=== PATIENT | male | born 1965 | race Caucasian/White ===

== ENCOUNTER 2023-07-19 09:02 | Outpatient (OUT) | payer BC, SELFPAY ==
--- NOTE | 2023-07-19 09:16 | XR_ITS ---
The [address] [address] Patient Name: DAVID GARZA MRN: [id number] date: 1965 Sex: M Assigned Patient Location: RAD Current Patient Location: RAD Accession/Order Number: [id number] Exam Date: 07/19/2023 09:25 Report Date: 07/19/2023 09:49 At the request of: ANIVAL WHEELER Procedure: XR chest 2V EXAM: XR chest 2V HISTORY: Cigarette Nicotine Dependence, Abnormal Lung Sounds COMPARISON: CTA chest dated 11/06/2022 and chest radiograph dated 11/06/2022. TECHNIQUE: PA and lateral views of the chest performed. FINDINGS: The trachea is normal. The heart size is normal. The cardiomediastinal silhouette and hilar shadows are stable and unremarkable. The lung volumes are normal. The lung casper are clear. There is no pneumothorax. Stable mild loss of height of the T7 and T8 vertebral bodies. There is no acute osseous abnormality. XR/XR chest 2V IMPRESSION: There is no acute cardiopulmonary process. Electronically authenticated by: KIN DUNLAP Date: 07/19/2023 09:49
== END 2023-07-19 09:03 | disposition home or self-care (01) ==
LOC: LAB 09:10 → RAD 09:12
PROVIDERS: PCP Internal Medicine; Visit Provider Internal Medicine
DX: R09.89 Other specified symptoms and signs involving the circulatory and respiratory systems (principal); F17.210 Nicotine dependence, cigarettes, uncomplicated
CPT/HCPCS: 71046

== ENCOUNTER 2024-09-06 22:20 | Emergency (ER) | payer BC, SELFPAY ==
[2024-09-06] VITALS (13 sets, daily range): BP systolic 108–162; BP diastolic 71–102; PULSE 99–107; O2SAT 94–98; BMI 36.6
--- NOTE | 2024-09-06 22:23 | ECG_ITS ---
[facility] Test Date: 2024-09-06 Pat Name: DAVID GARZA Department: Room: - Gender: Male It Intern: : 1965 Requested By: ANIVAL WHEELER Order Number: [id number] Reading MD: FUNMILAYO ANDERSON Measurements Intervals [place] Rate: 102 P: 52 AL: 166 QRS: 33 QRSD: 86 T: 52 QT: 328 QTc: 387 Interpretive Statements 1120 Sinus tachycardia 9140 abnormal rhythm ECG Compared to ECG 11/06/2022 09:19:31 Sinus rhythm no longer present Electronically Signed On 09-07-2024 7:01:19 EST by FUNMILAYO ANDERSON
--- OUTSIDE RECORDS SUMMARY | 2024-09-06 22:25 | XMS_ITS | CCD ---
Author Organization [facility] Care Team Providers Care Lens Block Gauger Name Role Phone HOUSE, DR CHAVEZ Primary Care Unavailable SHAIKH Aminta YAO Admitting Unavailable ISMAEL ., DR BUCKLEY Consulting Unavailable SHAIKH Aminta YAO Attending Unavailable PB, DR LAMIN Peña Consulting Unavailable ILIR ., CHAU Consulting Unavailable SHAIKH Aminta YAO Consulting Unavailable ANGELIQUE, DR CHAVEZ Attending Unavailable [place], DR CHAVEZ Consulting Unavailable [place], DR CHAVEZ Primary Care Unavailable [place], DR CHAVEZ Admitting Unavailable Tan Capps MD Primary Care Provider Tan Capps MD Unavailable [phone] SCOTT MERINO Primary Care Physician [phone] TAN CAPPS Attending Unavailable TAN CAPPS Attending Unavailable TAN CAPPS Attending Unavailable TAN CAPPS Attending Unavailable TAN CAPPS Attending Unavailable TAN CAPPS Attending Unavailable EVSNA MONROY Attending Unavailable Ashli Castellanos Referring Unavaila Ashli Jean Admitting Unavaila ble Ashli Castellanos Attending Unavaila ble Ashli Castellanos Attending Unavaila TAN Del Rosario Referring Unavailable Ashli Castellanos Attending Unavaila jeff Allergies Allergy Classification Reported Allergen(s) Allergy Type Date of Onset Reaction(s) Facility (2 sources) No Known Medication Allergies; Translations: [No Known Medication Allergies] Propensity to adverse reactions (disorder) [facility] Repository Medications Current Medications Medication Drug Class(es) Dates Sig (Normalized) Sig (Original) 0.25 MG, 0.5 MG Dose 3 ML semaglutide 0.68 MG/ML Pen Injector [Ozempic] (3 sources) Start: 05-15-2024 inject 0.5 mg by subcutaneous injection every week Ozempic 2 mg/3 mL (0.25 mg or 0.5 mg dose) subcutaneous solution 0.5 mg, SubCutaneous, qWeek, Refills(s) 0, Blood glucose Start Date: 05/15/24 Status: Ordered Start: 05-15-2024 Ozempic 2 mg/3 mL (0.25 mg or 0.5 mg dose) subcutaneous solution 3 mL, 0 Refill(s), INJECT 0.5MG SUBCUTANEOUSLY ONCE A WEEK, Refills(s) 0 Start Date: 05/15/24 Status: Ordered esomeprazole 40 mg delayed release oral capsule (10 sources) Proton Pump Inhibitor Start: 05-04-2024 End: 05-04-2025 take 1 capsule by mouth once daily Nexium 40 mg Cap-EC 40 mg = 1 cap(s), Oral, Daily, # 90 cap(s), Refills(s) 3, Pharmacy: [facility]/pharmacy #[id number], 177.8, cm, 05/18/24 8:14:00 EST, Height/Length Dosing, 109, kg, 05/18/24 8:14:00 EST, Weight Dosing Start Date: 05/18/24 Status: Ordered Fluocinonide (15 sources) Corticosteroid Start: 05-15-2024 fluocinonide Top 0.05% Crm 15 gram Refill(s) 0, 60 gm, 0 Refill(s), APPLY TO AFFECTED AREA TWICE A DAY Start Date: 05/15/24 Status: Ordered Start: 07-30-2023 End: 07-29-2024 fluocinonide (Lidex) 0.05 % cream Indications: Dermatitis Apply topically 2 (two) times a day 60 g 2 07/30/2023 07/29/2024 Active ibuprofen 800 mg oral tablet (3 sources) Nonsteroidal Anti-inflammatory Drug Start: 06-18-2024 End: 06-25-2024 take 1 tablet by mouth every eight hours at mealtime ibuprofen (IBU) 800 MG tablet Indications: Lip swelling Take 1 tablet (800 mg) by mouth every 8 (eight) hours if needed (Swelling) for up to 7 days Take with food 21 tablet 06/18/2024 06/25/2024 Active 24 hr metoprolol succinate 50 mg extended release oral tablet (15 sources) beta-Adrenergic Gato Start: 11-21-2023 take 1 tablet by mouth once daily metoprolol succinate 50 mg ER Tab 50 mg = 1 tab(s), Oral, Daily, Refills(s) 0, High blood pressure Start Date: 05/15/24 Status: Ordered nicotine 4 mg chewing gum (3 sources) Cholinergic Nicotinic Agonist Start: 11-25-2023 End: 02-26-2024 nicotine polacrilex (Nicorette) 4 MG gum Indications: Cigarette nicotine dependence without complication Chew 1 each (4 mg) if needed for smoking cessation 100 each 3 11/25/2023 02/26/2024 Discontinued ondansetron 4 mg oral tablet (4 sources) Serotonin-3 Receptor Antagonist Start: 05-15-2024 take 1 tablet by mouth every eight hours as needed for nausea ondansetron 4 mg Tab 4 mg = 1 tab(s), Oral, q8hr, PRN Nausea, Refills(s) 0 Start Date: 05/15/24 Status: Ordered Start: 05-15-2024 ondansetron 4 mg Tab 21 EA, 0 Refill(s), TAKE 1 TABLET BY MOUTH EVERY 8 HOURS NEEDED FOR NAUSEA OR FOR VOMITING FOR UP TO 7 DAYS, Refills(s) 0 Start Date: 05/15/24 Status: Ordered Start: 04-23-2024 End: 04-30-2024 take 1 tablet by mouth every eight hours for nausea ondansetron (Zofran) 4 MG tablet Indications: Nausea and vomiting, unspecified vomiting type Take 1 tablet (4 mg) by mouth every 8 (eight) hours if needed for nausea or vomiting for up to 7 days 21 tablet 04/23/2024 04/30/2024 Active polyethylene glycol 3350 610043 mg / potassium chloride 1480 mg / sodium bicarbonate 5720 mg / sodium chloride 49513 mg powder for oral solution (1 source) Osmotic Laxative Start: 05-18-2024 take 1 dose by mouth once daily NuLYTELY Fallon oral powder for reconstitution See Instructions, 1 EA, Refill(s) 0, 240 mL Oral Daily, [facility]/pharmacy #[id number], 177.8, cm, 05/18/24 8:14:00 EST, Height/Length Dosing, 109, kg, 05/18/24 8:14:00 EST, Weight Dosing Start Date: 05/18/24 Status: Ordered Semaglutide,0.25 or 0.5MG/DOS, (Ozempic, 0.25 or 0.5 MG/DOSE,) 2 MG/3ML solution pen-injector (12 sources) Start: 05-11-2024 Semaglutide,0. 25 or 0.5MG/DOS, (Ozempic, 0.25 or 0.5 MG/DOSE,) 2 MG/3ML solution pen-injector Indications: Type 2 diabetes mellitus without complication, without long-term current use of insulin (CMS/HCC) INJECT 0.5 MG UNDER THE SKIN 1 (ONE) TIME PER WEEK 9 mL 3 05/11/2024 Active Start: 01-28-2024 Semaglutide,0. 25 or 0.5MG/DOS, (Ozempic, 0.25 or 0.5 MG/DOSE,) 2 MG/3ML solution pen-injector Indications: Type 2 diabetes mellitus without complication, without long-term current use of insulin (CMS/HCC) INJECT 0.5 MG UNDER THE SKIN 1 (ONE) TIME PER WEEK 3 mL 3 01/28/2024 Active Completed/Discontinued Medications Medication Drug Class(es) Dates Sig (Normalized) Sig (Original) amitriptyline hydrochloride 50 mg oral tablet (15 sources) Tricyclic Antidepressant Start: 05-15-2024 amitriptyline 50 mg Tab 50 mg = 1 tab(s), Oral, Once a day (at bedtime), 180 EA, 0 Refill(s), TAKE 2 TABLETS BY MOUTH EVERY DAY AT BEDTIME, Refills(s) 0, Headache Start Date: 05/15/24 Status: Ordered take 2 tablets by mouth at bedti nc amitriptyline (Elavil) 50 MG tablet Take 100 mg by mouth at bedtime Active Problems Active Problems Problem Classification Problem Date Documented Date Episodic/Chronic Abdominal pain (13 sources) Epigastric pain; Translations: [Epigastric pain] Onset: 05-15-2024 05-04-2024 Episodic Acute bronchitis (1 source) Acute bronchitis, unspecified; Translations: [ACUTE BRONCHITIS UNSPECIFIED] Onset: 11-14-2022 Episodic Cardiac dysrhythmias (1 source) Tachycardia, unspecified; Translations: [TACHYCARDIA UNSPECIFIED] Onset: 11-14-2022 Episodic Cataract (9 sources) Bilateral age-related nuclear cataracts; Translations: [Age-related nuclear cataract, bilateral] Onset: 03-17-2024 03-17-2024 Chronic Chronic obstructive pulmonary disease and bronchiectasis (10 sources) Chronic obstructive pulmonary disease with (acute) exacerbation; Translations: [Chronic obstructive pulmonary disease with (acute) lower respiratory infection] Onset: 11-06-2022 Chronic Diabetes mellitus without complication (16 sources) Type 2 diabetes mellitus without complication; Translations: [Type 2 diabetes mellitus without complications] Onset: 07-25-2023 07-25-2023 Chronic Diseases of white blood cells (1 source) Elevated white blood cell count, unspecified; Translations: [ELEVATED WHITE BLOOD CELL COUNT UNS] Onset: 11-14-2022 Chronic Diverticulosis and diverticulitis (14 sources) Diverticulitis of colon; Translations: [Diverticulitis of large intestine without perforation or abscess without bleeding] Onset: 12-11-2012 07-11-2023 Chronic Esophageal disorders (2 sources) Gastroesophageal reflux disease without esophagitis; Translations: [Gastro-esophageal reflux disease without esophagitis] Onset: 05-18-2024 Chronic Essential hypertension (20 sources) Essential (primary) hypertension; Translations: [Essential hypertension] Onset: 11-14-2022 10-23-2023 Chronic Miscellaneous mental health disorders (12 sources) Primary insomnia; Translations: [Primary insomnia] Onset: 07-11-2023 07-11-2023 Chronic Nausea and vomiting (1 source) Nausea and vomiting; Translations: [Nausea with vomiting, unspecified] 04-23-2024 Episodic Other aftercare (1 source) Other halfway (current) drug therapy; Translations: [OTH SERVICE ENGINEER CURRENT DRUG THERAPY] Onset: 11-14-2022 Episodic Other and unspecified benign neoplasm (2 sources) Polyp of colon; Translations: [Polyp of colon] Onset: 07-15-2024 Episodic Other liver diseases (2 sources) Steatosis of liver; Translations: [Fatty (change of) liver, not elsewhere classified] Onset: 07-20-2024 Chronic Other nervous system disorders (1 source) Chronic pain; Translations: [Other chronic pain] Onset: 06-26-2024 Chronic Other nutritional; endocrine; and metabolic disorders (5 sources) Obesity caused by energy imbalance; Translations: [Class 1 obesity due to excess calories with serious comorbidity and body mass index (BMI) of 34.0 to 34.9 in adult] Onset: 06-18-2024 06-18-2024 Chronic Other skin disorders (2 sources) Lip swelling; Translations: [Localized swelling, mass and lump, head] 06-18-2024 Episodic Residual codes; unclassified (2 sources) Acquired absence of organ; Translations: [Acquired absence of other specified parts of digestive tract] Onset: 05-15-2024 Episodic Residual codes; unclassified (6 sources) History of partial resection of colon; Translations: [Acquired absence of other specified parts of digestive tract] Onset: 06-18-2024 05-15-2024 Episodic Residual codes; unclassified (8 sources) Tobacco user; Translations: [Tobacco use] Onset: 06-18-2024 05-18-2024 Episodic Residual codes; unclassified (1 source) Family history of malignant neoplasm of digestive organ; Translations: [Family history of malignant neoplasm of digestive organs] Onset: 06-26-2024 Episodic Respiratory failure; insufficiency; arrest (adult) (1 source) Dependence on supplemental oxygen; Translations: [DEPENDENCE ON SUPPLEMENTAL OXYGEN] Onset: 11-14-2022 Chronic Respiratory failure; insufficiency; arrest (adult) (1 source) Acute respiratory failure with hypoxia; Translations: [ACUTE RESPIRATORY FAIL W/HYPOXIA] Onset: 11-14-2022 Episodic Superficial injury; contusion (3 sources) Tick bite; Translations: [Insect bite (nonvenomous), unspecified lower leg, initial encounter] 06-18-2024 Episodic Unclassified (5 sources) Patient encounter status 05-04-2024 Past or Other Problems Problem Classification Problem Date Documented Da te Episodic/Chronic Blindness and vision defects (9 sources) Bilateral myopia of eyes; Translations: [Myopia, bilateral] Onset: 03-17-2024 03-17-2024 Episodic Other connective tissue disease (12 sources) Muscle pain; Translations: [Myalgia, unspecified site] Onset: 11-05-2023 11-05-2023 Episodic Other gastrointestinal disorders (12 sources) Chronic constipation; Translations: [Other constipation] Onset: 07-11-2023 07-11-2023 Episodic Other nutritional; endocrine; and metabolic disorders (12 sources) Drug-induced obesity; Translations: [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 36.9 in adult] Onset: 10-23-2023 Resolved: 06-18-2024 10-23-2023 Chronic Other screening for suspected conditions (not mental disorders or infectious disease) (6 sources) Patient encounter status; Translations: [Encounter for screening for malignant neoplasm of colon] Onset: 05-15-2024 Resolved: 06-18-2024 05-04-2024 Episodic Substance-related disorders (15 sources) Nicotine dependence, cigarettes, uncomplicated; Translations: [Tobacco dependence caused by cigarettes] Onset: 11-14-2022 Resolved: 06-18-2024 07-11-2023 Chronic Results Test Name Value Interpretation Reference Range Facility Reminderson 08-18-2024 Reminders Reminders From: Kandice Alfaro To: Nicki Mendoza Michelle L; Sent: 08/18/2024 14:35:22 EST Show up: 10/16/2024 15:35:00 EDT Subject: Ambulatory Reminder Due Date/Time: 11/15/2024 15:35:00 EDT Reminder Please call the patient and to schedule colonoscopy in November for 6 months follow-up colonoscopy with Dr Castellanos. Normal [facility] Ambulatory Visit Summaryon 0 07-20-2024 Ambulatory Visit Summary Ambulatory Visit Summary DAVID RAMIREZ :1965 Visit Date:07/20/2024 Ambulatory Visit Instructions Your Diagnosis Colon polyps Left sided abdominal pain History of partial colectomy Pardo esophagus Fatty liver Your Care Team Attending Physician - Jasmin KINSEY, Ashli Hinojosa Primary Care Physician - SCOTT MERINO DO This Is Your Medications List Contact prescribing physician if questions or concerns amitriptyline (amitriptyline 50 mg Tab) esomeprazole (Nexium 40 mg Cap-EC) fluocinonide topical (fluocinonide Top 0.05% Crm 15 gram) metoprolol (metoprolol succinate 50 mg ER Tab) ondansetron (ondansetron 4 mg Tab) semaglutide (Ozempic 2 mg/3 mL (0.25 mg or 0.5 mg dose) subcutaneous solution) Procedures Performed Colonoscopy (06/26/2024), EGD - esophagogastroduodenoscopy (06/26/2024), Colonoscopy, Partial colectomy. Discharge Vitals Heart Rate (Peripheral) 89 Blood Pressure 138/88 Height 70 in Height 177 cm Weight 240.745 lb Weight 109.2 kg BMI 34.86 Medications What How Much When Instructions Unchanged amitriptyline (amitriptyline 50 mg Tab) 1 Tablets By Mouth Once a day (at bedtime) 180 EA, 0 Refill(s), TAKE 2 TABLETS BY MOUTH EVERY DAY AT BEDTIME Contact prescribing physician if questions or concerns Unchanged esomeprazole (Nexium 40 mg Cap-EC) 1 Capsules By Mouth Every day Contact prescribing physician if questions or concerns Unchanged fluocinonide topical (fluocinonide Top 0.05% Crm 15 gram) 60 gm, 0 Refill(s), APPLY TO AFFECTED AREA TWICE A DAY Contact prescribing physician if questions or concerns Unchanged metoprolol (metoprolol succinate 50 mg ER Tab) 1 Tablets By Mouth Every day Contact prescribing physician if questions or concerns Unchanged ondansetron (ondansetron 4 mg Tab) 1 Tablets By Mouth Every 8 hours as needed for Nausea Contact prescribing physician if questions or concerns Unchanged semaglutide (Ozempic 2 mg/ 3 mL (0.25 mg or 0.5 mg dose) subcutaneous solution) 0.5 Milligram Subcutaneous Every week Contact prescribing physician if questions or concerns Allergies No Known Allergies No Known Medication Allergies Problems Ongoing - Any problem that you are currently receiving treatment for. Chronic obstructive pulmonary disease Colon polyps Fatty liver History of partial colectomy Hypertension Left sided abdominal pain Screen for colon cancer Patient Survey You may receive a survey via text or e-mail asking about your office visit. Please share your experience with us by completing your survey. We appreciate your feedback and thank you for choosing us for your care. [facility] Gastroenterology Office/Clin ic Noteon 07-20-2024 Gastroenterology Office/Clinic Note Gastroenterology Office/Clinic Note Chief Complaint Review Fibroscan, EGD and colonoscopy results. HPI Staff Patient is a(n) 59 year old male who presents today for a follow-up to Fibroscan, EGD & Colonoscopy on 06/26/24. Need to schedule repeat colon in 6 months. Any blood thinners? no Any GLP-1 agonists? Ozempic Last visit 05/18/24 w/Dr. Castellanos: Assessment/Plan 1. Left sided abdominal pain (R10.9: Unspecified abdominal pain) Postprandial, started Nexium recently, helped some, proceed with EGD, avoid NSAIDs, encouraged to quit smoking 2. Screen for colon cancer (Z12.11: Encounter for screening for malignant neoplasm of colon) Strong family history for colon cancer in brother and mother, will proceed with colonoscopy for surveillance, has constipation, discussed 2-day prep with MiraLAX and Nulytely 3. History of partial colectomy (Z90.49: Acquired absence of other specified parts of digestive tract) Due to diverticulitis 2012, records not available History of Present Illness Reviewed HPI collected by staff Review of Systems PHQ Score Initial Depression Screen Score: 0 SCORE All systems reviewed, negative; Except for above Physical Exam Vitals & Measurements HR: 89(Peripheral) BP: 138/88 HT: 70 in HT: 177 cm WT: 109.2 kg WT: 240.745 lb BMI: 34.86 General: in Nad Abdomen: Soft, NTND Procedure EGD: Impression and Plan 1. Esophageal landmarks identified, small hiatal hernia noted. Nonobstructive Schatzki ring in the distal esophagus, very mild, no dilation done given no dysphagia 2. 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 Minimal patchy erythema in the stomach, random biopsies were taken to rule out H. pylori 4. Normal examined duodenum Colonoscopy: Impression and Plan 1. Small internal hemorrhoids 2. 2 cm sessile polyp in the rectum at 50 cm from the anal verge, resected using EMR technique, injected 5 ml of Everlift and resected using hot snare in a piecemeal fashion. I also burned the edges to decrease the risk of recurrence. 2 clips were placed to prevent delayed bleeding 3. Evidence of evidence of surgery in the sigmoid colon status post end-to-side anastomosis, healthy looking widely open 4. 2 small sessile polyps in the transverse colon, 3-5 mm in size, resected with cold snare completely and retrieved 5. Otherwise normal colonic mucosa Recommendations: Repeat colonoscopy:: In 6 months. Pathology: Final Diagnosis ( Auth (Verified) ) A: ESOPHAGUS, BIOPSY: ??? COLUMNAR CELL MUCOSA WITH INTESTINAL METAPLASIA. ??? NO DYSPLASIA IDENTIFIED. B: STOMACH, BIOPSY: ??? GASTRIC MUCOSA WITH MILD CHRONIC INFLAMMATION IN LAMINA PROPRIA. ??? NO INTESTINAL METAPLASIA. ??? NO H. PYLORI MICROORGANISMS IDENTIFIED WITH IMMUNOSTAIN. C: POLYPS, TRANSVERSE COLON, POLYPECTOMY: ??? TUBULAR ADENOMA. ??? HYPERPLASTIC POLYP. D: POLYP, RECTUM, POLYPECTOMY: ??? TUBULOVILLOUS ADENOMA. Assessment/Plan 1. Colon polyps (K63.5: Polyp of colon) Had TV removed in piecemeal fashion. Repeat colonoscopy in 6 months. Strong Fhx. 2. Left sided abdominal pain (R10.9: Unspecified abdominal pain) 3. History of partial colectomy (Z90.49: Acquired absence of other specified parts of digestive tract) Due to diverticulitis 2012. 4. 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 Continue with Nexium. 5. Fatty liver (K76.0: Fatty (change of) liver, not elsewhere classified) S3 F0/F1 Repeat Fibroscan in 1 year IMallorie, personally scribed for Ashli Castellanos on 07/20/2024 08:34:27. . Documentation recorded by Mary Paul, accurately reflects the services I performed and decisions made by me. Ashli Castellanos MD Follow-up No qualifying data available Problem List/Past Medical History Ongoing Chronic obstructive pulmonary disease Colon polyps Fatty liver History of partial colectomy Hypertension Left sided abdominal pain Screen for colon cancer Historical No qualifying data Procedure/Surgical History Colonoscopy (06/26/2024), EGD - esophagogastroduodenoscopy (06/26/2024), Colonoscopy, Partial colectomy. Medications amitriptyline 50 mg Tab, 50 mg= 1 tab(s), Oral, Once a day (at bedtime) fluocinonide Top 0.05% Crm 15 gram, Not taking metoprolol succinate 50 mg ER Tab, 50 mg= 1 tab(s), Oral, Daily Nexium 40 mg Cap-EC, 40 mg= 1 cap(s), Oral, Daily, 3 refills ondansetron 4 mg Tab, 4 mg= 1 tab(s), Oral, q8hr, PRN, Not taking Ozempic 2 mg/3 mL (0.25 mg or 0.5 mg dose) subcutaneous solution, 0.5 mg, SubCutaneous, qWeek Allergies No Known Allergies No Known Medication Allergies Social History Alcohol Past. Liquor. 3-5 times per week., 05/18/2024 Substance Abuse Never., 05/18/2024 Tobacco 10 or more cigarettes (1/2 pack or more)/day in last 30 days (more content not included)... [facility] Comment on above: Result Comment: Elec tronically Signed By: Ashli Castellanos MD\.br\Date and Time Signed: 07/20/24 08:37 EST\.br\Electronically Co-Signed By: Mallorie Paul MA\.br\Date and Time Co-Signed: 07/20/24 08:36 EST Reminderson 07-20-2024 Reminders Reminders From: Jennifer Salazar To: [facility] - Reminders/Recalls; Sent: 07/20/2024 10:48:47 EST Show up: 05/08/2029 10:48:00 EDT Subject: Ambulatory Reminder Due Date/Time: 06/07/2029 10:48:00 EST Reminder/Recall Addendum by Jennifer Salazar on July 20, 2024 10:47:44 EST 06/26/2029 From: Ashli Castellanos MD To: Jennifer Salazar; Sent: 07/20/2024 08:34:22 EST Subject: General Message Caller Name: DAVID RAMIREZ; Caller Number: , M Repeat EGD in 5 years [facility] Reminderson 07-15-2024 Reminders Reminders From: Oksana Barr I To: [facility] - Reminders/Recalls; Sent: 07/15/2024 09:49:56 EST Show up: 11/05/2024 09:49:00 EDT Subject: Colonoscopy recall Due Date/Time: 12/25/2024 09:49:00 EDT Reminder/Recall [address] Castellanos 06/26/24 Normal [facility] Surgical Pathology Reporton 07-03-2024 Surgical Pathology Report [facility] [address] [place] [address]- Surgical Pathology Report Collected Date/Time: 06/26/2024 09:59 EST Pathologist: Bala KINSEY PhD, Anthony Carpenter Date/Time: 06/26/2024 11:29 EST Jasmin KINSEY, Ashli Castellanos MD, Ashli Salinas Surgical Pathology Report - 07/03/2024 11:22 EST - Auth (Verified) Final Diagnosis A: ESOPHAGUS, BIOPSY: - COLUMNAR CELL MUCOSA WITH INTESTINAL METAPLASIA. - NO DYSPLASIA IDENTIFIED. B: STOMACH, BIOPSY: - GASTRIC MUCOSA WITH MILD CHRONIC INFLAMMATION IN LAMINA PROPRIA. - NO INTESTINAL METAPLASIA. - NO H. PYLORI MICROORGANISMS IDENTIFIED WITH IMMUNOSTAIN. C: POLYPS, TRANSVERSE COLON, POLYPECTOMY: - TUBULAR ADENOMA. - HYPERPLASTIC POLYP. D: POLYP, RECTUM, POLYPECTOMY: - TUBULOVILLOUS ADENOMA. (Electronic Signature) Anthony Mckenna MD PhD 07/03/2024 11:22 Clinical Information Left sided abdominal pain, chronic GERD, screening for colon cancer, history of partial colectomy. Pre-Op Diagnosis: Left sided abdominal pain, chronic GERD, screening for colon cancer, history of partial colectomy. Procedure: EGD, colonoscopy Post-Op Diagnosis: 1. Esophageal landmarks identified, small hiatal hernia noted. Nonobstructive Schatzki ring in the distal esophagus, very mild, no dilation done given no dysphagia 2. 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 Minimal patchy erythema in the stomach, random biopsies were taken to rule out H. pylori 4. Normal examined duodenum 5. Small internal hemorrhoids 6. 2 cm sessile polyp in the rectum at 50 cm from the anal verge, resected using EMR technique, injected 5 ml of Everlift and resected using hot snare in a piecemeal fashion. I also burned the edges to decrease the risk of recurrence. 2 clips were placed to prevent delayed bleeding 7. Evidence of evidence of surgery in the sigmoid colon status post end-to-side anastomosis, healthy looking widely open 8. 2 small sessile polyps in the transverse colon, 3-5 mm in size, resected with cold snare completely and retrieved 9. Otherwise normal colonic mucosa Specimen(s) Received A.Esophagus biopsy B.Gastric biopsy C.Transverse colon polyps D.Rectal colon polyp Surgical Pathology Report Collected Date/Time: 06/26/2024 09:59 EST Pathologist: Bala KINSEY PhD, Anthony Pro Received Date/Time: 06/26/2024 11:29 EST Jasmin KINSEY, Ashli Castellanos MD, Ashli Hinojosa Gross Description A: Received in formalin labeled with patient name, number, and esophagus biopsy is a single fragment of galindo/pink tissue measuring 0.2 x 0.2 x 0.1 cm. Specimen is entirely submitted in one cassette. B: Received in formalin labeled with patient name, number, and gastric biopsy is a single fragment of galindo/pink tissue measuring 0.3 x 0.2 x 0.1 cm. Specimen is entirely submitted in one cassette. C: Received in formalin labeled with patient name, number, and transverse colon polyps are two fragments of galindo/pink tissue measuring 0.1 and 0.3 cm. Specimen is entirely submitted in one cassette. D: Received in formalin labeled with patient name, number, and rectal colon polyp is a pink polypoid tissue measuring 1 x 1 x 1 cm. The apparent point of attachment is inked red. The polyp is trisected and entirely submitted in one cassette. (DC) DC:[facility] Microscopic Description Microscopic examination performed unless gross only specified. The use of one or more reagents in the above tests is regulated as an analyte specific reagent (ASR). The test or tests are ordered following initial H&E microscopic examination. The performance characteristics were determined by the Laboratory of [facility] Surgical Pathology. They have not been cleared or approved by the US Food and Drug Administration. The FDA has determined that such clearance or approval is not necessary. These tests are used for clinical purposes. They should not be regarded as investigational or for research. Appropriate positive and negative controls are performed and are acceptable. [facility] Comment on above: Performed By: #### [id number] #### [facility] [address] [place] [address] Main OR Intraoperative Recor don 06-29-2024 Main OR Intraoperative Record Main OR Intraoperative Record IntraOp Document Type FT Summary Primary Physician: Ashli Castellanos MD Finalized Date/Time: 06/29/24 10:36:59 Pt. Name: DAVID RAMIREZ/Sex: 1965 Male Med Rec #: [id number] Physician: Ashli Castellanos MD Financial #: [id number] Pt. Type: O Room/Bed: / Admit/Disch: 06/26/24 07:45:11 - 06/26/24 23:59:59 Institution: Case Times FT Entry 1 Patient Times In Room 06/26/24 09:50:00 Out Room 06/26/24 10:32:00 Procedure Times Start 06/26/24 09:55:00 Stop 06/26/24 10:29:00 Anesthesia Times Start 06/26/24 09:50:00 Stop 06/26/24 10:32:00 Time at [place] 06/26/24 10:09:00 Last Modified By: Cade COTTRELL, Shraon Witt 06/26/24 10:30:53 General Comments: EGD end time at 1001./CONNIERN Colonoscopy start time at 1003./CONNIERN 06/29/24 Chart opened to review and send charges [facility]FA Case Attendance FT Entry 1 Entry 2 Entry 3 Case Attendee Phillip Platt RN, Shelia Suarez Role Performed Anesthesiologist Teasel Gig Operator - Primary Scrub - Primary Passenger Flagman Time In 06/26/24 09:50:00 06/26/24 09:50:00 06/26/24 09:50:00 Time Out 06/26/24 10:32:00 06/26/24 10:32:00 06/26/24 10:32:00 Procedure EGD AND COLONOSCOPY(.) EGD AND COLONOSCOPY(.) EGD AND COLONOSCOPY(.) Comments Dr. Soria is supervising Last Modified By: Cade COTTRELL, Sharon Mohamud RN, Sharon Mohamud RN, Sharon Witt 06/26/24 10:30:54 06/26/24 10:30:54 06/26/24 10:30:54 Entry 4 Entry 5 Case Attendee Barry JOY, Regi Castellanos MD, Ashli Hinojosa Role Performed Staff - Other Surgeon - Primary Time In 06/26/24 09:50:00 06/26/24 09:50:00 Time Out 06/26/24 10:32:00 06/26/24 10:32:00 Procedure EGD AND COLONOSCOPY(.) EGD AND COLONOSCOPY(.) Comments Last Modified By: Sharon Mohamud RN, RN, Kristin N 06/26/24 10:30:54 06/26/24 10:30:54 Perioperative Protocols FT Pre-Care Text: Implements protective measures prior to operative or invasive procedure, confirms identity before the operative or invasive procedure, verifies operative procedure, surgical site, and laterality Entry 1 Procedure(s) EGD AND COLONOSCOPY(.) Patient Identity Birthday, ID Band Verified (select at Check, Patient least 2): Participation Consents / H and P Anesthesia Consent, Operative Site N/A Verified H&P, Surgery/Procedure Marking Verified Consent Surgical Site No Laterality Verified n/a Verified Procedure Verified Yes Correct Patient Yes Position Verified Availability Equipment, Medication Prep Dry n/a Verified (If Applicable) PreOp Antibiotic No Time Out Phillip Platt Given Participants Cade Foreman RN, Kristin N, Shelia Ibarra Schafer CST, Jasmin Henson MD, Ashli Hinojosa Time Out Complete 06/26/24 09:52:00 Outcomes Met? Yes Last Modified By: Sharon Mohamud RN 06/26/24 09:52:56 Post-Care Text: The patient is free from signs and symptoms of injury caused by extraneous objects Allergy Information FT Pre-Care Text: Verifies allergies Entry 1 Allergies Reviewed? Yes Allergies Reviewed Self/Patient With Outcomes Met? Yes Last Modified By: Sharon Mohamud RN 06/26/24 09:53:02 Post-Care Text: The patient received appropriate medication(s) safely administered during the perioperative period Surgical Procedures FT Entry 1 Procedure Description Procedure EGD AND COLONOSCOPY Modifiers . Surgeon Description EGD with gastric biopsy. Colonoscopy with transverse colon polypectomies x2, lifted rectal colon polyp with everlift and removed with hot snare and placed x2 hemmoclips. Primary Procedure Yes Primary Surgeon Ashli Castellanos MD Start 06/26/24 09:55:00 Stop 06/26/24 10:29:00 Anesthesia Type General Surgical Service Gastroenterology Wound Class 2 - Clean-Contaminated Last Modified By: Sharon Mohamud RN 06/26/24 10:29:48 General Case Data FT Pre-Care Text: Classifies surgical wound, implements aseptic technique, initiates traffic control Entry 1 Case Information OR ENDO 1 FT Case Level Level 2 Wound Class 2 - Clean-Contaminated Specialty Gastroenterology ASA Class 3 Preop Diagnosis Left sided abdominal Postop Same As Preop No pain, chronic GERD, screening for colon cancer, history of partial colectomy. Postop Diagnosis EGD- Pardo's Outcomes Met? Yes esophagus, LA grade A esophagitis, Schatzki's ring. Colonoscopy- sigmoid anatamosis, transverse polyp, rectal polyp. Last Modified By: Sharon Mohamud RN 06/26/24 10:22:04 Post-Care Text: The patient is free from signs and symptoms of infection Skin Assessment (Pre Procedure) FT Pre-Care Text: Implements protective measures to prevent skin/ tissue injury due to thermal or mechanical sources Evaluates for signs and symptoms of physical injury to skin and tissue Entry 1 Skin Integrity Intact, Evaro, Warm, & Skin Abnormality No Dry Outcomes Met? Y (more content not included)... Normal [facility] Discharge Instructionson Discharge Instructions Discharge Instructions DAVID RAMIREZ :1965 Visit Date:06/26/2024 Inpatient Discharge Instructions Your Care Team Admitting Physician - Ashli Castellanos MD Referring Physician - Ashli Castellanos MD Reason for Your Visit LEFT SIDED ABDOMINAL PAIN, CHRONIC GERD, SCREEN FOR COLON CANCER, HX OF PARTIAL COLECTOMY Your Diagnosis Chronic LUQ pain Family history of colon cancer Other chronic pain Tests Performed Pathology Tissue Exam -- Results Pending -- Please visit your patient portal for your results or contact your primary care physician. This Is Your Medications List amitriptyline (amitriptyline 50 mg Tab) esomeprazole (Nexium 40 mg Cap-EC) fluocinonide topical (fluocinonide Top 0.05% Crm 15 gram) metoprolol (metoprolol succinate 50 mg ER Tab) ondansetron (ondansetron 4 mg Tab) semaglutide (Ozempic 2 mg/3 mL (0.25 mg or 0.5 mg dose) subcutaneous solution) Procedure History Colonoscopy (06/26/2024), EGD - esophagogastroduodenoscopy (06/26/2024), Colonoscopy, Partial colectomy. Discharge Vitals Temperature (Temporal Artery) 36.5 ???C Heart Rate (Monitored) 90 Respiratory Rate 12 Blood Pressure 105/75 Height 177.8 cm Weight 109 kg BMI 34.48 What to do next Instructions From Your Doctor Event Name Event Result Discharge Activity Resume normal activities in 24 hours Discharge Restrictions No driving for 24 hrs Discharge Diet(s) Regular Call Your Doctor For Persistent or heavy bleeding Discharge Instructions Discharge Instructions Previously Scheduled Follow-Up Appointments Saturday 8:30 AM EST Where: [facility] New Follow Up Appointments after Discharge Follow Up with Jasmin KINSEY, SAMMY [place], [facility] When: Comments: Office will call to schedule follow up appointment and/or review any pending biopsy results Call for any problems. Where: [address] [place], [place] [address]tim[place], [address] [address]- [phone] Medications What How Much When Instructions Next Dose Unchanged amitriptyline (amitriptyline 50 mg Tab) 1 Tablets By Mouth Once a day (at bedtime) 180 EA, 0 Refill(s), TAKE 2 TABLETS BY MOUTH EVERY DAY AT BEDTIME Unchanged esomeprazole (Nexium 40 mg Cap-EC) 1 Capsules By Mouth Every day Unchanged fluocinonide topical (fluocinonide Top 0.05% Crm 15 gram) 60 gm, 0 Refill(s), APPLY TO AFFECTED AREA TWICE A DAY Unchanged metoprolol (metoprolol succinate 50 mg ER Tab) 1 Tablets By Mouth Every day Unchanged ondansetron (ondansetron 4 mg Tab) 1 Tablets By Mouth Every 8 hours as needed for Nausea Unchanged semaglutide (Ozempic 2 mg/ 3 mL (0.25 mg or 0.5 mg dose) subcutaneous solution) 0.5 Milligram Subcutaneous Every week Allergies No Known Allergies No Known Medication Allergies Problems Ongoing - Any problem that you are currently receiving treatment for. Chronic obstructive pulmonary disease History of partial colectomy Hypertension Left sided abdominal pain Screen for colon cancer Devices Implanted/Removed This Visit Notice: You have devices implanted this visit that may not be MRI compatible. Implanted Undefined Procedure Body Site Undefined CAUTERY ERBE UNIT 06/26/2024 Education Materials Colonoscopy Care After Surgery Please read the instructions outlined below and refer to this sheet in the next few weeks. These discharge instructions provide you with general information on caring for yourself after you leave the hospital. Your doctor may also give you specific instructions. While your treatment has been planned according to the most current medical practices available, unavoidable complications occasionally occur. If you have any problems or questions after discharge, please call your doctor. ACTIVITY You may resume your regular activity, but move at a slower pace for the next 24 hours. Take frequent rest periods for the next 24 hours. Walking will help get rid of the air and reduce the bloated feeling in your abdomen (belly). No driving for 24 hours (because of the anesthesia (medicine) used during the test). You may shower. Do not sign any important legal documents or operate any machinery for 24 hours (because of the anesthesia used during the test). NUTRITION Drink plenty of fluids. You may resume your normal diet as instructed by your doctor. Begin with a light meal and progress to your normal diet. Heavy or fried foods are harder to digest and may make you feel nauseated (sick to your stomach). Avoid alcoholic beverages for 24 hours or as instructed. MEDICATIONS You may resume your normal medications unless your doctor tells you otherwise. WHAT YOU CAN EXPECT TODAY Some feelings of bloating in the abdomen. Passage of more gas than usual. Spotting of blood in your stool or on the toilet paper. FOLLOW-UP Your doctor will discuss the results of your test with you. SEEK (more content not included)... [facility] Comment on above: Result Comment: Elec tronically Signed By: Alejandra Cohen RN\.daniella\Date and Time Signed: 06/26/24 11:08 EST Inpatient Patient Summaryon 06-26-2024 Inpatient Patient Summary Inpatient Patient Summary [place] [id number] [facility] Clinical Discharge Instructions PERSON INFORMATION Name: DAVID RAMIREZ PHYSICIANS Admitting Physician: Ashli Castellanos MD Attending Physician: Ashli Castellanos MD PCP: SCOTT MERINO DO Discharge Diagnosis: Chronic LUQ pain; Family history of colon cancer; Other chronic pain Comment: PATIENT EDUCATION INFORMATION Instructions: Medication Leaflets: Follow up: Type Location Start Finish State Surgery [facility] 06/26/2024 8:30 AM 06/26/2024 8:50 AM Confirmed MEDICATION LIST Medications to Continue with No Changes Other Medications amitriptyline (amitriptyline 50 mg Tab) 1 Tablets By Mouth once a day (at bedtime). 180 EA, 0 Refill(s), TAKE 2 TABLETS BY MOUTH EVERY DAY AT BEDTIME., Responsible Provider: SCOTT MERINO esomeprazole (Nexium 40 mg Cap-EC) 1 Capsules By Mouth every day. Refills: 3. fluocinonide topical (fluocinonide Top 0.05% Crm 15 gram) 60 gm, 0 Refill(s), APPLY TO AFFECTED AREA TWICE A DAY., Responsible Provider: TAN CAPPS metoprolol (metoprolol succinate 50 mg ER Tab) 1 Tablets By Mouth every day., Responsible Provider: TAN CAPPS ondansetron (ondansetron 4 mg Tab) 1 Tablets By Mouth every 8 hours as needed Nausea., Responsible Provider: CASSI SANTIAGO semaglutide (Ozempic 2 mg/3 mL (0.25 mg or 0.5 mg dose) subcutaneous solution) 0.5 Milligram Subcutaneous every week., Responsible Provider: TAN CAPPS Comment: [facility] Main OR PACU I Recordon 06-08 Main OR PACU I Record Main OR PACU I Record PACU Phase I Document Type FT Summary Primary Physician: Ashli Castellanos MD Finalized Date/Time: 06/26/24 11:28:41 Pt. Name: DAVID RAMIREZ /Sex: 1965 Male Med Rec #: [id number] Physician: Ashli Castellanos MD Financial #: [id number] Pt. Type: O Room/Bed: / Admit/Disch: 06/26/24 07:45:11 - Institution: Case Times PACU I FT Pre-Care Text: Identifies barriers to communication and implements measures to provide psychological support Develops individualized plan of care, and ensures continuity of care Maintains patient's dignity and privacy, and maintains patient confidentiality Identifies and reports philosophical, cultural, and spiritual beliefs and values Identifies individual values and wishes concerning care Implements aseptic technique, and administers prescribed antibiotic therapy and immunizing agents as ordered Evaluates postoperative tissue perfusion Implements thermoregulation measures, and monitors body temperature Evaluates postoperative respiratory status Evaluates postoperative cardiac status Evaluates postoperative neurological status Assesses pain control, collaborated in initiating patient-controlled analgesia and implements alternative methods of pain control Verifies allergies, administers prescribed medications and solutions, evaluates response to medications Entry 1 In PACU I 06/26/24 10:34:00 Discharge from PACU 06/26/24 11:05:00 I Outcomes Met? Yes Last Modified By: Alejandra Cohen RN 06/26/24 11:28:22 Post-Care Text: The patient demonstrates knowledge of the expected response to the operative or invasive procedure The patient's care is consistent with the individualized perioperative plan of care The patient's right to privacy is maintained The patient's value system, lifestyle, ethnicity, and culture are considered, respected, and incorporated into the perioperative plan of care The patient participates in decisions affecting his or her perioperative plan of care The patient is free from signs and symptoms of infection The patient has wound/tissue perfusion consistent with or improved from baseline levels established preoperatively The patient is at or returning to normothermia at the conclusion of the immediate postoperative period The patient's respiratory function is consistent with or improved from baseline levels established preoperatively The patient's cardiovascular status is consistent with or improved from baseline levels established preoperatively The patient's cardiovascular status is consistent with or improved from baseline levels established preoperatively The patient demonstrates and/or reports adequate pain control throughout the perioperative period The patient received appropriate medication(s), safely administered during the perioperative period Acuity Level PACU I FT Entry 1 Start Time 06/26/24 10:34:00 Stop Time 06/26/24 11:05:00 Acuity Level Acuity Level I Last Modified By: Alejandra Cohen RN 06/26/24 11:28:37 Finalized By: Alejandra Cohen RN Document Signatures Signed By: Alejandra Cohen RN 06/26/24 11:28 [facility] Main OR Preoperative Recordo n 06-26-2024 Main OR Preoperative Record Main OR Preoperative Record Holding Area Document Type FT Summary Primary Physician: Ashli Castellanos MD Finalized Date/Time: 06/26/24 08:07:54 Pt. Name: JAMES DAVID Jacquelyn Horan/Sex: 1965 Male Med Rec #: [id number] Physician: Ashli Castellanos MD Financial #: [id number] Pt. Type: O Room/Bed: / Admit/Disch: 06/26/24 07:45:11 - Institution: Case Times Holding FT Pre-Care Text: Verifies consent for planned procedure, identifies individual values and wishes concerning care, includes family members in perioperative teaching Secures patient's records' belongings, and valuables, maintains patient's dignity and privacy, and maintains patient confidentiality Entry 1 In Holding 06/26/24 08:00:00 Outcomes Met? Yes Last Modified By: Ting Cameron RN 06/26/24 08:06:30 Post-Care Text: The patient participates in decisions affecting his or her perioperative plan of care The patient's right to privacy is maintained Surgery Checklist FT Entry 1 Patient Birthday, ID Band Procedure History and Physical, Identification: Check, Patient Verification: Surgical Consent, With Participation Patient NPO after Midnight: Yes Date/Time: 06/26/24 05:30:00 Personal Items: Glasses Personal Items glasses, clothes, shoes Comment: Limitations: n/a Complaints of Pain: No Pain Comment: denies Operative Site n/a Marking: Marked By: n/a Availability Equipment Verified: Does Patient Smoke Yes If Yes to Smoking. 1/2 pack per day Cigars or Cigarettes. How much per day? Patient states Yes Comment - Adult Bella- postop adult Supervision supervision available Case Cancelled in No Holding Area see comments below for reason Last Modified By: Ting Cameron RN 06/26/24 08:07:52 General Comments: Pt finished colon prep at 0530, states stool is clear liquid yellow, has been NPO since. /MD,RN Finalized By: Ting Cameron RN Document Signatures Signed By: Ting Cameron RN 06/26/24 08:07 [facility] Outpatient Surgery Discharge Instructionon 06-26-2024 Outpatient Surgery Discharge Instruction Outpatient Surgery Discharge Instruction [place] [id number] Patient Discharge Instructions PERSON INFORMATION Name: DAVID RAMIREZ Date of : 1965 Current Date: 06/26/2024 09:48:33 PHYSICIANS Admitting Physician: Jasmin KINSEY, Ashli Hinojosa Discharge Diagnosis: Chronic LUQ pain; Family history of colon cancer; Other chronic pain DAVID RAMIREZ has been given the following list of follow-up instructions, prescriptions, and patient education materials: PATIENT FOLLOW-UP INFORMATION Diet: Regular Discharge Activity: Resume normal activities in 24 hours Discharge Restrictions: No driving for 24 hrs Call Your Doctor For: Persistent or heavy bleeding IF UNABLE TO CONTACT YOUR PHYSICIAN AND YOU FEEL IT IS AN EMERGENCY, GO TO THE NEAREST EMERGENCY ROOM OR CALL 911 I, DAVID RAMIREZ, have received the attached patient education materials/instructions and have verbalized understanding: May we do a follow up call? Yes No I was present when discharge instructions were given __ Patient Signature Date Clinican/Nurse Signature Date Follow up: Type Location Start Finish State Surgery [facility] 06/26/2024 8:30 AM 06/26/2024 8:50 AM Confirmed Pharmacy Information: You may receive a survey from [employer] asking you to rate your care experience. Your feedback is important and will help us understand what we do well and how we can improve the quality of care we provide to you, your loved ones and our community. It???s an honor to serve you. Thank you for choosing [facility] HERE ARE THE MEDICATION CHANGES THAT OCCURRED DURING YOUR HOSPITAL STAY Medications to Continue with No Changes Other Medications amitriptyline (amitriptyline 50 mg Tab) 1 Tablets By Mouth once a day (at bedtime). 180 EA, 0 Refill(s), TAKE 2 TABLETS BY MOUTH EVERY DAY AT BEDTIME., Responsible Provider: SCOTT MERINO esomeprazole (Nexium 40 mg Cap-EC) 1 Capsules By Mouth every day. Refills: 3. fluocinonide topical (fluocinonide Top 0.05% Crm 15 gram) 60 gm, 0 Refill(s), APPLY TO AFFECTED AREA TWICE A DAY., Responsible Provider: TAN CAPPS metoprolol (metoprolol succinate 50 mg ER Tab) 1 Tablets By Mouth every day., Responsible Provider: TAN CAPPS ondansetron (ondansetron 4 mg Tab) 1 Tablets By Mouth every 8 hours as needed Nausea., Responsible Provider: CASSI SANTIAGO semaglutide (Ozempic 2 mg/3 mL (0.25 mg or 0.5 mg dose) subcutaneous solution) 0.5 Milligram Subcutaneous every week., Responsible Provider: TAN CAPPS PATIENT EDUCATION INFORMATION Instructions: Medication Leaflets: [facility] BASIC METABOLIC PANELon - BUN/CREATININE RATIO SEE NOTE: Normal 6-22 [facility] Comment on above: Order Comment: FASTI NG:NO FASTING: NO Result Comment: Not Reported: BUN and Creatinine are within reference range. Performed By: #### 1 759, 8593, [id number] #### [facility] [address], [address] [place] [address] Infant Room Teacher: Luca Bell MD Calcium [Mass/Vol] 9.7 mg/dL Normal 8.6-10.3 [facility] Comment on above: Order Comment: FASTI NG:NO FASTING: NO Performed By: #### 1 759, 8593, 93984 #### [facility] [address], [address] [place] [address] Infant Room Teacher: Luca Bell MD Chloride [Moles/Vol] 103 mmol/L Normal 98-110 [facility] Comment on above: Order Comment: FASTI NG:NO FASTING: NO Performed By: #### 1 759, 8593, [id number] #### [facility] [place] [address] Infant Room Teacher: Luca Bell MD CO2 [Moles/Vol] 24 mmol/L Normal 20-32 [facility] Comment on above: Order Comment: FASTI NG:NO FASTING: NO Performed By: #### 1 759, 8593, [id number] #### [facility] [place] [address] Infant Room Teacher: Luca Bell MD Creatinine [Mass/Vol] 1.08 mg/dL Normal 0.70-1.30 [facility] Comment on above: Order Comment: FASTI NG:NO FASTING: NO Performed By: #### 1 759, 8593, [id number] #### [facility] [place] [address] Infant Room Teacher: Luca Bell MD GFR/1.73 sq M.predicted among non-blacks MDRD (S/P/Bld) [Vol rate/Area] 79 mL/min/{1.73_m2} Normal > OR = 60 [facility] Comment on above: Order Comment: FASTI NG:NO FASTING: NO Performed By: #### 1 759, 8593, [id number] #### [facility] [address] [place] [address] Infant Room Teacher: Luca Bell MD Glucose [Mass/Vol] 98 mg/dL Normal 65-139 [facility] Comment on above: Order Comment: FASTI NG:NO FASTING: NO Result Comment: Non-fasting reference interval Performed By: #### 1 759, 8593, 07863 #### [facility] [address], [address] [place] [address] Infant Room Teacher: Luca Bell MD Potassium [Moles/Vol] 4.5 mmol/L Normal 3.5-5.3 [facility] Comment on above: Order Comment: FASTI NG:NO FASTING: NO Performed By: #### 1 759, 8593, 66209 #### [facility] [address], [address] [place] [address] Infant Room Teacher: Luca Bell MD Sodium [Moles/Vol] 137 mmol/L Normal 135-146 [facility] Comment on above: Order Comment: FASTI NG:NO FASTING: NO Performed By: #### 1 759, 8593, 90598 #### [facility] [address], [address] [place] [address] Infant Room Teacher: Luca Bell MD Urea nitrogen [Mass/Vol] 21 mg/dL Normal 7-25 [facility] Comment on above: Order Comment: FASTI NG:NO FASTING: NO Performed By: #### 1 759, 8593, [id number] #### [facility] [address], [address] [place] [address] Infant Room Teacher: Luca Bell MD CBC (H/H, RBC, INDICES, WBC, PLT)on 06-20-2024 Erythrocyte distribution width (RBC) [Ratio] 14.1 % Normal 11.0-15.0 [facility] Comment on above: Performed By: #### 1 759, 8593, [id number] #### [facility] [address], [address] [place] [address] Infant Room Teacher: Luca Bell MD Hematocrit (Bld) [Volume fraction] 47.7 % Normal 38.5-50.0 [facility] Comment on above: Performed By: #### 1 759, 8593, 81403 #### [facility] [place] [address] Infant Room Teacher: Luca Bell MD Hemoglobin (Bld) [Mass/Vol] 16.3 g/dL Normal 13.2-17.1 [facility] Comment on above: Performed By: #### 1 759, 8593, 22852 #### [facility] [place] [address] Infant Room Teacher: Luca Bell MD MCH (RBC) [Entitic mass] 29.3 pg Normal 27.0-33.0 [facility] Comment on above: Performed By: #### 1 759, 8593, 99923 #### [facility] [place] [address] Infant Room Teacher: Luca Bell MD MCHC (RBC) [Mass/Vol] 34.2 g/dL Normal 32.0-36.0 [facility] Comment on above: Result Comment: For adults, a slight decrease in the calculated MCHC value (in the range of 30 to 32 g/dL) is most likely not clinically significant; however, it should be interpreted with caution in correlation with other red cell parameters and the patient's clinical condition. Performed By: #### 1 759, 8593, [id number] #### [facility] [place] [address] Infant Room Teacher: Luca Bell MD MCV (RBC) [Entitic vol] 85.8 fL Normal 80.0-100.0 [facility] Comment on above: Performed By: #### 1 759, 8593, [id number] #### [facility] [place] [address] Infant Room Teacher: Luca Bell MD Platelet mean volume (Bld) [Entitic vol] 9.7 fL Normal 7.5-12.5 [facility] Comment on above: Performed By: #### 1 759, 8593, [id number] #### [facility] of [place] [address], [address] [place] [address] Infant Room Teacher: Luca Bell MD Platelets (Bld) [#/Vol] 321 10*3/uL Normal 140-400 [facility] Comment on above: Performed By: #### 1 759, 8593, 12934 #### [facility] [place] [address] [address] , [address] [place] [address] Infant Room Teacher: Luca Bell MD RBC (Bld) [#/Vol] 5.56 10*6/uL Normal 4.20-5.80 [facility] Comment on above: Performed By: #### 1 759, 8593, 45496 #### [facility] [place] [address] [address] , [address] [place] [address] Infant Room Teacher: Luca Bell MD WBC (Bld) [#/Vol] 9.5 10*3/uL Normal 3.8-10.8 [facility] Comment on above: Performed By: #### 1 759, 8593, 32341 #### [facility] [place] [address] [address] , [address] [place] [address] Infant Room Teacher: Luca Bell MD LYME DISEASE ANTIBODIES (IGG ,IGM), IMMUNOBLOTon 06-20-2024 18 KD (IGG) BAND Reactive Abnormal [facility] Comment on above: Performed By: #### 1 759, 8593, 91593 #### [facility] [place] [address] [address] , [address] [place] [address] Infant Room Teacher: Luca Bell MD 23 KD (IGG) BAND Non-Reactive Normal [facility] Comment on above: Performed By: #### 1 759, 8593, 12062 #### [facility] [place] [address] [address] , [address] [place] [address] Infant Room Teacher: Luca Bell MD 23 KD (IGM) BAND Non-Reactive Normal [facility] Comment on above: Performed By: #### 1 759, 8593, 63004 #### [facility] [place] [address] [address] , [address] [place] [address] Infant Room Teacher: Luca Bell MD 28 KD (IGG) BAND Non-Reactive Normal [facility] Comment on above: Performed By: #### 1 759, 8593, 12922 #### [facility] of [address], [address] [place] [address] Infant Room Teacher: Luca Bell MD 30 KD (IGG) BAND Non-Reactive Normal [facility] Comment on above: Performed By: #### 1 759, 8593, 98601 #### [facility] of [address], [address] [place] [address] Infant Room Teacher: Luca Bell MD 39 KD (IGG) BAND Non-Reactive Normal [facility] Comment on above: Performed By: #### 1 759, 8593, 24823 #### [facility] [address], [address] [place] [address] Infant Room Teacher: Luca Bell MD 39 KD (IGM) BAND Non-Reactive Normal [facility] Comment on above: Performed By: #### 1 759, 8593, 67680 #### [facility] of [address], [address] [place] [address] Infant Room Teacher: Luca Bell MD 41 KD (IGG) BAND Non-Reactive Normal [facility] Comment on above: Performed By: #### 1 759, 8593, 43492 #### [facility] [address], [address] [place] [address] Infant Room Teacher: Luca Bell MD 41 KD (IGM) BAND Non-Reactive Normal [facility] Comment on above: Result Comment: Lyme immunoblot testing should only be performed on samples from patients who have had a Positive or Equivocal result in a screening assay. As per CDC criteria, a Lyme disease IgG Immunoblot must show reactivity to at least 5 of 10 specific borrelial proteins to be considered positive; similarly, a positive Lyme disease IgM immunoblot requires reactivity to 2 of 3 specific borrelial proteins. Although considered negative, IgG reactivity to fewer specific borrelial proteins or IgM reactivity to only 1 protein may indicate recent B. burgdorferi infection and warrant testing of a later sample. A positive IgM but negative IgG result obtained more than a month after onset of symptoms likely represents a false- positive IgM result rather than acute Lyme disease. In rare instances, Lyme disease immunoblot reactivity may represent antibodies induced by exposure to other spirochetes. Performed By: #### 1 759, 8593, 24015 #### [facility] of [address], [address] [place] [address] Infant Room Teacher: Luca Bell MD 45 KD (IGG) BAND Non-Reactive Normal [facility] Comment on above: Performed By: #### 1 759, 8593, 96722 #### [facility] of [address], [address] [place] [address] Infant Room Teacher: Luca Bell MD 58 KD (IGG) BAND Reactive Abnormal [facility] Comment on above: Performed By: #### 1 759, 8593, 34578 #### [facility] of [address], [address] [place] [address] Infant Room Teacher: Luca Bell MD 66 KD (IGG) BAND Non-Reactive Normal [facility] Comment on above: Performed By: #### 1 759, 8593, 39647 #### [facility] of [address], [address] [place] [address] Infant Room Teacher: Luca Bell MD 93 KD (IGG) BAND Non-Reactive Normal [facility] Comment on above: Performed By: #### 1 759, 8593, 93576 #### [facility] of [address], [address] [place] [address] Infant Room Teacher: Luca Bell MD LYME DISEASE AB(IGG),BLOT Negative Normal NEGATIVE [facility] Comment on above: Performed By: #### 1 759, 8593, 38978 #### [facility] of [address], [address] [place] [address] Infant Room Teacher: Luca Bell MD LYME DISEASE AB(IGM),BLOT Negative Normal NEGATIVE [facility] Comment on above: Performed By: #### 1 759, 8593, 79563 #### [facility] of [address], [address] [place] [address] Infant Room Teacher: Luca Bell MD Ambulatory Visit Summaryon 1 07-18-2023 Ambulatory Visit Summary Ambulatory Visit Summary DAVID RAMIREZ :1965 Visit Date:05/18/2024 Ambulatory Visit Instructions Your Diagnosis Left sided abdominal pain Screen for colon cancer History of partial colectomy Chronic GERD Your Care Team Attending Physician - Jasmin KINSEY, Ashli Hinojosa Primary Care Physician - SCOTT MERINO DO Referring Physician - TAN CAPPS MD This Is Your Medications List esomeprazole (Nexium 40 mg Cap-EC) polyethylene glycol 3350 with electrolytes (NuLYTELY Fallon oral powder for reconstitution) Contact prescribing physician if questions or concerns amitriptyline (amitriptyline 50 mg Tab) esomeprazole (esomeprazole 40 mg Cap-EC) fluocinonide topical (fluocinonide Top 0.05% Crm 15 gram) metoprolol (metoprolol succinate 50 mg ER Tab) ondansetron (ondansetron 4 mg Tab) semaglutide (Ozempic 2 mg/3 mL (0.25 mg or 0.5 mg dose) subcutaneous solution) Procedures Performed Colonoscopy, Partial colectomy. Discharge Vitals Heart Rate (Peripheral) 94 Blood Pressure 153/97 Height 70 in Height 177.8 cm Weight 239.8 lb Weight 109 kg BMI 34.48 What to do next You Need to Complete the Following CBC w/ Auto Diff, Blood, Routine collect, 05/18/24, Order for future visit, Lab Collect, Left sided abdominal pain, Print Label By Order Location Comprehensive Metabolic Panel, Blood, Routine collect, 05/18/24, Order for future visit, Lab Collect, Left sided abdominal pain, Print Label By Order Location Medications What How Much When Instructions New esomeprazole (Nexium 40 mg Cap-EC) 1 Capsules By Mouth Every day Refills: 3 Pickup at [id number] New polyethylene glycol 3350 with electrolytes (NuLYTELY Fallon oral powder for reconstitution) See instructions 240 mL Oral Daily Pickup at [id number] Unchanged amitriptyline (amitriptyline 50 mg Tab) 180 EA, 0 Refill(s), TAKE 2 TABLETS BY MOUTH EVERY DAY AT BEDTIME Contact prescribing physician if questions or concerns Unchanged esomeprazole (esomeprazole 40 mg Cap-EC) 30 EA, 0 Refill(s), TAKE 1 CAPSULE (40 MG) BY MOUTH IN THE MORNING. TAKE BEFORE MEALS. DO NOT OPEN CAPSULE Contact prescribing physician if questions or concerns Unchanged fluocinonide topical (fluocinonide Top 0.05% Crm 15 gram) 60 gm, 0 Refill(s), APPLY TO AFFECTED AREA TWICE A DAY Contact prescribing physician if questions or concerns Unchanged metoprolol (metoprolol succinate 50 mg ER Tab) 90 EA, 0 Refill(s), TAKE 1 TABLET BY MOUTH EVERY DAY Contact prescribing physician if questions or concerns Unchanged ondansetron (ondansetron 4 mg Tab) 21 EA, 0 Refill(s), TAKE 1 TABLET BY MOUTH EVERY 8 HOURS NEEDED FOR NAUSEA OR FOR VOMITING FOR UP TO 7 DAYS Contact prescribing physician if questions or concerns Unchanged semaglutide (Ozempic 2 mg/ 3 mL (0.25 mg or 0.5 mg dose) subcutaneous solution) 3 mL, 0 Refill(s), INJECT 0.5MG SUBCUTANEOUSLY ONCE A WEEK Contact prescribing physician if questions or concerns Pharmacy Information [facility][id number]: [address], [place] [id number] [phone] Allergies No Known Allergies No Known Medication Allergies Problems Ongoing - Any problem that you are currently receiving treatment for. Chronic obstructive pulmonary disease History of partial colectomy Hypertension Left sided abdominal pain Screen for colon cancer Patient Survey You may receive a survey via text or e-mail asking about your office visit. Please share your experience with us by completing your survey. We appreciate your feedback and thank you for choosing us for your care. Normal [facility] Gastroenterology Office/Clin ic Noteon 05-18-2024 Gastroenterology Office/Clinic Note Gastroenterology Office/Clinic Note Chief Complaint Abdominal pain HPI Staff Patient is a(n) 59 year old male who was referred by Dr Capps for postprandial epigastric pain and screening for colon cancer. Pt had previous Colonoscopy and partial colectomy @ [facility]. Faxed stat request for records to [facility] on 05/15/24. Abdominal pain: When did you first have this pain: few weeks ago Quality (sharp, dull): Sharp Constant or comes or go: intermittent location and radiation: left sided abdominal pain Relation to food: sometimes pain starts after eating Improving or worsening factors factors: worse with food. Movement helps Fhx colon cancer - mom and brother. Dad had prostate cancer. Denies previous EGD/Colonoscopy. Blood thinners? no GLP-1 agonists? Ozempic Hx colon surgery: subtotal colectomy d/t diverticular disease in 2013 Review of Systems PHQ Score Initial Depression Screen Score: 0 SCORE Physical Exam Vitals & Measurements HR: 94(Peripheral) BP: 153/97 HT: 70 in HT: 177.8 cm WT: 109 kg WT: 239.8 lb BMI: 34.48 Assessment/Plan 1. Left sided abdominal pain (R10.9: Unspecified abdominal pain) Postprandial, started Nexium recently, helped some, proceed with EGD, avoid NSAIDs, encouraged to quit smoking Ordered: Colonoscopy (Hospital Procedure) EGD Endoscopy (Hospital Procedure) 2. Screen for colon cancer (Z12.11: Encounter for screening for malignant neoplasm of colon) Strong family history for colon cancer in brother and mother, will proceed with colonoscopy for surveillance, has constipation, discussed 2-day prep with MiraLAX and Nulytely Ordered: Colonoscopy (Hospital Procedure) EGD Endoscopy (Hospital Procedure) 3. History of partial colectomy (Z90.49: Acquired absence of other specified parts of digestive tract) Due to diverticulitis 2013, records not available Ordered: Colonoscopy (Hospital Procedure) EGD Endoscopy (Hospital Procedure) Follow-up No qualifying data available Problem List/Past Medical History Ongoing Chronic obstructive pulmonary disease History of partial colectomy Hypertension Left sided abdominal pain Screen for colon cancer Historical No qualifying data Procedure/Surgical History Colonoscopy, Partial colectomy. Medications amitriptyline 50 mg Tab esomeprazole 40 mg Cap-EC fluocinonide Top 0.05% Crm 15 gram metoprolol succinate 50 mg ER Tab ondansetron 4 mg Tab Ozempic 2 mg/3 mL (0.25 mg or 0.5 mg dose) subcutaneous solution Allergies No Known Allergies No Known Medication Allergies Social History Alcohol Past. Liquor. 3-5 times per week., 05/18/2024 Substance Abuse Never., 05/18/2024 Tobacco 10 or more cigarettes (1/2 pack or more)/day in last 30 days Tobacco Use:. Never Smokeless Tobacco Use:. Cigarettes, 05/18/2024 Family History Breast cancer: Sister. COPD: Father. Heart disease: Mother. Lung cancer: Brother. Malignant neoplasm of colon: Mother and Sister. Prostate cancer: Father. Immunizations Vaccine Date Status Comments SARS-CoV-2 (COVID-19) mRNA BNT-162b2 vax 01/06/2021 Recorded 2022-10-05: TPV50 SARS-CoV-2 (COVID-19) mRNA BNT-162b2 vax 12/16/2020 Recorded 2022-10-05: TPV50 He has also type 2 diabetes had recently on Ozempic, we discussed that he is at high risk for fatty liver, we will proceed with CBC and CMP and FibroScan Normal [facility] Comment on above: Result Comment: Elec tronically Signed By: Jasmin KINSEY, Ashli Hinojosa\.br\Date and Time Signed: 05/18/24 08:34 EST Laboratory - Hematology and Cell countson 02-26-2024 HbA1c (Bld) [Mass fraction] 6.1 % [facility] No Panel Informationon 02-25 [facility] CBC AUTO DIFFon 11-08-2022 BASO # 0.0 103/ul Normal 0.0-0.1 [facility] Comment on above: Performed By: #### A BGCO #### [facility] [address] [place] [address] [address] Anthony Mckenna Basophils/100 WBC (Bld) 0.1 % Critically low 0.2-2.0 [facility] Comment on above: Performed By: #### A BGCO #### [facility] [address] [place] [address] [address] Anthony Mckenna EO # 0.0 103/ul Normal 0.0-0.7 [facility] Comment on above: Performed By: #### A BGCO #### [facility] [address] [place] [address] [address] Anthony Mckenna Eosinophils/100 WBC (Bld) 0.0 % Critically low 0.9-7.0 [facility] Comment on above: Performed By: #### A BGCO #### [facility] [address] [place] [address] [address] Anthony Mckenna Erythrocyte distribution width (RBC) [Ratio] 14.6 % Normal 11.0-15.0 [facility] Comment on above: Performed By: #### A BGCO #### [facility] [address] [place] [address] [address] Anthony Mckenna Hematocrit (Bld) [Volume fraction] 45.1 % Normal 42.0-54.0 [facility] Comment on above: Performed By: #### A BGCO #### [facility] [address] [place] [address] [address] Anthony Mckenna Hemoglobin (Bld) [Mass/Vol] 15.4 g/dL Normal 14.0-18.0 [facility] Comment on above: Performed By: #### A BGCO #### [facility] [address] [place] [address] [address] Anthony Mckenna IG # 0.22 10e3/ul Critically high 0.00-0.03 [facility] Comment on above: Performed By: #### A BGCO #### [facility] [address] [place] [address] [address] Anthony Mckenna IG % 1.1 % Critically high 0.0-0.5 [facility] Comment on above: Performed By: #### A BGCO #### [facility] [address] [place] [address] [address] Anthony Mckenna LYMPH # 1.1 103/ul Critically low 1.2-3.8 [facility] Comment on above: Performed By: #### A BGCO #### [facility] [address] [place] [address] [address] Anthony Mckenna Lymphocytes/100 WBC (Bld) 5.8 % Critically low 20.5-60.0 [facility] Comment on above: Performed By: #### A BGCO #### [facility] [address] [place] [address] [address] Anthony Mckenna MANUAL DIFF REQ NO Normal [facility] Comment on above: Performed By: #### A BGCO #### [facility] [address] [place] [address] [address] Anthony Mckenna MCH (RBC) [Entitic mass] 30.0 pg Normal 25.9-34.0 [facility] Comment on above: Performed By: #### A BGCO #### [facility] [address] [place] [address] [address] Anthony Mckenna MCHC (RBC) [Mass/Vol] 34.1 g/dL Normal 29.9-35.2 [facility] Comment on above: Performed By: #### A BGCO #### [facility] [address] [place] [address] [address] Anthony Mckenna MCV (RBC) [Entitic vol] 87.9 fL Normal 80.0-94.0 [facility] Comment on above: Performed By: #### A BGCO #### [facility] [address] [place] [address] [address] Anthony Mckenna MONO # 0.7 103/ul Normal 0.3-0.8 [facility] Comment on above: Performed By: #### A BGCO #### [facility] [address] [place] [address] [address] Anthony Mckenna Monocytes/100 WBC (Bld) 3.9 % Normal 1.7-12.0 [facility] Comment on above: Performed By: #### A BGCO #### [facility] [address] [place] [address] [address] Anthony Mckenna NEUT # 17.1 103/ul Critically high 1.4-6.5 [facility] Comment on above: Performed By: #### A BGCO #### [facility] [address] [place] [address] [address] Anthony Mckenna Neutrophils/100 WBC (Bld) 89.1 % Critically high 43.0-75.0 [facility] Comment on above: Performed By: #### A BGCO #### [facility] [address] [place] [address] [address] Anthony Mckenna Platelet mean volume (Bld) [Entitic vol] 9.3 fL Critically low 9.5-13.5 [facility] Comment on above: Performed By: #### A BGCO #### [facility] [address] [place] [address] [address] Anthony Mckenna PLT 251 103/ul Normal 150-450 [facility] Comment on above: Performed By: #### A BGCO #### [facility] [address] [place] [address] Dr. Anthony Mckenna RBC 5.13 106/ul Normal 4.70-6.10 [facility] Comment on above: Performed By: #### A BGCO #### [facility] [address] [place] [address] Dr. Anthony Mckenna WBC 19.2 103/ul Critically high 4.0-11.0 [facility] Comment on above: Performed By: #### A BGCO #### [facility] [address] [place] [address] Dr. Anthony Mckenna POINT OF CARE GLUCOSEon Glucose [Mass/Vol] 229 mg/dL Critically high 74-106 T [facility] Comment on above: Performed By: #### P OCGLUC #### [facility] [address] [place] [address] Dr. Anthony Mckenna PROF CHEM 8 (BAS METB)on Anion gap [Moles/Vol] 12.1 mmol/L Normal [facility] Comment on above: Performed By: #### A BGCO #### [facility] [address] [place] [address] Dr. Anthony Mckenna Calcium [Mass/Vol] 9.1 mg/dL Normal 8.5-10.1 [facility] Comment on above: Performed By: #### A BGCO #### [facility] [address] [place] [address] Dr. Anthony Mckenna Chloride [Moles/Vol] 103 mmol/L Normal 98-107 [facility] Comment on above: Performed By: #### A BGCO #### [facility] [address] [place] [address] Dr. Anthony Mckenna CO2 [Moles/Vol] 25.1 mmol/L Normal 21.0-32.0 [facility] Comment on above: Performed By: #### A BGCO #### [facility] [address] [place] [address] Dr. Anthony Mckenna Creatinine [Mass/Vol] 1.13 mg/dL Normal 0.70-1.30 [facility] Comment on above: Performed By: #### A BGCO #### [facility] [address] [place] [address] [address] Anthony Mckenna EGFR-AF FINNISH >60 Normal >=60 [facility] Comment on above: Performed By: #### A BGCO #### [facility] [address] [place] [address] [address] Anthony Mckenna EGFR-NON AF FINNISH >60 Normal >=60 [facility] Comment on above: Performed By: #### A BGCO #### [facility] [address] [place] [address] [address] Anthony Mckenna Glucose [Mass/Vol] 187 mg/dL Critically high 74-106 T [facility] Comment on above: Performed By: #### A BGCO #### [facility] [address] [address] [address] Anthony Mckenna Potassium [Moles/Vol] 4.2 mmol/L Normal 3.5-5.1 [facility] Comment on above: Performed By: #### A BGCO #### [facility] [address] [place] [address] [address] Anthony Mckenna Sodium [Moles/Vol] 136 mmol/L Normal 136-145 [facility] Comment on above: Performed By: #### A BGCO #### [facility] [address] [address] [address] Anthony Mckenna Urea nitrogen [Mass/Vol] 28.0 mg/dL Critically high 7.0-18.0 [facility] Comment on above: Performed By: #### A BGCO #### [facility] [address] [address] [address] Anthony Mckenna Urea nitrogen/Creatinin e [Mass ratio] 24.8 mg/mg Normal [facility] Comment on above: Performed By: #### A BGCO #### [facility] [address] [place] [address] [address] Anthony Mckenna CBC AUTO DIFFon 11-07-2022 BASO # 0.0 103/ul Normal 0.0-0.1 [facility] Comment on above: Performed By: #### A BGCO #### [facility] [address] [place] [address] Dr. Anthony Mckenna Basophils/100 WBC (Bld) 0.1 % Critically low 0.2-2.0 [facility] Comment on above: Performed By: #### A BGCO #### [facility] [address] [place] [address] Dr. Anthony Mckenna EO # 0.0 103/ul Normal 0.0-0.7 [facility] Comment on above: Performed By: #### A BGCO #### [facility] [address] [place] [address] Dr. Anthony Mckenna Eosinophils/100 WBC (Bld) 0.0 % Critically low 0.9-7.0 [facility] Comment on above: Performed By: #### A BGCO #### [facility] [address] [place] [address] Dr. Anthony Mckenna Erythrocyte distribution width (RBC) [Ratio] 14.4 % Normal 11.0-15.0 [facility] Comment on above: Performed By: #### A BGCO #### [facility] [address] [place] [address] Dr. Anthony Mckenna Hematocrit (Bld) [Volume fraction] 43.8 % Normal 42.0-54.0 [facility] Comment on above: Performed By: #### A BGCO #### [facility] [address] [place] [address] Dr. Anthony Mckenna Hemoglobin (Bld) [Mass/Vol] 15.1 g/dL Normal 14.0-18.0 [facility] Comment on above: Performed By: #### A BGCO #### [facility] [address] [place] [address] Dr. Anthony Mckenna IG # 0.11 10e3/ul Critically high 0.00-0.03 [facility] Comment on above: Performed By: #### A BGCO #### [facility] [address] [place] [address] Dr. Anthony Mckenna IG % 0.8 % Critically high 0.0-0.5 [facility] Comment on above: Performed By: #### A BGCO #### [facility] [address] [place] [address] Dr. Anthony Mckenna LYMPH # 1.2 103/ul Normal 1.2-3.8 [facility] Comment on above: Performed By: #### A BGCO #### [facility] [address] [place] [address] Dr. Anthony Mckenna Lymphocytes/100 WBC (Bld) 8.9 % Critically low 20.5-60.0 [facility] Comment on above: Performed By: #### A BGCO #### [facility] [address] [place] [address] Dr. Anthony Mckenna MANUAL DIFF REQ NO Normal [facility] Comment on above: Performed By: #### A BGCO #### [facility] [address] [place] [address] Dr. Anthony Mckenna MCH (RBC) [Entitic mass] 30.3 pg Normal 25.9-34.0 [facility] Comment on above: Performed By: #### A BGCO #### [facility] [address] [place] [address] Dr. Anthony Mckenna MCHC (RBC) [Mass/Vol] 34.5 g/dL Normal 29.9-35.2 [facility] Comment on above: Performed By: #### A BGCO #### [facility] [address] [place] [address] Dr. Anthony Mceknna MCV (RBC) [Entitic vol] 87.8 fL Normal 80.0-94.0 [facility] Comment on above: Performed By: #### A BGCO #### [facility] [address] [place] [address] Dr. Anthony Mckenna MONO # 0.2 103/ul Critically low 0.3-0.8 [facility] Comment on above: Performed By: #### A BGCO #### [facility] [address] [place] [address] Dr. Anthony Mckenna Monocytes/100 WBC (Bld) 1.7 % Normal 1.7-12.0 [facility] Comment on above: Performed By: #### A BGCO #### [facility] [address] [place] [address] Dr. Anthony Mckenna NEUT # 11.8 103/ul Critically high 1.4-6.5 [facility] Comment on above: Performed By: #### A BGCO #### [facility] [address] [place] [address] Dr. Anthony Mckenna Neutrophils/100 WBC (Bld) 88.5 % Critically high 43.0-75.0 [facility] Comment on above: Performed By: #### A BGCO #### [facility] Laboratory [address] [place] [address] Dr. Anthony Mckenna Platelet mean volume (Bld) [Entitic vol] 9.5 fL Normal 9.5-13.5 [facility] Comment on above: Performed By: #### A BGCO #### [facility] [address] [place] [address] Dr. Anthony Mckenna PLT 226 103/ul Normal 150-450 [facility] Comment on above: Performed By: #### A BGCO #### [facility] [address] [place] [address] Dr. Anthony Mckenna RBC 4.99 106/ul Normal 4.70-6.10 [facility] Comment on above: Performed By: #### A BGCO #### [facility] [address] [place] [address] Dr. Anthony Mckenna WBC 13.4 103/ul Critically high 4.0-11.0 [facility] Comment on above: Performed By: #### A BGCO #### [facility] [address] [place] [address] Dr. Anthony Mckenna CULTURE SPUTUMon 11-07-2022 CULTURE SPUTUM Isolate 1 Lynn albicans Growth of Normal [facility] Comment on above: Performed By: #### C VDTBH #### [facility] [address] [place] [address] Dr. Anthony Mckenna POINT OF CARE GLUCOSEon Glucose [Mass/Vol] 216 mg/dL Critically high 74-106 [facility] Comment on above: Performed By: #### C VDTBH #### [facility] [address] [place] [address] Dr. Anthony Mckenna Glucose [Mass/Vol] 217 mg/dL Critically high 74-106 [facility] Comment on above: Performed By: #### P OCGLUC #### [facility] [address] [place] [address] Dr. Anthony Mckenna Glucose [Mass/Vol] 227 mg/dL Critically high -106 [facility] Comment on above: Performed By: #### A BGCO #### [facility] [address] [place] [address] Dr. Anthony Mckenna PROF CHEM 8 (BAS METB)on Anion gap [Moles/Vol] 12.8 mmol/L Normal [facility] Comment on above: Performed By: #### A BGCO #### [facility] [address] [place] [address] Dr. Anthony Mckenna Calcium [Mass/Vol] 9.0 mg/dL Normal 8.5-10.1 [facility] Comment on above: Performed By: #### A BGCO #### [facility] [address] [place] [address] Dr. Anthony Mckenna Chloride [Moles/Vol] 103 mmol/L Normal 98-107 [facility] Comment on above: Performed By: #### A BGCO #### [facility] [address] [place] [address] Dr. Anthony Mckenna CO2 [Moles/Vol] 25.1 mmol/L Normal 21.0-32.0 [facility] Comment on above: Performed By: #### A BGCO #### [facility] [address] [place] [address] Dr. Anthony Mckenna Creatinine [Mass/Vol] 1.07 mg/dL Normal 0.70-1.30 [facility] Comment on above: Performed By: #### A BGCO #### [facility] [address] [place] [address] Dr. Anthnoy Mckenna EGFR-AF FINNISH >60 Normal >=60 [facility] Comment on above: Performed By: #### A BGCO #### [facility] [address] [place] [address] Dr. Anthony Mckenna EGFR-NON AF FINNISH >60 Normal >=60 [facility] Comment on above: Performed By: #### A BGCO #### [facility] [address] [address] [address] Anthony Mckenna Glucose [Mass/Vol] 174 mg/dL Critically high 74-106 T [facility] Comment on above: Performed By: #### A BGCO #### [facility] [address] [place] [address] Dr. Anthony Mckenna Potassium [Moles/Vol] 3.9 mmol/L Normal 3.5-5.1 [facility] Comment on above: Performed By: #### A BGCO #### [facility] [address] [place] [address] Dr. Anthony Mckenna Sodium [Moles/Vol] 137 mmol/L Normal 136-145 [facility] Comment on above: Performed By: #### A BGCO #### [facility] [address] [place] [address] Dr. Anthony Mckenna Urea nitrogen [Mass/Vol] 22.0 mg/dL Critically high 7.0-18.0 [facility] Comment on above: Performed By: #### A BGCO #### [facility] [address] [place] [address] Dr. Anthony Mckenna Urea nitrogen/Creatinin e [Mass ratio] 20.6 mg/mg Normal [facility] Comment on above: Performed By: #### A BGCO #### [facility] [address] [place] [address] Dr. Anthony Mckenna SPUTUM GRAM STAINon 11-08-19 COMMENTS [facility] Comment on above: Performed By: #### C VDTBH #### [facility] [address] [place] [address] Dr. Anthony Mckenna DIPHTHEROIDS Normal [facility] Comment on above: Performed By: #### C VDTBH #### [facility] [address] [address] [address] Anthony Mckenna EPITHELIALS <25 Normal [facility] Comment on above: Performed By: #### C VDTBH #### [facility] [address] [address] [address] Anthony Mckenna FUNGAL ELEMENTS Normal [facility] Comment on above: Performed By: #### C VDTBH #### [facility] [address] [address] [address] Anthony Mckenna GRAM NEG BACILLI Normal [facility] Comment on above: Performed By: #### C VDTBH #### [facility] [address] [address] [address] Anthony GONZALES NEG DIPPLOCOCCI MODERATE Normal [facility] Comment on above: Performed By: #### C VDTBH #### [facility] [address] [address] [address] Anthony Mckenna GRAM POS BACILLI Normal [facility] Comment on above: Performed By: #### C VDTBH #### [facility] [address] [address] [address] Anthony Mckenna GRAM POSITIVE COCCI Normal [facility] Comment on above: Performed By: #### C VDTBH #### [facility] [address] [place] [address] Dr. Anthony Mckenna WBC (Bld) [#/Vol] 10*3/uL Normal [facility] Comment on above: Performed By: #### C VDTBH #### [facility] [address] [address] [address] Anthony Mckenna BLOOD GAS BTY W/ OXIMETRYon 11-06-2022 02 MODE NASAL CANNULA Normal [facility] Comment on above: Performed By: #### A BGCO #### [facility] [address] [address] [address] Anthony Mckenna ALLENS TEST Positive Normal [facility] Comment on above: Performed By: #### A BGCO #### [facility] [address] [address] [address] Anthony Mckenna Base excess Calc (Bld) [Moles/Vol] -0.2000 mmol/L Normal -2.0-2.0 [facility] Comment on above: Performed By: #### A BGCO #### [facility] [address] [place] [address] Dr. Anthony Mckenna BIPAP PRESSURE Normal [facility] Comment on above: Performed By: #### A BGCO #### [facility] [address] [place] [address] Dr. Anthony Mckenna CARBOXY RANGE NORMAL CONCENTRATION : NON-SMOKERS: 0 - 2% SMOKERS: < OR = 9% [facility] Comment on above: Performed By: #### A BGCO #### [facility] [address] [place] [address] Dr. Anthony Mckenna CARBOXYHGB 1.2 % Critically low 1.5-4.9 [facility] Comment on above: Performed By: #### A BGCO #### [facility] [address] [place] [address] Dr. Anthony Mckenna FIO2 [facility] Comment on above: Performed By: #### A BGCO #### [facility] [address] [place] [address] Dr. Anthony Mckenna HCO3 (Bld) [Moles/Vol] 24.2 mmol/L Normal 22.0-26.0 [facility] Comment on above: Performed By: #### A BGCO #### [facility] [address] [place] [address] Dr. Anthony Mckenna LPM 5 [facility] Comment on above: Performed By: #### A BGCO #### [facility] [address] [place] [address] Dr. Anthony Mckenna METHGB <1.0 Critically low 1.1-1.9 [facility] Comment on above: Performed By: #### A BGCO #### [facility] [address] [place] [address] Dr. Anthony Mckenna MINUTE VOLUME Normal [facility] Comment on above: Performed By: #### A BGCO #### [facility] [address] [address] [address] Anthony Mckenna Oxygen (Bld) [Partial pressure] 51.6 mm[Hg] Critically low 80.0-100.0 [facility] Comment on above: Performed By: #### A BGCO #### [facility] [address] [place] [address] Dr. Anthony Mckenna Oxygen saturation in Blood 88.7 % Critically low 95.0-100.0 [facility] Comment on above: Performed By: #### A BGCO #### [facility] [address] [place] [address] Dr. Anthony Mckenna PCO2 36.9 mmHg Normal 35.0-45.0 [facility] Comment on above: Performed By: #### A BGCO #### [facility] [address] [place] [address] Dr. Anthony Mckenna [facility] Comment on above: Performed By: #### A BGCO #### [facility] [address] [place] [address] Dr. Anthony Mckenna pH (Bld) 7.426 [pH] Normal 7.350-7.450 [facility] Comment on above: Performed By: #### A BGCO #### [facility] [address] [place] [address] Dr. Anthony Mckenna [facility] Comment on above: Performed By: #### A BGCO #### [facility] [address] [place] [address] Dr. Anthony Mckenna [facility] Comment on above: Performed By: #### A BGCO #### [facility] [address] [place] [address] Dr. Anthony Mckenna PUNCTURE SITE RR [facility] Comment on above: Performed By: #### A BGCO #### [facility] [address] [place] [address] Dr. Anthony Mckenna RATE [facility] Comment on above: Performed By: #### A BGCO #### [facility] [address] [address] [address] Anthony Mckenna VENT MODE [facility] Comment on above: Performed By: #### A BGCO #### [facility] [address] [address] [address] Anthony Mckenna VT [facility] Comment on above: Performed By: #### A BGCO #### [facility] [address] [address] [address] [facility] 02 MODE NASAL CANNULA [facility] Comment on above: Performed By: #### C VDTBH #### [facility] [address] [place] [address] Dr. Anthony Mckenna ALLENS TEST Positive [facility] Comment on above: Performed By: #### C VDTBH #### [facility] [address] [place] [address] Dr. Anthony Mckenna Base excess Calc (Bld) [Moles/Vol] 0.0 mmol/L Normal -2.0-2.0 [facility] Comment on above: Performed By: #### C VDTBH #### [facility] [address] [place] [address] Dr. Anthony Mckenna BIPAP PRESSURE [facility] Comment on above: Performed By: #### C VDTBH #### [facility] [address] [place] [address] Dr. Anthony Mckenna CPAP [facility] Comment on above: Performed By: #### C VDTBH #### [facility] [address] [place] [address] Dr. Anthony Mckenna FIO2 [facility] Comment on above: Performed By: #### C VDTBH #### [facility] [address] [place] [address] Dr. Anthony Mckenna HCO3 (Bld) [Moles/Vol] 24.7 mmol/L Normal 22.0-26.0 [facility] Comment on above: Performed By: #### C VDTBH #### [facility] [address] [place] [address] Dr. Anthony Mckenna LPM 2.5 Normal [facility] Comment on above: Performed By: #### C VDTBH #### [facility] [address] [place] [address] Dr. Anthony Mckenna MINUTE VOLUME Normal [facility] Comment on above: Performed By: #### C VDTBH #### [facility] [address] [place] [address] Dr. Anthony Mckenna Oxygen (Bld) [Partial pressure] 53.6 mm[Hg] Critically low 80.0-100.0 [facility] Comment on above: Performed By: #### C VDTBH #### [facility] [address] [place] [address] Dr. Anthony Mckenna Oxygen saturation in Blood 89.8 % Critically low 95.0-100.0 [facility] Comment on above: Performed By: #### C VDTBH #### [facility] [address] [place] [address] Dr. Anthony Mckenna PCO2 39.0 mmHg Normal 35.0-45.0 [facility] Comment on above: Performed By: #### C VDTBH #### [facility] [address] [place] [address] Dr. Anthony Mckenna PEEP [facility] Comment on above: Performed By: #### C VDTBH #### [facility] [address] [place] [address] Dr. Anthony Mckenna pH (Bld) 7.409 [pH] Normal 7.350-7.450 [facility] Comment on above: Performed By: #### C VDTBH #### [facility] [address] [place] [address] Dr. Anthony Mckenna PIP [facility] Comment on above: Performed By: #### C VDTBH #### [facility] [address] [place] [address] Dr. Anthony Mckenna PS [facility] Comment on above: Performed By: #### C VDTBH #### [facility] [address] [place] [address] Dr. Anthony Mckenna PUNCTURE SITE LR Normal [facility] Comment on above: Performed By: #### C VDTBH #### [facility] [address] [address] [address] Anthony Mckenna RATE [facility] Comment on above: Performed By: #### C VDTBH #### [facility] [address] [address] [address] Anthony Mckenna VENT MODE [facility] Comment on above: Performed By: #### C VDTBH #### [facility] [address] [address] [address] Anthony Mckenna [facility] Comment on above: Performed By: #### C VDTBH #### [facility] [address] [place] [address] Dr. Anthony Mckenna BNPon 11-06-2022 Natriuretic peptide B (Bld) [Mass/Vol] 202.0 pg/mL Normal <=900.0 [facility] Comment on above: Performed By: #### B 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, CMP, CMADM #### [facility] [address] [address] [address] Anthony Mckenna CARDIAC MARY ADMITon 023 CK [Catalytic activity/Vol] 119 U/L Normal 39-308 [facility] Comment on above: Performed By: #### B 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, CMP, CMADM #### [facility] [address] [place] [address] Dr. Anthony Mckenna CK.MB [Mass/Vol] 2.14 ng/mL Normal <=3.60 [facility] Comment on above: Performed By: #### B 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, CMP, CMADM #### [facility] [address] [place] [address] Dr. Anthony Mckenna HSTROP 5.7 pg/mL Normal 4.0-76.1 [facility] Comment on above: Result Comment: CUT- OFF POINTS HAVE BEEN ESTABLISHED BASED ON THE FOURTH UNIVERSAL DEFINITIONS OF MYOCARDIAL INFARCTION. THE UPPER REFERENCE LIMIT (URL) OF TROPONIN, DEFINED THE 99TH PERCENTILE OF cTnI DISTRIBUTION IN A REFERENCE POPULATION, HAS BEEN CONFIRMED THE DECISION THRESHOLD FOR NC DIAGNOSIS. Performed By: #### B 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, CMP, CMADM #### [facility] [address] [address] [address] Anthony Mckenna HAVEN 53 ng/mL Normal 16-96 [facility] Comment on above: Performed By: #### B 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, CMP, CMADM #### [facility] [address] [address] [address] Anthony Mckenna CBC AUTO DIFFon 11-06-2022 BASO # 0.1 103/ul Normal 0.0-0.1 [facility] Comment on above: Performed By: #### P OCGLUC #### [facility] [address] [place] [address] Dr. Anthony Mckenna Basophils/100 WBC (Bld) 0.6 % Normal 0.2-2.0 [facility] Comment on above: Performed By: #### P OCGLUC #### [facility] [address] [place] [address] Dr. Anthony Mckenna EO # 0.5 103/ul Normal 0.0-0.7 [facility] Comment on above: Performed By: #### P OCGLUC #### [facility] [address] [place] [address] Dr. Anthony Mckenna Eosinophils/100 WBC (Bld) 3.6 % Normal 0.9-7.0 [facility] Comment on above: Performed By: #### P OCGLUC #### [facility] [address] [place] [address] Dr. Anthony Mckenna Erythrocyte distribution width (RBC) [Ratio] 14.1 % Normal 11.0-15.0 [facility] Comment on above: Performed By: #### P OCGLUC #### [facility] [address] [place] [address] Dr. Anthony Mckenna Hematocrit (Bld) [Volume fraction] 47.0 % Normal 42.0-54.0 [facility] Comment on above: Performed By: #### P OCGLUC #### [facility] [address] [place] [address] Dr. Anthony Mckenna Hemoglobin (Bld) [Mass/Vol] 16.2 g/dL Normal 14.0-18.0 [facility] Comment on above: Performed By: #### P OCGLUC #### [facility] [address] [address] [address] Anthony Mckenna IG # 0.06 10e3/ul Critically high 0.00-0.03 [facility] Comment on above: Performed By: #### P OCGLUC #### [facility] [address] [address] [address] Anthony Mckenna IG % 0.4 % Normal 0.0-0.5 [facility] Comment on above: Performed By: #### P OCGLUC #### [facility] [address] [address] [address] Anthony Mckenna LYMPH # 1.8 103/ul Normal 1.2-3.8 [facility] Comment on above: Performed By: #### P OCGLUC #### [facility] [address] [address] [address] Anthony Mckenna Lymphocytes/100 WBC (Bld) 12.6 % Critically low 20.5-60.0 [facility] Comment on above: Performed By: #### P OCGLUC #### [facility] [address] [address] [address] Anthony Mckenna MANUAL DIFF REQ NO Normal [facility] Comment on above: Performed By: #### P OCGLUC #### [facility] [address] [address] [address] Anthony Mckenna MCH (RBC) [Entitic mass] 30.2 pg Normal 25.9-34.0 [facility] Comment on above: Performed By: #### P OCGLUC #### [facility] [address] [address] [address] Anthony Mckenna MCHC (RBC) [Mass/Vol] 34.5 g/dL Normal 29.9-35.2 [facility] Comment on above: Performed By: #### P OCGLUC #### [facility] [address] [address] [address] Anthony Mckenna MCV (RBC) [Entitic vol] 87.5 fL Normal 80.0-94.0 [facility] Comment on above: Performed By: #### P OCGLUC #### [facility] [address] [address] [address] Anthony Mckenna MONO # 1.1 103/ul Critically high 0.3-0.8 [facility] Comment on above: Performed By: #### P OCGLUC #### [facility] [address] [address] [address] Anthony Mckenna Monocytes/100 WBC (Bld) 7.3 % Normal 1.7-12.0 [facility] Comment on above: Performed By: #### P OCGLUC #### [facility] [address] [address] [address] Anthony Mckenna NEUT # 11.0 103/ul Critically high 1.4-6.5 [facility] Comment on above: Performed By: #### P OCGLUC #### [facility] [address] [address] [address] Anthony Mckenna Neutrophils/100 WBC (Bld) 75.5 % Critically high 43.0-75.0 [facility] Comment on above: Performed By: #### P OCGLUC #### [facility] [address] [address] [address] Anthony Mckenna Platelet mean volume (Bld) [Entitic vol] 9.3 fL Critically low 9.5-13.5 [facility] Comment on above: Performed By: #### P OCGLUC #### [facility] [address] [address] [address] Anthony Mckenna PLT 235 103/ul Normal 150-450 [facility] Comment on above: Performed By: #### P OCGLUC #### [facility] [address] [address] [address] Anthony Mckenna RBC 5.37 106/ul Normal 4.70-6.10 [facility] Comment on above: Performed By: #### P OCGLUC #### [facility] [address] [address] [address] Anthony Mckenna WBC 14.5 103/ul Critically high 4.0-11.0 [facility] Comment on above: Performed By: #### P OCGLUC #### [facility] [address], [place] [address] Dr. Anthony Mckenna CTA CHEST WO W CONon 023 CTA CHEST WO W CON EXAMINATION: CTA AUDRA ST WO W CON HISTORY: CHEST PAIN, UNSPECIFIED , shortness breath, left side chest pain COMPARISON: No relevant comparison available. TECHNIQUE: Multi-planar CT images were created with IV contrast. Axial, Coronal, and Sagittal images. Dose reduction techniques were achieved by using automated exposure control and/or adjustment of mA and/or kV according to patient size and/or use of iterative reconstruction technique. 3-D reconstruction was performed on a separate workstation. FINDINGS: VASCULATURE: No pulmonary embolism or abnormal opacity. LUNGS: No visible pulmonary disease. PLEURA: No mass, effusion, or pneumothorax. LELAND: No mass or adenopathy. MEDIASTINUM: No mass or adenopathy. CARDIAC: No enlargement, pericardial effusion, or pericardial thickening. AORTA: No aneurysm or dissection. CHEST WALL: No mass or axillary adenopathy. BONES: Slight anterior wedging of T7 and T8 vertebral bodies without cortical disruption or increased density of the marrow cavity. LIMITED ABDOMEN: No suspicious findings. Limited images of the upper abdomen. OTHER: Negative. IMPRESSION: 1. No pulmonary embolism. 2. No acute infiltrates or suspicious findings to account for patient's shortness of breath. 3. Mild anterior wedging of T7 and T8 vertebral bodies; developmental versus mild compression fractures. The appearance suggests these are remote, not acute. Electronically authenticated by: LAMIN AMBRIZ Date: 2022-11-06 12:04 Normal [facility] CULTURE BLOODon 11-06-2022 Microscopic examination of blood, culture Culture Observations: NO GROWTH AT 5 DAYS. Normal [facility] Comment on above: Performed By: #### C VDTBH #### [facility] [address], [place] [address] Dr. Anthony Mckenna Microscopic examination of blood, culture Culture Observations: NO GROWTH AT 5 DAYS. Normal [facility] Comment on above: Performed By: #### C VDTBH #### [facility] [address], [place] [address] Dr. Anthony Mckenna Covid-19 PCR ([facility])on SARS-CoV-2 (COVID-19) RNA RASHAWN+probe Ql (Unsp spec) Not detected Normal NOT DETECTED [facility] Comment on above: Result Comment: This test is not yet approved or cleared by the [place] FDA. When there are no FDA-approved or cleared tests available, and other criteria are met, FDA can make tests available under an emergency access mechanism called an Emergency Use Authorization (EUA). The EUA for this test is supported by the Director Franchise Sales of Health and Human Service's (HHS's) declaration that circumstances exist to justify the emergency use of in vitro diagnostics for the detection and/or diagnosis of the virus that causes COVID-19. This EUA will remain in effect (meaning this test can be used) for the duration of the COVID-19 declaration justifying emergency of IVDs, unless it is terminated or revoked by FDA (after which the test may no longer be used). When diagnostic testing is negative, the possibility of a false negative should be considered in the context of a patient's recent exposures and the presence of clinical signs and symptoms consistent with SARS-CoV-2. Performed By: #### C VDTBH #### [facility] [address] [place] [address] Dr. Anthony Mckenna D-DIMERon 11-06-2022 D-DIMER 0.25 mg/L FEU Normal <=0.59 [facility] Comment on above: Performed By: #### C VDTBH #### [facility] [address] [place] [address] Dr. Anthony Mckenna D-DIMER COMMENTS SEE BELOW Normal [facility] Comment on above: Result Comment: Incr eases in D-Dimer concentration observed with thromboembolic events can be variable due to localization, size, and age of the thrombus. Therefore, a thromboembolic event cannot be diagnosed with certainty on the basis of the reference range. D-Dimers may also be elevated for a variety of disorders including: advanced age, , coronary disease, cancer, liver disease, infection, inflammation, hematoma, DIC, trauma, post-surgery, diabetes, thrombolytic or anticoagulant therapy, stress, and generalized hospitalization. Performed By: #### C VDTBH #### [facility] [address] [place] [address] Dr. Anthony Mckenna PH VENOUS BLOODon 11-06-2022 PCO2 VENOUS 42.6 mmHg Normal 40.0-52.0 [facility] Comment on above: Performed By: #### A BGCO #### [facility] [address] [place] [address] Dr. Anthony Mckenna pH VENOUS 7.397 Normal 7.330-7.430 [facility] Comment on above: Performed By: #### A BGCO #### [facility] [address] [address] [address] Anthony Mckenna POINT OF CARE GLUCOSEon Glucose [Mass/Vol] 173 mg/dL Critically high 74-106 [facility] Comment on above: Performed By: #### P OCGLUC #### [facility] [address] [place] [address] Dr. Anthony Mckenna Glucose [Mass/Vol] 222 mg/dL Critically high -106 [facility] Comment on above: Performed By: #### P OCGLUC #### [facility] [address] [place] [address] Dr. Anthony Mckenna PROF 14(COMP METB)on 023 Albumin [Mass/Vol] 3.6 g/dL Normal 3.4-5.0 [facility] Comment on above: Performed By: #### B 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, CMP, CMADM #### [facility] [address] [place] [address] Dr. Anthony Mckenna Albumin/Globulin [Mass ratio] 1.0 {ratio} Normal [facility] Comment on above: Performed By: #### B 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, CMP, CMADM #### [facility] [address] [place] [address] Dr. Anthony Mckenna ALP [Catalytic activity/Vol] 91 U/L Normal 46-116 [facility] Comment on above: Performed By: #### B 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, CMP, CMADM #### [facility] [address] [place] [address] Dr. Anthony Mckenna ALT [Catalytic activity/Vol] 29 U/L Normal 16-63 [facility] Comment on above: Performed By: #### B 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, CMP, CMADM #### [facility] [address] [address] [address] Anthony Mckenna Anion gap [Moles/Vol] 12.2 mmol/L Normal [facility] Comment on above: Performed By: #### B 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, CMP, CMADM #### [facility] [address] [address] [address] Anthony Mckenna AST [Catalytic activity/Vol] 17 U/L Normal 15-37 [facility] Comment on above: Performed By: #### B 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, CMP, CMADM #### [facility] [address] [address] [address] Anthony Mckenna Bilirubin [Mass/Vol] 0.3 mg/dL Normal 0.2-1.0 [facility] Comment on above: Performed By: #### B 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, CMP, CMADM #### [facility] [address] [address] [address] Anthony Mckenna Calcium [Mass/Vol] 9.0 mg/dL Normal 8.5-10.1 [facility] Comment on above: Performed By: #### B 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, CMP, CMADM #### [facility] [address] [place] [address] Dr. Anthony Mckenna Chloride [Moles/Vol] 103 mmol/L Normal 98-107 [facility] Comment on above: Performed By: #### B 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, CMP, CMADM #### [facility] [address] [address] [address] Anthony Mckenna CO2 [Moles/Vol] 26.0 mmol/L Normal 21.0-32.0 [facility] Comment on above: Performed By: #### B 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, CMP, CMADM #### [facility] [address] [address] [address] Anthony Mckenna Creatinine [Mass/Vol] 1.07 mg/dL Normal 0.70-1.30 [facility] Comment on above: Performed By: #### B 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, CMP, CMADM #### [facility] [address] [address] [address] Anthony Mckenna EGFR-AF FINNISH >60 Normal >=60 [facility] Comment on above: Performed By: #### B 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, CMP, CMADM #### [facility] [address] [place] [address] Dr. Anthony Mckenna EGFR-NON AF FINNISH >60 Normal >=60 [facility] Comment on above: Performed By: #### B 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, CMP, CMADM #### [facility] [address] [place] [address] Dr. Anthony Mckenna Globulin (S) [Mass/Vol] 3.7 g/dL Normal [facility] Comment on above: Performed By: #### B 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, CMP, CMADM #### [facility] [address] [place] [address] Dr. Anthony Mckenna Glucose [Mass/Vol] 144 mg/dL Critically high 74-106 [facility] Comment on above: Performed By: #### B 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, CMP, CMADM #### [facility] [address] [place] [address] Dr. Anthony Mckenna Potassium [Moles/Vol] 4.2 mmol/L Normal 3.5-5.1 [facility] Comment on above: Performed By: #### B 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, CMP, CMADM #### [facility] [address] [place] [address] Dr. Anthony Mckenna Protein [Mass/Vol] 7.3 g/dL Normal 6.4-8.2 [facility] Comment on above: Performed By: #### B 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, CMP, CMADM #### [facility] [address] [place] [address] Dr. Anthony Mckenna Sodium [Moles/Vol] 137 mmol/L Normal 136-145 [facility] Comment on above: Performed By: #### B 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, CMP, CMADM #### [facility] [address] [place] [address] Dr. Anthony Mckenna Urea nitrogen [Mass/Vol] 16.0 mg/dL Normal 7.0-18.0 [facility] Comment on above: Performed By: #### B 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, CMP, CMADM #### [facility] [address] [place] [address] Dr. Anthony Mckenna Urea nitrogen/Creatinin e [Mass ratio] 15.0 mg/mg Normal [facility] Comment on above: Performed By: #### B 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, CMP, CMADM #### [facility] [address] [place] [address] Dr. Anthony Mckenna PROTIMEon 11-06-2022 INR Coag (PPP) [Relative time] 0.94 {INR} Normal [facility] Comment on above: Performed By: #### C VDTBH #### [facility] [address] [place] [address] Dr. Anthony Mckenna INR GUIDELINES SEE BELOW Normal [facility] Comment on above: Result Comment: DUANE RED INR: 2.0 - 3.0 CONDITIONS NOT LISTED BELOW 2.5 - 3.5 FOR PROSTHETIC HEART VALVE REPLACEMENT 2.5 - 3.5 RECURRENT THROMBOSIS Performed By: #### C VDTBH #### [facility] [address] [place] [address] Dr. Anthony Mckenna PT Coag (PPP) [Time] 10.0 s Normal 9.0-11.6 [facility] Comment on above: Performed By: #### C VDTBH #### [facility] [address] [place] [address] Dr. Anthony Mckenna PTTon 11-06-2022 aPTT Coag (Bld) [Time] 28.5 s Normal 22.3-36.2 [facility] Comment on above: Performed By: #### A BGCO #### [facility] [address] [place] [address] Dr. Anthony Mckenna SYMPTOMATIC COVID-19 ANTIGEN on 11-06-2022 EUA Statement SEE BELOW Normal [facility] Comment on above: Result Comment: This test has not been FDA cleared or approved, but has been authorized by the FDA under an Emergency Use Authorization (EUA) for use by authorized laboratories certified under CLIA that meet the requirements to perform moderate or high complexity testing. This test has been authorized only for the detection of proteins from SARS-CoV-2, not for any other viruses or pathogens. The emergency use of this test is authorized for the duration of the declaration that circumstances exist justifying the authorization of emergency use of in vitro diagnostic tests for detection and/or diagnosis of Covid-19 under section 564(b)(1) of the Act, 21 U.S.C. 360bbb-3(b)(1), unless the declaration is terminated or authorization is revoked sooner. Performed By: #### A BGCO #### [facility] [address] [place] [address] Dr. Anthony Mckenna SARS-CoV-2 (COVID-19) RNA RASHAWN+probe Ql (Unsp spec) Negative Normal NEGATIVE [facility] Comment on above: Performed By: #### A BGCO #### [facility] [address] [place] [address] Dr. Anthony Mckenna XR CHEST 1 Von 11-06-2022 XR CHEST 1 V EXAMINATION: XR CHES T 1 V HISTORY: SHORTNESS OF BREATH COMPARISON: XR chest 11/21/2020 FINDINGS: LUNGS: No significant pulmonary parenchymal abnormalities. VASCULATURE: No increased pulmonary vasculature. PLEURA: No pneumothorax, effusion, or pleural thickening. CARDIAC: No cardiomegaly or cardiac silhouette abnormality. MEDIASTINUM: No visible mass or adenopathy. BONES: No fracture or visible bone lesion. OTHER: Negative. IMPRESSION: 1. No acute cardiopulmonary process. Stable chest. Electronically authenticated by: LMAIN AMBRIZ Date: 2022-11-06 10:53 Normal [facility] CBC AUTO DIFFon 08-06-2022 BASO # 0.1 103/ul Normal 0.0-0.1 [facility] Comment on above: Performed By: #### A BGCO #### [facility] [address] [place] [address] Dr. Anthony Mckenna Basophils/100 WBC (Bld) 0.7 % Normal 0.2-2.0 [facility] Comment on above: Performed By: #### A BGCO #### [facility] [address] [place] [address] Dr. Anthony Mckenna EO # 0.5 103/ul Normal 0.0-0.7 [facility] Comment on above: Performed By: #### A BGCO #### [facility] [address] [place] [address] Dr. Anthony Mckenna Eosinophils/100 WBC (Bld) 4.9 % Normal 0.9-7.0 [facility] Comment on above: Performed By: #### A BGCO #### [facility] [address] [place] [address] Dr. Anthony Mckenna Erythrocyte distribution width (RBC) [Ratio] 13.3 % Normal 11.0-15.0 [facility] Comment on above: Performed By: #### A BGCO #### [facility] [address] [place] [address] Dr. Anthony Mckenna Hematocrit (Bld) [Volume fraction] 48.8 % Normal 42.0-54.0 [facility] Comment on above: Performed By: #### A BGCO #### [facility] [address] [place] [address] Dr. Anthony Mckenna Hemoglobin (Bld) [Mass/Vol] 17.0 g/dL Normal 14.0-18.0 [facility] Comment on above: Performed By: #### A BGCO #### [facility] [address] [place] [address] Dr. Anthony Mckenna IG # 0.02 10e3/ul Normal 0.00-0.03 [facility] Comment on above: Performed By: #### A BGCO #### [facility] [address] [place] [address] Dr. Anthony Mckenna IG % 0.2 % Normal 0.0-0.5 [facility] Comment on above: Performed By: #### A BGCO #### [facility] [address] [place] [address] Dr. Anthony Mckenna LYMPH # 2.6 103/ul Normal 1.2-3.8 [facility] Comment on above: Performed By: #### A BGCO #### [facility] [address] [place] [address] Dr. Anthony Mckenna Lymphocytes/100 WBC (Bld) 28.8 % Normal 20.5-60.0 [facility] Comment on above: Performed By: #### A BGCO #### [facility] [address] [address] [address] Anthony Mckenna MANUAL DIFF REQ NO Normal [facility] Comment on above: Performed By: #### A BGCO #### [facility] [address] [address] [address] Anthony Mckenna MCH (RBC) [Entitic mass] 29.7 pg Normal 25.9-34.0 [facility] Comment on above: Performed By: #### A BGCO #### [facility] [address] [place] [address] Dr. Anthony Mckenna MCHC (RBC) [Mass/Vol] 34.8 g/dL Normal 29.9-35.2 [facility] Comment on above: Performed By: #### A BGCO #### [facility] [address] [place] [address] Dr. Anthony Mckenna MCV (RBC) [Entitic vol] 85.2 fL Normal 80.0-94.0 [facility] Comment on above: Performed By: #### A BGCO #### [facility] [address] [place] [address] Dr. Anthony Mckenna MONO # 0.7 103/ul Normal 0.3-0.8 [facility] Comment on above: Performed By: #### A BGCO #### [facility] [address] [place] [address] Dr. Anthony Mckenna Monocytes/100 WBC (Bld) 8.0 % Normal 1.7-12.0 [facility] Comment on above: Performed By: #### A BGCO #### [facility] [address] [place] [address] Dr. Anthony Mckenna NEUT # 5.2 103/ul Normal 1.4-6.5 [facility] Comment on above: Performed By: #### A BGCO #### [facility] [address] [place] [address] Dr. Anthony Mckenna Neutrophils/100 WBC (Bld) 57.4 % Normal 43.0-75.0 [facility] Comment on above: Performed By: #### A BGCO #### [facility] [address] [address] [address] Anthony Mckenna Platelet mean volume (Bld) [Entitic vol] 9.3 fL Critically low 9.5-13.5 [facility] Comment on above: Performed By: #### A BGCO #### [facility] [address] [address] [address] Anthony Mckenna PLT 261 103/ul Normal 150-450 [facility] Comment on above: Performed By: #### A BGCO #### [facility] [address] [address] [address] Anthony Mckenna RBC 5.73 106/ul Normal 4.70-6.10 [facility] Comment on above: Performed By: #### A BGCO #### [facility] [address] [place] [address] Dr. Anthony Mckenna WBC 9.1 103/ul Normal 4.0-11.0 [facility] Comment on above: Performed By: #### A BGCO #### [facility] [address] [place] [address] Dr. Anthony Mckenna LIPID PROFILEon 08-06-2022 CHOL-HDL RATIO NORM SEE BELOW Normal [facility] Comment on above: Result Comment: 3.3 - 4.4 LOW RISK 4.4 - 7.1 AVERAGE RISK 7.1 - 11.0 MODERATE RISK >11.0 HIGH RISK Performed By: #### L IPID, CMP #### [facility] [address] [place] [address] Dr. Anthony Mckenna Cholesterol [Mass/Vol] 211 mg/dL Critically high <=200 [facility] Comment on above: Performed By: #### L IPID, CMP #### [facility] [address] [address] [address] Anthony Mckenna Cholesterol in HDL [Mass/Vol] 32 mg/dL Critically low 40-60 [facility] Comment on above: Performed By: #### L IPID, CMP #### [facility] [address] [address] [address] Anthony Mckenna Cholesterol in LDL [Mass/Vol] 137.4 mg/dL Normal [facility] Comment on above: Performed By: #### L IPID, CMP #### [facility] [address] [address] [address] Anthony Mckenna Cholesterol.total/ Cholesterol in HDL [Mass ratio] 6.6 {ratio} Normal [facility] Comment on above: Performed By: #### L IPID, CMP #### [facility] [address] [address] [address] Anthony Mckenna HDL NORMAL > or = 60 mg/dl - LO W CARDIOVASCULAR RISK <40 mg/dl - HIGH CARDIOVASCULAR RISK Normal [facility] Comment on above: Performed By: #### L IPID, CMP #### [facility] [address] [address] [address] Anthony Mckenna LDL CALC NORMAL SEE BELOW Normal [facility] Comment on above: Result Comment: <100 mg/dl OPTIMAL 100 - 129 mg/dl NEAR OR ABOVE OPTIMAL 130 - 159 mg/dl BORDERLINE HIGH 160 - 189 mg/dl HIGH >190 mg/dl VERY HIGH Performed By: #### L IPID, CMP #### [facility] [address] [address] [address] Anthony Mckenna Triglyceride [Mass/Vol] 208 mg/dL Critically high <=150 [facility] Comment on above: Performed By: #### L IPID, CMP #### [facility] [address] [address] [address] Anthony Mckenna VLDL CALC 41.6 mg/dL Normal [facility] Comment on above: Performed By: #### L IPID, CMP #### [facility] [address] [address] [address] Anthony Mckenna PROF 14(COMP METB)on 023 Albumin [Mass/Vol] 3.8 g/dL Normal 3.4-5.0 [facility] Comment on above: Performed By: #### L IPID, CMP #### [facility] [address] [address] [address] Anthony Mckenna Albumin/Globulin [Mass ratio] 1.0 {ratio} Normal [facility] Comment on above: Performed By: #### L IPID, CMP #### [facility] [address] [address] [address] Anthony Mckenna ALP [Catalytic activity/Vol] 78 U/L Normal 46-116 [facility] Comment on above: Performed By: #### L IPID, CMP #### [facility] [address] [address] [address] Anthony Mckenna ALT [Catalytic activity/Vol] 30 U/L Normal 16-63 [facility] Comment on above: Performed By: #### L IPID, CMP #### [facility] [address] [address] [address] Anthony Mckenna Anion gap [Moles/Vol] 10.5 mmol/L Normal [facility] Comment on above: Performed By: #### L IPID, CMP #### [facility] [address] [address] [address] Anthony Mckenna AST [Catalytic activity/Vol] 20 U/L Normal 15-37 [facility] Comment on above: Performed By: #### L IPID, CMP #### [facility] [address] [address] [address] Anthony Mckenna Bilirubin [Mass/Vol] 0.4 mg/dL Normal 0.2-1.0 [facility] Comment on above: Performed By: #### L IPID, CMP #### [facility] [address] [address] [address] Anthony Mckenna Calcium [Mass/Vol] 9.3 mg/dL Normal 8.5-10.1 [facility] Comment on above: Performed By: #### L IPID, CMP #### [facility] [address] [address] [address] Anthony Mckenna Chloride [Moles/Vol] 100 mmol/L Normal 98-107 [facility] Comment on above: Performed By: #### L IPID, CMP #### [facility] [address] [address] [address] Anthony Mckenna CO2 [Moles/Vol] 30.9 mmol/L Normal 21.0-32.0 [facility] Comment on above: Performed By: #### L IPID, CMP #### [facility] [address] [address] [address] Anthony Mckenna Creatinine [Mass/Vol] 0.96 mg/dL Normal 0.70-1.30 [facility] Comment on above: Performed By: #### L IPID, CMP #### [facility] [address] [address] [address] Anthony Mckenna EGFR-AF FINNISH >60 Normal >=60 [facility] Comment on above: Performed By: #### L IPID, CMP #### [facility] [address] [address] [address] Anthony Mckenna EGFR-NON AF FINNISH >60 Normal >=60 [facility] Comment on above: Performed By: #### L IPID, CMP #### [facility] [address] [address] [address] Anthony Mckenna Globulin (S) [Mass/Vol] 3.9 g/dL Normal [facility] Comment on above: Performed By: #### L IPID, CMP #### [facility] [address] [address] [address] Anthony Mckenna Glucose [Mass/Vol] 123 mg/dL Critically high 74-106 [facility] Comment on above: Performed By: #### L IPID, CMP #### [facility] [address] [address] [address] Anthony Mckenna Potassium [Moles/Vol] 4.4 mmol/L Normal 3.5-5.1 [facility] Comment on above: Performed By: #### L IPID, CMP #### [facility] [address] [address] [address] Anthony Mckenna Protein [Mass/Vol] 7.7 g/dL Normal 6.4-8.2 [facility] Comment on above: Performed By: #### L IPID, CMP #### [facility] [address] [address] [address] Anthony Mckenna Sodium [Moles/Vol] 137 mmol/L Normal 136-145 [facility] Comment on above: Performed By: #### L IPID, CMP #### [facility] [address] [place], [place] [address] Dr. Anthony Mckenna Urea nitrogen [Mass/Vol] 15.0 mg/dL Normal 7.0-18.0 [facility] Comment on above: Performed By: #### L IPID, CMP #### [facility] [address] [place], [place] [address] Dr. Anthony Mckenna Urea nitrogen/Creatinin e [Mass ratio] 15.6 mg/mg Normal [facility] Comment on above: Performed By: #### L IPID, CMP #### [facility] [address] [place], [place] [address] Dr. Anthony Mckenna Vital Signs Date Time Vital Sign Value Performing Clinician Facility 07-20-2024 08:28-0500 Diastolic blood pressure 88 mm[Hg] Cornelius Sarmini [facility] 07-20-2024 08:28-0500 Mean blood pressure 105 mm[Hg] Cornelius Sarmini [facility] 07-20-2024 08:28-0500 Systolic blood pressure 138 mm[Hg] Cornelius Sarmini [facility] 07-20-2024 08:17-0500 Blood Pressure Location Cornelius Sarmini [facility] 07-20-2024 08:17-0500 Diastolic blood pressure 101 mm[Hg] Cornelius Sarmini [facility] 07-20-2024 08:17-0500 Heart rate 89 /min Cornelius Sarmini [facility] 07-20-2024 08:17-0500 Systolic blood pressure 145 mm[Hg] Cornelius Sarmini [facility] 06-26-2024 11:05-0500 Blood Pressure Location Cornelius Sarmini [facility] 06-26-2024 11:05-0500 Diastolic blood pressure 85 mm[Hg] Cornelius Sarmini [facility] 06-26-2024 11:05-0500 Heart rate 87 /min Cornelius Sarmini [facility] 06-26-2024 11:05-0500 Mean blood pressure 99 mm[Hg] Cornelius Sarmini [facility] 06-26-2024 11:05-0500 Respiratory rate 20 /min Cornelius Sarmini [facility] 06-26-2024 11:05-0500 SaO2% (BldA) [Mass fraction] 94 % Cornelius Sarmini [facility] 06-26-2024 11:05-0500 Systolic blood pressure 128 mm[Hg] Cornelius Sarmini [facility] 06-26-2024 11:00-0500 Diastolic blood pressure 82 mm[Hg] Cornelius Sarmini [facility] 06-26-2024 11:00-0500 Mean blood pressure 92 mm[Hg] Cornelius Sarmini [facility] 06-26-2024 11:00-0500 Respiratory rate 15 /min Cornelius Sarmini [facility] 06-26-2024 11:00-0500 Systolic blood pressure 111 mm[Hg] Cornelius Sarmini [facility] 06-26-2024 10:49-0500 Blood Pressure Location Cornelius Sarmini [facility] 06-26-2024 10:49-0500 Diastolic blood pressure 75 mm[Hg] Cornelius Sarmini [facility] 06-26-2024 10:49-0500 Heart rate 90 /min Cornelius Sarmini [facility] 06-26-2024 10:49-0500 Mean blood pressure 85 mm[Hg] Cornelius Sarmini [facility] 06-26-2024 10:49-0500 Respiratory rate 12 /min Cornelius Sarmini [facility] 06-26-2024 10:49-0500 SaO2% (BldA) [Mass fraction] 95 % Cornelius Sarmini [facility] 06-26-2024 10:49-0500 Systolic blood pressure 105 mm[Hg] Cornelius Sarmini [facility] 06-26-2024 10:34-0500 Body temperature 97.7 [degF] Cornelius Sarmini [facility] 06-26-2024 10:20-0500 Respiratory rate 12 /min Cornelius Sarmini [facility] 06-26-2024 10:05-0500 Respiratory rate 12 /min Cornelius Sarmini [facility] 06-26-2024 09:50-0500 Respiratory rate 12 /min Cornelius Sarmini [facility] 06-26-2024 08:09-0500 Body temperature 97.52 [degF] Cornelius Sarmini [facility] 06-18-2024 13:27-0500 Diastolic blood pressure 88 mm[Hg] Vesna GORDON Work Phone: [facility] 06-18-2024 13:27-0500 Systolic blood pressure 130 mm[Hg] Vesna Hemmer PA Work Phone: [facility] 06-18-2024 13:07-0500 Body height 177.8 cm Vesna Hemmer PA Work Phone: [facility] 06-18-2024 13:07-0500 Body mass index (BMI) [Ratio] 34.18 kg/m2 Vesna Hemmer PA Work Phone: [facility] 06-18-2024 13:07-0500 Body weight 108.05 kg Vesna Hemmer PA Work Phone: [facility] 06-18-2024 13:07-0500 Heart rate 81 /min Vesna Hemmer PA Work Phone: [facility] 06-18-2024 13:07-0500 Respiratory rate 16 /min Vesna Hemmer PA Work Phone: [facility] 06-18-2024 13:07-0500 SaO2% (BldA) [Mass fraction] 95 % Vesna Hemmer PA Work Phone: [facility] 05-18-2024 08:16-0500 Diastolic blood pressure 97 mm[Hg] Cornelius Sarmini [facility] 05-18-2024 08:16-0500 Mean blood pressure 116 mm[Hg] Cornelius Sarmini [facility] 05-18-2024 08:16-0500 Systolic blood pressure 153 mm[Hg] Cornelius Sarmini [facility] 05-18-2024 08:10-0500 Blood Pressure Location Cornelius Sarmini [facility] 05-18-2024 08:10-0500 Diastolic blood pressure 100 mm[Hg] Cornelius Sarmini [facility] 05-18-2024 08:10-0500 Heart rate 94 /min Ashli Castellanos [facility] 05-18-2024 08:10-0500 Systolic blood pressure 159 mm[Hg] Ashli Subramaniani [facility] 05-04-2024 13:03-0400 Body mass index (BMI) [Ratio] 34.72 kg/m2 Tan Capps MD Work Phone: [facility] 05-04-2024 13:03-0400 Body weight 109.77 kg Tan Capps MD Work Phone: [facility] 05-04-2024 13:03-0400 Diastolic blood pressure 95 mm[Hg] Tan Capps MD Work Phone: [facility] 05-04-2024 13:03-0400 Heart rate 94 /min Tan Capps MD Work Phone: [facility] 05-04-2024 13:03-0400 Respiratory rate 17 /min Tan Capps MD Work Phone: [facility] 05-04-2024 13:03-0400 SaO2% (BldA) [Mass fraction] 97 % Tan Capps MD Work Phone: [facility] 05-04-2024 13:03-0400 Systolic blood pressure 130 mm[Hg] Tan Capps MD Work Phone: [facility] 02-26-2024 12:58-0400 Body height 177.8 cm Tan Capps MD Work Phone: [facility] 02-26-2024 12:58-0400 Body mass index (BMI) [Ratio] 34.01 kg/m2 Tan Capps MD Work Phone: [facility] 02-26-2024 12:58-0400 Body weight 107.5 kg Tan Capps MD Work Phone: [facility] 02-26-2024 12:58-0400 Diastolic blood pressure 84 mm[Hg] Tan Capps MD Work Phone: [facility] 02-26-2024 12:58-0400 Heart rate 92 /min Tan Capps MD Work Phone: [facility] 02-26-2024 12:58-0400 SaO2% (BldA) [Mass fraction] 96 % Tan Capps MD Work Phone: [facility] 02-26-2024 12:58-0400 Systolic blood pressure 134 mm[Hg] Tan Capps MD Work Phone: [facility] Encounters Encounter Date Encounter Type Care Provider Facility Start: 07-20-2024 End: 07-20-2024 ambulatory Cornelius Talal Sarmini Facility:[facility] Start: 07-20-2024 End: 07-20-2024 Patient encounter procedure Cornelius Talal Sarmini [facility] Start: 06-26-2024 End: 06-26-2024 ambulatory Cornelius Talal Sarmini [place] Start: 06-26-2024 End: 06-26-2024 Patient encounter procedure Cornelius Talal Sarmini [facility] Start: 06-22-2024 End: 06-22-2024 Orders Only Vesna GORDON Work Phone: [facility] Comment on above: Tick bite of lower l eg, unspecified laterality, initial encounter (Primary Dx) Start: 06-18-2024 End: 06-18-2024 Bamboo flowsheet Vesna GORDON Work Phone: [facility] Start: 06-18-2024 End: 06-18-2024 Bamboo flowsheet Vesna GORDON Work Phone: [facility] Start: 06-18-2024 End: 06-18-2024 Office outpatient visit 25 minutes Vesna GORDON Work Phone: [facility] Comment on above: Primary hypertension (CMS/HCC) (Primary Dx); Pre-op testing; Type 2 diabetes mellitus without complication, without long-term current use of insulin (CMS/HCC); Tobacco user; Lip swelling; Diverticulitis of colon; Class 1 obesity due to excess calories with serious comorbidity and body mass index (BMI) of 34.0 to 34.9 in adult; Tick bite of lower leg, unspecified laterality, initial encounter Start: 06-18-2024 End: 06-18-2024 Patient encounter status Vesna Monroy PA Work Phone: [facility] Start: 06-18-2024 End: 06-18-2024 ambulatory VESNA MONROY Not Available Start: 05-18-2024 End: 05-18-2024 ambulatory Cornelius Talal Sarmini Facility:[facility] Start: 05-18-2024 End: 05-18-2024 [facility] encounter [facility] Start: 05-07-2024 ambulatory Cornelius Amandamini Facili ty:[facility] Start: 05-04-2024 End: 05-04-2024 Bamboo flowsheet Tan Capps MD Work Phone: [facility] Start: 05-04-2024 End: 05-04-2024 Bamboo flowsheet Tan Capps MD Work Phone: [facility] Start: 05-04-2024 End: 05-04-2024 Office outpatient visit 15 minutes Tan Capps MD Work Phone: [facility] Comment on above: Postprandial epigast joaquin pain (Primary Dx); Screening for colorectal cancer Start: 05-04-2024 End: 05-04-2024 ambulatory TAN CAPPS Not Available Start: 04-23-2024 End: 05-04-2024 Orders Only Cassi Santiago 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 Work Phone: [facility] Comment on above: Nausea and vomiting, unspecified vomiting type (Primary Dx) Start: 02-26-2024 End: 02-26-2024 Bamboo flowsheet Tan Capps MD Work Phone: [facility] Start: 02-26-2024 End: 02-26-2024 Bamboo flowsheet Tan Capps MD Work Phone: [facility] Start: 02-26-2024 End: 02-26-2024 Office outpatient visit 25 minutes Tan Capps MD Work Phone: [facility] Comment on above: Primary hypertension (CMS/HCC) (Primary Dx); Type 2 diabetes mellitus without complication, without long-term current use of insulin (CMS/HCC); Cigarette nicotine dependence without complication Start: 02-26-2024 End: 02-26-2024 ambulatory TAN CAPPS Not Available Start: 11-25-2023 End: 11-25-2023 ambulatory TAN CAPPS Not Available Start: 10-23-2023 End: 10-23-2023 ambulatory TAN CAPPS Not Available Start: 07-25-2023 End: 07-25-2023 ambulatory TAN CAPPS Not Available Start: 07-11-2023 End: 07-11-2023 ambulatory TAN CAPPS Not Available Start: 11-06-2022 End: 11-08-2022 Evaluation and management of inpatient DR SCOTT MERINO Facility:[facility] Start: 08-07-2022 Encounter for genera l adult medical examination without abnormal findings DR SCOTT MERINO [facility] Start: 08-06-2022 End: 08-07-[address] SCOTT MERINO Facility:[facility] Start: 08-06-2022 End: 08-07-2022 Encounter for general adult medical examination without abnormal findings DR SCOTT MERINO Facility:[facility] Procedures Date Procedure Procedure Detail Performing Clinician Start: 06-26-2024 Colonoscopy Ashli freitas Start: 06-26-2024 Esophagogastroduodenoscopy Aslhi Castellanos Start: 02-26-2024 Hemoglobin glycosylated a1c Tan Capps MD Work Phone: Start: 08-06-[address] ROBI MERINO Comment on above: Performed By: #### A BGCO #### [facility] [address] [place] [address] Dr. Anthony Mckenna Colonoscopy Corneliusjose r Patelpola misael Partial resection of colon M guadalupe Castellanos Plan of Treatment Date Care Activity Detail Author Start: 06-21-2025 Glaucoma screening Diabetes: R etinopathy Screening [facility] Start: 07-25-2024 Urine screening for protein Diabetes: Urine Protein Screening [facility] Start: 07-23-2024 End: 06-22-2025 B. burgdorferi antibodies B. burgdorferi antibodies Lab Routine Tick bite of lower leg, unspecified laterality, initial encounter Expected: 07/23/2024 (Approximate), Expires: 06/22/2025 [facility] Work Phone: Comment on above: Expected: 07/23/2024 (Approximate), Expires: 06/22/2025 Start: 06-18-2024 End: 06-18-2025 B. burgdorferi antibodies B. burgdorferi antibodies Lab Routine Tick bite of lower leg, unspecified laterality, initial encounter Expected: 06/18/2024 (Approximate), Expires: 06/18/2025 [facility] Comment on above: Expected: 06/18/2024 (Approximate), Expires: 06/18/2025 Start: 06-18-2024 End: 06-18-2025 Basic metabolic 1998 panel - Serum or Plasma Basic metabolic panel Lab Routine Primary hypertension (CMS/HCC) Pre-op testing Type 2 diabetes mellitus without complication, without long-term current use of insulin (CMS/HCC) Expected: 06/18/2024 (Approximate), Expires: 06/18/2025 [facility] Work Phone: Comment on above: Expected: 06/18/2024 (Approximate), Expires: 06/18/2025 Start: 06-18-2024 End: 06-18-2025 CBC panel - Blood by Automated count CBC Lab Routine Primary hypertension (CMS/HCC) Pre-op testing Type 2 diabetes mellitus without complication, without long-term current use of insulin (CMS/HCC) Expected: 06/18/2024 (Approximate), Expires: 06/18/2025 [facility] Comment on above: Expected: 06/18/2024 (Approximate), Expires: 06/18/2025 Start: 06-18-2024 End: 06-18-2024 Patient encounter procedure 06/18/2024 1:00 PM EST Office Visit [facility] [address] [place] [address] Vesna Monroy PA [address] [place] [address] Arrived [facility] Comment on above: Arrived Start: 05-28-2024 Hemoglobin A1c measurement Diabetes: Hemoglobin A1C [facility] Start: 05-04-2024 End: 05-04-2024 Patient encounter procedure 05/04/2024 1:00 PM EDT Office Visit [facility] [address] [place] [address] Tan Capps MD [address] [place] [address] Arrived [facility] Comment on above: Arrived Start: 03-08-2024 Influenza vaccination Influenza Vacc ine (#1) [facility] Start: 02-26-2024 End: 02-26-2024 Patient encounter procedure 02/26/2024 1:00 PM EDT Office Visit [facility] [address] [place] [address] Tan Capps MD [address] [place] [address] Arrived [facility] Comment on above: Arrived Start: 01-22-2024 Hemoglobin A1c measurement Diabetes: Hemoglobin A1C [facility] Start: 1975 Glaucoma screening Diabetes: R etinopathy Screening [facility] Immunizations Immunization Date Immunization Notes Care Provider Fa cility 01-06-2021 SARS-CoV-2 (COVID-19 ) mRNA BNT-162b2 vax Ashli Castellanos [facility] [place] Comment on above: Result Comment: 2022: [id number] 12-16-2020 SARS-CoV-2 (COVID-19 ) mRNA BNT-162b2 ash Castellanos [facility] [place] Comment on above: Result Comment: 2022: [id number] Payers Date Payer Category Payer Unknown [id number] 2023 Blue Cross Blue Shield BCBS Memb er Subscriber Plan / Payer (Effective 2023-Present) Name: James David A Relation to Subscriber: Self Name: James David A Payer ID: Not on file Type: Not on file Address: [address] [place] [id number] 2023 Unknown BCBS BCBS xxxxxx [id number] 2023-Present [phone] [address] [place] [id number] 1965 Unknown [id number] [id number]. 2.593 1965 Unknown [id number] [id number]. 2.593 1965 Unknown [id number] [id number]. 2.1259 1965 Unknown [id number] [id number]. 2.1259 1965 Unknown [id number] [id number]. 2.1259 1965 Unknown [id number] [id number]. 2.9 1965 Unknown [id number] 2.16.840.1.890790.3.579. 2.9 1965 Unknown [id number] 2.16.840.1.092514.3.579. 2.9 1965 Unknown [id number] 2.16.840.1.103326.3.579. 2.9 1965 Unknown [id number] [id number]. 2.7 1965 Unknown [id number] [id number]. 2.7 1965 Unknown [id number] [id number]. 2.7 1965 Unknown [id number] [id number]. 2.727 1959 Unknown [id number] Social History Date Type Detail Facility Start: 07-11-2023 End: 06-18-2024 Tobacco smoking status [facility] Smokes tobacco daily [facility] History of tobacco use Cigarette Smoker [facility] Start: 07-11-2023 End: 06-18-2024 Tobacco use and exposure Smokeless tobacco non-user [facility] Start: 11-25-2023 End: 02-26-2024 Alcoholic beverage intake Lifetime non-drinker (finding) [facility] Start: 07-11-2023 End: 02-26-2024 History of Social function [facility] Start: 07-11-2023 End: 02-26-2024 Humiliation, Afraid, Rape, and Kick questionnaire [HARK] [facility] Within the last year , have you been afraid of your partner or ex-partner? No [facility] Are you now , , , , never or living with a partner? [facility] How often to you hav e a drink containing alcohol? Patient declined [facility] Do you feel stress - tense, restless, nervous, or anxious, or unable to sleep at night because your mind is troubled all the time - these days [OSQ] To some extent [facility] (I/We) worried wheth er (my/our) food would run out before (I/we) got money to buy more. Never true [facility] Start: 1965 Sex assigned at Not on file [facility] Start: 05-18-2024 End: 07-20-2024 Tobacco smoking status Heavy tobacco smoker (finding) [facility] Medical Equipment Procedure Code Equipment Code Equipment Origin al Text Equipment Identifier Dates Unknown Unknown 06/26/24 Non Biological Unknown FDA Start: 06-26-2024 Unknown Unknown 06/26/24 Non Biological Unknown FDA Start: 06-26-2024 Functional Status Date Assessment Result Facility 07-20-2024 Functional Status N/A [facility] 06-26-2024 Functional Status N/A [facility] 05-18-2024 Functional Status N/A [facility] Clinical Notes 02-26-2024 to 06-26-2024 Note Date & Type Note Facility 06-26-2024 Evaluation + Plan note Extrac damon from: Title:ANES Post-operative Note---General Author: Ricardo Soria MD. Date:06/26/24 Plan Transfer/Discharge: Transfer/Discharge Discharge when meets criteria ( To home ). Extracted from: Title:[facility] Pre-operative Note 2022 Author:Ricardo Duffy Date:06/26/24 Plan [place] [employer] Anesthesiologists (ASA) physical status classification: Class III. Anesthetic Preoperative Plan: Anesthesia General. Extracted from: Title:1Preop H&P Author:Jasmin KINSEY, Ashli skaggs Date:06/26/24 Impression and Plan Impression: Left-sided abdominal pain, family history of colon cancer Plan: -EGD and Colonoscopy Future Scheduled Tests Laboratory* CBC w/ Auto Diff 05/18/24 * Comprehensive Metabolic Panel 05/18/24 [facility] 12-20-2024 Hospital Discharge instructions Patient Education 06/26/2024 11:07:25 Colonoscopy, Care After Surgery [facility] (CUSTOM) Colonoscopy Care After Surgery Please read the instructions outlined below and refer to this sheet in the next few weeks. These discharge instructions provide you with general information on caring for [facility] Your doctor may also give you specific instructions. While your treatment has been planned according to the most current medical practices available, unavoidable complications occasionally occur. If you have any problems or questions after discharge, please call your doctor. ACTIVITY You may resume your regular activity, but move at a slower pace for the next 24 hours. Take frequent rest periods for the next 24 hours. Walking will help get rid of the air and reduce the bloated feeling in your abdomen (belly). No driving for 24 hours (because of the anesthesia (medicine) used during the test). You may shower. Do not sign any important legal documents or operate any machinery for 24 hours (because of the anesthesia used during the test). NUTRITION Drink plenty of fluids. You may resume your normal diet as instructed by your doctor. Begin with a light meal and progress to your normal diet. Heavy or fried foods are harder to digestand may make you feel nauseated (sick to your stomach). Avoid alcoholic beverages for 24 hours or as instructed. MEDICATIONS You may resume your normal medications unless your doctor tells you otherwise. WHAT YOU CAN EXPECT TODAY Some feelings of bloating in the abdomen. Passage of more gas than usual. Spotting of blood in your stool or on the toilet paper. FOLLOW-UP Your doctor will discuss the results of your test with you. SEEK IMMEDIATE MEDICAL ATTENTION IF: There is more than a spotting of blood in your stool. There is abdominal distention (your abdomen is swollen). There is vomiting. You have a temperature over 101.5 F. There is abdominal pain or discomfort that is severe or gets worse throughout the day. 06/26/2024 11:07:23 Endoscopy, Care After Procedure [facility] Endoscopy Care After Procedure Please read the instructions outlined below and refer to this sheet in the next few weeks. These discharge instructions provide you with general information on caring for yourself after you leave thespital. Your doctor may also give you specific instructions. While your treatment has been planned according to the most current medical practices available, unavoidable complications occasionally occur. If you have any problems or questions after discharge, please call your doctor. ACTIVITY You may resume your regular activity but move at a slower pace for the next 24 hours. Take frequent rest periods for the next 24 hours. Walking will help expel (get rid of) the air and reduce the bloated feeling in your abdomen. No driving for 24 hours (because of the anesthesia (medicine) used during the test). You may shower. Do not sign any important legal documents or operate any machinery for 24 hours (because of the anesthesia used during the test). NUTRITION Drink plenty of fluids. You may resume your normal diet. Begin with a light meal and progress to your normal diet. Avoid alcoholic beverages for 24 hours or as instructed by your caregiver. MEDICATIONS You may resume your normal medications unless your caregiver tells you otherwise. WHAT YOU CAN EXPECT TODAY You may experience abdominal discomfort such as a feeling of fullness or gas pains. FOLLOW-UP Your doctor will discuss the results of your test with you. SEEK IMMEDIATE MEDICAL ATTENTION IF ANY OF THE FOLLOWING OCCUR: Excessive nausea (feeling sick to your stomach) and/or vomiting. Severe abdominal pain and distention (swelling). Trouble swallowing. Temperature over 100 F (37.8 C). Rectal bleeding or vomiting of blood. Document Released: 02/05/2005 Document Re-Released: 12/16/2006 Common Curriculum Patient Information [employer]. 06/26/2024 11:07:19 Colon Polyps Colon Polyps Colon polyps are tissue growths inside the colon, which is part of the large intestine. They are one of the types of polyps that can grow in the body. A polyp may be a round bump or a mushroom-shapedgrowth. You could have one polyp or more than one. Most colon polyps are noncancerous (benign). However, some colon polyps can become cancerous over time. Finding and removing the polyps early can help prevent this. What are the causes? The exact cause of colon polyps is not known. What increases the risk? The following factors may make you more likely to develop this condition: Having a family history of colorectal cancer or colon polyps. Being older than 45 years of age. Being younger than 45 years of age and having a significant family history of colorectal cancer or colon polyps or a genetic condition that puts you at higher risk of getting colon polyps. Having inflammatory bowel disease, such as ulcerative colitis or Crohn's disease. Having certain conditions passed from parent to child (hereditary conditions), such as: ?Familial adenomatous polyposis (FAP). ?Adame syndrome. ?Turcot syndrome. ?Peutz Jeghers syndrome. ?MUTYH-associated polyposis (MAP). Being overweight. Certain lifestyle factors. These include smoking cigarettes, drinking too much alcohol, not gettingenough exercise, and eating a diet that is high in fat and red meat and low in fiber. Having had childhood cancer that was treated with radiation of the abdomen. What are the signs or symptoms? Many times, there are no symptoms. If you have symptoms, they may include: Blood coming from the rectum during a bowel movement. Blood in the stool (feces). The blood may be bright red or very dark in color. Pain in the abdomen. A change in bowel habits, such as constipation or diarrhea. How is this diagnosed? This condition is diagnosed with a colonoscopy. This is a procedure in which a lighted, flexible scope is inserted into the opening between the buttocks (anus) and then passed into the colon to examine the area. Polyps are sometimes found when a colonoscopy is done as part of routine cancer screening tests. How is this treated? This condition is treated by removing any polyps that are found. Most polyps can be removed during a colonoscopy. Those polyps will then be tested for cancer. Additional treatment may be needed depending on the results of testing. Follow these instructions at home: Eating and drinking Eat foods that are high in fiber, such as fruits, vegetables, and whole grains. Eat foods that are high in calcium and vitamin D, such as milk, cheese, yogurt, eggs, liver, fish, and broccoli. Limit foods that are high in fat, such as fried foods and desserts. Limit the amount of red meat, precooked or cured meat, or other processed meat that you eat, such as hot dogs, sausages, blank, or meat loaves. Limit sugary drinks. Lifestyle Maintain a healthy weight, or lose weight if recommended by your health care provider. Exercise every day or as told by your health care provider. Do not use any products that contain nicotine or tobacco, such as cigarettes, e- cigarettes, and chewing tobacco. If you need help quitting, ask your health care provider. Do not drink alcohol if: ?Your health care provider tells you not to drink. ?You are , may be , or are planning to become . If you drink alcohol: ?Limit how much you use to: ?0 1 drink a day for women. ?0 2 drinks a day for men. ?Know how much alcohol is in your drink. In the [place] one drink equals one 12 oz bottle of beer (355 mL), one 5 oz glass of wine (148 mL), or one 1 oz glass of hard liquor (44 mL). General instructions Take ecdz-fqg-zffifvt and prescription medicines only as told by your health care provider. Keep all follow-up visits. This is important. This includes having regularly scheduled colonoscopies. Talk to your health care provider about when you need a colonoscopy. Contact a health care provider if: You have new or worsening bleeding during a bowel movement. You have new or increased blood in your stool. You have a change in bowel habits. You lose weight for no known reason. Summary Colon polyps are tissue growths inside the colon, which is part of the large intestine. They are one type of polyp that can grow in the body. Most colon polyps are noncancerous (benign), but some can become cancerous over time. This condition is diagnosed with a colonoscopy. This condition is treated by removing any polyps that are found. Most polyps can be removed during a colonoscopy. This information is not intended to replace advice given to you by your health care provider. Make sure you discuss any questions you have with your health care provider. Document Revised: 10/12/2020 Document Reviewed: 10/12/2020 [employer] Patient Education 2023 [employer]. 06/26/2024 11:06:58 Esophagitis Esophagitis Esophagitis is inflammation of the esophagus. The esophagus is the tube that carries food from the mouth to the stomach. Esophagitis can cause soreness or pain in the esophagus. This condition can make it difficult and painful to swallow. What are the causes? Most causes of esophagitis are not serious. Common causes of this condition include: Gastroesophageal reflux disease (GERD). This is when stomach contents move back up into the esophagus (reflux). Repeated vomiting. An allergic reaction, especially caused by food allergies (eosinophilic esophagitis). Injury to the esophagus by swallowing large pills with or without water, or swallowing certain types of medicines. Swallowing harmful chemicals, such as household cleaning products. Drinking a lot of alcohol. An infection of the esophagus. This most often occurs in people who have a weakened immune system. Radiation or chemotherapy treatment for cancer. Certain diseases such as sarcoidosis, Crohn's disease, and scleroderma. What are the signs or symptoms? Symptoms of this condition include: Difficult or painful swallowing. Pain with swallowing acidic liquids, such as citrus juices. You may also have pain when you burp. Chest pain and difficulty breathing. Nausea and vomiting. Pain in the abdomen. Weight loss. Ulcers in the mouth and white patches in the mouth (candidiasis). Fever. Coughing up blood or vomiting blood. Stool that is black, tarry, or bright red. How is this diagnosed? This condition may be diagnosed based on your medical history and a physical exam. You may also have other tests, including: A test to examine your esophagus and stomach with a small flexible tube with a camera (endoscopy). A test that measures the acidity level in your esophagus. A test that measures how much pressure is on your esophagus. A barium swallow or modified barium swallow to show the shape, size, and functioning of your esophagus. Allergy tests. How is this treated? Treatment for this condition depends on the cause of your esophagitis. In some cases, steroids or other medicines may be given to help relieve your symptoms or to treat the underlying cause of your condition. You may have to make some lifestyle changes, such as: Avoiding alcohol. Quitting any products that contain nicotine or tobacco. These products include cigarettes, chewing tobacco, and vaping devices, such as e-cigarettes. If you need help quitting, ask your health care provider. Changing your diet. Exercising. Changing your sleep habits and your sleep environment. Follow these instructions at home: Medicines Take yjps-npe-yqzprid and prescription medicines only as told by your health care provider. Do not take aspirin, ibuprofen, or other NSAIDs unless your health care provider told you to do so. If you have trouble taking pills: ?Use a pill splitter to decrease the size of the pill. This will decrease the chance of the pill getting stuck or injuring your esophagus. ?Drink water after you take a pill. Eating and drinking Avoid foods and drinks that seem to make your symptoms worse. Follow a diet as recommended by your health care provider. This may involve avoiding foods and drinks such as: ?Coffee and tea, with or without caffeine. ?Drinks that contain alcohol. ?Energy drinks and sports drinks. ?Carbonated drinks or sodas. ?Chocolate and cocoa. ?Peppermint and mint flavorings. ?Garlic and onions. ?Horseradish. ?Spicy and acidic foods, including peppers, chili powder, monzon powder, vinegar, hot sauces, and barbecue sauce. ?[place] fruit juices and citrus fruits, such as oranges, kristin, and limes. ?Tomato-based foods, such as red sauce, chili, salsa, and pizza with red sauce. ?Fried and fatty foods, such as donuts, yi fries, potato chips, and high-fat dressings. ?High-fat meats, such as hot dogs and fatty cuts of red and white meats, such as rib eye steak, sausage, ham, and blank. ?High-fat dairy items, such as whole milk, butter, and cream cheese. Lifestyle Eat small, frequent meals instead of large meals. Avoid drinking large amounts of liquid with your meals. Avoid eating meals during the 2 3 hours before bedtime. Avoid lying down right after you eat. Do not exercise right after you eat. Do not use any products that contain nicotine or tobacco. These products include cigarettes, chewing tobacco, and vaping devices, such as e-cigarettes. If you need help quitting, ask your health careprovider. General instructions Pay attention to any changes in your symptoms. Let your health care provider know about them. Wear loose-fitting clothing. Do not wear anything tight around your waist that causes pressure on your abdomen. Raise (elevate) the head of your bed about 6 inches (15 cm). You may need to use a wedge to do this. Try relaxation strategies such as yoga, deep breathing, or meditation to manage stress. If you needhelp reducing stress, ask your health care provider. If you are overweight, reduce your weight to an amount that is healthy for you. Ask your health care provider for guidance about a safe weight loss goal. Keep all follow-up visits. This is important. Contact a health care provider if: You have new symptoms. You have unexplained weight loss. You have difficulty swallowing, or it hurts to swallow. You have wheezing or a cough that does not go away. Your symptoms do not improve with treatment. You have frequent heartburn for more than two weeks. Get help right away if: You have sudden severe pain in your arms, neck, jaw, teeth, or back. You suddenly feel sweaty, dizzy, or light-headed. You have chest pain or shortness of breath. You vomit and the vomit is green, yellow, or black, or it looks like blood or coffee grounds. Your stool is red, bloody, or black. You have a fever. You cannot swallow, drink, or eat. These symptoms may represent a serious problem that is an emergency. Do not wait to see if the symptoms will go away. Get medical help right away. Call your local emergency services (911 in the [place] Do not drive yourself to the hospital. Summary Esophagitis is inflammation of the esophagus. Most causes of esophagitis are not serious. Follow your health care provider's instructions about eating and drinking. Contact a health care provider if you have new symptoms, have weight loss, or coughing that does not stop. Get help right away if you have severe pain in the arms, neck, jaw, teeth, or back, or if you have chest pain, shortness of breath, or fever. This information is not intended to replace advice given to you by your health care provider. Make sure you discuss any questions you have with your health care provider. Document Revised: 01/02/2021 Document Reviewed: 01/02/2021 [employer] Patient Education 2023 [employer]. 06/26/2024 11:06:48 Pardo's Esophagus Pardo's Esophagus Pardo's esophagus occurs when the tissue that lines the esophagus changes or becomes damaged. Theesophagus is the tube that carries food from the throat to the stomach. With Pardo's esophagus, the cells that line the esophagus are replaced by cells that are similar to the lining of the intestines (intestinal metaplasia). Pardo's esophagus itself may not cause any symptoms. However, many people who have Pardo's esophagus also have gastroesophageal reflux disease (GERD), which may cause symptoms such as heartburn. Over time, a few people with this condition may develop cancer of the esophagus. Treatment may include medicines, procedures to destroy the abnormal cells, or surgery. What are the causes? The exact cause of this condition is not known. In some cases, the condition develops from damage to the lining of the esophagus caused by gastroesophageal reflux disease (GERD). GERD occurs when stomach acids flow up from the stomach into the esophagus. Frequent symptoms of GERD may cause intestinal metaplasia or cause cell changes (dysplasia). What increases the risk? You are more likely to develop this condition if you: Have GERD. Are male. Are of descent. Are obese. Are older than 50. Have a hiatal hernia. This is a condition in which part of your stomach bulges into your chest. Smoke. What are the signs or symptoms? People with Pardo's esophagus often have no symptoms. However, many people with this condition also have GERD. Symptoms of GERD may include: Heartburn. Difficulty swallowing. Dry cough. How is this diagnosed? This condition may be diagnosed based on: Results of an upper gastrointestinal endoscopy. For this exam, a thin, flexible tube with a light and a camera on the end (endoscope) is passed down your esophagus. Your health care provider can viewthe inside of your esophagus during this procedure. Results of a biopsy. For this procedure, several tissue samples are removed (biopsy) from your esophagus to look at under a microscope. They are then checked for intestinal metaplasia or dysplasia. How is this treated? Treatment for this condition may include: Medicines (proton pump inhibitors, or PPIs) to decrease or stop GERD. Periodic endoscopic exams to make sure that cancer is not developing. A procedure or surgery for dysplasia. This may include: ?Removal or destruction of abnormal cells. ?Removal of part of the esophagus. Follow these instructions at home: Eating and drinking Eat more fruits and vegetables. Avoid fatty foods. Eat small, frequent meals instead of large meals. Avoid foods that cause heartburn. These foods include: ?Coffee and alcoholic drinks. ?Tomatoes and foods made with tomatoes. ?[place] or spicy foods. ?Chocolate and peppermint. Do not drink alcohol. General instructions Take dsgt-nbc-gsbndcw and prescription medicines only as told by your health care provider. Do not use any products that contain nicotine or tobacco, such as cigarettes, e- cigarettes, and chewing tobacco. If you need help quitting, ask your health care provider. If you are being treated for GERD, make sure you take medicines and follow all instructions as toldby your health care provider. Keep all follow-up visits as told by your health care provider. This is important. Contact a health care provider if: You have heartburn or GERD symptoms. You have difficulty swallowing. Get help right away if: You have chest pain. You are unable to swallow. You vomit blood or material that looks like coffee grounds. Your stool (feces) is bright red or dark. These symptoms may represent a serious problem that is an emergency. Do not wait to see if the symptoms will go away. Get medical help right away. Call your local emergency services (911 in the [place] Do not drive yourself to the hospital. Summary Pardo's esophagus occurs when the tissue that lines the esophagus changes or becomes damaged. Pardo's esophagus may be diagnosed with an upper gastrointestinal endoscopy and a biopsy. Treatment may include medicines, procedures to remove abnormal cells, or surgery. Follow your health care provider's instructions about what to eat and drink, what medicines to take, and when to call for help. This information is not intended to replace advice given to you by your health care provider. Make sure you discuss any questions you have with your health care provider. Document Revised: 09/10/2020 Document Reviewed: 09/10/2020 [employer] Patient Education 2023 [employer]. Follow Up Care 05/18/2024 08:57:16 With:Jasmin KINSEY, SAMMY [place], [facility] Address: [address] [place] [address] [phone] When: Unknown Comments:Office will call to schedule follow up appointment and/or review any pending biopsy resultsCall forany problems. [facility] 12-20-2024 NoteProgress Note-Physician Patient: DAVID RAMIREZ Age: 59 years Sex: Male : 1965 Associated Diagnoses: None Author: Yang KINSEY, Ricardo Ramírez Postoperative Information Postoperative disposition: Postoperative disposition: To PACU. Optimetrix number: Optimetrix number [id number]. Anesthetic utilized: General. Health Status Allergies: Allergic Reactions (Selected) No Known Allergies No Known Medication Allergies Physical Examination Vital Signs 06/26/2024 11:05 EST Heart Rate Monitored 87 bpm Respiratory Rate Monitored 20 br/min Systolic Blood Pressure 128 mmHg Diastolic Blood Pressure 85 mmHg Blood Pressure Location Left arm Mean Arterial Pressure, Cuff 99 mmHg SpO2 94 % 06/26/2024 11:00 EST Heart Rate Monitored 87 bpm Respiratory Rate Monitored 15 br/min Systolic Blood Pressure 111 mmHg Diastolic Blood Pressure 82 mmHg Blood Pressure Location Left arm Mean Arterial Pressure, Cuff 92 mmHg SpO2 95 % Pain Assessment: Controlled. General: Awake, Appropriate. Respiratory: Adequate air exchange. Cardiovascular: Stable. Neurological Assessment Anesthetic outcome No anesthetic complications noted. Adequate pain relief. Review / Management Condition: Stable. Plan Transfer/Discharge: Transfer/Discharge Discharge when meets criteria ( To home ).[facility]Result Comment: Electronically Signed By: Yang KISNEY, Ricardo Truong.br\Date and Time Signed: 06/26/24 12:43 EST 06-26-2024 NotePatient Education - Text Colonoscopy Care After Surgery Please read the instructions outlined below and refer to this sheet in the next few weeks. These discharge instructions provide you with general information on caring for [facility] Your doctor may also give you specific instructions. While your treatment has been planned according to the most current medical practices available, unavoidable complications occasionally occur. If you have any problems or questions after discharge, please call your doctor. ACTIVITY You may resume your regular activity, but move at a slower pace for the next 24 hours. Take frequent rest periods for the next 24 hours. Walking will help get rid of the air and reduce the bloated feeling in your abdomen (belly). No driving for 24 hours (because of the anesthesia (medicine) used during the test). You may shower. Do not sign any important legal documents or operate any machinery for 24 hours (because of the anesthesia used during the test). NUTRITION Drink plenty of fluids. You may resume your normal diet as instructed by your doctor. Begin with a light meal and progress to your normal diet. Heavy or fried foods are harder to digestand may make you feel nauseated (sick to your stomach). Avoid alcoholic beverages for 24 hours or as instructed. MEDICATIONS You may resume your normal medications unless your doctor tells you otherwise. WHAT YOU CAN EXPECT TODAY Some feelings of bloating in the abdomen. Passage of more gas than usual. Spotting of blood in your stool or on the toilet paper. FOLLOW-UP Your doctor will discuss the results of your test with you. SEEK IMMEDIATE MEDICAL ATTENTION IF: There is more than a spotting of blood in your stool. There is abdominal distention (your abdomen is swollen). There is vomiting. You have a temperature over 101.5 F. There is abdominal pain or discomfort that is severe or gets worse throughout the day. Endoscopy Care After Procedure Please read the instructions outlined below and refer to this sheet in the next few weeks. These discharge instructions provide you with general information on caring for [facility]. Your doctor may also give you specific instructions. While your treatment has been planned according to the most current medical practices available, unavoidable complications occasionally occur. If you have any problems or questions after discharge, please call your doctor. ACTIVITY ??? You may resume your regular activity but move at a slower pace for the next 24 hours. ??? Take frequent rest periods for the next 24 hours. ??? Walking will help expel (get rid of) the air and reduce the bloated feeling in your abdomen. ??? No driving for 24 hours (because of the anesthesia (medicine) used during the test). ??? You may shower. ??? Do not sign any important legal documents or operate any machinery for 24 hours (because of theanesthesia used during the test). NUTRITION ??? Drink plenty of fluids. ??? You may resume your normal diet. ??? Begin with a light meal and progress to your normal diet. ??? Avoid alcoholic beverages for 24 hours or as instructed by your caregiver. MEDICATIONS ??? You may resume your normal medications unless your caregiver tells you otherwise. WHAT YOU CAN EXPECT TODAY ??? You may experience abdominal discomfort such as a feeling of fullness or ???gas??? pains. FOLLOW-UP ??? Your doctor will discuss the results of your test with you. seek immediate medical attention if any of the following occur: ??? Excessive nausea (feeling sick to your stomach) and/or vomiting. ??? Severe abdominal pain and distention (swelling). ??? Trouble swallowing. ??? Temperature over 100 F (37.8??? C). ??? Rectal bleeding or vomiting of blood. Document Released: 02/05/2005 Document Re-Released: 12/16/2006 Common Curriculum??? Patient Information ???2009 [employer]. Gastroenterology Esophagitis Esophagitis is inflammation of the esophagus. The esophagus is the tube that carries food from the mouth to the stomach. Esophagitis can cause soreness or pain in the esophagus. This condition can make it difficult and painful to swallow. What are the causes? Most causes of esophagitis are not serious. Common causes of this condition include: ??? Gastroesophageal reflux disease (GERD). This is when stomach contents move back up into the esophagus (reflux). ??? Repeated vomiting. ??? An allergic reaction, especially caused by food allergies (eosinophilic esophagitis). ??? Injury to the esophagus by swallowing large pills with or without water, or swallowing certain types of medicines. ??? Swallowing harmful chemicals, such as household cleaning products. ??? Drinking a lot of alcohol. ??? An infection of the esophagus. This most often occurs in people who have a weakened immune system. ??? Radiation or chemotherapy treatm (more content not included)...[facility] NoteEndoscopic Procedure Report - Other Patient: DAVID RAMIREZ Age: 59 years Sex: Male : 1965 Associated Diagnoses: None Author: Ashli Castellanos MD Pre-Procedure Procedure Date 06/26/2024 10:30:00 . Procedure Type: Colonoscopy with removal of tumor(s), polyp(s), or other lesion(s) by cold snare technique, endoscopic mucosal resection. Procedure provider Performed by Ashli Castellanos MD. Current history and physical Reviewed. Colonoscopy ([id number]). Partial colectomy ([id number]).. Past Medical History No active or resolved past medical history items have been selected or recorded.. reviewed. Family History Breast cancer Sister Heart disease Mother COPD Father Lung cancer Brother Prostate cancer Father Malignant neoplasm of colon Mother Sister . Procedure History Colonoscopy ([id number]). Partial colectomy ([id number]).. Colorectal neoplasm risk assessment High risk Family history of colon cancer. . Informed Consent After discussing the rationale, risks and benefits, and alternatives to this procedure, the patient provided signed consent for the procedure. Pre-procedure diagnosis: Surveillance: Family history of colon cancer. Medications (Selected) Inpatient Medications Ordered Sodium Chloride 0.9% IV Keisha 1000 mL 1,000 mL: 1,000 mL, IV, 20 mL/hr, Routine, Start date 06/26/24 6:40:00 EST, 50 hour(s), Total volume (mL): 1,000 Prescriptions Prescribed Nexium 40 mg Cap-EC: 40 mg = 1 cap(s), Oral, Daily, # 90 cap(s), Refills(s) 3, Pharmacy: [facility]/pharmacy #[id number], 177.8, cm, 05/18/24 8:14:00 EST, Height/Length Dosing, 109, kg, 05/18/24 8:14:00 EST, Weight Dosing Documented Medications Documented Ozempic 2 mg/3 mL (0.25 mg or 0.5 mg dose) subcutaneous solution: 0.5 mg, SubCutaneous, qWeek, Refills(s) 0, Blood glucose amitriptyline 50 mg Tab: 50 mg = 1 tab(s), Oral, Once a day (at bedtime), 180 EA, 0 Refill(s), TAKE2 TABLETS BY MOUTH EVERY DAY AT BEDTIME, Refills(s) 0, Headache fluocinonide Top 0.05% Crm 15 gram: Refill(s) 0, 60 gm, 0 Refill(s), APPLY TO AFFECTED AREA TWICE ADAY metoprolol succinate 50 mg ER Tab: 50 mg = 1 tab(s), Oral, Daily, Refills(s) 0, High blood pressure ondansetron 4 mg Tab: 4 mg = 1 tab(s), Oral, q8hr, PRN Nausea, Refills(s) 0 Anticoagulant/antiplatelet None. reviewed. ASA Classification: Class II. . Monitoring: See anesthesia record. . Procedure The procedure was performed in the hospital. See anesthesia record for sedation given during procedure. The patient was positioned starting in the left lateral decubitus position. Endoscope type usedwas an adult-size. The endoscope was lubricated then introduced through the anus. The scope was advanced to the cecum. No difficulties encountered during the procedure. The bowel preparation quality was adequate (see polyps greater than or equal to 6 millimeters). The patient tolerated the procedure well. Time to Cecum: 6 min Withdrawal time 9 min Last colonoscopy: Findings 1. Small internal hemorrhoids 2. 2 cm sessile polyp in the rectum at 50 cm from the anal verge, resected using EMR technique, injected 5 ml of Everlift and resected using hot snare in a piecemeal fashion. I also burned the edges to decrease the risk of recurrence. 2 clips were placed to prevent delayed bleeding 3. Evidence of evidence of surgery in the sigmoid colon status post end-to-side anastomosis, healthy looking widely open 4. 2 small sessile polyps in the transverse colon, 3-5 mm in size, resected with cold snare completely and retrieved 5. Otherwise normal colonic mucosa Images Procedure images: [id number]_hd_video__[id number].jpg Rec1_hd_video_0_[id number].jpg Rec1_hd_video__[id number]_[id number].jpg Rec1_hd_video__37_[id number].jpg Rec1_hd_video__34_[id number].jpg Rec1_hd_video__33_[id number].jpg Rec1_hd_video__33_05_[id number].jpg Rec1_hd_video__32_[id number].jpg Rec1_hd_video_0_[id number]_[id number].jpg Rec1_hd_video__31_[id number].jpg Rec1_hd_video__30_49_132.jpg Rec1_hd_video_0_30_[id number]_481.jpg Rec1_hd_video_0_30_18_132.jpg Rec1_hd_video_0_[id number].jpg Rec1_hd_video_2023__[id number].jpg Rec1_hd_video_2023____50_[id number].jpg (Inserted Image. Unable to (more content not included)...[facility] on [facility]:Result Comment: Electronically Signed By: Jasmin KINSEY, Ashli Hinojosa\.br\Date and Time Signed: 06/26/24 10:32 ESTOther Comment: Missing Attachment - attachment storage system not supported [id number] Can be viewed in source system Missing Attachment - attachment storage system not supported [id number] Can be viewed in source systemMissing Attachment - attachment storage system not supported [id number] Can be viewed in source systemMissing Attachment - attachment storage system not supported [id number] Can be viewed in source systemMissing Attachment - attachment storage system not supported [id number] Can be viewed in source systemMissing Attachment - attachment storage system not supported [id number] Can be viewed in source systemMissing Attachment - attachment storage system not supported [id number] Can be viewed in source systemMissing Attachment - attachment storage system not supported [id number] Can be viewed in source system Missing Attachment - attachment storage system not supported [id number] Can be viewed in source systemMissing Attachment - attachment storage system not supported [id number] Can be viewed in source systemMissing Attachment - attachment storage system not supported [id number] Can be viewed in source systemMissing Attachment - attachment storage system not supported [id number] Can be viewed in source systemMissing Attachment - attachment storage system not supported [id number] Can be viewed in source systemMissing Attachment - attachment storage system not supported [id number] Can be viewed in source systemMissing Attachment - attachment storage system not supported [id number] Can be viewed in source system Missing Attachment - attachment storage system not supported [id number] Can be viewed in source systemMissing Attachment - attachment storage system not supported [id number] Can be viewed in source systemMissing Attachment - attachment storage system not supported [id number] Can be viewed in source [id number] NoteProgress Note-Physician Patient: DAVID RAMIREZ Age: 59 years Sex: Male : 1965 Associated Diagnoses: None Author: Ricardo Soria MD Preoperative Information Anesthesia Preop Info: Time patient last ate or drank 06/26/2024 00:00:00. Anesthesia history: Patient history: None. Family history+: None. Informed consent: Signed by patient. Re-evaluation prior to induction: Initial evaluation reviewed: No significant change. Review of Systems Eye Ear/Nose/Mouth/Throat Respiratory: No shortness of breath, No cough. Cardiovascular: Negative, No chest pain. Musculoskeletal Neurologic Health Status Allergies: Allergic Reactions (Selected) No Known Allergies No Known Medication Allergies, Allergies (2) Active Severity Reaction No Known Allergies None Documented No Known Medication Allergies None Documented Current medications: (Selected) Inpatient Medications Ordered Lactated Ringers IV Keisha 1000 mL 1,000 mL: 1,000 mL, IV, 100 mL/hr, Routine, Start date 06/26/24 10:11:00 EST, 10 hour(s), Total volume (mL): 1,000, 109 kg, 2.32, m2 Sodium Chloride 0.9% IV Keisha 1000 mL 1,000 mL: 1,000 mL, IV, 20 mL/hr, Routine, Start date 06/26/24 6:40:00 EST, 50 hour(s), Total volume (mL): 1,000 Prescriptions Prescribed Nexium 40 mg Cap-EC: 40 mg = 1 cap(s), Oral, Daily, # 90 cap(s), Refills(s) 3, Pharmacy: [facility]/pharmacy #[id number], 177.8, cm, 05/18/24 8:14:00 EST, Height/Length Dosing, 109, kg, 05/18/24 8:14:00 EST, Weight Dosing Documented Medications Documented Ozempic 2 mg/3 mL (0.25 mg or 0.5 mg dose) subcutaneous solution: 0.5 mg, SubCutaneous, qWeek, Refills(s) 0, Blood glucose amitriptyline 50 mg Tab: 50 mg = 1 tab(s), Oral, Once a day (at bedtime), 180 EA, 0 Refill(s), TAKE2 TABLETS BY MOUTH EVERY DAY AT BEDTIME, Refills(s) 0, Headache fluocinonide Top 0.05% Crm 15 gram: Refill(s) 0, 60 gm, 0 Refill(s), APPLY TO AFFECTED AREA TWICE ADAY metoprolol succinate 50 mg ER Tab: 50 mg = 1 tab(s), Oral, Daily, Refills(s) 0, High blood pressure ondansetron 4 mg Tab: 4 mg = 1 tab(s), Oral, q8hr, PRN Nausea, Refills(s) 0, Home Medications (6) Active amitriptyline 50 mg Tab 50 mg = 1 tab(s), Oral, Once a day (at bedtime) fluocinonide Top 0.05% Crm 15 gram metoprolol succinate 50 mg ER Tab 50 mg = 1 tab(s), Oral, Daily Nexium 40 mg Cap-EC 40 mg = 1 cap(s), Oral, Daily ondansetron 4 mg Tab 4 mg = 1 tab(s), PRN, Oral, q8hr Ozempic 2 mg/3 mL (0.25 mg or 0.5 mg dose) subcutaneous solution 0.5 mg, SubCutaneous, qWeek , Medications (2) Active Scheduled: (0) Continuous: (2) Lactated Ringers 1,000 mL 1,000 mL, IV, 100 mL/hr Sodium Chloride 0.9% 1,000 mL 1,000 mL, IV, 20 mL/hr PRN: (0) Problem list: All Problems Chronic obstructive pulmonary disease / SNOMED CT 392492618 / Confirmed History of partial colectomy / SNOMED CT 0485086000 / Confirmed Hypertension / SNOMED CT 5310681656 / Confirmed Left sided abdominal pain / SNOMED CT 982419039 / Confirmed Screen for colon cancer / SNOMED CT 995750635 / Confirmed Tobacco use / SNOMED CT 6224047597 / Confirmed, Active Problems (6) Chronic obstructive pulmonary disease History of partial colectomy Hypertension Left sided abdominal pain Screen for colon cancer Tobacco use Histories Past Medical History: No active or resolved past medical history items have been selected or recorded. Family History: Breast cancer Sister Heart disease Mother COPD Father Lung cancer Brother Prostate cancer Father Malignant neoplasm of colon Mother Sister Procedure history: Colonoscopy (924186617). Partial colectomy (395911042). Social History Social & Psychosocial Habits Tobacco 05/18/2024 Tobacco Use: 10 or more cigarettes (1/ Smokeless tobacco use: Never Type: Cigarettes . Physical Examination Vital Signs 06/26/2024 8:09 EST Temperature Temporal Artery 36.4 DegC Heart Rate Monitored 94 bpm Respiratory Rate Monitored 16 br/min Systolic Blood Pressure 133 mmHg Diastolic Blood Pressure 107 mmHg HI Blood Pressure Location Left arm SpO2 95 % Vital Signs (last 24 hrs) Last Charted Temp Temporal 36.4 DegC (JUN 26 08:09) Heart Rate Monitored 94 bpm (JUN 26 08:) Resp Rate 16 br/min (JUN 26:) SBP 133 mmHg (JUN 26 08:) DBP H 107 mmHg (JUN 26 08:) Weight 109 kg (JUN 26 08:) BMI 34.48 (JUN 26:) Measurements from flowsheet : Measurements 06/26/2024 8:07 EST Height/Length Measured 177.8 cm Height/Length Dosing 177.8 cm Weight Dosing 109.0 kg BSA Measured 2.32 m2 Body Mass Index Measured 34.48 kg/m2 Weight Measured 109 kg Airway: Mallampati classification: II (soft palate, fauces, uvula visible). Respiratory: Lungs are clear to auscultation, Respirations are non-labored, adequate air exchange. Cardiovascular: Regular rhythm, No murmur. Review / Management Results review: No qualifying data available . (more content not included)...[facility] HospitalComment on above: Result Comment: Electronically Signed By: Yang KINSEY, Ricardo Ramírez\.br\Date and Time Signed: 06/26/24 10:13 [id number] NoteEndoscopic Procedure Report - Other Patient: DAVID RAMIREZ Age: 59 years Sex: Male : 1965 Associated Diagnoses: None Author: Ashli Castellanos MD Pre-Procedure Procedure Date 06/26/2024 09:55:00 . Procedure Type: Esophagogastroduodenoscopy with biopsy. Procedure provider Performed by Ashli Castellanos MD. Current history and physical Documented on chart. Informed Consent After discussing the rationale, risks and benefits, and alternatives to this procedure, the patient provided signed consent for the procedure. Pre-procedure diagnosis: Abd pain. Medications Anticoagulant/antiplatelet None. ASA Classification: Class II. . Monitoring: See anesthesia record. . Procedure The procedure was performed in the hospital. See anesthesia record for sedation given during procedure. The patient was positioned starting in the left lateral decubitus position and with safety measures. Endoscope type used was an adult- size, introduced orally, advanced to the 3rd portion of the duodenum. No difficulty was encountered during the procedure. Views were excellent. The patient tolerated the procedure well. Findings 1. Esophageal landmarks identified, small hiatal hernia noted. Nonobstructive Schatzki ring in the distal esophagus, very mild, no dilation done given no dysphagia 2. 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 Minimal patchy erythema in the stomach, random biopsies were taken to rule out H. pylori 4. Normal examined duodenum Images Procedure images: [id number]__[id number].jpg [id number]_video_[id number]__[id number].jpg [id number]_video_[id number]__[id number]__[id number].jpg [id number]_[id number]__[id number].jpg [id number]_[id number]_[id number]__[id number].jpg . Post-Procedure Complications: none. Estimated blood loss: minimal. Specimens: sent to pathology. Devices/ implants: none left in place. Impression and Plan 1. Esophageal landmarks identified, small hiatal hernia noted. Nonobstructive Schatzki ring in the distal esophagus, very mild, no dilation done given no dysphagia 2. 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 Minimal patchy erythema in the stomach, random biopsies were taken to rule out H. pylori 4. Normal examined duodenum Recommendations: -Resume previous diet -Resume home medications -Await pathology results, follow in GI clinic in 1-2 after dischargeGalion HospitalComment on above:Result Comment: Electronically Signed By: Jasmin KINSEY, Ashli Hinojosa\.br\Date and Time Signed: 06/26/24 10:01 ESTOther Comment: Missing Attachment - attachment storage system not supported [id number] Can be viewed in source system Missing Attachment - attachment storage system not supported [id number] Can be viewed in source systemMissing Attachment - attachment storage system not supported [id number] Can be viewed in source systemMissing Attachment - attachment storage system not supported [id number] Can be viewed in source systemMissing Attachment - attachment storage system not supported [id number] Can be viewed in source systemMissing Attachment - attachment storage system not supported [id number] Can be viewed in source [phone] NoteHistory and Physical Patient: DAVID RAMIREZ Age: 59 years Sex: Male : 1965 Associated Diagnoses: None Author: Jasmin KINSEY, Ashli Hinojosa Preoperative Information Indication for procedure and diagnosis: Left-sided abdominal pain, family history of colon cancer Chief Complaint as above Review of Systems All systems reviewed, negative except as mentioned above Health Status Current medications: (Selected) Inpatient Medications Ordered Sodium Chloride 0.9% IV Keisha 1000 mL 1,000 mL: 1,000 mL, IV, 20 mL/hr, Routine, Start date 06/26/24 6:40:00 EST, 50 hour(s), Total volume (mL): 1,000 Prescriptions Prescribed Nexium 40 mg Cap-EC: 40 mg = 1 cap(s), Oral, Daily, # 90 cap(s), Refills(s) 3, Pharmacy: [facility]/pharmacy #[id number], 177.8, cm, 05/18/24 8:14:00 EST, Height/Length Dosing, 109, kg, 05/18/24 8:14:00 EST, Weight Dosing Documented Medications Documented Ozempic 2 mg/3 mL (0.25 mg or 0.5 mg dose) subcutaneous solution: 0.5 mg, SubCutaneous, qWeek, Refills(s) 0, Blood glucose amitriptyline 50 mg Tab: 50 mg = 1 tab(s), Oral, Once a day (at bedtime), 180 EA, 0 Refill(s), TAKE2 TABLETS BY MOUTH EVERY DAY AT BEDTIME, Refills(s) 0, Headache fluocinonide Top 0.05% Crm 15 gram: Refill(s) 0, 60 gm, 0 Refill(s), APPLY TO AFFECTED AREA TWICE ADAY metoprolol succinate 50 mg ER Tab: 50 mg = 1 tab(s), Oral, Daily, Refills(s) 0, High blood pressure ondansetron 4 mg Tab: 4 mg = 1 tab(s), Oral, q8hr, PRN Nausea, Refills(s) 0, Home Medications (6) Active amitriptyline 50 mg Tab 50 mg = 1 tab(s), Oral, Once a day (at bedtime) fluocinonide Top 0.05% Crm 15 gram metoprolol succinate 50 mg ER Tab 50 mg = 1 tab(s), Oral, Daily Nexium 40 mg Cap-EC 40 mg = 1 cap(s), Oral, Daily ondansetron 4 mg Tab 4 mg = 1 tab(s), PRN, Oral, q8hr Ozempic 2 mg/3 mL (0.25 mg or 0.5 mg dose) subcutaneous solution 0.5 mg, SubCutaneous, qWeek Problem list: All Problems Tobacco use / SNOMED CT 7623247403 / Confirmed Left sided abdominal pain / SNOMED CT 664241058 / Confirmed Screen for colon cancer / SNOMED CT 904587026 / Confirmed Chronic obstructive pulmonary disease / SNOMED CT 239250469 / Confirmed Hypertension / SNOMED CT 3040026962 / Confirmed History of partial colectomy / SNOMED CT 3369627535 / Confirmed Histories Past Medical History: No active or resolved past medical history items have been selected or recorded. Family History: Father Prostate cancer COPD Mother Heart disease Malignant neoplasm of colon Brother Lung cancer Sister Breast cancer Malignant neoplasm of colon Procedure history: Colonoscopy (445205396). Partial colectomy (985762737). Social History Social & Psychosocial Habits Tobacco 05/18/2024 Tobacco Use: 10 or more cigarettes (1/ Smokeless tobacco use: Never Type: Cigarettes . Physical Examination Vital Signs (last 24 hrs) Last Charted Temp Temporal 36.4 DegC (JUN 26 08:09) Heart Rate Monitored 94 bpm (JUN 26:) Resp Rate 16 br/min (JUN 26:) SBP 133 mmHg (JUN 26 08:) DBP H 107 mmHg (JUN 26:) Weight 109 kg (JUN 26:) BMI 34.48 (JUN 26:) General: in Nad Abdomen: Soft, NTND Impression and Plan Impression: Left-sided abdominal pain, family history of colon cancer Plan: -EGD and ColonoscopyGalion HospitalComment on above:Result Comment: Electronically Signed By: Jasmin KINSEY, Ashli Hinojosa\.br\Date and Time Signed: 06/26/24 09:47 [id number] History of Present illness Narrative* HEIDI De Guzman - 06/22/2024 10:23 AM EST Lab order. documented in this encounterI-70 [facility] [id number] History of Present illness Narrative* HEIDI De Guzman - 06/18/2024 1:00 PM EST Images from the original note were not included. HPI bloodwork Additional comments: Pt is scheduled for a colonoscopy/EGD and surgeon advised him to get bloodworkcompleted and told him to have PCP order. He also would like to be checked for Lyme disease. Has h/o tick bites. Med Refill Additional comments: Fluocinonide Last edited by HEIDI De Guzman on 06/18/2024 1:18 PM. Subjective Patient ID: David Ramirez is a 59 y.o. male who presents for lip swelling. David is present today for evaluation of lip swelling. Admits he has seen the dentist and they rx'dAmoxicillin - has two left, and the pain, swelling did improve. He does have numbness and tingling to the left lower side of his face by his mouth and the left bottom lip. Also got Ibuprofen 800 fromdentist which has been helpful. Current Outpatient Medications on File Prior to Visit Medication Sig Dispense Refill amitriptyline (Elavil) 50 MG tablet Take 100 mg by mouth at bedtime esomeprazole (NexIUM) [address] capsule Take 1 capsule (40 mg) by mouth in the morning. Take before meals. Do not open capsule.. 30 capsule 1 fluocinonide (Lidex) 0.05 % cream Apply topically 2 (two) times a day 60 g 2 metoprolol succinate XL (Toprol-XL) 50 MG 24 hr tablet Take 1 tablet (50 mg) by mouth Daily 100 tablet 3 Semaglutide,0.25 or 0.5MG/DOS, (Ozempic, 0.25 or 0.5 MG/DOSE,) 2 MG/3ML solution pen-injector INJECT 0.5 MG UNDER THE SKIN 1 (ONE) TIME PER WEEK 9 mL 3 No current facility-administered medications on file prior to visit. I have reviewed and reconciled the history and medication list with the patient today. No Known Allergies Social History Tobacco Use Smoking status: Every Day Current packs/day: 0.50 Types: Cigarettes Smokeless tobacco: Never Substance Use Topics Alcohol use: Never Family History Problem Relation Name Age of Onset Heart disease Mother Colon cancer Mother COPD Father Prostate cancer Father Breast cancer Sister Lung cancer Brother Colon cancer Brother Past Medical History: Diagnosis Date Chronic hoarseness COPD (chronic obstructive pulmonary disease) (CMS/HCC) Hypertension (CMS/HCC) Past Surgical History: Procedure Laterality Date COLON SURGERY Subtotal colectomy due to diverticular disease, 2012 Visit Vitals BP 130/88 (BP Location: Left arm) Pulse 81 Resp 16 Ht 5' 10 Wt 238 lb 3.2 oz SpO2 95% BMI 34.18 kg/m Smoking Status Every Day BSA 2.31 m Review of Systems Constitutional: Negative for chills, fatigue and fever. HENT: See HPI Respiratory: Negative for cough, shortness of breath and wheezing. Cardiovascular: Negative for chest pain, palpitations and leg swelling. Gastrointestinal: Negative for abdominal pain, constipation, diarrhea, nausea and vomiting. Skin: Negative for rash. Neurological: Positive for headaches. Objective Physical Exam Constitutional: General: He is not in acute distress. Appearance: He is obese. HENT: Head: Normocephalic and atraumatic. Comments: Minimal swelling noted in location on drawing. Mouth/Throat: Dentition: Dental caries present. Comments: Minimal swelling left side of lower lip, no erythema Eyes: General: No scleral icterus. Cardiovascular: Rate and Rhythm: Normal rate and regular rhythm. Heart sounds: No murmur heard. Pulmonary: Effort: Pulmonary effort is normal. No respiratory distress. Breath sounds: Normal breath sounds. No wheezing, rhonchi or rales. Musculoskeletal: General: No swelling. Lymphadenopathy: Cervical: No cervical adenopathy. Skin: General: Skin is warm and dry. Neurological: General: No focal deficit present. Mental Status: He is alert and oriented to person, place, and time. Psychiatric: Mood and Affect: Mood normal. Behavior: Behavior normal. Assessment/Plan Diagnoses and all orders for this visit: Primary hypertension (CMS/HCC) - Basic metabolic panel; Future - CBC; Future BP improved on recheck. Continue current medication as prescribed. Will continue to monitor. Pre-op testing - Basic metabolic panel; Future - CBC; Future Will check a few basic labs for upcoming surgery. Type 2 diabetes mellitus without complication, without long-term current use of insulin (CMS/[facility]) - Basic metabolic panel; Future - CBC; Future Patient's last A1c was well controlled at 6.1. Will plan to have patient get fasting labs after 07/12/2024. Tobacco user Discussed smoking cessation with the patient. Encouraged patient to cut back and soon quit smoking.Health risks of smoking, and benefits of quitting reviewed with the patient. Lip swelling - ibuprofen (IBU) 800 MG tablet; Take 1 tablet (800 mg) by mouth every 8 (eight) hours if needed (Swelling) for up to 7 days Take with food Much improved per pt. Encouraged pt to finish amoxicillin as prescribed. Refill provided on the above for pt to use as needed. Reminded pt to hold Ibuprofen the week before the Colonoscopy. Diverticulitis of colon Scheduled for Colonoscopy and EGD. Class 1 obesity due to excess calories with serious comorbidity and body mass index (BMI) of 34.0 to 34.9 in adult Has lost 4 pounds since April. Encouraged portion control, decrease simple sugars and carbohydrates, gradually increase activity level. Aim for continued gradual steady weight loss. Tick bite of lower leg, unspecified laterality, initial encounter - Lyme disease Pt would like to be screened for Lyme disease. Has been bitten by ticks in the past and felt poorlyafter. Admits to headaches occasionally now, when he never really had them before. Follow up in about 3 months (around 09/16/2024) for Wellness, Diabetes. documented in this encounterI-70 Community [id number] Evaluation + Plan note Future Scheduled Tests Laboratory* CBC w/ Auto Diff 05/18/24 * Comprehensive Metabolic Panel 05/18/24 [facility] 10-28-2024 History of Present illness Narrative* Tan Capps MD - 05/04/2024 1:00 PM EDT Images from the original note were not included. Subjective Patient ID: David Ramirez is a 59 y.o. male who presents for issues with his stomach. David is in today for left sided abdominal pain that has been going on for a week. States last weekhe had a cough and bad diarrhea and was prescribed Zofran via . States he feels fine now except that he is still having left sided abdominal pain. Wants to know if he should get a colonoscopy. Current Outpatient Medications on File Prior to Visit Medication Sig Dispense Refill amitriptyline (Elavil) 50 MG tablet Take 100 mg by mouth at bedtime fluocinonide (Lidex) 0.05 % cream Apply topically 2 (two) times a day 60 g 2 metoprolol succinate XL (Toprol-XL) 50 MG 24 hr tablet Take 1 tablet (50 mg) by mouth Daily 100 tablet 3 [] ondansetron (Zofran) 4 MG tablet Take 1 tablet (4 mg) by mouth every 8 (eight) hours if needed for nausea or vomiting for up to 7 days 21 tablet 0 Semaglutide,0.25 or 0.5MG/DOS, (Ozempic, 0.25 or 0.5 MG/DOSE,) 2 MG/3ML solution pen-injector INJECT 0.5 MG UNDER THE SKIN 1 (ONE) TIME PER WEEK 3 mL 3 No current facility-administered medications on file prior to visit. I have reviewed and reconciled the history and medication list with the patient today. No Known Allergies Social History Tobacco Use Smoking status: Every Day Current packs/day: 0.50 Types: Cigarettes Smokeless tobacco: Never Substance Use Topics Alcohol use: Never Family History Problem Relation Name Age of Onset Heart disease Mother Colon cancer Mother COPD Father Prostate cancer Father Breast cancer Sister Lung cancer Brother Colon cancer Brother Past Medical History: Diagnosis Date Chronic hoarseness COPD (chronic obstructive pulmonary disease) (CMS/HCC) Hypertension (CMS/HCC) Past Surgical History: Procedure Laterality Date COLON SURGERY Subtotal colectomy due to diverticular disease, 2013 Visit Vitals Smoking Status Every Day Review of Systems Constitutional: Negative for fever. Gastrointestinal: Positive for abdominal pain, constipation and diarrhea. Negative for abdominal distention, blood in stool and nausea. Objective Physical Exam Cardiovascular: Rate and Rhythm: Normal rate. Pulmonary: Effort: Pulmonary effort is normal. Breath sounds: Normal breath sounds. Abdominal: General: Abdomen is flat. Bowel sounds are normal. There is no distension. Palpations: Abdomen is soft. There is no mass. Tenderness: There is no abdominal tenderness. There is no guarding. Assessment/Plan Diagnoses and all orders for this visit: Postprandial epigastric pain - Ambulatory referral to General Surgery; Future - esomeprazole (NexIUM) [address] capsule; Take 1 capsule (40 mg) by mouth in the morning. Take before meals. Do not open capsule.. Screening for colorectal cancer - Ambulatory referral to General Surgery; Future No follow-ups on file. documented in this encounterI-70 Community [id number] Telephone encounter Note* Telephone Encounter - Zoie Kemp - 04/23/2024 1:27 PM EDT Pt called stating he's had a severe nausea and its able to keep anything down. Were completely booked saturday. He's hoping someone can suggest OTC meds or he can get a RX for something. [facility] [place] if anything is prescribed [facility]70 Community [id number] Miscellaneous Notes* Telephone Encounter - Zoie Kemp - 04/23/2024 1:27 PM EDT Pt called stating he's had a severe nausea and its able to keep anything down. Were completely booked saturday. He's hoping someone can suggest OTC meds or he can get a RX for something. [facility] [place] if anything is prescribed documented in this encounterI-70 Community [id number] History of Present illness Narrative* Tan Capps MD - 02/26/2024 1:00 PM EDT Images from the original note were not included. Subjective Patient ID: David Ramirez is a 59 y.o. male who presents for Diabetes and Hypertension. Hypertension Patient is here for follow-up of elevated blood pressure. Blood pressure is well controlled at home. Cardiac symptoms: none. Patient denies chest pain, claudication, dyspnea, fatigue, irregular heartbeat, lower extremity edema, near-syncope, orthopnea, palpitations, paroxysmal nocturnal dyspnea, syncope, and tachypnea. Cardiovascular risk factors: advanced age (older than 55 for men, 65 for women), hypertension, male gender, obesity (BMI >= 30 kg/m2), and smoking/ tobacco exposure. Diabetes Mellitus Patient presents for follow up of diabetes. Current symptoms include: none. Patient denies foot ulcerations, hypoglycemia , nausea, polydipsia, polyuria, visual disturbances, and vomiting. Evaluationto date has included: fasting blood sugar and hemoglobin A1C. Home sugars: patient does not check sugars. Diabetes Pertinent negatives for diabetes include no chest pain. Hypertension Pertinent negatives include no chest pain, palpitations or shortness of breath. Nicotine Dependence Current Outpatient Medications on File Prior to Visit Medication Sig Dispense Refill amitriptyline (Elavil) 50 MG tablet Take 100 mg by mouth at bedtime fluocinonide (Lidex) 0.05 % cream Apply topically 2 (two) times a day 60 g 2 metoprolol succinate XL (Toprol-XL) 50 MG 24 hr tablet Take 1 tablet (50 mg) by mouth Daily 100 tablet 3 Semaglutide,0.25 or 0.5MG/DOS, (Ozempic, 0.25 or 0.5 MG/DOSE,) 2 MG/3ML solution pen-injector INJECT 0.5 MG UNDER THE SKIN 1 (ONE) TIME PER WEEK 3 mL 3 [DISCONTINUED] nicotine polacrilex (Nicorette) 4 MG gum Chew 1 each (4 mg) if needed for smoking cessation 100 each 3 No current facility-administered medications on file prior to visit. No Known Allergies Social History Tobacco Use Smoking status: Every Day Current packs/day: 0.50 Types: Cigarettes Smokeless tobacco: Never Substance Use Topics Alcohol use: Never Family History Problem Relation Name Age of Onset Heart disease Mother Colon cancer Mother COPD Father Prostate cancer Father Breast cancer Sister Lung cancer Brother Colon cancer Brother Past Medical History: Diagnosis Date Chronic hoarseness COPD (chronic obstructive pulmonary disease) (CMS/HCC) Hypertension (CMS/HCC) Past Surgical History: Procedure Laterality Date COLON SURGERY Subtotal colectomy due to diverticular disease, 2013 Visit Vitals BP 134/84 Pulse 92 Ht 5' 10 Wt 237 lb SpO2 96% BMI 34.01 kg/m Smoking Status Every Day BSA 2.31 m Review of Systems Respiratory: Negative for shortness of breath. Cardiovascular: Negative for chest pain and palpitations. Objective Physical Exam Constitutional: General: He is not in acute distress. Appearance: He is normal weight. He is not ill-appearing. HENT: Head: Normocephalic. Cardiovascular: Rate and Rhythm: Normal rate and regular rhythm. Heart sounds: Normal heart sounds. No murmur heard. Pulmonary: Effort: Pulmonary effort is normal. Breath sounds: Normal breath sounds. Musculoskeletal: General: No swelling. Right lower leg: No edema. Left lower leg: No edema. Neurological: Mental Status: He is alert. Psychiatric: Mood and Affect: Mood normal. Thought Content: Thought content normal. Judgment: Judgment normal. Office Visit on 02/26/2024 Component Date Value Ref Range Status Hemoglobin A1C 02/26/2024 6.1 Final Assessment/Plan Diagnoses and all orders for this visit: Primary hypertension (CMS/HCC) Type 2 diabetes mellitus without complication, without long-term current use of insulin ([facility]) - POCT Glycated hemoglobin, total - FSBS log shows good control, most recent A1C is at or near goal. Continue current treatment plan as previously outlined without changes. - Down about 20lb in 4 months. Cigarette nicotine dependence without complication Follow up in about 6 months (around 08/28/2024) for DM- A1C. documented in this encounterNOGA HealthcareEvaluation + Plan note Future Appointments Appointment Date:06/26/2024 08:30:00 AM Scheduled Provider: Location:[facility] Appointment Type:Surgery FT Appointment Date:06/26/2024 09:30:00 AM Scheduled Provider: Location:[facility] Appointment Type:Surgery FT Future Scheduled Tests Laboratory* CBC w/ Auto Diff 05/18/24 * Comprehensive Metabolic Panel 05/18/24 [facility] Health Evaluation note* Diagnosis Nausea and vomiting, unspecified vomiting type- Primary documented in this encounter [facility] HealthcareEvaluation note* Diagnosis Postprandial epigastric pain- Primary Screening for colorectal cancer documented in this encounter [facility] HealthcareEvaluation note* Diagnosis Primary hypertension (CMS/HCC)- Primary Unspecified essential hypertension Pre-op testing Unspecified pre-operative examination Type 2 diabetes mellitus without complication, without long-term current use of insulin ([facility]/HCC) Tobacco user Tobacco use disorder Lip swelling Diseases of lips Diverticulitis of colon Diverticulitis of colon (without mention of hemorrhage) Class 1 obesity due to excess calories with serious comorbidity and body mass index (BMI) of 34.0 to 34.9 in adult Tick bite of lower leg, unspecified laterality, initial encounter documented in this encounter [facility] HealthcareEvaluation note* Diagnosis Tick bite of lower leg, unspecified laterality, initial encounter- Primary documented in this encounter [facility] HealthcareEvaluation note* Diagnosis Primary hypertension (CMS/HCC)- Primary Unspecified essential hypertension Type 2 diabetes mellitus without complication, without long-term current use of insulin ([facility]/HCC) Cigarette nicotine dependence without complication documented in this encounter [facility] HealthcareHospital course Narrative No data available for this section [facility] Discharge instructions No data available for this section [facility] Progress note No data available for this section [facility] Summary Purpose Family History No Family History Records Found No data available for this section No Family History Records FoundNo Family History Records Found No data available for this section No Family History Records FoundNo Family History Records Found No data available for this section No Family History Records Found Advance Directives No Advanced Directives Records FoundNo Advanced Directives Records FoundNo Advanced Directives Records FoundNo Advanced Directives Records FoundNo Advanced Directives Records FoundNo Advanced Directives Records Found Additional Source Comments (unrecognized sect ion and content) No Status Records FoundNo Status Records FoundNo Status Records FoundNo Status Records FoundNo Status Records FoundNo Status Records Found INFORMATION SOURCE (unrecogn ized section and content) DATE CREATED AUTHOR 11/15/2022 [facility] DATE CREATED AUTHOR AUTHOR'S ORGANIZ ATION 06/21/2024 [facility] EPIC DATE CREATED AUTHOR AUTHOR'S ORGANIZ ATION 06/22/2024 [facility] DATE CREATED AUTHOR AUTHOR'S ORGANIZ ATION 07/01/2024 [facility] DATE CREATED AUTHOR AUTHOR'S ORGANIZ ATION 07/09/2024 [facility] DATE CREATED AUTHOR AUTHOR'S ORGANIZ ATION 08/20/2024 [facility] Care Teams (unrecognized sec tion and content) [employer] G[employer]er Relationship Specialty Start Date End Date Tan Capps MD [address] [facility] [address] [place] [address] PCP - General Internal Medicine 10/30/23 Tan Capps MD [address] [facility] [address] [place] [address] PCP - [place] [employer] 01/06/24 [employer] G[employer]er Relationship Specialty Start Date End Date Tan Capps MD [address] [facility] [address] [place] [address] PCP - General Internal Medicine 10/30/23 Tan Capps MD [address] [facility] [address] [place] [address] PCP - [place] [employer] 01/06/24 [employer]er Relationship Specialty Start Date End Date Tan Capps MD [address] [facility] [address] [place] [address] PCP - General Internal Medicine 10/30/23 Tan Capps MD [address] [facility] [address] [place] [address] PCP - [place] [employer] 01/06/24 [employer] G[employer]er Relationship Specialty Start Date End Date Tan Capps MD [address] [facility] [address] [place] [address] PCP - General Internal Medicine 10/30/23 Tan Capps MD [address] [facility] [address] [place] [address] PCP - [place] [employer] 01/06/24 [employer] G[employer]er Relationship Specialty Start Date End Date Tan Capps MD [address] [facility] [address] [place] [address] PCP - General Internal Medicine 10/30/23 Tan Capps MD [address] [facility] [address] [place] [address] PCP - [facility] 01/06/24 [employer]er Relationship Specialty Start Date End Date Tan Capps MD [address] [facility] [address] [place] [address] PCP - General Internal Medicine 10/30/23 [employer]er Relationship Specialty Start Date End Date Tan Capps MD [address] [facility] [address] [place] [address] PCP - General Internal Medicine 10/30/23 Reason for Visit (unrecogniz ed section and content) Reason Comments bloodwork Pt is scheduled for a colonoscopy/EGD and surgeon advised him to get bloodwork completed and told him to have PCP order. He also would like to be checked for Lyme disease. Has h/o tick bites. Med Refill Fluocinonide Reason Comments Diabetes Hypertension FOR RECORDS PERTAINING TO PATIENTS WHO ARE OR HAVE BEEN ENROLLED IN A CHEMICAL DEPENDENCY/SUBSTANCEABUSE PROGRAM, SOME INFORMATION MAY BE OMITTED. This clinical summary was aggregated from multiple sources. Caution should be exercised in using it in the provision of clinical care. This summary normalizes information from multiple sources, and as a consequence, information in this document may materially change the coding, format and clinical context of patient data. In addition, data may be omitted in some cases. CLINICAL DECISIONS SHOULD BE BASED ON THE PRIMARY CLINICAL RECORDS. [facility] [employer] [facility]. provides no warranty or guarantee of the accuracy or completeness of information in this document.
[2024-09-06 22:36] LABS: Basophils Percent Auto 0.3 % (0.2-2.0); Eosinophils Absolute Auto 0.1 10^3/uL (0.0-0.7); Eosinophils Percent Auto 1.5 % (0.9-7.0); Hematocrit 47.4 % (42.0-54.0); Hemoglobin 16.2 g/dL (14.0-18.0); Immature Granulocytes Abs Auto 0.05 10^3/uL (0.00-0.03); Immature Granulocytes Pct Auto 0.6 % (0.0-0.5); Lymphocytes Absolute Auto 1.9 10^3/uL (1.2-3.8); Lymphocytes Percent Auto 20.9 % (20.5-60.0); Mean Corpuscular HGB Conc 34.2 g/dL (29.9-35.2); Mean Corpuscular Hemoglobin 29.6 pg (25.9-34.0); Mean Corpuscular Volume 86.5 fL (80.0-94.0); Mean Platelet Volume 8.6 fL (9.5-13.5); Monocytes Absolute Auto 0.9 10^3/uL (0.3-0.8); Monocytes Percent Auto 10.1 % (1.7-12.0); Neutrophils Percent Auto 66.6 % (43.0-75.0); Platelet Count 228 10^3/uL (150-450); Red Blood Count 5.48 10^6/uL (4.70-6.10); Red Cell Distribution Width 13.8 % (11.0-15.0); White Blood Count 8.9 10^3/uL (4.0-11.0)
[2024-09-06] MEDS: ONDANSETRON PF 4 MG/2 ML VIAL IV (22:46)
[2024-09-06] MEDS: KETOROLAC TROMETHAMINE 30 MG/ML VIAL 15 MG IVP (22:46)
[2024-09-06] MEDS: FAMOTIDINE/PF 20 MG/2 ML VIAL IV (22:47)
[2024-09-06 22:52] LABS: INR 0.99; Prothrombin Time 10.5 sec (9.0-11.6)
[2024-09-06 22:55] LABS: Alanine Aminotransferase 33 U/L (16-63); Albumin Globulin Ratio 0.9; Albumin Level 3.4 g/dL (3.4-5.0); Alkaline Phosphatase 86 U/L (46-116); Anion Gap 10.6; Aspartate Amino Transferase 15 U/L (15-37); BUN Creatinine Ratio 11.6; Bilirubin Total 0.3 mg/dL (0.2-1.0); Calcium 8.4 mg/dL (8.5-10.1); Carbon Dioxide 28.5 mmol/L (21.0-32.0); Chloride 100 mmol/L (98-107); Estimated GFR (African America >60 (>=60 mL/min/1.73m^2); Estimated GFR (Non-African Ame 53 (>=60 mL/min/1.73m^2); Globulin 3.9 g/dL; Glucose 125 mg/dL (74-106); Potassium 4.1 mmol/L (3.5-5.1); Sodium 135 mmol/L (136-145); Total Protein 7.3 g/dL (6.4-8.2); Troponin I High Sensitivity 4.4 pg/mL (4.0-76.1)
[2024-09-06 23:07] LABS: Ethanol <3 mg/dL
[2024-09-06] MEDS: 0.9 % SODIUM CHLORIDE 1,000 ML 1000 ML IV (23:10)
--- NOTE | 2024-09-06 23:13 | PC.NURSE ---
Pt states that his pain over the epigastrium is at a 2. Skin is W/P/D. RR is 16 and is non-labored. Pt appears much better than when he first checked into the ED. CP has resolved.
[2024-09-07] VITALS: BP 105/72; PULSE 101; O2SAT 92
[2024-09-07 00:10] VITALS: PULSE 98; O2SAT 95
[2024-09-07 00:20] VITALS: PULSE 98; O2SAT 96
[2024-09-07 00:30] VITALS: BP 118/88; PULSE 94; O2SAT 95
[2024-09-07 00:40] VITALS: PULSE 92; O2SAT 94
--- NOTE | 2024-09-07 00:48 | ED.ABDPAIN1 ---
HPI - Abdominal Pain General Chief Complaint: Abdominal Pain Stated Complaint: ABDOMINAL PAIN Time Seen by Provider: 09/06/24 22:23 Source: patient Mode of arrival: walk-in History of Present Illness HPI narrative: The patient is coming to the ER with epigastric pain and lower chest pain, that he noted since yesterday, this pain started almost Saturday morning which is 2 days ago and the patient started having some diarrhea with that too, pain is just fixed in that area not radiating not associated with any cough or fever or any difficulty breathing The patient mentioned that he had at least 5 bouts of diarrhea on Saturday and 4 today The patient did not have any blood in stool at any time he also had some nausea Related Data Home Medications ?Medication ?Instructions ?Recorded ?Confirmed amitriptyline 50 mg tablet mg 09/06/24 esomeprazole magnesium 40 mg mg 09/06/24 capsule,delayed release metoprolol succinate 50 mg mg PO 09/06/24 tablet,extended release 24 hr semaglutide 0.25 mg or 0.5 mg (2 mg subcut 09/06/24 mg/3 mL) subcutaneous pen injector (Ozempic) Previous Rx's ?Medication ?Instructions ?Recorded famotidine 20 mg tablet (Pepcid) 20 mg PO BID #10 tabs 09/07/24 Allergies Allergy/AdvReac Type Severity Reaction Status Date / Time No Known Drug Allergies Allergy Verified 09/06/24 22:27 Review of Systems ROS Status of ROS 10 or more systems reviewed and unremarkable except as noted in history and below PFSH PFSH Social History Little interest or pleasure in doing things: not at all Feeling down, depressed, or hopeless: not at all Exam Narrative Exam Narrative: Nurses notes and vital signs reviewed and patient is not hypoxic. General: Well-appearing and in no apparent distress. Skin: Warm, dry, no pallor noted. No rash. Head: Normocephalic, atraumatic. Neck: Supple, non-tender. Eye: Pupils are equal, round and EOMI. No scleral icterus. Ears, Nose, Mouth, and Throat: TM are clear, no nasal mucosal hypertrophy. Oral mucosa is moist, no posterior oropharynx erythema, uvula is mid-line Cardiovascular: Regular Rate and Rhythm without murmur, gallop or rub. Respiratory: No accessory muscle use or respiratory distress. Lungs are clear to auscultation, no wheezing, rales or rhonchi Chest Wall: no tenderness Back: No midline thoracic or lumbar vertebral tenderness. No CVA tenderness Musculoskeletal: normal ROM, no calf or popliteal tenderness, no lower extremity edema/swelling GI: Abdomen is soft, non-distended. Normal bowel sounds. No masses appreciated. Epigastric discomfort and no reduced tenderness on palpation Neurological: A&O x4. No cranial nerve dysfunction observed. Constitutional Vital Signs, click to edit/add: Last Vital Signs Pulse 90 09/07/24 00:50 Resp 21 H 09/07/24 00:50 BP 118/88 09/07/24 00:30 Pulse Ox 96 09/07/24 00:50 O2 Del Method Room Air 09/06/24 22:37 Course Vital Signs Vital signs: Vital Signs Blood Pressure 162/102 H 09/06/24 22:25 Pulse Oximetry 97 09/06/24 22:25 Pulse Rate 90 09/07/24 00:50 Respiratory Rate 21 H 09/07/24 00:50 Blood Pressure 118/88 09/07/24 00:30 Pulse Oximetry 96 09/07/24 00:50 Oxygen Delivery Method Room Air 09/06/24 22:37 MDM - Abdominal Pain MDM Narrative Medical decision making narrative: The patient EKG in the ER showing sinus rhythm with a heart rate of [address] elevation or depression CBC and chemistry showed no acute pathology with a troponin also was negative The patient will have a second troponin repeated------ negative Chest x-ray shows no acute pathology and the prelim reading The patient was provided GI cocktail and was discharged with supportive care for possible gastritis and gastroenteritis Also instructed on hydration The patient is to follow up with primary care physician in next 2-3 days or to return to the emergency department should any of the signs or symptoms worsen or new symptoms develop. The patient agrees with the following Diagnosis and Treatment plan and the patient will be discharged home. Lab Data Labs: Lab Results 09/06/24 09/07/24 Range/Units 22:30 00:25 WBC 8.9 (4.0-11.0) 10^3/uL RBC 5.48 (4.70-6.10) 10^6/uL Hgb 16.2 (14.0-18.0) g/dL Hct 47.4 (42.0-54.0) % MCV 86.5 (80.0-94.0) fL MCH 29.6 (25.9-34.0) pg MCHC 34.2 (29.9-35.2) g/dL RDW 13.8 (11.0-15.0) % Plt Count 228 (150-450) 10^3/uL MPV 8.6 L (9.5-13.5) fL Neut % (Auto) 66.6 (43.0-75.0) % Lymph % (Auto) 20.9 (20.5-60.0) % [place] % (Auto) 10.1 (1.7-12.0) % Eos % (Auto) 1.5 (0.9-7.0) % Baso % (Auto) 0.3 (0.2-2.0) % Neut # (Auto) 6.0 (1.4-6.5) 10^3/uL Lymph # (Auto) 1.9 (1.2-3.8) 10^3/uL [place] # (Auto) 0.9 H (0.3-0.8) 10^3/uL Eos # (Auto) 0.1 (0.0-0.7) 10^3/uL Baso # (Auto) 0.0 (0.0-0.1) 10^3/uL Abs Immat Gran (auto) 0.05 H (0.00-0.03) 10^3/uL Imm/Tot Granulo (auto) 0.6 H (0.0-0.5) % PT 10.5 (9.0-11.6) sec INR 0.99 Sodium 135 L (136-145) mmol/L Potassium 4.1 (3.5-5.1) mmol/L Chloride 100 (98-107) mmol/L Carbon Dioxide 28.5 (21.0-32.0) mmol/L Anion Gap 10.6 BUN 16.0 (7.0-18.0) mg/dL Creatinine 1.38 H (0.70-1.30) mg/dL Est GFR ( Amer) >60 (>=60 mL/min/1.73m^2) Est GFR (Non-Af Amer) 53 L (>=60 mL/min/1.73m^2) BUN/Creatinine Ratio 11.6 Glucose 125 H (74-106) mg/dL Calcium 8.4 L (8.5-10.1) mg/dL Total Bilirubin 0.3 (0.2-1.0) mg/dL AST 15 (15-37) U/L ALT 33 (16-63) U/L Alkaline Phosphatase 86 (46-116) U/L Troponin I High Sens 4.4 4.3 (4.0-76.1) pg/mL Total Protein 7.3 (6.4-8.2) g/dL Albumin 3.4 (3.4-5.0) g/dL Globulin 3.9 g/dL Albumin/Globulin Ratio 0.9 Ethanol Quant <3 mg/dL Discharge Plan Discharge Chief Complaint: Abdominal Pain Clinical Impression: Atypical chest pain, Gastroenteritis, MEHUL (acute kidney injury) Patient Disposition: Home, Self-Care Time of Disposition Decision: 00:45 Condition: Good Prescriptions / Home Meds: New famotidine [Pepcid] 20 mg tablet 20 mg PO BID Qty: 10 0RF No Action metoprolol succinate 50 mg tablet extended release 24 hr PO amitriptyline 50 mg tablet esomeprazole magnesium 40 mg capsule,delayed release(DR/EC) Ozempic 0.25 mg or 0.5 mg (2 mg/3 mL) pen injector SUBCUT Print Language: Irish Instructions: Chest Pain (DC), Acute Kidney Injury (DC), Diet for Stomach Ulcers and Gastritis (ED), Acute Diarrhea (ED) Referrals: ANIVAL WHEELER [Primary Care Provider] - 1 week
[2024-09-07 00:50] VITALS: PULSE 90; O2SAT 96
[2024-09-07 00:53] LABS: Troponin I High Sensitivity 4.3 pg/mL (4.0-76.1)
[2024-09-07] MEDS: lidocaine HCL 15 ML, MAG HYDROX/ALUMINUM HYD/SIMETH 30 ML, HYOSCYAMINE SULFATE 0.25 MG PO (01:10)
== END 2024-09-07 01:16 | disposition home or self-care (01) ==
PROVIDERS: Emergency Provider Emergency Medicine; PCP Internal Medicine
DX: N17.9 Acute kidney failure, unspecified (principal); R07.89 Other chest pain; K52.9 Noninfective gastroenteritis and colitis, unspecified
CPT/HCPCS: 36415; 71045; 80053; 80320; 84484; 85025; 85610; 93005; 96361; 96374; 96375; 99285; J1885; J2405; J3490

== ENCOUNTER 2024-11-04 17:15 | Emergency (ER) | payer BC, SELFPAY ==
[2024-11-04] VITALS (29 sets, daily range): BP systolic 157–189; BP diastolic 89–120; PULSE 110–136; TEMP 36.8; O2SAT 91–94; BMI 34.7
--- NOTE | 2024-11-04 17:30 | ECG_ITS ---
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 Measurements Intervals [place] Rate: 112 P: 55 ME: 162 QRS: 47 QRSD: 86 T: 52 QT: 320 QTc: 386 Interpretive Statements 1120 Sinus tachycardia 4068 Nonspecific Twave abnormality 9140 abnormal rhythm ECG Compared to ECG 09/06/2024 22:26:35 No significant changes Electronically Signed On 11-04-2024 21:12:39 EDT by ARELI MCKEON M.D.
--- NOTE | 2024-11-04 17:33 | ED.SOB1 ---
HPI - SOB/Dyspnea General Chief Complaint: Shortness of Breath/Dyspnea Stated Complaint: SOB CHEST PAIN Time Seen by Provider: 11/04/24 17:22 Source: patient Mode of arrival: walk-in History of Present Illness HPI Narrative: 59 year old male presents to the ED for cough, congestion, body aches, fatigue, chills, SOB. Onset was 2 days ago. Denies emesis, diarrhea, edema. He was sent from an urgent care due to tachycardia and a room air oxygen saturation of 88%. He is a 1ppd smoker. States about 10 years ago at a different urgent care he was told he had COPD. Pt was given 2 DuoNeb treatments at the urgent care today. He does not use an inhaler at home. The provider at the urgent care called the ED today prior to the patient's arrival. She reported his chest x-ray was negative for acute findings. Related Data Home Medications ?Medication ?Instructions ?Recorded ?Confirmed amitriptyline 50 mg tablet 50 mg PO DAILY 09/06/24 11/04/24 esomeprazole magnesium 40 mg 40 mg PO DAILY 09/06/24 11/04/24 capsule,delayed release metoprolol succinate 50 mg 50 mg PO DAILY 09/06/24 11/04/24 tablet,extended release 24 hr semaglutide 0.25 mg or 0.5 mg (2 0.25 mg subcut QWEEK 09/06/24 11/04/24 mg/3 mL) subcutaneous pen injector (Ozempic) Previous Rx's ?Medication ?Instructions ?Recorded albuterol sulfate 90 mcg/actuation 2 inh inhalation Q6H PRN shortness 11/04/24 aerosol inhaler of breath or wheezing #8.5 grams azithromycin 250 mg tablet See Rx Instructions PO .COMPLEX #6 11/04/24 (Zithromax Z-Reid) tabs prednisone 10 mg tablet See Rx Instructions .Route 11/04/24 .COMPLEX #30 tabs Allergies Allergy/AdvReac Type Severity Reaction Status Date / Time No Known Drug Allergies Allergy Verified 09/06/24 22:27 Review of Systems ROS Constitutional Reports: chills and fatigue; Denies: fever Ears, nose, mouth, and throat Denies: throat pain or neck pain Cardiovascular Denies: chest pain, palpitations, edema, swelling of feet/ankles or lightheadedness Respiratory Reports: shortness of breath, cough and wheezing Gastrointestinal Denies: abdominal pain, nausea, vomiting or diarrhea Musculoskeletal Denies: back pain or neck pain Integumentary/Breast Denies: rash Neurological Denies: headache, weakness in extremities or dizziness [facility] Social History Little interest or pleasure in doing things: not at all Feeling down, depressed, or hopeless: not at all Exam Constitutional Vital Signs, click to edit/add: Last Vital Signs Temp 98.2 F 11/04/24 17:21 Pulse 119 H 11/04/24 21:30 Resp 29 H 11/04/24 21:30 BP 169/97 H 11/04/24 21:30 Pulse Ox 93 L 11/04/24 21:30 O2 Del Method Room Air 11/04/24 20:25 Common normals: no apparent distress and oriented x3 General appearance: cooperative HENMT Common normals: external ears normal, moist oral mucous membranes and oropharynx normal Eye Common normals: conjunctivae normal and no scleral icterus Neck & C-Spine Common normals: supple and no meningeal signs Respiratory Common normals: normal respiratory effort Effort & inspection: able to speak in complete sentences and symmetric chest movement Auscultation: wheezes Cardio Common normals: regular rhythm Rate: tachycardic Extremity Common normals: no pedal edema Neuro Common normals: oriented x3 and moves all extremities Sensorium/orientation: awake and alert Speech: speech normal Course Vital Signs Vital signs: Vital Signs Temperature 98.2 F 11/04/24 17:21 Pulse Rate 110 H 11/04/24 17:21 Respiratory Rate 20 11/04/24 17:21 Pulse Oximetry 93 L 11/04/24 17:21 Oxygen Delivery Method Room Air 11/04/24 17:21 Temperature 98.2 F 11/04/24 17:21 Pulse Rate 119 H 11/04/24 21:30 Respiratory Rate 29 H 11/04/24 21:30 Blood Pressure 169/97 H 11/04/24 21:30 Pulse Oximetry 93 L 11/04/24 21:30 Oxygen Delivery Method Room Air 11/04/24 20:25 MDM - SOB/Dyspnea MDM Narrative Medical decision making narrative: WBC count was 12. Covid-19 and influenza were negative. BNP and troponin were unremarkable. The patient is a smoker. He reported he was diagnosed with COPD 10-12 years ago; he does not currently take medication for respiratory issues. CT scan was negative for acute findings. Findings were discussed with the patient. He reported he was feeling better and was comfortable being discharged home. Prescriptions were provided for Proventil, prednisone, and Zithromax. He reported he has used an inhaler before. Return precautions were discussed. Follow up with pcp for a recheck, further evaluation and treamtent. Differential Diagnosis Differential diagnosis: Likely acute exacerbation of chronic obstructive airways disease, congestive heart failure, community acquired pneumonia and pulmonary embolism Medical Records Attestation: I reviewed the patient's medical records. Lab Data Attestation: I reviewed the patient's lab results. Labs: Lab Results 11/04/24 11/04/24 Range/Units 17:31 17:35 WBC 12.0 H (4.0-11.0) 10^3/uL RBC 5.27 (4.70-6.10) 10^6/uL Hgb 15.5 (14.0-18.0) g/dL Hct 45.8 (42.0-54.0) % MCV 86.9 (80.0-94.0) fL MCH 29.4 (25.9-34.0) pg MCHC 33.8 (29.9-35.2) g/dL RDW 14.2 (11.0-15.0) % Plt Count 237 (150-450) 10^3/uL MPV 8.8 L (9.5-13.5) fL Neut % (Auto) 67.0 (43.0-75.0) % Lymph % (Auto) 19.7 L (20.5-60.0) % [place] % (Auto) 9.3 (1.7-12.0) % Eos % (Auto) 3.2 (0.9-7.0) % Baso % (Auto) 0.5 (0.2-2.0) % Neut # (Auto) 8.1 H (1.4-6.5) 10^3/uL Lymph # (Auto) 2.4 (1.2-3.8) 10^3/uL [place] # (Auto) 1.1 H (0.3-0.8) 10^3/uL Eos # (Auto) 0.4 (0.0-0.7) 10^3/uL Baso # (Auto) 0.1 (0.0-0.1) 10^3/uL Abs Immat Gran (auto) 0.04 H (0.00-0.03) 10^3/uL Imm/Tot Granulo (auto) 0.3 (0.0-0.5) % Sodium 139 (136-145) mmol/L Potassium 3.9 (3.5-5.1) mmol/L Chloride 101 (98-107) mmol/L Carbon Dioxide 28.9 (21.0-32.0) mmol/L Anion Gap 13.0 BUN 14.0 (7.0-18.0) mg/dL Creatinine 1.31 H (0.70-1.30) mg/dL Est GFR ( Amer) >60 (>=60 mL/min/1.73m^2) Est GFR (Non-Af Amer) 56 L (>=60 mL/min/1.73m^2) BUN/Creatinine Ratio 10.7 Glucose 113 H (74-106) mg/dL Calcium 8.8 (8.5-10.1) mg/dL Total Bilirubin 0.5 (0.2-1.0) mg/dL AST 15 (15-37) U/L ALT 31 (16-63) U/L Alkaline Phosphatase 81 (46-116) U/L Troponin I High Sens 4.6 (4.0-76.1) pg/mL NT-Pro-B Natriuret Pep 155.0 (<=900.0) pg/mL Total Protein 7.7 (6.4-8.2) g/dL Albumin 3.9 (3.4-5.0) g/dL Globulin 3.8 g/dL Albumin/Globulin Ratio 1.0 Influenza Type A Ag Negative Influenza Type B Ag Negative SARS-CoV-2 Ag (CV2AG) Negative (NEGATIVE) Imaging Data CT scan - chest: Attestation: I have reviewed the pertinent imaging results. Radiologist's impression: 1. No thoracic aortic aneurysm or dissection. 2. No pulmonary embolus. 3. Minimal atelectasis at the right lung base. 4. Coronary arterial vascular calcifications. ECG Data Attestation: ?I have reviewed the pertinent ECG results. (EKG was reviewed by the attending physician. It showed sinus tachycardia at a rate of 112. No STEMI.) Interpretation: Measurements Intervals [place] Rate: 112 P: 55 [place]: 162 QRS: 47 QRSD: 86 T: 52 QT: 320 QTc: 386 Interpretive Statements 1120 Sinus tachycardia 4068 Nonspecific Twave abnormality 9140 abnormal rhythm ECG No previous ECG available for comparison Discharge Plan Discharge Chief Complaint: Shortness of Breath/Dyspnea Clinical Impression: COPD exacerbation Patient Disposition: Home, Self-Care Time of Disposition Decision: 21:33 Condition: Good Mode of Transportation: Private Vehicle Prescriptions / Home Meds: New albuterol sulfate 90 mcg/actuation HFA aerosol inhaler 2 inh inhalation Q6H PRN (Reason: shortness of breath or wheezing) Qty: 8.5 0RF prednisone 10 mg tablet See Rx Instructions .ROUTE .COMPLEX Qty: 30 0RF Rx Instructions: Take 5 tablets on days 1-2, 4 tabs on days 3-4, 3 tabs on days 5-6, 2 tabs on days 7-8, 1 tab on days 9-10. azithromycin [Zithromax Z-Reid] 250 mg tablet See Rx Instructions .ROUTE .COMPLEX Qty: 6 0RF Rx Instructions: For 250 mg dose pack: take 500 mg today (day 1), then 250 mg for 4 days (days 2-5) No Action metoprolol succinate 50 mg tablet extended release 24 hr 50 mg PO DAILY amitriptyline 50 mg tablet 50 mg PO DAILY esomeprazole magnesium 40 mg capsule,delayed release(DR/EC) 40 mg PO DAILY Ozempic 0.25 mg or 0.5 mg (2 mg/3 mL) pen injector 0.25 mg SUBCUT QWEEK Print Language: [place] Instructions: How to Use a Metered-Dose Inhaler (ED), COPD (Chronic Obstructive Pulmonary Disease) (ED), Hypertension (ED) Additional Instructions: Return to the ER for worsening symptoms. Follow up with your primary care provider; call tomorrow to schedule an appointment. Referrals: ANIVAL WHEELER [Primary Care Provider, Internal Medicine] - 1 week
[2024-11-04 17:40] LABS: Basophils Absolute Auto 0.1 10^3/uL (0.0-0.1); Basophils Percent Auto 0.5 % (0.2-2.0); Eosinophils Absolute Auto 0.4 10^3/uL (0.0-0.7); Eosinophils Percent Auto 3.2 % (0.9-7.0); Hematocrit 45.8 % (42.0-54.0); Hemoglobin 15.5 g/dL (14.0-18.0); Immature Granulocytes Abs Auto 0.04 10^3/uL (0.00-0.03); Immature Granulocytes Pct Auto 0.3 % (0.0-0.5); Lymphocytes Absolute Auto 2.4 10^3/uL (1.2-3.8); Lymphocytes Percent Auto 19.7 % (20.5-60.0); Mean Corpuscular HGB Conc 33.8 g/dL (29.9-35.2); Mean Corpuscular Hemoglobin 29.4 pg (25.9-34.0); Mean Corpuscular Volume 86.9 fL (80.0-94.0); Mean Platelet Volume 8.8 fL (9.5-13.5); Monocytes Absolute Auto 1.1 10^3/uL (0.3-0.8); Monocytes Percent Auto 9.3 % (1.7-12.0); Neutrophils Absolute Auto 8.1 10^3/uL (1.4-6.5); Platelet Count 237 10^3/uL (150-450); Red Blood Count 5.27 10^6/uL (4.70-6.10); Red Cell Distribution Width 14.2 % (11.0-15.0)
[2024-11-04] MEDS: METHYLPREDNISOLONE SOD SUCC PF 125 MG/2 ML VIAL IVP (17:49)
[2024-11-04 17:53] LABS: Influenza Virus A Antigen Negative; Influenza Virus B Antigen Negative; Internal Control Within Normal Limits; SARS-CoV-2 Ag NEGATIVE (NEGATIVE)
[2024-11-04 18:04] LABS: Alanine Aminotransferase 31 U/L (16-63); Albumin Level 3.9 g/dL (3.4-5.0); Alkaline Phosphatase 81 U/L (46-116); BUN Creatinine Ratio 10.7; Bilirubin Total 0.5 mg/dL (0.2-1.0); Calcium 8.8 mg/dL (8.5-10.1); Carbon Dioxide 28.9 mmol/L (21.0-32.0); Chloride 101 mmol/L (98-107); Estimated GFR (African America >60 (>=60 mL/min/1.73m^2); Estimated GFR (Non-African Ame 56 (>=60 mL/min/1.73m^2); Globulin 3.8 g/dL; Glucose 113 mg/dL (74-106); Potassium 3.9 mmol/L (3.5-5.1); Sodium 139 mmol/L (136-145); Total Protein 7.7 g/dL (6.4-8.2); Troponin I High Sensitivity 4.6 pg/mL (4.0-76.1)
[2024-11-04 18:16] LABS: Aspartate Amino Transferase 15 U/L (15-37)
[2024-11-04] MEDS: 0.9 % SODIUM CHLORIDE 500 ML IV (20:52)
[2024-11-04] MEDS: METOPROLOL TARTRATE 5 MG/5 ML VIAL IVP (20:52)
== END 2024-11-04 21:46 | disposition home or self-care (01) ==
PROVIDERS: Nurse Practitioner Family; Emergency Provider Emergency Medicine; PCP Internal Medicine
DX: J44.1 Chronic obstructive pulmonary disease with (acute) exacerbation (principal); Z90.49 Acquired absence of other specified parts of digestive tract; F17.210 Nicotine dependence, cigarettes, uncomplicated
CPT/HCPCS: 36415; 71275; 80053; 83880; 84484; 85025; 87804; 87811; 93005; 96374; 96375; 99285; J2919; Q9967

== ENCOUNTER 2024-11-19 10:48 | Emergency (ER) | payer BC, SELFPAY ==
[2024-11-19 10:53] VITALS: BP 128/84; PULSE 110; TEMP 37.6; O2SAT 94; BMI 33.7
--- NOTE | 2024-11-19 11:07 | ECG_ITS ---
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 Measurements Intervals [place] Rate: 107 P: 63 PA: 156 QRS: 43 QRSD: 84 T: 21 QT: 308 QTc: 371 Interpretive Statements 1120 Sinus tachycardia 4068 Nonspecific Twave abnormality 9140 abnormal rhythm ECG Compared to ECG 11/04/2024 17:26:41 No significant changes Electronically Signed On 11-19-2024 19:44:26 EDT by ARELI MCKEON M.D.
--- NOTE | 2024-11-19 11:10 | ED.GENADUL1 ---
HPI HPI - General Adult General Chief complaint: Nausea/Vomiting/Diarrhea Stated complaint: FEVER VOMITING HEADACHE Time Seen by Provider: 11/19/24 10:51 Source: patient Mode of arrival: walk-in History of Present Illness HPI narrative: 59-year-old male presents to the emergency department for fever and not feeling well. He states that his temperature was 101 degrees at home. He had some pain in the epigastric area and just to the left of it which seems to be essentially gone now he states. He vomited. He states he was here recently with similar symptoms but nothing was able to be found. Related Data Home Medications ?Medication ?Instructions ?Recorded ?Confirmed amitriptyline 50 mg tablet 50 mg PO DAILY 09/06/24 11/19/24 esomeprazole magnesium 40 mg 40 mg PO DAILY 09/06/24 11/19/24 capsule,delayed release metoprolol succinate 50 mg 50 mg PO DAILY 09/06/24 11/19/24 tablet,extended release 24 hr semaglutide 0.25 mg or 0.5 mg (2 0.25 mg subcut QWEEK 09/06/24 11/19/24 mg/3 mL) subcutaneous pen injector (Ozempic) Previous Rx's ?Medication ?Instructions ?Recorded albuterol sulfate 90 mcg/actuation 2 inh inhalation Q6H PRN shortness 11/04/24 aerosol inhaler of breath or wheezing #8.5 grams Allergies Allergy/AdvReac Type Severity Reaction Status Date / Time No Known Drug Allergies Allergy Verified 11/19/24 10:51 Opioid HPI Opioid Management Most Recent Opioid Data: Last Pain Scale 10 09/06/24, 22:46 Review of Systems ROS Narrative A ten point review of systems is negative except as noted above. PFSH PFSH Social History Little interest or pleasure in doing things: not at all Feeling down, depressed, or hopeless: not at all Exam Narrative Exam Narrative: Nurses note and vital signs reviewed and patient is not hypoxic. General: The patient appears well and in no apparent distress. Patient is resting comfortably on cart. Skin: Warm, dry, no pallor noted. There is no rash noted. Head: Normocephalic, atraumatic Eye: Normal conjunctiva, no drainage Ears, Nose, Mouth, and Throat: oral mucosa is moist. Nares patent. Cardiovascular: Regular Rate and Rhythm Respiratory: Patient is in no distress, no accessory muscle use, lungs are clear to auscultation, no wheezing, rales or rhonchi Back: non-tender GI: Normal bowel sounds, minimal tenderness in the epigastric area and just to the left of it Musculoskeletal: The patient has no evidence of calf tenderness, no pitting edema, symmetrical pulses noted bilaterally Neurological: A&O, normal speech Psychiatric: Cooperative Constitutional Vital Signs, click to edit/add: Last Vital Signs Temp 99.6 F 11/19/24 10:53 Pulse 110 H 11/19/24 10:53 Resp 18 11/19/24 10:53 BP 128/84 11/19/24 10:53 Pulse Ox 94 L 11/19/24 10:53 O2 Del Method Room Air 11/19/24 10:53 Course Vital Signs Vital signs: Vital Signs Temperature 99.6 F 11/19/24 10:53 Pulse Rate 110 H 11/19/24 10:53 Respiratory Rate 18 11/19/24 10:53 Blood Pressure 128/84 11/19/24 10:53 Pulse Oximetry 94 L 11/19/24 10:53 Oxygen Delivery Method Room Air 11/19/24 10:53 Temperature 99.6 F 11/19/24 10:53 Pulse Rate 110 H 11/19/24 10:53 Respiratory Rate 18 11/19/24 10:53 Blood Pressure 128/84 11/19/24 10:53 Pulse Oximetry 94 L 11/19/24 10:53 Oxygen Delivery Method Room Air 11/19/24 10:53 Medical Decision Making [facility] Narrative Medical decision making narrative: His work negative including blood work and chest x-ray. I have no clinical suspicion at this point of acute intra-abdominal pathology. I suspect that he has a viral illness. Treatment diagnosis and follow-up were discussed with the patient. Differential Diagnosis Differential Diagnosis: Viral illness, pancreatitis, gastroenteritis, pneumonia Lab Data Lab results reviewed: Yes I reviewed the patient's lab results Labs: Lab Results 11/19/24 Range/Units 11:23 WBC 8.4 (4.0-11.0) 10^3/uL RBC 4.55 L (4.70-6.10) 10^6/uL Hgb 13.8 L (14.0-18.0) g/dL Hct 39.4 L (42.0-54.0) % MCV 86.6 (80.0-94.0) fL MCH 30.3 (25.9-34.0) pg MCHC 35.0 (29.9-35.2) g/dL RDW 14.9 (11.0-15.0) % Plt Count 206 (150-450) 10^3/uL MPV 8.7 L (9.5-13.5) fL Neut % (Auto) 71.7 (43.0-75.0) % Lymph % (Auto) 10.2 L (20.5-60.0) % [place] % (Auto) 15.1 H (1.7-12.0) % Eos % (Auto) 0.8 L (0.9-7.0) % Baso % (Auto) 0.6 (0.2-2.0) % Neut # (Auto) 6.0 (1.4-6.5) 10^3/uL Lymph # (Auto) 0.9 L (1.2-3.8) 10^3/uL [place] # (Auto) 1.3 H (0.3-0.8) 10^3/uL Eos # (Auto) 0.1 (0.0-0.7) 10^3/uL Baso # (Auto) 0.1 (0.0-0.1) 10^3/uL Abs Immat Gran (auto) 0.13 H (0.00-0.03) 10^3/uL Imm/Tot Granulo (auto) 1.6 H (0.0-0.5) % Sodium 132 L (136-145) mmol/L Potassium 3.8 (3.5-5.1) mmol/L Chloride 98 (98-107) mmol/L Carbon Dioxide 27.1 (21.0-32.0) mmol/L Anion Gap 10.7 BUN 16.0 (7.0-18.0) mg/dL Creatinine 1.33 H (0.70-1.30) mg/dL Est GFR ( Amer) >60 (>=60 mL/min/1.73m^2) Est GFR (Non-Af Amer) 55 L (>=60 mL/min/1.73m^2) BUN/Creatinine Ratio 12.0 Glucose 102 (74-106) mg/dL Calcium 8.3 L (8.5-10.1) mg/dL Total Bilirubin 0.3 (0.2-1.0) mg/dL Direct Bilirubin 0.1 (0.0-0.2) mg/dL AST 15 (15-37) U/L ALT 26 (16-63) U/L Alkaline Phosphatase 56 (46-116) U/L Total Protein 6.7 (6.4-8.2) g/dL Albumin 3.3 L (3.4-5.0) g/dL Globulin 3.4 g/dL Albumin/Globulin Ratio 1.0 Amylase 46 (25-115) U/L Lipase 43.0 (16.0-77.0) U/L Imaging Data Chest x-ray: Radiologist's impression: No consolidation, no pulmonary edema, pleural effusion or pneumothorax ECG Data Attestation: I personally reviewed and interpreted this ECG as follows: (EKG on my interpretation shows sinus tachycardia with a rate of 107 and no acute) Discharge Plan Discharge Chief Complaint: Nausea/Vomiting/Diarrhea Clinical Impression: Viral illness Patient Disposition: Home, Self-Care Time of Disposition Decision: 12:57 Condition: Good Mode of Transportation: Private Vehicle Prescriptions / Home Meds: No Action albuterol sulfate 90 mcg/actuation HFA aerosol inhaler 2 inh inhalation Q6H PRN (Reason: shortness of breath or wheezing) Qty: 8.5 0RF metoprolol succinate 50 mg tablet extended release 24 hr 50 mg PO DAILY amitriptyline 50 mg tablet 50 mg PO DAILY esomeprazole magnesium 40 mg capsule,delayed release(DR/EC) 40 mg PO DAILY Ozempic 0.25 mg or 0.5 mg (2 mg/3 mL) pen injector 0.25 mg SUBCUT QWEEK Print Language: Cypriot Instructions: Viral Syndrome (ED) Referrals: ANIVAL WHEELER [Primary Care Provider, Internal Medicine] - 1 week
--- OUTSIDE RECORDS SUMMARY | 2024-11-19 11:14 | XMS_ITS | CCD ---
Author Organization [facility] Inform ion [facility] Care Team Providers Care [employer] Sealer Name Role Phone HOUSE, DR CHAVEZ Primary Care Unavailable SHAIKH Aminta YAO Admitting Unavailable ISMAEL ., DR BUCKLEY Consulting Unavailable SHAIKH Aminta YAO Attending Unavailable PB, DR LAMIN Peña Consulting Unavailable CHAU MENDOZA Consulting Unavailable SHAIKH Aminta YAO Consulting Unavailable ANGELIQUE, DR CHAVEZ Attending Unavailable ANGELIQUE, DR CHAVEZ Consulting Unavailable ANGELIQUE, DR CHAVEZ Primary Care Unavailable ANGELIQUE, DR CHAVEZ Admitting Unavailable Tan Capps MD Primary Care Provider Tan Capps MD Unavailable [phone] SCOTT MERINO Primary Care Physician [phone] Ashli Castellanos Referring Unavaila Ashli Jean Admitting Unavaila Ashli Jean Attending Unavaila Ashli Jean Attending Unavaila TAN Del Rosario Referring Unavailable CASSI SANTIAGO Attending Unavailable CASSI SANTIAGO Referring Unavailable TAN CAPPS Attending Unavailable TAN CPAPS Attending Unavailable VESNA MONROY Attending Unavailable LISA MORELOS Attending Unavailable TAN CAPPS Attending Unavailable VESNA MONROY Attending Unavailable Ashli Castellanos Attending UnavailEdilia Gant Attending Unavailable Edilia Zamora Admitting Unavailable Tan Capps Primary Care Unavailable Allergies Allergy Classification Reported Allergen(s) Allergy Type Date of Onset Reaction(s) Facility (2 sources) No Known Medication Allergies; Translations: [No Known Medication Allergies] Propensity to adverse reactions (disorder) [facility] Repository Medications Current Medications Medication Drug Class(es) [...] Refills(s) 0 Start Date: 05/15/24 Status: Ordered ciprofloxacin 500 mg oral tablet (4 sources) Quinolone Antimicrobial Start: 11-05-2024 End: 11-15-2024 take 1 tablet by mouth in the morning ciprofloxacin (Cipro) 500 MG tablet Indications: Dysuria Take 1 tablet (500 mg) by mouth in the morning and 1 tablet (500 mg) before bedtime. Do all this for 10 days. 20 tablet 11/05/2024 11/15/2024 Active Start: 10-13-2024 End: 10-20-2024 take 1 tablet by mouth in the morning ciprofloxacin (Cipro) 500 MG tablet Indications: Acute cystitis with hematuria Take 1 tablet (500 mg) by mouth in the morning and 1 tablet (500 mg) before bedtime. Do all this for 7 days. 14 tablet 10/13/2024 10/20/2024 Active Fluocinonide (15 sources) Corticosteroid Start: 05-15-2024 fluocinonide T op 0.05% Crm 15 gram Refill(s) 0, 60 [...] succinate 50 mg extended release oral tablet (20 sources) beta-Adrenergic Gato Start: 11-21-2023 End: 10-13-2024 take 1 tablet by mouth once daily metoprolol succinate XL (Toprol-XL) 50 MG 24 hr tablet Indications: Primary hypertension (CMS/HCC) Take 1 tablet (50 mg) by mouth Daily 100 tablet 3 10/13/2024 Active nicotine 4 mg chewing gum (3 sources) [...] 7 days 21 tablet 04/23/2024 04/30/2024 Active phenazopyridine hydrochloride 200 mg delayed release oral tablet (2 sources) Start: 10-13-2024 End: 10-15-2024 take 1 tablet by mouth three times daily as needed for muscle spasms phenazopyridine (Pyridium) 200 MG tablet Indications: Acute cystitis with hematuria Take 1 tablet (200 mg) by mouth 3 (three) times a day as needed for bladder spasms for up to 2 days 6 tablet 10/13/2024 10/15/2024 Active polyethylene glycol 3350 313272 mg / potassium chloride 1480 mg / sodium bicarbonate 5720 mg / sodium chloride 59801 mg powder for oral solution (1 source) Osmotic Laxative Start: 05-18-2024 take 1 dose by mouth once daily NuLYTELY [place] oral powder for reconstitution See Instructions, 1 EA, Refill(s) 0, 240 mL Oral Daily, [facility]/pharmacy #[id number], 177.8, cm, 05/18/24 8:14:00 EST, Height/Length Dosing, 109, kg, 05/18/24 8:14:00 EST, Weight Dosing Start Date: 05/18/24 Status: Ordered Semaglutide,0.25 or 0.5MG/DOS, (Ozempic, 0.25 or 0.5 MG/DOSE,) 2 MG/3ML solution pen-injector (18 sources) Start: 05-11-2024 Semaglutide,0.25 or 0.5MG/DOS, (Ozempic, 0.25 or 0.5 MG/DOSE,) 2 MG/3ML solution pen-injector Indications: Type 2 diabetes mellitus without complication, without long-term current use of insulin INJECT 0.5 MG UNDER THE SKIN 1 (ONE) TIME PER WEEK 9 mL 3 05/11/2024 Active Start: 05-11-2024 Semaglutide,0. 25 or 0.5MG/DOS, (Ozempic, [...] PER WEEK 3 mL 3 01/28/2024 Active tamsulosin hydrochloride 0.4 mg oral capsule (2 sources) alpha-Adrenergic Gato Start: 11-05-2024 End: 01-04-2025 take 1 capsule by mouth every twenty-four hours at bedtime tamsulosin (Flomax) 0.4 MG 24 hr capsule Indications: Urinary frequency , Urine retention Take 1 capsule (0.4 mg) by mouth at bedtime 30 capsule 1 11/05/2024 01/04/2025 Active Completed/Discontinued Medications Medication Drug Class(es) Dates Sig (Normalized) Sig (Original) amitriptyline hydrochloride 50 mg oral tablet (20 sources) Tricyclic Antidepressant Start: 05-15-2024 amitriptyline 50 mg Tab 50 mg = 1 tab(s), Oral, Once a day (at bedtime), 180 EA, 0 Refill(s), TAKE 2 TABLETS BY MOUTH EVERY DAY AT BEDTIME, Refills(s) 0, Headache Start Date: 05/15/24 Status: Ordered take 2 tablets by mouth at bedti nc amitriptyline (Elavil) 50 MG tablet Take 100 mg by mouth at bedtime Active esomeprazole 40 mg delayed release oral capsule (14 sources) Proton Pump Inhibitor Start: 05-04-2024 End: 05-04-2025 take 1 capsule by mouth before mealtime esomeprazole (NexIUM) [address] capsule Indications: Postprandial epigastric pain Take 1 capsule (40 mg) by mouth in the morning. Take before meals. Do not open capsule.. 30 capsule 1 05/04/2024 10/13/2024 Discontinued (Other) famotidine 20 mg oral tablet (4 sources) Histamine-2 Receptor Antagonist Start: 09-07-2024 End: 10-13-2024 take 1 tablet by mouth once daily famotidine (Pepcid) 20 MG tablet Take 20 mg by mouth Daily 09/07/2024 10/13/2024 Discontinued (Other) Problems Active Problems Problem Classification Problem Date Documented Date Episodic/Chronic Acute and unspecified renal failure (1 source) Acute renal failure syndrome; Translations: [Acute kidney failure, unspecified] 09-09-2024 Episodic Acute bronchitis (1 source) Acute bronchitis, unspecified; Translations: [ACUTE BRONCHITIS UNSPECIFIED] Onset: 11-14-2022 Episodic Cardiac dysrhythmias (1 source) Tachycardia, unspecified; Translations: [TACHYCARDIA UNSPECIFIED] Onset: 11-14-2022 Episodic Cataract (15 sources) Bilateral age-related nuclear cataracts; Translations: [Age-related nuclear cataract, bilateral] Onset: 03-17-2024 03-17-2024 Chronic Chronic obstructive pulmonary disease and bronchiectasis (18 sources) Chronic obstructive pulmonary disease with (acute) exacerbation; Translations: [Chronic obstructive pulmonary disease with (acute) lower respiratory infection] Onset: 11-06-2022 Chronic Diabetes mellitus with complications (1 source) Cataract due to diabetes mellitus type 2; Translations: [Type 2 diabetes mellitus with diabetic cataract] 09-09-2024 Chronic Diabetes mellitus without complication (20 sources) Type 2 diabetes mellitus without complication; Translations: [Type 2 diabetes mellitus without complications] Onset: 07-25-2023 07-25-2023 Chronic Diseases of white blood cells (1 source) Elevated white blood cell count, unspecified; Translations: [ELEVATED WHITE BLOOD CELL COUNT UNS] Onset: 11-14-2022 Chronic Diverticulosis and diverticulitis (20 sources) Diverticulitis of colon; Translations: [Diverticulitis of large intestine without perforation or abscess without bleeding] Onset: 12-11-2012 07-11-2023 Chronic Esophageal disorders (2 sources) Gastroesophageal reflux disease without esophagitis; Translations: [Gastro-esophageal reflux disease without esophagitis] Onset: 05-18-2024 Chronic Essential hypertension (20 sources) Essential (primary) hypertension; Translations: [Essential hypertension] Onset: 11-14-2022 10-23-2023 Chronic Genitourinary symptoms and ill-defined conditions (10 sources) Dysuria; Translations: [Dysuria] 10-13-2024 Episodic Miscellaneous mental health disorders (18 sources) Primary insomnia; Translations: [Primary insomnia] Onset: 07-11-2023 07-11-2023 Chronic Nausea and vomiting (2 sources) Nausea and vomiting; Translations: [Nausea with vomiting, unspecified] 04-23-2024 Episodic Other aftercare (1 source) Other vermin exterminator (current) drug therapy; Translations: [OTH INVESTOR RELATIONS ANALYST CURRENT DRUG THERAPY] Onset: 11-14-2022 Episodic Other liver diseases (8 sources) Steatosis of liver; Translations: [Fatty (change of) liver, not elsewhere classified] Onset: 07-20-2024 Chronic Other lower respiratory disease (1 source) Wheezing; Translations: [Wheezing] Onset: 11-04-2024 Episodic Other nervous system disorders (1 source) Chronic pain; Translations: [Other chronic pain] Onset: 06-26-2024 Chronic Other nutritional; endocrine; and metabolic disorders (11 sources) Obesity caused by energy imbalance; Translations: [...] tract] Onset: 05-15-2024 Episodic Residual codes; unclassified (1 source) Family [...] Unclassified (5 sources) Patient encounter status 05-04-2024 Urinary tract infections (2 sources) Acute cystitis; Translations: [Acute cystitis with hematuria] 10-13-2024 Episodic Past or Other Problems Problem Classification Problem Date Documented Da te Episodic/Chronic Abdominal pain (20 sources) Epigastric pain; Translations: [Epigastric pain] Onset: 05-15-2024 05-04-2024 Episodic Blindness and vision defects (15 sources) Bilateral myopia of eyes; Translations: [Myopia, bilateral] Onset: 03-17-2024 03-17-2024 Episodic Other and unspecified benign neoplasm (8 sources) Polyp of colon; Translations: [Polyp of colon] Onset: 07-15-2024 Resolved: 08-06-2024 Episodic Other and unspecified benign neoplasm (6 sources) History of polyp of colon; Translations: [History of colon polyps] Onset: 08-06-2024 08-06-2024 Episodic Other connective tissue disease (18 sources) Muscle pain; Translations: [Myalgia, unspecified site] Onset: 11-05-2023 11-05-2023 Episodic Other gastrointestinal disorders (18 sources) Chronic constipation; Translations: [Other constipation] Onset: 07-11-2023 07-11-2023 Episodic Other nutritional; endocrine; and metabolic disorders (18 sources) Drug-induced obesity; Translations: [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 36.9 in adult] Onset: 10-23-2023 Resolved: 06-18-2024 10-23-2023 Chronic Other screening for suspected conditions (not mental disorders or infectious disease) (12 sources) Patient encounter status; Translations: [Encounter for screening for malignant neoplasm of colon] Onset: 05-15-2024 Resolved: 06-18-2024 05-04-2024 Episodic Residual codes; unclassified (12 sources) History of partial resection of colon; Translations: [Acquired absence of other specified parts of digestive tract] Onset: 06-18-2024 05-15-2024 Episodic Residual codes; unclassified (14 sources) Tobacco user; Translations: [Tobacco use] Onset: 06-18-2024 05-18-2024 Episodic Substance-related disorders (20 sources) Nicotine dependence, cigarettes, uncomplicated; Translations: [Tobacco dependence caused by cigarettes] Onset: 11-14-2022 Resolved: 06-18-2024 07-11-2023 Chronic Results Test Name Value Interpretation Reference Range Facility Laboratory - Chemistry and C hemistry - challengeon 11-06-2024 Prostate specific Ag [Mass/Vol] 3.14 ng/mL < OR = 4.00 [facility] Comment on above: The total PSA value from this assay system is standardized against the WHO standard. The test result will be approximately 20% lower when compared to the equimolar-standardized total PSA (Radha Brockton). Comparison of serial PSA results should be interpreted with this fact in mind. This test was performed using the Siemens chemiluminescent method. Values obtained from different assay methods cannot be used interchangeably. PSA levels, regardless of value, should not be interpreted as absolute evidence of the presence or absence of disease. No Panel Informationon 11-06 ACINETOBACTER BAUMANII 0 [facility] ACINETOBACTER BAUMANII Not detected [facility] LANG ALBICANS, PARAPSILOSIS, TROPICALIS 0 [facility] LANG ALBICANS, PARAPSILOSIS, TROPICALIS Not detected [facility] LANG GLABRATA 0 [facility] LANG GLABRATA Not detected [facility] LANG KRUSEI 0 [facility] LANG KRUSEI Not detected [facility] CITROBACTER FREUNDII 0 [facility] CITROBACTER FREUNDII Not detected [facility] ENTEROBACTER AEROGENES, CLOACAE 0 [facility] ENTEROBACTER AEROGENES, CLOACAE Not detected [facility] ENTEROCOCCUS FAECALIS, FAECIUM 0 [facility] ENTEROCOCCUS FAECALIS, FAECIUM Not detected [facility] ESCHERICHIA COLI 19.667 Abnormal [facility] ESCHERICHIA COLI Detected Abnormal [facility] Interpretation and review of laboratory results Abnormal [facility] KLEBSIELLA PNEUMONIAE, OXYTOCA 0 [facility] KLEBSIELLA PNEUMONIAE, OXYTOCA Not detected [facility] MORGANELLA MORGANII 0 [facility] MORGANELLA MORGANII Not detected [facility] PROTEUS MIRABILIS, VULGARIS 0 [facility] PROTEUS MIRABILIS, VULGARIS Not detected [facility] PSEUDOMONAS AERUGINOSA 0 [facility] PSEUDOMONAS AERUGINOSA Not detected [facility] SERRATIA MARCESCENS 0 [facility] SERRATIA MARCESCENS Not detected [facility] STAPHYLOCOCCUS AUREUS 0 [facility] STAPHYLOCOCCUS AUREUS Not detected [facility] STAPHYLOCOCCUS EPIDERMIDIS, HAEMOLYTICUS, LUGDUNENSIS, SAPROPHYTICUS (URINA 0 [facility] STAPHYLOCOCCUS EPIDERMIDIS, HAEMOLYTICUS, LUGDUNENSIS, SAPROPHYTICUS (URINA Not detected [facility] STREPTOCOCCUS AGALACTIAE (GROUP B STREP) 0 [facility] STREPTOCOCCUS AGALACTIAE (GROUP B STREP) Not detected [facility] STREPTOCOCCUS PYOGENES (GROUP A STREP) 0 [facility] STREPTOCOCCUS PYOGENES (GROUP A STREP) Not detected [facility] Prostate specific Ag [Mass/V ol]on 11-06-2024 FASTING:YES FASTING: YES [employer] Organizat ion Information Site ID: QPT Name: [employer] [facility] Address: [address] [place] [id number] Director: Luca Bell MD [facility] Reminderson 11-06-2024 Reminders Reminders From: Oksana Barr I To: [facility] - Reminders/Recalls; Sent: 07/15/2024 09:49:56 EST Show up: 11/05/2024 09:49:00 EDT Subject: Colonoscopy recall Due Date/Time: 12/25/2024 09:49:00 EDT Reminder/Recall [address] Castellanos 06/26/24 Patient called and wanted to schedule colonoscopy. I will forward message. patient is scheduled for saturday Normal [facility] Urinalysis macro (dipstick) panel (U)on 11-05-2024 Bilirubin, UA Negative Negative - 4(70) +++ mg/dL [facility] Blood, UA Positive Negative - 50 Valeriy/mcL [facility] Clarity, UA Hazy [facility] Color, UA Straw [facility] Glucose, UA Moderate Negative - 2000(110) ++++ mg/dL [facility] Interpretation and review of laboratory results Abnormal [facility] Ketones, UA Positive Negative - 160(16) ++++ mg/dL [facility] Leukocytes, UA Positive Negative - 500+++ Laureano/mcL [facility] Nitrite, UA Positive Negative - Positive [facility] pH, UA 5 5 - 9 [facility] Protein, UA Negative Negative - 2000(20) ++++ mg/dL [facility] Spec Grav, UA 1 1 - 1.03 [facility] Urobilinogen, UA 0.2 0.2 - 12 mg/dL [facility] XR chest 2V*on 11-04-2024 XR [facility] 2V* [facility] [place] [place] [address] XRay Report Signed Patient: David Ramirez MR#: [id number] 7 : 1965 Acct:[id number] Age/Sex: 59 / M ADM Date: 11/04/24 Loc: XDUCLY Room: Type: [facility] Attending Dr: Edilia Zamora APRN Copies to: Edilia Zamora APRN Ordering Provider: Edilia Zamora APRN Date of Service: 11/04/24 XR/XR chest 2V*: WHEEZING PA AND LATERAL CHEST: CLINICAL HISTORY: Wheezing COMPARISON: None FINDINGS: Unremarkable cardiomediastinal. Lungs are clear. No effusion or pneumothorax. XR/XR chest 2V* IMPRESSION: NO ACUTE CARDIOPULMONARY ABNORMALITY. Impression dictated by: Donte Solis M.D. 11/04/2024 4:46 PM Dictation Location: [place] [address] Transcribed By: KHUSHBU 11/04/241645 Dictated By: Donte Solis MD 11/04/241644 Signed By: 11/04/241645 Normal [facility] Reminderson 10-21-2024 Reminders Reminders From: Kandice Alfaro To: Nicki Mendoza; Kandice Alfaro; Sent: 08/18/2024 14:35:22 EST Show up: 10/16/2024 15:35:00 EDT Subject: Ambulatory Reminder Due Date/Time: 11/15/2024 15:35:00 EDT Reminder Please call the patient and to schedule colonoscopy in November for 6 months follow-up colonoscopy with Dr Castellanos. SCHEDULED 12-07-2024 Normal [facility] ALBUMIN, RANDOM URINE W/CREA Mireya 10-15-2024 ALBUMIN, URINE 4.7 mg/dL Normal See Note: [facility] Comment on above: Result Comment: Refe rence Range: Reference Range Not established Performed By: #### 6 517 #### [facility] [address], [address] [place] [phone] Manufacturing Design Engineer: Luca Bell MD ALBUMIN/CREATININE RATIO, RANDOM URINE 27 mg/g creat Normal <30 [facility] Comment on above: Result Comment: The ADA defines abnormalities in albumin excretion as follows: Albuminuria Category Result (mg/g creatinine) Normal to Mildly increased <30 Moderately increased 30-299 Severely increased > OR = 300 The ADA recommends that at least two of three specimens collected within a 3-6 month period be abnormal before considering a patient to be within a diagnostic category. Performed By: #### 6 517 #### [facility] [address], [address] [place] [address] Manufacturing Design Engineer: Luca Bell MD Creatinine (U) [Mass/Vol] 173 mg/dL Normal 20-320 [facility] Comment on above: Performed By: #### 6 517 #### [facility] [address], [address] [place] [address] Manufacturing Design Engineer: Luca Bell MD Laboratory - Hematology and Cell countson 10-13-2024 HbA1c (Bld) [Mass fraction] 5.9 % [facility] No Panel Informationon 10-13 Interpretation and review of laboratory results Abnormal [facility] Urinalysis macro (dipstick) panel (U)on 10-13-2024 Bilirubin, UA 1+ Negative - 4(70) +++ mg/dL [facility] Blood, UA Positive Negative - 50 Valeriy/mcL [facility] Comment on above: Moderate Clarity, UA Cloudy [facility] Color, UA Dark Keyanna [facility] Glucose, UA Negative Negative - 2000(110) ++++ mg/dL [facility] Interpretation and review of laboratory results Abnormal [facility] Ketones, UA Negative Negative - 160(16) ++++ mg/dL [facility] Leukocytes, UA Moderate Negative - 500+++ Laureano/mcL [facility] Nitrite, UA Positive Negative - Positive [facility] pH, UA 5 5 - 9 [facility] Protein, UA Trace Negative - 2000(20) ++++ mg/dL [facility] Spec Grav, UA 1.025 1 - 1.03 [facility] Urobilinogen, UA 0.2 0.2 - 12 mg/dL [facility] XR ABDOMEN 2 VIEWon 09-15-19 25 XR ABDOMEN 2 VIEW Exam: XR ABDOMEN 2 V IEW Clinical History: Mid to upper abdomen pain Reference Exam: No comparison FINDINGS: The abdominal bowel gas pattern is nonobstructive. Mild fecal loading of the right colon. No mass or organomegaly. No suspicious calcification. Postprocedural changes in the right upper quadrant herald cholecystectomy. No acute osseous abnormality. IMPRESSION: Mild fecal loading of the colon; negative for intestinal stasis. Dictated on: 09/14/2024 4:20 PM This report has been electronically signed and approved by the interpreting Radiologist. Normal Not Available AMYLASEon 09-10-2024 Amylase [Catalytic activity/Vol] 32 U/L Normal 21-101 [facility] Comment on above: Performed By: #### 1 0231, 606, 243 #### [facility] [place] [address] Manufacturing Design Engineer: Luca Bell MD COMPREHENSIVE METABOLIC PANE [facility] 09-10-2024 Albumin [Mass/Vol] 4.4 g/dL Normal 3.6-5.1 [facility] Comment on above: Order Comment: FASTI NG:NO FASTING: NO Performed By: #### 1 0231, 606, 243 #### [facility] [place] [address] Manufacturing Design Engineer: Luca Bell MD Albumin/Globulin [Mass ratio] 1.5 {ratio} Normal 1.0-2.5 [facility] Comment on above: Order Comment: FASTI NG:NO FASTING: NO Performed By: #### 1 0231, 606, 243 #### [facility] [place] [address] Manufacturing Design Engineer: Luca Bell MD ALP [Catalytic activity/Vol] 65 U/L Normal 35-144 [facility] Comment on above: Order Comment: FASTI NG:NO FASTING: NO Performed By: #### 1 0231, 606, 243 #### [facility] [place] [address] Manufacturing Design Engineer: Luca Bell MD ALT [Catalytic activity/Vol] 24 U/L Normal 9-46 [facility] Comment on above: Order Comment: FASTI NG:NO FASTING: NO Performed By: #### 1 0231, 606, 243 #### [facility] [place] [address] Manufacturing Design Engineer: Luca Bell MD AST [Catalytic activity/Vol] 18 U/L Normal 10-35 [facility] Comment on above: Order Comment: FASTI NG:NO FASTING: NO Performed By: #### 1 0231, 606, 243 #### [facility] [place] [address] Manufacturing Design Engineer: Luca Bell MD Bilirubin [Mass/Vol] 0.4 mg/dL Normal 0.2-1.2 [facility] Comment on above: Order Comment: FASTI NG:NO FASTING: NO Performed By: #### 1 0231, 606, 243 #### [facility] [place] [address] Manufacturing Design Engineer: Luca Bell MD BUN/CREATININE RATIO SEE NOTE: Normal 6- [facility] Comment on above: Order Comment: FASTI NG:NO FASTING: NO Result Comment: Not Reported: BUN and Creatinine are within reference range. Performed By: #### 1 0231, 606, 243 #### [facility] [place] [address] Manufacturing Design Engineer: Luca Bell MD Calcium [Mass/Vol] 9.4 mg/dL Normal 8.6-10.3 [facility] Comment on above: Order Comment: FASTI NG:NO FASTING: NO Performed By: #### 1 0231, 606, 243 #### [facility] [place] [address] Manufacturing Design Engineer: Luca Bell MD Chloride [Moles/Vol] 101 mmol/L Normal 98-110 [facility] Comment on above: Order Comment: FASTI NG:NO FASTING: NO Performed By: #### 1 0231, 606, 243 #### [facility] [place] [address] Manufacturing Design Engineer: Luca Bell MD CO2 [Moles/Vol] 28 mmol/L Normal 20-32 [facility] Comment on above: Order Comment: FASTI NG:NO FASTING: NO Performed By: #### 1 0231, 606, 243 #### [facility] [place] [address] Manufacturing Design Engineer: Luca Bell MD Creatinine [Mass/Vol] 1.10 mg/dL Normal 0.70-1.30 [facility] Comment on above: Order Comment: FASTI NG:NO FASTING: NO Performed By: #### 1 230, 606, 243 #### [facility] [place] [address] Manufacturing Design Engineer: Luca Bell MD GFR/1.73 sq M.predicted among non-blacks MDRD (S/P/Bld) [Vol rate/Area] 77 mL/min/{1.73_m2} Normal > OR = 60 [facility] Comment on above: Order Comment: FASTI NG:NO FASTING: NO Performed By: #### 1 230, 606, 243 #### [facility] [place] [address] Manufacturing Design Engineer: Luca Bell MD Globulin (S) [Mass/Vol] 2.9 g/dL Normal 1.9-3.7 [facility] Comment on above: Order Comment: FASTI NG:NO FASTING: NO Performed By: #### 1 230, 60, 243 #### [facility] [address], [address] [place] [address] Manufacturing Design Engineer: Luca Bell MD Glucose [Mass/Vol] 123 mg/dL Normal 65-139 [facility] Comment on above: Order Comment: FASTI NG:NO FASTING: NO Result Comment: Non-fasting reference interval For someone without known diabetes, a glucose value between 100 and 125 mg/dL is consistent with prediabetes and should be confirmed with a follow-up test. Performed By: #### 1 230, 606, 243 #### [facility] [address], [address] [place] [address] Manufacturing Design Engineer: Luca Bell MD Potassium [Moles/Vol] 4.6 mmol/L Normal 3.5-5.3 [facility] Comment on above: Order Comment: FASTI NG:NO FASTING: NO Performed By: #### 1 230, 606, 243 #### [facility] [address], [address] [place] [address] Manufacturing Design Engineer: Luca Bell MD Protein [Mass/Vol] 7.3 g/dL Normal 6.1-8.1 [facility] Comment on above: Order Comment: FASTI NG:NO FASTING: NO Performed By: #### 1 0231, 606, 243 #### [facility] [place] [address] Manufacturing Design Engineer: Luca Bell MD Sodium [Moles/Vol] 137 mmol/L Normal 135-146 [facility] Comment on above: Order Comment: FASTI NG:NO FASTING: NO Performed By: #### 1 0231, 606, 243 #### [facility] [place] [address] Manufacturing Design Engineer: Luca Bell MD Urea nitrogen [Mass/Vol] 14 mg/dL Normal 7-25 [facility] Comment on above: Order Comment: FASTI NG:NO FASTING: NO Performed By: #### 1 0231, 606, 243 #### [facility] [place] [address] Manufacturing Design Engineer: Luca Bell MD LIPASEon 09-10-2024 Lipase [Catalytic activity/Vol] 36 U/L Normal 7-60 [facility] Comment on above: Performed By: #### 1 0231, 606, 243 #### [facility] [place] [address] Manufacturing Design Engineer: Luca Bell MD Ambulatory Visit Summaryon 0 07-20-2024 Ambulatory Visit [...] you for choosing us for your care. [facility] Gastroenterology Office/Clin ic Noteon 07-20-2024 Gastroenterology Office/Clinic Note Gastroenterology Office/Clinic Note Chief Complaint Review Fibroscan, EGD and colonoscopy results. HPI Staff Patient is a(n) 59 year old male who presents today for a follow-up to Fibroscan, EGD & Colonoscopy on 06/26/24. Need to schedule repeat colon in 6 months. Any blood thinners? 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 Castellanos: Assessment/Plan 1. [...] last 30 days (more content not included)... Normal [facility] Comment on above: Result Comment: Elec tronically Signed By: Ashli Castellanos MD\.br\Date and Time Signed: 07/20/24 08:37 EST\.br\Electronically Co-Signed By: Mallorie Paul MA\.br\Date and Time Co-Signed: 07/20/24 08:36 EST Reminderson 07-20-2024 Reminders Reminders From: eJnnifer Salazar To: [facility] - Reminders/Recalls; Sent: 07/20/2024 10:48:47 EST Show up: 05/08/2029 10:48:00 EDT Subject: Ambulatory Reminder Due Date/Time: 06/07/2029 10:48:00 EST Reminder/Recall Addendum by Jennifer Salazar on July 20, 2024 10:47:44 EST 06/26/2029 From: Ashli Castellanos MD To: Jennifer Salazar; Sent: 07/20/2024 08:34:22 EST Subject: General Message Caller Name: DAVID RAMIREZ; Caller Number: , M Repeat EGD in 5 years Normal [facility] Surgical Pathology Reporton 07-03-2024 Surgical Pathology Report [address] [place] [address]- Surgical Pathology Report Collected Date/Time: 06/26/2024 09:59 [...] and entirely submitted in one cassette. (DC) DC:MCA Microscopic Description Microscopic examination performed unless gross only specified. The use of one or more reagents in the above tests is regulated as an analyte specific reagent (ASR). The test or tests are ordered following initial H&E microscopic examination. The performance characteristics were determined by the [facility] Surgical Pathology. They have not been cleared or approved by the US Food and Drug Administration. The FDA has determined that such clearance or approval is not necessary. These tests are used for clinical purposes. They should not be regarded as investigational or for research. Appropriate positive and negative controls are performed and are acceptable. Normal [facility] Comment on above: Performed By: #### 4 [id number] #### [facility] [address] [place] [address] Main OR Intraoperative Recor don 06-29-2024 Main OR Intraoperative Record Main OR Intraoperative Record IntraOp Document Type FT Summary Primary Physician: Jasmin KINSEY, Ashli Hinojosa Finalized Date/Time: 06/29/24 10:36:59 Pt. Name: DAVID RAMIREZ Marline/Sex: 1965 Male Med Rec #: [id number] Physician: Jasmin KINSEY, Ashli Hinojosa Financial #: [id number] Pt. Type: O Room/Bed: / Admit/Disch: 06/26/24 07:45:11 - 06/26/24 23:59:59 Institution: Case Times FT Entry 1 Patient Times In Room 06/26/24 09:50:00 Out Room 06/26/24 10:32:00 Procedure Times Start 06/26/24 09:55:00 Stop 06/26/24 10:29:00 Anesthesia Times Start 06/26/24 09:50:00 Stop 06/26/24 10:32:00 Time at [place] 06/26/24 10:09:00 Last Modified By: Cade COTTRELL, Sharon Witt 06/26/24 10:30:53 General Comments: EGD end time at 1001./CONNIE,RN Colonoscopy start time at 1003./KS,RN 06/29/24 Chart opened to review and send charges [facility] CSFA Case Attendance FT Entry 1 Entry 2 Entry 3 Case Attendee Kathy SINGH, Phillip Mohamud RN, Shelia Suarez Role Performed Anesthesiologist Corporate Ethics Officer - Primary Scrub - Primary Vat House Laborer Time In 06/26/24 09:50:00 06/26/24 09:50:00 06/26/24 [...] 09:50:00 06/26/24 09:50:00 Time Out 06/26/24 10:32:00 12/20/24 10:32:00 Procedure EGD AND COLONOSCOPY(.) EGD AND [...] (If Applicable) PreOp Antibiotic No Time Out Kathy SINGH, Phillip Given Participants Cade Foreman RN, Kristin N, Shelia Ibarra, Barry JOY, Jasmin Henson MD, Ashli Hinojosa Time Out [...] x2 hemmoclips. Primary Procedure Yes Primary Surgeon Jasmin KINSEY, Ashli Hinojosa Start 06/26/24 09:55:00 Stop 06/26/24 10:29:00 Anesthesia [...] transverse polyp, rectal polyp. Last Modified By: Cade COTTRELL, Sharon Witt 06/26/24 10:22:04 Post-Care Text: The patient is free from signs and symptoms of infection Skin Assessment (Pre Procedure) FT Pre-Care Text: Implements protective measures to prevent skin/ tissue injury due to thermal or mechanical sources Evaluates for signs and symptoms of physical injury to skin and tissue Entry 1 Skin Integrity Intact, [place], Warm, & Skin Abnormality No Dry Outcomes Met? Y (more content not included)... Normal [facility] Discharge Instructionson Discharge Instructions Discharge Instructions DAVID [...] Follow Up with Jasmin KINSEY, SAMMY [place], [facility] When: Comments: Office will call to schedule follow up appointment and/or review any pending biopsy results Call for any problems. Where: [facility], [address] [address]- [phone] Medications What How Much When Instructions Next [...] you. SEEK (more content not included)... Normal [facility] Comment on above: Result Comment: Elec tronically Signed By: Alejandra Cohen RN\.br\Date and Time Signed: 06/26/24 11:08 EST Inpatient Patient Summaryon 06-26-2024 Inpatient Patient Summary Inpatient Patient Summary [place] [address] [facility] Clinical Discharge Instructions PERSON INFORMATION Name: ADVID RAMIREZ PHYSICIANS Admitting Physician: Ashli Castellanos MD Attending Physician: Ashli Castellanos MD PCP: SCOTT MERINO DO Discharge Diagnosis: Chronic LUQ pain; Family history of colon cancer; Other chronic pain Comment: PATIENT EDUCATION INFORMATION Instructions: Medication Leaflets: Follow up: Type Location Start Finish State Surgery [facility] Surgical Services 06/26/2024 8:30 AM 06/26/2024 8:50 [...] every week., Responsible Provider: TAN CAPPS Comment: [facility] Main OR PACU I Recordon 06-08 Main OR PACU I Record Main OR PACU I Record PACU Phase I Document Type FT Summary Primary Physician: Ashli Castellanos MD Finalized Date/Time: 06/26/24 11:28:41 Pt. Name: DAVID RAMIREZ/Sex: 1965 Male Med Rec #: [id number] Physician: Ashli Castellanos MD Financial #: [id number] Pt. Type: O Room/Bed: / Admit/Disch: 06/26/24 [...] Signed By: Alejandra Cohen RN 06/26/24 11:28 [facility] Main OR Preoperative Recordo n 06-26-2024 Main OR Preoperative Record Main OR Preoperative Record Holding Area Document Type FT Summary Primary Physician: Ashli Castellanos MD Finalized Date/Time: 06/26/24 08:07:54 Pt. Name: DAVID RAMIREZ /Sex: 1965 Male Med Rec #: [id number] Physician: Ashli Castellanos MD Financial #: [id number] Pt. Type: O Room/Bed: / Admit/Disch: 06/26/24 [...] clear liquid yellow, has been NPO since. /,RN Finalized By: Ting Cameron RN Document Signatures Signed By: Ting Cameron RN 06/26/24 08:07 Normal [facility] Outpatient Surgery Discharge Instructionon 06-26-2024 Outpatient Surgery Discharge Instruction Outpatient Surgery Discharge Instruction [address] [address] Patient Discharge Instructions PERSON INFORMATION Name: DAVID RAMIREZ Date of : 1965 Current Date: 06/26/2024 09:48:33 PHYSICIANS Admitting Physician: Ashli Castellanos MD Discharge Diagnosis: Chronic LUQ pain; Family history [...] Clinican/Nurse Signature Date Follow up: Type Location [facility] Surgery [facility] Surgical Services 06/26/2024 8:30 AM 06/26/2024 8:50 AM Confirmed Pharmacy Information: You may receive a survey from Vinod Carpenter asking you to rate your care experience. Your feedback is important and will help us understand what we do well and how we can improve the quality of care we provide to you, your loved ones and our community. It???s an honor to serve you. Thank you for choosing [facility] HERE ARE THE MEDICATION CHANGES THAT OCCURRED [...] hours as needed Nausea., Responsible Provider: CASSI SANITAGO semaglutide (Ozempic 2 mg/3 mL (0.25 mg or 0.5 mg dose) subcutaneous solution) 0.5 Milligram Subcutaneous every week., Responsible Provider: TAN CAPPS PATIENT EDUCATION INFORMATION Instructions: Medication Leaflets: Normal [facility] BASIC METABOLIC PANELon 06-07 BUN/CREATININE RATIO SEE NOTE: Normal - [facility] Comment on above: Order Comment: FASTI NG:NO FASTING: NO Result Comment: Not Reported: BUN and Creatinine are within reference range. Performed By: #### 1 143, 5207, 29184 #### [facility] [address], [address] [place] [id number] Manufacturing Design Engineer: Luca Bell MD Calcium [Mass/Vol] 9.7 mg/dL Normal 8.6-10.3 [facility] Comment on above: Order Comment: FASTI NG:NO FASTING: NO Performed By: #### 1 759, 8593, 37092 #### [facility] [address], [address] [place] [address] Manufacturing Design Engineer: Luca Bell MD Chloride [Moles/Vol] 103 mmol/L Normal 98-110 [facility] Comment on above: Order Comment: FASTI NG:NO FASTING: NO Performed By: #### 1 759, 8593, 41103 #### [facility] [address], [address] [place] [address] Manufacturing Design Engineer: Luca Bell MD CO2 [Moles/Vol] 24 mmol/L Normal 20-32 [facility] Comment on above: Order Comment: FASTI NG:NO FASTING: NO Performed By: #### 1 759, 8593, 07256 #### [facility] [address], [address] [place] [address] Manufacturing Design Engineer: Luca Bell MD Creatinine [Mass/Vol] 1.08 mg/dL Normal 0.70-1.30 [facility] Comment on above: Order Comment: FASTI NG:NO FASTING: NO Performed By: #### 1 759, 8593, 38622 #### [facility] [place] [address] Manufacturing Design Engineer: Luca Bell MD GFR/1.73 sq M.predicted among non-blacks MDRD (S/P/Bld) [Vol rate/Area] 79 mL/min/{1.73_m2} Normal > OR = 60 [facility] Comment on above: Order Comment: FASTI NG:NO FASTING: NO Performed By: #### 1 759, 8593, 31258 #### [facility] [address], [address] [place] [address] Manufacturing Design Engineer: Luca Bell MD Glucose [Mass/Vol] 98 mg/dL Normal 65-139 [facility] Comment on above: Order Comment: FASTI NG:NO FASTING: NO Result Comment: Non-fasting reference interval Performed By: #### 1 759, 8593, 11925 #### [facility] [place] [address] Manufacturing Design Engineer: Luca Bell MD Potassium [Moles/Vol] 4.5 mmol/L Normal 3.5-5.3 [facility] Comment on above: Order Comment: FASTI NG:NO FASTING: NO Performed By: #### 1 759, 8593, 67508 #### [facility] [place] [address] Manufacturing Design Engineer: Luca Bell MD Sodium [Moles/Vol] 137 mmol/L Normal 135-146 [facility] Comment on above: Order Comment: FASTI NG:NO FASTING: NO Performed By: #### 1 759, 8593, 70633 #### [facility] [place] [address] Manufacturing Design Engineer: Luca Bell MD Urea nitrogen [Mass/Vol] 21 mg/dL Normal 7-25 [facility] Comment on above: Order Comment: FASTI NG:NO FASTING: NO Performed By: #### 1 759, 8593, 72297 #### [facility] [place] [address] Manufacturing Design Engineer: Luca Bell MD CBC (H/H, RBC, INDICES, WBC, PLT)on 06-20-2024 Erythrocyte distribution width (RBC) [Ratio] 14.1 % Normal 11.0-15.0 [facility] Comment on above: Performed By: #### 1 759, 8593, 96710 #### [facility] [place] [address] Manufacturing Design Engineer: Luca Bell MD Hematocrit (Bld) [Volume fraction] 47.7 % Normal 38.5-50.0 [facility] Comment on above: Performed By: #### 1 759, 8593, 19492 #### [facility] [place] [address] Manufacturing Design Engineer: Luca Bell MD Hemoglobin (Bld) [Mass/Vol] 16.3 g/dL Normal 13.2-17.1 [facility] Comment on above: Performed By: #### 1 759, 8593, 78983 #### [facility] [place] [address] Manufacturing Design Engineer: Luca Bell MD MCH (RBC) [Entitic mass] 29.3 pg Normal 27.0-33.0 [facility] Comment on above: Performed By: #### 1 759, 8593, 92297 #### [facility] [place] [address] Manufacturing Design Engineer: Luca Bell MD MCHC (RBC) [Mass/Vol] 34.2 [...] condition. Performed By: #### 1 759, 8593, 28240 #### [facility] [place] [address] Manufacturing Design Engineer: Luca Bell MD MCV (RBC) [Entitic vol] 85.8 fL Normal 80.0-100.0 [facility] Comment on above: Performed By: #### 1 759, 8593, 96292 #### [facility] [place] [address] Manufacturing Design Engineer: Luca Bell MD Platelet mean volume (Bld) [Entitic vol] 9.7 fL Normal 7.5-12.5 [facility] Comment on above: Performed By: #### 1 759, 8593, 33600 #### [facility] [place] [address] Manufacturing Design Engineer: Luca Bell MD Platelets (Bld) [#/Vol] 321 10*3/uL Normal 140-400 [facility] Comment on above: Performed By: #### 1 759, 8593, 10433 #### [facility] [address] [place] [address] Manufacturing Design Engineer: Luca Bell MD RBC (Bld) [#/Vol] 5.56 10*6/uL Normal 4.20-5.80 [facility] Comment on above: Performed By: #### 1 759, 8593, 31047 #### [facility] of [address], [address] [place] [address] Manufacturing Design Engineer: Luca Bell MD WBC (Bld) [#/Vol] 9.5 10*3/uL Normal 3.8-10.8 [facility] Comment on above: Performed By: #### 1 759, 8593, 86838 #### [facility] of [address], [address] [place] [address] Manufacturing Design Engineer: Luca Bell MD LYME DISEASE ANTIBODIES (IGG ,IGM), IMMUNOBLOTon 06-20-2024 18 KD (IGG) BAND Reactive Abnormal [facility] Comment on above: Performed By: #### 1 759, 8593, 58640 #### [facility] of [address], [address] [place] [address] Manufacturing Design Engineer: Luca Bell MD 23 KD (IGG) BAND Non-Reactive Normal [facility] Comment on above: Performed By: #### 1 759, 8593, 26965 #### [facility] of [address], [address] [place] [address] Manufacturing Design Engineer: Luca Bell MD 23 KD (IGM) BAND Non-Reactive Normal [facility] Comment on above: Performed By: #### 1 759, 8593, 06613 #### [facility] of [address], [address] [place] [address] Manufacturing Design Engineer: Luca Bell MD 28 KD (IGG) BAND Non-Reactive Normal [facility] Comment on above: Performed By: #### 1 759, 8593, 23141 #### [facility] of [address], [address] [place] [address] Manufacturing Design Engineer: Luca Bell MD 30 KD (IGG) BAND Non-Reactive Normal [facility] Comment on above: Performed By: #### 1 759, 8593, 31986 #### [facility] of [address], [address] [place] [address] Manufacturing Design Engineer: Luca Bell MD 39 KD (IGG) BAND Non-Reactive Normal [facility] Comment on above: Performed By: #### 1 759, 8593, 08186 #### [facility] [address], [address] [place] [address] Manufacturing Design Engineer: Luca Bell MD 39 KD (IGM) BAND Non-Reactive Normal [facility] Comment on above: Performed By: #### 1 759, 8593, 74175 #### [facility] [address], [address] [place] [address] Manufacturing Design Engineer: Luca Bell MD 41 KD (IGG) BAND Non-Reactive Normal [facility] Comment on above: Performed By: #### 1 759, 8593, 75793 #### [facility] [address], [address] [place] [address] Manufacturing Design Engineer: Luca Bell MD 41 KD (IGM) BAND [...] spirochetes. Performed By: #### 1 759, 8593, 80948 #### [facility] [address], [address] [place] [address] Manufacturing Design Engineer: Luca Bell MD 45 KD (IGG) BAND Non-Reactive Normal [facility] Comment on above: Performed By: #### 1 759, 8593, 34722 #### [facility] of [address], [address] [place] [address] Manufacturing Design Engineer: Luca Bell MD 58 KD (IGG) BAND Reactive Abnormal [facility] Comment on above: Performed By: #### 1 759, 8593, 08041 #### [facility] of [address], [address] [place] [address] Manufacturing Design Engineer: Luca Bell MD 66 KD (IGG) BAND Non-Reactive Normal [facility] Comment on above: Performed By: #### 1 759, 8593, 34139 #### [facility] of [address], [address] [place] [address] Manufacturing Design Engineer: Luca Bell MD 93 KD (IGG) BAND Non-Reactive Normal [facility] Comment on above: Performed By: #### 1 759, 8593, 12197 #### [facility] of [address], [address] [place] [address] Manufacturing Design Engineer: Luca Bell MD LYME DISEASE AB(IGG),BLOT Negative Normal NEGATIVE [facility] Comment on above: Performed By: #### 1 759, 8593, 37052 #### [facility] of [address], [address] [place] [address] Manufacturing Design Engineer: Luca Bell MD LYME DISEASE AB(IGM),BLOT Negative Normal NEGATIVE [facility] Comment on above: Performed By: #### 1 759, 8593, 16560 #### [facility] of [address], [address] [place] [address] Manufacturing Design Engineer: Luca Bell MD Ambulatory Visit Summaryon 07-18-2023 Ambulatory Visit Summary Ambulatory Visit Summary [...] Cap-EC) polyethylene glycol 3350 with electrolytes (NuLYTELY [place] oral powder for reconstitution) Contact prescribing physician [...] Mouth Every day Refills: 3 Pickup at [facility]/pharmacy #[id number] New polyethylene glycol 3350 with electrolytes (NuLYTELY [place] oral powder for reconstitution) See instructions 240 mL Oral Daily Pickup at [facility]/pharmacy #[id number] Unchanged amitriptyline (amitriptyline 50 mg Tab) 180 [...] physician if questions or concerns Pharmacy Information [facility]/pharmacy #[id number]: [address] [place], [place] [phone] Allergies No Known Allergies No Known Medication [...] you for choosing us for your care. [facility] Gastroenterology Office/Clin ic Noteon 05-18-2024 Gastroenterology Office/Clinic Note Gastroenterology Office/Clinic Note Chief Complaint Abdominal pain HPI Staff Patient is a(n) 59 year old male who was referred by Dr Capps for postprandial epigastric pain and screening for colon cancer. Pt had previous Colonoscopy and partial colectomy @ [place]. Faxed stat request for records to [facility] ([place], [place]) on 05/15/24. Abdominal pain: When did you [...] Due to diverticulitis 2012, records not available Ordered: Colonoscopy (Hospital Procedure) [...] with CBC and CMP and FibroScan Normal [facility] Comment on above: Result Comment: Elec tronically Signed By: Jasmin KINSEY, Ashli Hinojosa\.br\Date and Time Signed: 05/18/24 08:34 EST Laboratory - Hematology and Cell countson 02-26-2024 HbA1c (Bld) [Mass fraction] 6.1 % [facility] No Panel Informationon 02-25 [facility] CBC AUTO DIFFon 11-08-2022 BASO # 0.0 103/ul Normal 0.0-0.1 [facility] Comment on above: Performed By: #### A BGCO #### [facility] [address] [place] [address] Dr. Anthony Mckenna Basophils/100 WBC (Bld) 0.1 % Critically low 0.2-2.0 [facility] Comment on above: Performed By: #### A BGCO #### [facility] [address] [place] [address] Dr. Anthony Mckenna EO # 0.0 103/ul Normal 0.0-0.7 [facility] Comment on above: Performed By: #### A BGCO #### [facility] [address] [place] [address] Dr. Anthony Mckenna Eosinophils/100 WBC (Bld) 0.0 % Critically low 0.9-7.0 [facility] Comment on above: Performed By: #### A BGCO #### [facility] [address] [place] [address] [address] Anthony Mckenna Erythrocyte distribution width (RBC) [Ratio] 14.6 % Normal 11.0-15.0 [facility] Comment on above: Performed By: #### A BGCO #### [facility] [address] [place] [address] Dr. Anthony Mckenna Hematocrit (Bld) [Volume fraction] 45.1 % Normal 42.0-54.0 [facility] Comment on above: Performed By: #### A BGCO #### [facility] [address] [place] [address] Dr. Anthony Mckenna Hemoglobin (Bld) [Mass/Vol] 15.4 g/dL Normal 14.0-18.0 [facility] Comment on above: Performed By: #### A BGCO #### [facility] [address] [place] [address] [address] Anthony Mckenna IG # 0.22 10e3/ul Critically high 0.00-0.03 [facility] Comment on above: Performed By: #### A BGCO #### [facility] [address] [place] [address] Dr. Anthony Mckenna IG % 1.1 % Critically high 0.0-0.5 [facility] Comment on above: Performed By: #### A BGCO #### [facility] [address] [place] [address] Dr. Anthony Mckenna LYMPH # 1.1 103/ul Critically low 1.2-3.8 [facility] Comment on above: Performed By: #### A BGCO #### [facility] [address] [place] [address] Dr. Anthony Mckenna Lymphocytes/100 WBC (Bld) 5.8 % Critically low 20.5-60.0 [facility] Comment on above: Performed By: #### A BGCO #### [facility] [address] [place] [address] Dr. Anthony Mckenna MANUAL DIFF REQ NO Normal [facility] Comment on above: Performed By: #### A BGCO #### [facility] [address] [place] [address] [address] Anthony Mckenna MCH (RBC) [Entitic mass] 30.0 pg Normal 25.9-34.0 [facility] Comment on above: Performed By: #### A BGCO #### [facility] [address] [place] [address] [address] Anthony Mckenna MCHC (RBC) [Mass/Vol] 34.1 g/dL Normal 29.9-35.2 [facility] Comment on above: Performed By: #### A BGCO #### [facility] [address] [place] [address] [address] Anthony Mckenna MCV (RBC) [Entitic vol] 87.9 fL Normal 80.0-94.0 [facility] Comment on above: Performed By: #### A BGCO #### [facility] [address] [place] [address] Dr. Anthony Mckenna MONO # 0.7 103/ul Normal 0.3-0.8 [facility] Comment on above: Performed By: #### A BGCO #### [facility] [address] [place] [address] Dr. Anthony Mckenna Monocytes/100 WBC (Bld) 3.9 % Normal 1.7-12.0 [facility] Comment on above: Performed By: #### A BGCO #### [facility] [address] [place] [address] Dr. Anthony Mckenna NEUT # 17.1 103/ul Critically high 1.4-6.5 [facility] Comment on above: Performed By: #### A BGCO #### [facility] [address] [place] [address] Dr. Anthony Mckenna Neutrophils/100 WBC (Bld) 89.1 % Critically high 43.0-75.0 [facility] Comment on above: Performed By: #### A BGCO #### [facility] [address] [place] [address] Dr. Anthony Mckenna Platelet mean volume (Bld) [Entitic vol] 9.3 fL Critically low 9.5-13.5 [facility] Comment on above: Performed By: #### A BGCO #### [facility] [address] [place] [address] Dr. Anthony Mckenna PLT 251 103/ul Normal 150-450 [facility] Comment on above: Performed By: #### A BGCO #### [facility] [address] [place] [address] Dr. Anthony Mckenna RBC 5.13 106/ul Normal 4.70-6.10 [facility] Comment on above: Performed By: #### A BGCO #### [facility] [address] [place] [address] Dr. Anthony Mckenna WBC 19.2 103/ul Critically high 4.0-11.0 [facility] Comment on above: Performed By: #### A BGCO #### [facility] [address] [address] [address] Anthony Mckenna POINT OF CARE GLUCOSEon 05- Glucose [Mass/Vol] 229 mg/dL Critically high 74-106 T [facility] Comment on above: Performed By: #### P OCGLUC #### [facility] [address] [place] [address] Dr. Anthony Mckenna PROF CHEM 8 (BAS METB)on Anion gap [Moles/Vol] 12.1 mmol/L Normal [facility] Comment on above: Performed By: #### A BGCO #### [facility] [address] [place] [address] Dr. Anthony Mckenna Calcium [Mass/Vol] 9.1 mg/dL Normal 8.5-10.1 [facility] Comment on above: Performed By: #### A BGCO #### [facility] [address] [place] [address] Dr. Anthony Mckenna Chloride [Moles/Vol] 103 mmol/L Normal 98-107 [facility] Comment on above: Performed By: #### A BGCO #### [facility] [address] [place] [address] Dr. Anthony Mckenna CO2 [Moles/Vol] 25.1 mmol/L Normal 21.0-32.0 [facility] Comment on above: Performed By: #### A BGCO #### [facility] [address] [place] [address] Dr. Anthony Mckenna Creatinine [Mass/Vol] 1.13 mg/dL Normal 0.70-1.30 [facility] Comment on above: Performed By: #### A BGCO #### [facility] [address] [place] [address] Dr. Anthony Mckenna EGFR-AF PRYDEINIG >60 Normal >=60 [facility] Comment on above: Performed By: #### A BGCO #### [facility] [address] [address] [address] Anthony Mckenna EGFR-NON AF PRYDEINIG >60 Normal >=60 [facility] Comment on above: Performed By: #### A BGCO #### [facility] [address] [address] [address] Anthony Mckenna Glucose [Mass/Vol] 187 mg/dL Critically high 74-106 T [facility] Comment on above: Performed By: #### A BGCO #### [facility] [address] [address] [address] Anthoyn Mckenna Potassium [Moles/Vol] 4.2 mmol/L Normal 3.5-5.1 [facility] Comment on above: Performed By: #### A BGCO #### [facility] [address] [place] [address] Dr. Anthony Mckenna Sodium [Moles/Vol] 136 mmol/L Normal 136-145 [facility] Comment on above: Performed By: #### A BGCO #### [facility] [address] [place] [address] Dr. Anthony Mckenna Urea nitrogen [Mass/Vol] 28.0 mg/dL Critically high 7.0-18.0 [facility] Comment on above: Performed By: #### A BGCO #### [facility] [address] [place] [address] Dr. Anthony Mckenna Urea nitrogen/Creatinin e [Mass ratio] 24.8 mg/mg Normal [facility] Comment on above: Performed By: #### A BGCO #### [facility] [address] [place] [address] Dr. Anthony Mckenna CBC AUTO DIFFon 11-07-2022 BASO # 0.0 103/ul Normal 0.0-0.1 [facility] Comment on above: Performed By: #### A BGCO #### [facility] [address] [place] [address] Dr. Anthony Mckenna Basophils/100 WBC (Bld) 0.1 % Critically low 0.2-2.0 [facility] Comment on above: Performed By: #### A BGCO #### [facility] [address] [place] [address] Dr. Anthony Mckenna EO # 0.0 103/ul Normal 0.0-0.7 [facility] Comment on above: Performed By: #### A BGCO #### [facility] [address] [place] [address] Dr. Anthony Mckenna Eosinophils/100 WBC (Bld) 0.0 % Critically low 0.9-7.0 [facility] Comment on above: Performed By: #### A BGCO #### [facility] [address] [place] [address] Dr. Anthony Mckenna Erythrocyte distribution width (RBC) [Ratio] 14.4 % Normal 11.0-15.0 [facility] Comment on above: Performed By: #### A BGCO #### [facility] [address] [place] [address] Dr. Anthony Mckenna Hematocrit (Bld) [Volume fraction] 43.8 % Normal 42.0-54.0 [facility] Comment on above: Performed By: #### A BGCO #### [facility] [address] [place] [address] Dr. Anthony Mckenna Hemoglobin (Bld) [Mass/Vol] 15.1 g/dL Normal 14.0-18.0 [facility] Comment on above: Performed By: #### A BGCO #### [facility] [address] [place] [address] Dr. Anthony Mckenna IG # 0.11 10e3/ul Critically high 0.00-0.03 [facility] Comment on above: Performed By: #### A BGCO #### [facility] [address] [place] [address] Dr. Anthony Mckenna IG % 0.8 % Critically high 0.0-0.5 [facility] Comment on above: Performed By: #### A BGCO #### [facility] [address] [place] [address] Dr. Anthony Mckenna LYMPH # 1.2 103/ul Normal 1.2-3.8 [facility] Comment on above: Performed By: #### A BGCO #### [facility] [address] [address] [address] Anthony Mckenna Lymphocytes/100 WBC (Bld) 8.9 % Critically low 20.5-60.0 [facility] Comment on above: Performed By: #### A BGCO #### [facility] [address] [place] [address] Dr. Anthony Mckenna MANUAL DIFF REQ NO Normal [facility] Comment on above: Performed By: #### A BGCO #### [facility] [address] [place] [address] Dr. Anthony Mckenna MCH (RBC) [Entitic mass] 30.3 pg Normal 25.9-34.0 [facility] Comment on above: Performed By: #### A BGCO #### [facility] [address] [place] [address] Dr. Anthony Mckenna MCHC (RBC) [Mass/Vol] 34.5 g/dL Normal 29.9-35.2 [facility] Comment on above: Performed By: #### A BGCO #### [facility] [address] [place] [address] Dr. Anthony Mckenna MCV (RBC) [Entitic vol] 87.8 fL Normal 80.0-94.0 [facility] Comment on above: Performed By: #### A BGCO #### [facility] [address] [place] [address] Dr. Anthony Mckenna MONO # 0.2 103/ul Critically low 0.3-0.8 [facility] Comment on above: Performed By: #### A BGCO #### [facility] [address] [place] [address] Dr. Anthony Mckenna Monocytes/100 WBC (Bld) 1.7 % Normal 1.7-12.0 [facility] Comment on above: Performed By: #### A BGCO #### [facility] [address] [place] [address] Dr. Anthony Mckenna NEUT # 11.8 103/ul Critically high 1.4-6.5 [facility] Comment on above: Performed By: #### A BGCO #### [facility] [address] [address] [address] Anthony Mckenna Neutrophils/100 WBC (Bld) 88.5 % Critically high 43.0-75.0 [facility] Comment on above: Performed By: #### A BGCO #### [facility] [address] [place] [address] Dr. Anthony Mckenna Platelet mean volume (Bld) [Entitic vol] 9.5 fL Normal 9.5-13.5 [facility] Comment on above: Performed By: #### A BGCO #### [facility] [address] [place] [address] Dr. Anthony Mckenna PLT 226 103/ul Normal 150-450 [facility] Comment on above: Performed By: #### A BGCO #### [facility] [address] [place] [address] Dr. Anthony Mckenna RBC 4.99 106/ul Normal 4.70-6.10 [facility] Comment on above: Performed By: #### A BGCO #### [facility] [address] [place] [address] Dr. Anthony Mckenna WBC 13.4 103/ul Critically high 4.0-11.0 [facility] Comment on above: Performed By: #### A BGCO #### [facility] [address] [place] [address] Dr. Anthony Mckenna CULTURE SPUTUMon 11-07-2022 CULTURE SPUTUM Isolate 1 Lang albicans Growth of Normal [facility] Comment on above: Performed By: #### C VDTBH #### [facility] [address] [place] [address] Dr. Anthony Mckenna POINT OF CARE GLUCOSEon Glucose [Mass/Vol] 216 mg/dL Critically high 74-106 [facility] Comment on above: Performed By: #### C VDTBH #### [facility] [address] [place] [address] Dr. Anthony Mckenna Glucose [Mass/Vol] 217 mg/dL Critically high 74-106 [facility] Comment on above: Performed By: #### P OCGLUC #### [facility] [address] [address] [address] Anthony Mckenna Glucose [Mass/Vol] 227 mg/dL Critically high 74-106 [facility] Comment on above: Performed By: #### A BGCO #### [facility] [address] [address] [address] Anthony Mckenna PROF CHEM 8 (BAS METB)on Anion gap [Moles/Vol] 12.8 mmol/L Normal [facility] Comment on above: Performed By: #### A BGCO #### [facility] [address] [address] [address] Anthony Mckenna Calcium [Mass/Vol] 9.0 mg/dL Normal 8.5-10.1 [facility] Comment on above: Performed By: #### A BGCO #### [facility] [address] [place] [address] Dr. Anthony Mckenna Chloride [Moles/Vol] 103 mmol/L Normal 98-107 [facility] Comment on above: Performed By: #### A BGCO #### [facility] [address] [address] [address] Anthony Mckenna CO2 [Moles/Vol] 25.1 mmol/L Normal 21.0-32.0 [facility] Comment on above: Performed By: #### A BGCO #### [facility] [address] [address] [address] Anthony Mckenna Creatinine [Mass/Vol] 1.07 mg/dL Normal 0.70-1.30 [facility] Comment on above: Performed By: #### A BGCO #### [facility] [address] [address] [address] Anthony Mckenna EGFR-AF PRYDEINIG >60 Normal >=60 [facility] Comment on above: Performed By: #### A BGCO #### [facility] [address] [address] [address] Anthony Mckenna EGFR-NON AF PRYDEINIG >60 Normal >=60 [facility] Comment on above: Performed By: #### A BGCO #### [facility] [address] [address] [address] Anthony Mckenna Glucose [Mass/Vol] 174 mg/dL Critically high 74-106 T [facility] Comment on above: Performed By: #### A BGCO #### [facility] [address] [address] [address] Anthony Mckenna Potassium [Moles/Vol] 3.9 mmol/L Normal 3.5-5.1 [facility] Comment on above: Performed By: #### A BGCO #### [facility] [address] [address] [address] Anthony Mckenna Sodium [Moles/Vol] 137 mmol/L Normal 136-145 [facility] Comment on above: Performed By: #### A BGCO #### [facility] [address] [address] [address] Anthony Mckenna Urea nitrogen [Mass/Vol] 22.0 mg/dL Critically high 7.0-18.0 [facility] Comment on above: Performed By: #### A BGCO #### [facility] [address] [address] [address] Anthony Mckenna Urea nitrogen/Creatinin e [Mass ratio] 20.6 mg/mg [facility] Comment on above: Performed By: #### A BGCO #### [facility] [address] [address] [address] Anthony Mckenna SPUTUM GRAM STAINon 11-08-19 COMMENTS Normal [facility] Comment on above: Performed By: #### C VDTBH #### [facility] [address] [address] [address] Anthony Mckenna DIPHTHEROIDS Normal [facility] Comment on above: Performed By: #### C VDTBH #### [facility] [address] [address] [address] Anthony Mckenna EPITHELIALS <25 Normal [facility] Comment on above: Performed By: #### C VDTBH #### [facility] [address] [address] [address] Anthony Mckenna FUNGAL ELEMENTS Normal [facility] Comment on above: Performed By: #### C VDTBH #### [facility] [address] [address] [address] Anthony Mckenna GRAM NEG BACILLI Normal [facility] Comment on above: Performed By: #### C VDTBH #### [facility] [address] [address] [address] Anthony Mckenna GRAM NEG DIPPLOCOCCI MODERATE Normal [facility] Comment on above: Performed By: #### C VDTBH #### [facility] [address] [address] [address] Anthony Mckenna GRAM POS BACILLI Normal [facility] Comment on above: Performed By: #### C VDTBH #### [facility] [address] [address] [address] Anthony Mckenna GRAM POSITIVE COCCI Normal [facility] Comment on above: Performed By: #### C VDTBH #### [facility] [address] [address] [address] Anthony Mckenna WBC (Bld) [#/Vol] 10*3/uL [facility] Comment on above: Performed By: #### C VDTBH #### [facility] [address] [address] [address] Anthony Mckenna BLOOD GAS BTY W/ OXIMETRYon 11-06-2022 02 MODE NASAL CANNULA [facility] Comment on above: Performed By: #### A BGCO #### [facility] [address] [address] [address] Anthony Mckenna ALLENS TEST Positive [facility] Comment on above: Performed By: #### A BGCO #### [facility] [address] [address] [address] Anthony Mckenna Base excess Calc (Bld) [Moles/Vol] -0.2000 mmol/L Normal -2.0-2.0 [facility] Comment on above: Performed By: #### A BGCO #### [facility] [address] [place] [address] Dr. Anthony Mckenna BIPAP PRESSURE Normal [facility] Comment on above: Performed By: #### A BGCO #### [facility] [address] [address] [address] Anthony Mckenna CARBOXY RANGE NORMAL CONCENTRATION : NON-SMOKERS: 0 - 2% SMOKERS: < OR = 9% Normal [facility] Comment on above: Performed By: #### A BGCO #### [facility] [address] [address] [address] Anthony Mckenna CARBOXYHGB 1.2 % Critically low 1.5-4.9 [facility] Comment on above: Performed By: #### A BGCO #### [facility] [address] [address] [address] Anthony Mckenna FIO2 [facility] Comment on above: Performed By: #### A BGCO #### [facility] [address] [place] [address] Dr. Anthony Mckenna HCO3 (Bld) [Moles/Vol] 24.2 mmol/L Normal 22.0-26.0 [facility] Comment on above: Performed By: #### A BGCO #### [facility] [address] [place] [address] Dr. Anthony Mckenna LPM 5 Normal [facility] Comment on above: Performed By: #### A BGCO #### [facility] [address] [place] [address] Dr. Anthony Mckenna METHGB <1.0 Critically low 1.1-1.9 [facility] Comment on above: Performed By: #### A BGCO #### [facility] [address] [address] [address] Anthony Mckenna MINUTE VOLUME Normal [facility] Comment on above: Performed By: #### A BGCO #### [facility] [address] [place] [address] Dr. Anthony Mckenna Oxygen (Bld) [Partial pressure] 51.6 mm[Hg] Critically low 80.0-100.0 [facility] Comment on above: Performed By: #### A BGCO #### [facility] [address] [place] [address] Dr. Anthony Mckenna Oxygen saturation in Blood 88.7 % Critically low 95.0-100.0 [facility] Comment on above: Performed By: #### A BGCO #### [facility] [address] [address] [address] Anthony Mckenna PCO2 36.9 mmHg Normal 35.0-45.0 [facility] Comment on above: Performed By: #### A BGCO #### [facility] [address] [place] [address] Dr. Anthony Mckenna [facility] Comment on above: Performed By: #### A BGCO #### [facility] [address] [place] [address] Dr. Anthony Mckenna pH (Bld) 7.426 [pH] Normal 7.350-7.450 [facility] Comment on above: Performed By: #### A BGCO #### [facility] [address] [place] [address] Dr. Anthony Mckenna [facility] Comment on above: Performed By: #### A BGCO #### [facility] [address] [place] [address] Dr. Anthony Mckenna [facility] Comment on above: Performed By: #### A BGCO #### [facility] [address] [place] [address] Dr. Anthony Mckenna PUNCTURE SITE RR [facility] Comment on above: Performed By: #### A BGCO #### [facility] [address] [place] [address] Dr. Anthony Mckenna RATE [facility] Comment on above: Performed By: #### A BGCO #### [facility] [address] [place] [address] Dr. Anthony Mckenna VENT [facility] Comment on above: Performed By: #### A BGCO #### [facility] [address] [place] [address] Dr. Anthony Mckenna [facility] Comment on above: Performed By: #### A BGCO #### [facility] [address] [place] [address] Dr. Anthony Mckenna BLOOD GASES BTYon 11-06-2022 02 MODE NASAL CANNULA [facility] Comment on above: Performed By: #### C VDTBH #### [facility] [address] [place] [address] Dr. Anthony Mckenna ALLENS TEST Positive [facility] Comment on above: Performed By: #### C VDTBH #### [facility] [address] [address] [address] Anthony Mckenna Base excess Calc (Bld) [Moles/Vol] 0.0 mmol/L Normal -2.0-2.0 [facility] Comment on above: Performed By: #### C VDTBH #### [facility] [address] [place] [address] Dr. Anthony Mckenna BIPAP PRESSURE [facility] Comment on above: Performed By: #### C VDTBH #### [facility] [address] [place] [address] Dr. Anthony Mckenna CPAP [facility] Comment on above: Performed By: #### C VDTBH #### [facility] [address] [address] [address] Anthony Mckenna FIO2 [facility] Comment on above: Performed By: #### C VDTBH #### [facility] [address] [place] [address] Dr. Anthony Mckenna HCO3 (Bld) [Moles/Vol] 24.7 mmol/L Normal 22.0-26.0 [facility] Comment on above: Performed By: #### C VDTBH #### [facility] [address] [place] [address] Dr. Anthony Mckenna LPM 2.[address] [facility] Comment on above: Performed By: #### C VDTBH #### [facility] [address] [place] [address] Dr. Anthony Mckenna MINUTE VOLUME Normal [facility] Comment on above: Performed By: #### C VDTBH #### [facility] [address] [place], [place] [id number] Dr. Anthony Mckenna Oxygen (Bld) [Partial pressure] 53.6 mm[Hg] Critically low 80.0-100.0 [facility] Comment on above: Performed By: #### C VDTBH #### [facility] [address] [place] [address] Dr. Anthony Mckenna Oxygen saturation in Blood 89.8 % Critically low 95.0-100.0 [facility] Comment on above: Performed By: #### C VDTBH #### [facility] [address] [place] [address] Dr. Anthony Mckenna PCO2 39.0 mmHg Normal 35.0-45.0 [facility] Comment on above: Performed By: #### C VDTBH #### [facility] [address] [place] [address] Dr. Anthony Mckenna PEEP [facility] Comment on above: Performed By: #### C VDTBH #### [facility] [address] [place] [address] Dr. Anthony Mckenna pH (Bld) 7.409 [pH] Normal 7.350-7.450 [facility] Comment on above: Performed By: #### C VDTBH #### [facility] [address] [place] [address] Dr. Anthony Mckenna PIP [facility] Comment on above: Performed By: #### C VDTBH #### [facility] [address] [place] [address] Dr. Anthony Mckenna PS [facility] Comment on above: Performed By: #### C VDTBH #### [facility] [address] [place] [address] Dr. Anthony Mckenna PUNCTURE SITE LR [facility] Comment on above: Performed By: #### C VDTBH #### [facility] [address] [place] [address] Dr. Anthony Mckenna RATE [facility] Comment on above: Performed By: #### C VDTBH #### [facility] [address] [place] [address] Dr. Anthony Mckenna VENT MODE Normal [facility] Comment on above: Performed By: #### C VDTBH #### [facility] [address] [place] [address] Dr. Anthony Mckenna [facility] Comment on above: Performed By: #### C VDTBH #### [facility] [address] [place] [address] Dr. Anthony Mckenna BNPon 11-06-2022 Natriuretic peptide B (Bld) [Mass/Vol] 202.0 pg/mL Normal <=900.0 [facility] Comment on above: Performed By: #### B ANALYSIS CONSULTANT, CMP, CMADM #### [facility] [address] [place] [address] Dr. Anthony Mckenna CARDIAC MARY ADMITon 023 CK [Catalytic activity/Vol] 119 U/L Normal 39-308 [facility] Comment on above: Performed By: #### B ANALYSIS CONSULTANT, CMP, CMADM #### [facility] [address] [place] [address] Dr. Anthony Mckenna CK.MB [Mass/Vol] 2.14 ng/mL Normal <=3.60 [facility] Comment on above: Performed By: #### B ANALYSIS CONSULTANT, CMP, CMADM #### [facility] [address] [place] [address] Dr. Anthony Mckenna HSTROP 5.7 pg/mL Normal 4.0-76.1 [facility] Comment on above: Result Comment: CUT- OFF POINTS HAVE BEEN ESTABLISHED BASED ON THE FOURTH UNIVERSAL DEFINITIONS OF MYOCARDIAL INFARCTION. THE UPPER REFERENCE LIMIT (URL) OF TROPONIN, DEFINED THE 99TH PERCENTILE OF cTnI DISTRIBUTION IN A REFERENCE POPULATION, HAS BEEN CONFIRMED THE DECISION THRESHOLD FOR LA DIAGNOSIS. Performed By: #### B ANALYSIS CONSULTANT, CMP, CMADM #### [facility] [address] [place] [address] Dr. Anthony Mckenna HAVEN 53 ng/mL Normal 16-96 [facility] Comment on above: Performed By: #### B ANALYSIS CONSULTANT, CMP, CMADM #### [facility] [address] [place] [address] Dr. Anthony Mckenna CBC AUTO DIFFon 11-06-2022 BASO # 0.1 103/ul Normal 0.0-0.1 [facility] Comment on above: Performed By: #### P OCGLUC #### [facility] [address] [address] [address] Anthony Mckenna Basophils/100 WBC (Bld) 0.6 % Normal 0.2-2.0 [facility] Comment on above: Performed By: #### P OCGLUC #### [facility] [address] [address] [address] Anthony Mckenna EO # 0.5 103/ul Normal 0.0-0.7 [facility] Comment on above: Performed By: #### P OCGLUC #### [facility] [address] [place] [address] Dr. Anthony Mckenna Eosinophils/100 WBC (Bld) 3.6 % Normal 0.9-7.0 [facility] Comment on above: Performed By: #### P OCGLUC #### [facility] [address] [place] [address] Dr. Anthony Mckenna Erythrocyte distribution width (RBC) [Ratio] 14.1 % Normal 11.0-15.0 [facility] Comment on above: Performed By: #### P OCGLUC #### [facility] [address] [place] [address] Dr. Anthony Mckenna Hematocrit (Bld) [Volume fraction] 47.0 % Normal 42.0-54.0 [facility] Comment on above: Performed By: #### P OCGLUC #### [facility] [address] [place] [address] Dr. Anthony Mckenna Hemoglobin (Bld) [Mass/Vol] 16.2 g/dL Normal 14.0-18.0 [facility] Comment on above: Performed By: #### P OCGLUC #### [facility] [address] [place] [address] Dr. Anthony Mckenna IG # 0.06 10e3/ul Critically high 0.00-0.03 [facility] Comment on above: Performed By: #### P OCGLUC #### [facility] [address] [address] [address] Anthony Mckenna IG % 0.4 % Normal 0.0-0.5 [facility] Comment on above: Performed By: #### P OCGLUC #### [facility] [address] [address] [address] Anthony Mckenna LYMPH # 1.8 103/ul Normal 1.2-3.8 [facility] Comment on above: Performed By: #### P OCGLUC #### [facility] [address] [address] [address] Anthony Mckenna Lymphocytes/100 WBC (Bld) 12.6 % Critically low 20.5-60.0 [facility] Comment on above: Performed By: #### P OCGLUC #### [facility] [address] [place] [address] Dr. Anthony Mckenna MANUAL DIFF REQ NO Normal [facility] Comment on above: Performed By: #### P OCGLUC #### [facility] [address] [address] [address] Anthony Mckenna MCH (RBC) [Entitic mass] 30.2 pg Normal 25.9-34.0 [facility] Comment on above: Performed By: #### P OCGLUC #### [facility] [address] [place] [address] Dr. Anthony Mckenna MCHC (RBC) [Mass/Vol] 34.5 g/dL Normal 29.9-35.2 [facility] Comment on above: Performed By: #### P OCGLUC #### [facility] [address] [place] [address] Dr. Anthony Mckenna MCV (RBC) [Entitic vol] 87.5 fL Normal 80.0-94.0 [facility] Comment on above: Performed By: #### P OCGLUC #### [facility] [address] [place] [address] Dr. Anthony Mckenna MONO # 1.1 103/ul Critically high 0.3-0.8 [facility] Comment on above: Performed By: #### P OCGLUC #### [facility] [address] [place] [address] Dr. Anthony Mckenna Monocytes/100 WBC (Bld) 7.3 % Normal 1.7-12.0 [facility] Comment on above: Performed By: #### P OCGLUC #### [facility] [address] [address] [address] Atnhony Mckenna NEUT # 11.0 103/ul Critically high 1.4-6.5 [facility] Comment on above: Performed By: #### P OCGLUC #### [facility] [address] [address] [address] Anthony Mckenna Neutrophils/100 WBC (Bld) 75.5 % Critically high 43.0-75.0 [facility] Comment on above: Performed By: #### P OCGLUC #### [facility] [address] [address] [address] Anthony Mckenna Platelet mean volume (Bld) [Entitic vol] 9.3 fL Critically low 9.5-13.5 [facility] Comment on above: Performed By: #### P OCGLUC #### [facility] [address] [address] [address] Anthony Mckenna PLT 235 103/ul Normal 150-450 [facility] Comment on above: Performed By: #### P OCGLUC #### [facility] [address] [address] [address] Anthony Mckenna RBC 5.37 106/ul Normal 4.70-6.10 [facility] Comment on above: Performed By: #### P OCGLUC #### [facility] [address] [address] [address] Anthony Mckenna WBC 14.5 103/ul Critically high 4.0-11.0 [facility] Comment on above: Performed By: #### P OCGLUC #### [facility] [address] [address] [address] Anthony Mckenna CTA CHEST WO W [...] LAMIN AMBRIZ Date: 2022-11-06 12:04 Normal [facility] CULTURE BLOODon 11-06-2022 Microscopic examination of blood, culture Culture Observations: NO GROWTH AT 5 DAYS. Normal [facility] Comment on above: Performed By: #### C VDTBH #### [facility] [address] [place] [address] Dr. Anthony Mckenna Microscopic examination of blood, culture Culture Observations: NO GROWTH AT 5 DAYS. Normal [facility] Comment on above: Performed By: #### C VDTBH #### [facility] [address] [place], [place] [id number] Dr. Anthony Mckenna [facility]-[address]on SARS-CoV-2 (COVID-19) RNA RASHAWN+probe Ql (Unsp spec) Not detected Normal NOT DETECTED [facility] Comment on above: Result Comment: This test is not yet approved or cleared by the [place] FDA. When there are no FDA-approved or cleared tests available, and other criteria are met, FDA can make tests available under an emergency access mechanism called an Emergency Use Authorization (EUA). The EUA for this test is supported by the [employer] of Health and Human Service's (HHS's) declaration [...] SARS-CoV-2. Performed By: #### C VDTBH #### [facility] [address] [place] [address] Dr. Anthony Mckenna D-DIMERon 11-06-2022 D-DIMER 0.25 mg/L FEU Normal <=0.59 [facility] Comment on above: Performed By: #### C VDTBH #### [facility] [address] [place] [address] Dr. Anthony Mckenna D-DIMER COMMENTS SEE BELOW Normal [facility] Comment on above: Result Comment: Incr [...] hospitalization. Performed By: #### C VDTBH #### [facility] [address] [place] [address] Dr. Anthony Mckenna PH VENOUS BLOODon 11-06-2022 PCO2 VENOUS 42.6 mmHg Normal 40.0-52.0 [facility] Comment on above: Performed By: #### A BGCO #### [facility] [address] [place] [address] Dr. Anthony Mckenna pH VENOUS 7.397 Normal 7.330-7.430 [facility] Comment on above: Performed By: #### A BGCO #### [facility] [address] [address] [address] Anthony Mckenna POINT OF CARE GLUCOSEon Glucose [Mass/Vol] 173 mg/dL Critically high 74-106 [facility] Comment on above: Performed By: #### P OCGLUC #### [facility] [address] [address] [address] Anthony Mckenna Glucose [Mass/Vol] 222 mg/dL Critically high 74-106 [facility] Comment on above: Performed By: #### P OCGLUC #### [facility] [address] [address] [address] Anthony Mckenna PROF 14(COMP METB)on 023 Albumin [Mass/Vol] 3.6 g/dL Normal 3.4-5.0 [facility] Comment on above: Performed By: #### B ANALYSIS CONSULTANT, CMP, CMADM #### [facility] [address] [address] [address] Anthony Mckenna Albumin/Globulin [Mass ratio] 1.0 {ratio} Normal [facility] Comment on above: Performed By: #### B ANALYSIS CONSULTANT, CMP, CMADM #### [facility] [address] [place] [address] Dr. Anthony Mckenna ALP [Catalytic activity/Vol] 91 U/L Normal 46-116 [facility] Comment on above: Performed By: #### B ANALYSIS CONSULTANT, CMP, CMADM #### [facility] [address] [address] [address] Anthony Mckenna ALT [Catalytic activity/Vol] 29 U/L Normal 16-63 [facility] Comment on above: Performed By: #### B ANALYSIS CONSULTANT, CMP, CMADM #### [facility] [address] [place] [address] Dr. Anthony Mckenna Anion gap [Moles/Vol] 12.2 mmol/L Normal [facility] Comment on above: Performed By: #### B ANALYSIS CONSULTANT, CMP, CMADM #### [facility] [address] [place] [address] Dr. Anthony Mckenna AST [Catalytic activity/Vol] 17 U/L Normal 15-37 [facility] Comment on above: Performed By: #### B ANALYSIS CONSULTANT, CMP, CMADM #### [facility] [address] [address] [address] Anthony Mckenna Bilirubin [Mass/Vol] 0.3 mg/dL Normal 0.2-1.0 [facility] Comment on above: Performed By: #### B ANALYSIS CONSULTANT, CMP, CMADM #### [facility] [address] [address] [address] Anthony Mckenna Calcium [Mass/Vol] 9.0 mg/dL Normal 8.5-10.1 [facility] Comment on above: Performed By: #### B ANALYSIS CONSULTANT, CMP, CMADM #### [facility] [address] [place] [address] Dr. Anthony Mckenna Chloride [Moles/Vol] 103 mmol/L Normal 98-107 [facility] Comment on above: Performed By: #### B ANALYSIS CONSULTANT, CMP, CMADM #### [facility] [address] [address] [address] Anthony Mckenna CO2 [Moles/Vol] 26.0 mmol/L Normal 21.0-32.0 [facility] Comment on above: Performed By: #### B ANALYSIS CONSULTANT, CMP, CMADM #### [facility] [address] [place] [address] Dr. Anthony Mckenna Creatinine [Mass/Vol] 1.07 mg/dL Normal 0.70-1.30 [facility] Comment on above: Performed By: #### B ANALYSIS CONSULTANT, CMP, CMADM #### [facility] [address] [place] [address] Dr. Anthony Mckenna EGFR-AF PRYDEINIG >60 Normal >=60 [facility] Comment on above: Performed By: #### B ANALYSIS CONSULTANT, CMP, CMADM #### [facility] [address] [place] [address] Dr. Anthony Mckenna EGFR-NON AF PRYDEINIG >60 Normal >=60 [facility] Comment on above: Performed By: #### B ANALYSIS CONSULTANT, CMP, CMADM #### [facility] [address] [address] [address] Anthony Mckenna Globulin (S) [Mass/Vol] 3.7 g/dL Normal [facility] Comment on above: Performed By: #### B ANALYSIS CONSULTANT, CMP, CMADM #### [facility] [address] [address] [address] Anthony Mckenna Glucose [Mass/Vol] 144 mg/dL Critically high 74-106 [facility] Comment on above: Performed By: #### B ANALYSIS CONSULTANT, CMP, CMADM #### [facility] [address] [address] [address] Anthony Mckenna Potassium [Moles/Vol] 4.2 mmol/L Normal 3.5-5.1 [facility] Comment on above: Performed By: #### B ANALYSIS CONSULTANT, CMP, CMADM #### [facility] [address] [address] [address] Anthony Mckenna Protein [Mass/Vol] 7.3 g/dL Normal 6.4-8.2 [facility] Comment on above: Performed By: #### B ANALYSIS CONSULTANT, CMP, CMADM #### [facility] [address] [address] [address] Anthony Mckenna Sodium [Moles/Vol] 137 mmol/L Normal 136-145 [facility] Comment on above: Performed By: #### B ANALYSIS CONSULTANT, CMP, CMADM #### [facility] [address] [address] [address] Anthony Mckenna Urea nitrogen [Mass/Vol] 16.0 mg/dL Normal 7.0-18.0 [facility] Comment on above: Performed By: #### B ANALYSIS CONSULTANT, CMP, CMADM #### [facility] [address] [address] [address] Anthony Mckenna Urea nitrogen/Creatinin e [Mass ratio] 15.0 mg/mg Normal [facility] Comment on above: Performed By: #### B ANALYSIS CONSULTANT, CMP, CMADM #### [facility] [address] [address] [address] Anthony Mckenna PROTIMEon 11-06-2022 INR Coag (PPP) [Relative time] 0.94 {INR} Normal [facility] Comment on above: Performed By: #### C VDTBH #### [facility] [address] [place] [address] Dr. Anthony Mckenna INR GUIDELINES SEE BELOW Normal [facility] Comment on above: Result Comment: DUANE RED INR: 2.0 - 3.0 CONDITIONS NOT LISTED BELOW 2.5 - 3.5 FOR PROSTHETIC HEART VALVE REPLACEMENT 2.5 - 3.5 RECURRENT THROMBOSIS Performed By: #### C VDTBH #### [facility] [address] [place] [address] Dr. Anthony Mckenna PT Coag (PPP) [Time] 10.0 s Normal 9.0-11.6 [facility] Comment on above: Performed By: #### C VDTBH #### [facility] [address] [place] [address] Dr. Anthony Mckenna PTTon 11-06-2022 aPTT Coag (Bld) [Time] 28.5 s Normal 22.3-36.2 [facility] Comment on above: Performed By: #### A BGCO #### [facility] [address] [place] [address] Dr. Anthony Mckenna SYMPTOMATIC COVID-19 ANTIGEN on 11-06-2022 EUA Statement SEE BELOW Normal [facility] Comment on above: Result Comment: This test [...] sooner. Performed By: #### A BGCO #### [facility] [address] [place] [address] Dr. Anthony Mckenna SARS-CoV-2 (COVID-19) RNA RASHAWN+probe Ql (Unsp spec) Negative Normal NEGATIVE [facility] Comment on above: Performed By: #### A BGCO #### [facility] [address] [place] [address] Dr. Anthony Mckenna XR CHEST 1 Von [...] cardiopulmonary process. Stable chest. Electronically authenticated by: LAMIN AMBRIZ Date: 2022-11-06 10:53 Normal [facility] CBC AUTO DIFFon 08-06-2022 BASO # 0.1 103/ul Normal 0.0-0.1 [facility] Comment on above: Performed By: #### A BGCO #### [facility] [address] [place] [address] Dr. Anthony Mckenna Basophils/100 WBC (Bld) 0.7 % Normal 0.2-2.0 [facility] Comment on above: Performed By: #### A BGCO #### [facility] [address] [address] [address] Anthoyn Mckenna EO # 0.5 103/ul Normal 0.0-0.7 [facility] Comment on above: Performed By: #### A BGCO #### [facility] [address] [place] [address] Dr. Anthony Mckenna Eosinophils/100 WBC (Bld) 4.9 % Normal 0.9-7.0 [facility] Comment on above: Performed By: #### A BGCO #### [facility] [address] [place] [address] Dr. Anthony Mckenna Erythrocyte distribution width (RBC) [Ratio] 13.3 % Normal 11.0-15.0 [facility] Comment on above: Performed By: #### A BGCO #### [facility] [address] [place] [address] Dr. Anthony Mckenna Hematocrit (Bld) [Volume fraction] 48.8 % Normal 42.0-54.0 [facility] Comment on above: Performed By: #### A BGCO #### [facility] [address] [place] [address] Dr. Anthony Mckenna Hemoglobin (Bld) [Mass/Vol] 17.0 g/dL Normal 14.0-18.0 [facility] Comment on above: Performed By: #### A BGCO #### [facility] [address] [place] [address] Dr. Anthony Mckenna IG # 0.02 10e3/ul Normal 0.00-0.03 [facility] Comment on above: Performed By: #### A BGCO #### [facility] [address] [place] [address] Dr. Anthony Mckenna IG % 0.2 % Normal 0.0-0.5 [facility] Comment on above: Performed By: #### A BGCO #### [facility] [address] [place] [address] Dr. Anthony Mckenna LYMPH # 2.6 103/ul Normal 1.2-3.8 [facility] Comment on above: Performed By: #### A BGCO #### [facility] [address] [place] [address] Dr. Anthony Mckenna Lymphocytes/100 WBC (Bld) 28.8 % Normal 20.5-60.0 [facility] Comment on above: Performed By: #### A BGCO #### [facility] [address] [place] [address] Dr. Anthony Mckenna MANUAL DIFF REQ NO Normal [facility] Comment on above: Performed By: #### A BGCO #### [facility] [address] [place] [address] Dr. Anthony Mckenna MCH (RBC) [Entitic mass] 29.7 pg Normal 25.9-34.0 [facility] Comment on above: Performed By: #### A BGCO #### [facility] [address] [place] [address] Dr. Anthony Mckenna MCHC (RBC) [Mass/Vol] 34.8 g/dL Normal 29.9-35.2 [facility] Comment on above: Performed By: #### A BGCO #### [facility] [address] [place] [address] Dr. Anthony Mckenna MCV (RBC) [Entitic vol] 85.2 fL Normal 80.0-94.0 [facility] Comment on above: Performed By: #### A BGCO #### [facility] [address] [place] [address] Dr. Anthony Mckenna MONO # 0.7 103/ul Normal 0.3-0.8 [facility] Comment on above: Performed By: #### A BGCO #### [facility] [address] [place] [address] Dr. Anthony Mckenna Monocytes/100 WBC (Bld) 8.0 % Normal 1.7-12.0 [facility] Comment on above: Performed By: #### A BGCO #### [facility] [address] [place] [address] Dr. Anthony Mckenna NEUT # 5.2 103/ul Normal 1.4-6.5 [facility] Comment on above: Performed By: #### A BGCO #### [facility] [address] [place] [address] Dr. Anthony Mckenna Neutrophils/100 WBC (Bld) 57.4 % Normal 43.0-75.0 [facility] Comment on above: Performed By: #### A BGCO #### [facility] [address] [place] [address] Dr. Anthony Mckenna Platelet mean volume (Bld) [Entitic vol] 9.3 fL Critically low 9.5-13.5 [facility] Comment on above: Performed By: #### A BGCO #### [facility] [address] [place] [address] Dr. Anthony Mckenna PLT 261 103/ul Normal 150-450 [facility] Comment on above: Performed By: #### A BGCO #### [facility] [address] [address] [address] Anthony Mckenna RBC 5.73 106/ul Normal 4.70-6.10 [facility] Comment on above: Performed By: #### A BGCO #### [facility] [address] [address] [address] Anthony Mckenna WBC 9.1 103/ul Normal 4.0-11.0 [facility] Comment on above: Performed By: #### A BGCO #### [facility] [address] [address] [address] Anthony Mckenna LIPID PROFILEon 08-06-2022 CHOL-HDL RATIO NORM SEE BELOW Normal [facility] Comment on above: Result Comment: 3.3 - 4.4 LOW RISK 4.4 - 7.1 AVERAGE RISK 7.1 - 11.0 MODERATE RISK >11.0 HIGH RISK Performed By: #### L IPID, CMP #### [facility] [address] [address] [address] Anthony Mckenna Cholesterol [Mass/Vol] 211 mg/dL Critically high <=200 [facility] Comment on above: Performed By: #### L IPID, CMP #### [facility] [address] [address] [address] Anthony Mckenna Cholesterol in HDL [Mass/Vol] 32 mg/dL Critically low 40-60 [facility] Comment on above: Performed By: #### L IPID, CMP #### [facility] [address] [address] [address] Anthony Mckenna Cholesterol in LDL [Mass/Vol] 137.4 mg/dL Normal [facility] Comment on above: Performed By: #### L IPID, CMP #### [facility] [address] [address] [address] Anthony Mckenna Cholesterol.total/ Cholesterol in HDL [Mass ratio] 6.6 {ratio} Normal [facility] Comment on above: Performed By: #### L IPID, CMP #### [facility] [address] [place] [address] Dr. Anthony Mckenna HDL NORMAL > or = 60 mg/dl - LO W CARDIOVASCULAR RISK <40 mg/dl - HIGH CARDIOVASCULAR RISK Normal [facility] Comment on above: Performed By: #### L IPID, CMP #### [facility] [address] [address] [address] Anthony Mckenna LDL CALC NORMAL SEE BELOW Normal [facility] Comment on above: Result Comment: <100 mg/dl OPTIMAL 100 - 129 mg/dl NEAR OR ABOVE OPTIMAL 130 - 159 mg/dl BORDERLINE HIGH 160 - 189 mg/dl HIGH >190 mg/dl VERY HIGH Performed By: #### L IPID, CMP #### [facility] [address] [place] [address] Dr. Anthony Mckenna Triglyceride [Mass/Vol] 208 mg/dL Critically high <=150 [facility] Comment on above: Performed By: #### L IPID, CMP #### [facility] [address] [place] [address] Dr. Anthony Mckenna VLDL CALC 41.6 mg/dL Normal [facility] Comment on above: Performed By: #### L IPID, CMP #### [facility] [address] [place] [address] Dr. Anthony Mckenna PROF 14(COMP METB)on 023 Albumin [Mass/Vol] 3.8 g/dL Normal 3.4-5.0 [facility] Comment on above: Performed By: #### L IPID, CMP #### [facility] [address] [place] [address] Dr. Anthony Mckenna Albumin/Globulin [Mass ratio] 1.0 {ratio} Normal [facility] Comment on above: Performed By: #### L IPID, CMP #### [facility] [address] [place] [address] Dr. Anthony Mckenna ALP [Catalytic activity/Vol] 78 U/L Normal 46-116 [facility] Comment on above: Performed By: #### L IPID, CMP #### [facility] [address] [place] [address] Dr. Anthony Mckenna ALT [Catalytic activity/Vol] 30 U/L Normal 16-63 [facility] Comment on above: Performed By: #### L IPID, CMP #### [facility] [address] [place] [address] Dr. Anthony Mckenna Anion gap [Moles/Vol] 10.5 mmol/L Normal [facility] Comment on above: Performed By: #### L IPID, CMP #### [facility] [address] [place] [address] Dr. Anthony Mckenna AST [Catalytic activity/Vol] 20 U/L Normal 15-37 [facility] Comment on above: Performed By: #### L IPID, CMP #### [facility] [address] [place] [address] Dr. Anthony Mckenna Bilirubin [Mass/Vol] 0.4 mg/dL Normal 0.2-1.0 [facility] Comment on above: Performed By: #### L IPID, CMP #### [facility] [address] [place] [address] Dr. Anthony Mckenna Calcium [Mass/Vol] 9.3 mg/dL Normal 8.5-10.1 [facility] Comment on above: Performed By: #### L IPID, CMP #### [facility] [address] [place] [address] Dr. Anthony Mckenna Chloride [Moles/Vol] 100 mmol/L Normal 98-107 [facility] Comment on above: Performed By: #### L IPID, CMP #### [facility] [address] [place] [address] Dr. Anthony Mckenna CO2 [Moles/Vol] 30.9 mmol/L Normal 21.0-32.0 [facility] Comment on above: Performed By: #### L IPID, CMP #### [facility] [address] [place] [address] Dr. Anthony Mckenna Creatinine [Mass/Vol] 0.96 mg/dL Normal 0.70-1.30 [facility] Comment on above: Performed By: #### L IPID, CMP #### [facility] [address] [place] [address] Dr. Anthony Mckenna EGFR-AF PRYDEINIG >60 Normal >=60 [facility] Comment on above: Performed By: #### L IPID, CMP #### [facility] [address] [address] [address] Anthony Mckenna EGFR-NON AF PRYDEINIG >60 Normal >=60 [facility] Comment on above: Performed By: #### L IPID, CMP #### [facility] [address] [address] [address] Anthony Mckenna Globulin (S) [Mass/Vol] 3.9 g/dL Normal [facility] Comment on above: Performed By: #### L IPID, CMP #### [facility] [address] [place] [address] Dr. Anthony Mckenna Glucose [Mass/Vol] 123 mg/dL Critically high 74-106 T [facility] Comment on above: Performed By: #### L IPID, CMP #### [facility] [address] [address] [address] Anthony Mckenna Potassium [Moles/Vol] 4.4 mmol/L Normal 3.5-5.1 [facility] Comment on above: Performed By: #### L IPID, CMP #### [facility] [address] [place] [address] Dr. Anthony Mckenna Protein [Mass/Vol] 7.7 g/dL Normal 6.4-8.2 [facility] Comment on above: Performed By: #### L IPID, CMP #### [facility] [address] [address] [address] Anthony Mckenna Sodium [Moles/Vol] 137 mmol/L Normal 136-145 [facility] Comment on above: Performed By: #### L IPID, CMP #### [facility] [address] [place] [address] Dr. Anthony Mckenna Urea nitrogen [Mass/Vol] 15.0 mg/dL Normal 7.0-18.0 [facility] Comment on above: Performed By: #### L IPID, CMP #### [facility] [address] [place] [address] Dr. Anthony Mckenna Urea nitrogen/Creatinin e [Mass ratio] 15.6 mg/mg Normal [facility] Comment on above: Performed By: #### L IPID, CMP #### [facility] [address] [address] [address] Anthony Mckenna Vital Signs Date Time Vital Sign Value Performing Clinician Facility 11-05-2024 11:17-0400 Body height 177.8 cm Lisa Morelos ANALYSIS CONSULTANT Work Phone: [facility] 11-05-2024 11:17-0400 Body mass index (BMI) [Ratio] 33.98 kg/m2 Lisa Morelos ANALYSIS CONSULTANT Work Phone: [facility] 11-05-2024 11:17-0400 Body weight 107.41 kg Lisa Morelos ANALYSIS CONSULTANT Work Phone: [facility] 11-05-2024 11:17-0400 Diastolic blood pressure 84 mm[Hg] Lisa Morelos ANALYSIS CONSULTANT Work Phone: [facility] 11-05-2024 11:17-0400 Heart rate 111 /min Lisa Morelos ANALYSIS CONSULTANT Work Phone: [facility] 11-05-2024 11:17-0400 Respiratory rate 17 /min Lisa Morelos ANALYSIS CONSULTANT Work Phone: [facility] 11-05-2024 11:17-0400 SaO2% (BldA) [Mass fraction] 98 % Lisa Morelos ANALYSIS CONSULTANT Work Phone: [facility] 11-05-2024 11:17-0400 Systolic blood pressure 138 mm[Hg] Lisa Morelos ANALYSIS CONSULTANT Work Phone: [facility] 10-13-2024 13:39-0400 Body height 177.8 cm Vesna Monroy PA Work Phone: [facility] 10-13-2024 13:39-0400 Body mass index (BMI) [Ratio] 34.41 kg/m2 Vesna Monroy PA Work Phone: [facility] 10-13-2024 13:39-0400 Body temperature 98.71 [degF] Vesna Monroy PA Work Phone: [facility] 10-13-2024 13:39-0400 Body weight 108.77 kg Vesna Hemmer PA Work Phone: [facility] 10-13-2024 13:39-0400 Diastolic blood pressure 72 mm[Hg] Vesna Hemmer PA Work Phone: [facility] 10-13-2024 13:39-0400 Heart rate 76 /min Vesna Hemmer PA Work Phone: [facility] 10-13-2024 13:39-0400 Respiratory rate 16 /min Vesna Hemmer PA Work Phone: [facility] 10-13-2024 13:39-0400 SaO2% (BldA) [Mass fraction] 96 % Vesna Hemmer PA Work Phone: [facility] 10-13-2024 13:39-0400 Systolic blood pressure 108 mm[Hg] Vesna Hemmer PA Work Phone: [facility] 09-09-2024 09:55-0500 Body height 177.8 cm Cassi Santiago ANALYSIS CONSULTANT Work Phone: [facility] 09-09-2024 09:55-0500 Body mass index (BMI) [Ratio] 34.26 kg/m2 Cassi Santiago ANALYSIS CONSULTANT Work Phone: [facility] 09-09-2024 09:55-0500 Body weight 108.32 kg Cassi Santiago ANALYSIS CONSULTANT Work Phone: [facility] 09-09-2024 09:55-0500 Diastolic blood pressure 84 mm[Hg] Cassi Santiago ANALYSIS CONSULTANT Work Phone: [facility] 09-09-2024 09:55-0500 Heart rate 116 /min Cassi Santiago ANALYSIS CONSULTANT Work Phone: [facility] 09-09-2024 09:55-0500 Respiratory rate 17 /min Cassi Santiago ANALYSIS CONSULTANT Work Phone: [facility] 09-09-2024 09:55-0500 SaO2% (BldA) [Mass fraction] 96 % Cassi Santiago ANALYSIS CONSULTANT Work Phone: [facility] 09-09-2024 09:55-0500 Systolic blood pressure 162 mm[Hg] Cassi Santiago ANALYSIS CONSULTANT Work Phone: [facility] 07-20-2024 08:28-0500 Diastolic blood pressure 88 mm[Hg] [facility] 07-20-2024 08:28-0500 Mean blood pressure 105 mm[Hg] [facility] 07-20-2024 08:28-0500 Systolic blood pressure 138 mm[Hg] [facility] 07-20-2024 08:17-0500 Blood Pressure Location [facility] 07-20-2024 08:17-0500 Diastolic blood pressure 101 mm[Hg] [facility] 07-20-2024 08:17-0500 Heart rate 89 /min [facility] 07-20-2024 08:17-0500 Systolic blood pressure 145 mm[Hg] [facility] 06-26-2024 11:05-0500 Blood Pressure Location [facility] 06-26-2024 11:05-0500 Diastolic blood pressure 85 mm[Hg] [facility] 06-26-2024 11:05-0500 Heart rate 87 /min [facility]elius Sar[facility] 06-26-2024 11:05-0500 Mean blood pressure 99 mm[Hg] [facility] 06-26-2024 11:05-0500 Respiratory rate 20 /min [facility] 06-26-2024 11:05-0500 SaO2% (BldA) [Mass fraction] 94 % [facility] 06-26-2024 11:05-0500 Systolic blood pressure 128 mm[Hg] [facility] 06-26-2024 11:00-0500 Diastolic blood pressure 82 mm[Hg] [facility] 06-26-2024 11:00-0500 Mean blood pressure 92 mm[Hg] [facility] 06-26-2024 11:00-0500 Respiratory rate 15 /min [facility] Sarmini [facility] 06-26-2024 11:00-0500 Systolic blood pressure 111 mm[Hg] [facility] 06-26-2024 10:49-0500 Blood Pressure Location [facility] Sar[facility] 06-26-2024 10:49-0500 Diastolic blood pressure 75 mm[Hg] [facility] 06-26-2024 10:49-0500 Heart rate 90 /min [facility] 06-26-2024 10:49-0500 Mean blood pressure 85 mm[Hg] [facility] 06-26-2024 10:49-0500 Respiratory rate 12 /min [facility] 06-26-2024 10:49-0500 SaO2% (BldA) [Mass fraction] 95 % [facility] 06-26-2024 10:49-0500 Systolic blood pressure 105 mm[Hg] [facility] 06-26-2024 10:34-0500 Body temperature 97.7 [degF] [facility] 06-26-2024 10:20-0500 Respiratory rate 12 /min [facility] 06-26-2024 10:05-0500 Respiratory rate 12 /min [facility] 06-26-2024 09:50-0500 Respiratory rate 12 /min [facility] 06-26-2024 08:09-0500 Body temperature 97.52 [degF] [facility] 06-18-2024 13:27-0500 Diastolic blood pressure 88 mm[Hg] Vesna Monroy PA Work Phone: [facility] 06-18-2024 13:27-0500 Systolic blood pressure 130 mm[Hg] Vesna Monroy PA Work Phone: [facility] 06-18-2024 13:07-0500 Body height 177.8 cm Vesna Monroy PA Work Phone: [facility] 06-18-2024 13:07-0500 Body mass index (BMI) [Ratio] 34.18 kg/m2 Vesna Hemmer PA Work Phone: [facility] 06-18-2024 13:07-0500 Body weight 108.05 kg Vesna Hemmer PA Work Phone: [facility] 06-18-2024 13:07-0500 Heart rate 81 /min Vesna Hemmer PA Work Phone: [facility] 06-18-2024 13:07-0500 Respiratory rate 16 /min Vesna Hemmer PA Work Phone: [facility] 06-18-2024 13:07-0500 SaO2% (BldA) [Mass fraction] 95 % Vesna Hemmer PA Work Phone: [facility] 05-18-2024 08:16-0500 Diastolic blood pressure 97 mm[Hg] [facility] 05-18-2024 08:16-0500 Mean blood pressure 116 mm[Hg] [facility] 05-18-2024 08:16-0500 Systolic blood pressure 153 mm[Hg] [facility] 05-18-2024 08:10-0500 Blood Pressure Location [facility] 05-18-2024 08:10-0500 Diastolic blood pressure 100 mm[Hg] [facility] 05-18-2024 08:10-0500 Heart rate 94 /min [facility] 05-18-2024 08:10-0500 Systolic blood pressure 159 mm[Hg] [facility] 05-04-2024 13:03-0400 Body mass index (BMI) [Ratio] 34.72 kg/m2 Tan Capps MD Work Phone: [facility] 05-04-2024 13:03-0400 Body weight 109.77 kg Tan Capps MD Work Phone: [facility] 05-04-2024 13:03-0400 Diastolic blood pressure 95 mm[Hg] Tan Capps MD Work Phone: [facility] 05-04-2024 13:03-0400 Heart rate 94 /min Tan Capps MD Work Phone: [facility] 05-04-2024 13:03-0400 Respiratory rate 17 /min Tan Capps MD Work Phone: [facility] 05-04-2024 13:03-0400 SaO2% (BldA) [Mass fraction] 97 % Tan Capps MD Work Phone: [facility] 05-04-2024 13:03-0400 Systolic blood pressure 130 mm[Hg] Tan Capps MD Work Phone: [facility] 02-26-2024 12:58-0400 Body height 177.8 cm Tan Capps MD Work Phone: [facility] 02-26-2024 12:58-0400 Body mass index (BMI) [Ratio] 34.01 kg/m2 Tan Capps MD Work Phone: [facility] 02-26-2024 12:58-0400 Body weight 107.5 kg Tan Capps MD Work Phone: [facility] 02-26-2024 12:58-0400 Diastolic blood pressure 84 mm[Hg] Tan Capps MD Work Phone: [facility] 02-26-2024 12:58-0400 Heart rate 92 /min Tan Capps MD Work Phone: [facility] 02-26-2024 12:58-0400 SaO2% (BldA) [Mass fraction] 96 % Tan Capps MD Work Phone: [facility] 02-26-2024 12:58-0400 Systolic blood pressure 134 mm[Hg] Tan Capps MD Work Phone: [facility] Encounters Encounter Date Encounter Type Care Provider Facility Start: 11-05-2024 End: 11-05-2024 Office outpatient visit 25 minutes Lisa Morelos ANALYSIS CONSULTANT Work Phone: [facility] Comment on above: COPD exacerbation (C MS/HCC) (Primary Dx); Urinary frequency; Urine retention; Dysuria; Difficulty urinating Start: 11-05-2024 End: 11-05-2024 ambulatory LISA MORELOS Not Available Start: 11-04-2024 End: 11-04-2024 ambulatory Edilia Zamora Facility:[facility] Start: 10-13-2024 End: 10-13-2024 Bamboo flowsheet Vesna Monroy PA Work Phone: [facility] Start: 10-13-2024 End: 10-13-2024 Bamboo flowsheet Vesna Monroy PA Work Phone: [facility] Start: 10-13-2024 End: 10-13-2024 Office outpatient visit 25 minutes Vesna Monroy PA Work Phone: [facility] Comment on above: Acute cystitis with hematuria (Primary Dx); Type 2 diabetes mellitus without complication, without long-term current use of insulin; Dysuria; Primary hypertension (CMS/HCC) Start: 10-13-2024 End: 10-13-2024 ambulatory VESNA MONROY Not Available Start: 09-14-2024 End: 09-14-2024 ambulatory CASSI SANTIAGO Not Available Start: 09-09-2024 End: 09-09-2024 Office outpatient visit 25 minutes Cassi Santiago ANALYSIS CONSULTANT Work Phone: [facility] Comment on above: Generalized abdomina l pain (Primary Dx); Nausea and vomiting, unspecified vomiting type; Acute kidney injury (CMS/HCC); 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CMS/HCC) Start: 09-09-2024 End: 09-09-2024 ambulatory CASSI SANTIAGO Not Available Start: 07-20-2024 End: 07-20-2024 ambulatory Ashli Castellanos Facility:[facility] Start: 07-20-2024 End: 07-20-2024 Patient encounter procedure Ashli Castellanos [facility] Start: 06-26-2024 End: 06-26-2024 ambulatory Ashli Castellanos Facility:[facility] Start: 06-26-2024 End: 06-26-2024 Patient encounter procedure Ashli Castellanos [facility] Start: 06-22-2024 End: 06-22-2024 Orders Only Vesna GORDON Work Phone: [facility] Comment on above: Tick bite of lower l eg, unspecified laterality, initial encounter (Primary Dx) Start: 06-18-2024 End: 06-18-2024 Bamboo flowsheet Vesna GORDON Work Phone: [facility] Start: 06-18-2024 End: 06-18-2024 Bamboo flowsheet Vesna Monroy PA Work Phone: [facility] Start: 06-18-2024 End: 06-18-2024 Office outpatient visit 25 minutes Vesna Monroy PA Work Phone: [facility] Comment on [...] 06-18-2024 End: 06-18-2024 Patient encounter status Vesna GORDON Work Phone: [facility] Start: 06-18-2024 End: 06-18-2024 ambulatory VESNA MONROY Not Available Start: 05-18-2024 End: 05-18-2024 ambulatory Ashli Castellanos Facility:[facility] Start: 05-18-2024 End: 05-18-2024 Patient encounter procedure Ashli Castellanos [facility] Start: 05-07-2024 ambulatory Ashli Castellanos Facili ty:[facility] Start: 05-04-2024 End: 05-04-2024 Bamboo flowsheet Tan [...] 04-23-2024 End: 05-04-2024 Orders Only Cassi Santiago ANALYSIS CONSULTANT Work Phone: [facility] Comment on [...] 11-25-2023 ambulatory TAN CAPPS Not Available Start: 11-06-2022 End: 11-08-2022 Evaluation and management of inpatient DR SCOTT MERINO Facility:[facility] Start: 08-07-2022 Encounter for genera l adult medical examination without abnormal findings DR SCOTT MERINO [facility] Start: 08-06-2022 End: 08-07-[address] SCOTT MERINO Facility:[facility] Start: 08-06-2022 End: 08-07-2022 Encounter for general adult medical examination without abnormal findings DR SCOTT MERINO Facility:[facility] Procedures Date Procedure Procedure Detail Performing Clinician Start: 11-05-2024 Assay of prostate specific antigen total Lisa Morelos ANALYSIS CONSULTANT Work Phone: Start: 11-05-2024 URINARY TRACT INFECTION (HTRX) Lisa hoffmann ANALYSIS CONSULTANT Work Phone: Start: 11-05-2024 Urnls dip stick/tablet rgnt non-auto w/o micrscp Lisa Morelos ANALYSIS CONSULTANT Work Phone: Start: 10-13-2024 Hemoglobin glycosylated a1c Vesna Whitaker er PA Work Phone: Start: 10-13-2024 Urnls dip stick/tablet rgnt non-auto w/o micrscp Vesna Monroy PA Work Phone: Start: 06-26-2024 Colonoscopy Ashli Patelmini Start: 06-26-2024 Esophagogastroduodenoscopy Ashli Donaldson ini Start: 02-26-2024 Hemoglobin glycosylated a1c Tan brooks MD Work Phone: Start: 08-06-[address] SCOTT MERINO Comment on above: Performed By: #### ABGCO #### [facility] [address] [place] [address] Dr. Anthony Mckenna Colonoscopy Ashli Patelmin i Partial resection of colon Garrett Castellanos Plan of Treatment Date Care Activity Detail Author Start: 10-13-2025 Urine screening for protein Diabetes: Urine Protein Screening [facility] Start: 06-21-2025 Glaucoma screening Diabetes: R etinopathy Screening [facility] Start: 03-08-2025 Influenza vaccination Influenz a Vaccine (Season Ended) [facility] Start: 01-12-2025 Hemoglobin A1c measurement Diabetes: Hemoglobin A1C [facility] Start: 10-13-2024 End: 10-13-2025 Microalbumin/Creatinine panel in random Urine Microalbumin / creatinine, urine ratio Lab Routine Type 2 diabetes mellitus without complication, without long-term current use of insulin Expected: 10/13/2024 (Approximate), Expires: 10/13/2025 [facility] Work Phone: Comment on above: Expected: 10/13/2024 (Approximate), Expires: 10/13/2025 Start: 10-13-2024 End: 10-13-2025 URINARY TRACT INFECTION (HTRX) URINARY TRACT INFECTION (HTRX) Lab Routine Acute cystitis with hematuria Expected: 10/13/2024 (Approximate), Expires: 10/13/2025 [facility] Comment on above: Expected: 10/13/2024 (Approximate), Expires: 10/13/2025 Start: 10-13-2024 End: 10-13-2024 Patient encounter procedure 10/13/2024 1:30 PM EDT Office Visit [facility] [address] [facility] [address] [place] [id number] Vesna Monroy PA [address] [facility] [address] [place] [address] Arrived [facility] Comment on above: Arrived Start: 09-09-2024 End: 09-09-2025 Amylase [Enzymatic activity/volume] in Serum or Plasma Amylase Lab Routine Generalized abdominal pain Nausea and vomiting, unspecified vomiting type Expected: 09/09/2024 (Approximate), Expires: 09/09/2025 [facility] Comment on above: Expected: 09/09/2024 (Approximate), Expires: 09/09/2025 Start: 09-09-2024 End: 09-09-2025 Comprehensive metabolic 2000 panel - Serum or Plasma Comprehensive metabolic panel Lab Routine Generalized abdominal pain Nausea and vomiting, unspecified vomiting type Acute kidney injury (CMS/HCC) Expected: 09/09/2024 (Approximate), Expires: 09/09/2025 [facility] Comment on above: Expected: 09/09/2024 (Approximate), Expires: 09/09/2025 Start: 09-09-2024 End: 09-09-2025 Lipase [Enzymatic activity/volume] in Serum or Plasma Lipase Lab Routine Generalized abdominal pain Nausea and vomiting, unspecified vomiting type Expected: 09/09/2024 (Approximate), Expires: 09/09/2025 [facility] Comment on above: Expected: 09/09/2024 (Approximate), Expires: 09/09/2025 Start: 09-09-2024 End: 09-09-2025 XR Abdomen Single view XR ABDOMEN 2 VIEW Imaging Routine Generalized abdominal pain Expected: 09/09/2024, Expires: 09/09/2025 [facility] Work Phone: Comment on above: Expected: 09/09/2024 , Expires: 09/09/2025 Start: 07-25-2024 Urine screening for protein Diabetes: Urine Protein Screening [facility] Start: 07-23-2024 End: 06-22-2025 B. burgdorferi antibodies B. burgdorferi antibodies Lab Routine Tick bite of lower leg, unspecified laterality, initial encounter Expected: 07/23/2024 (Approximate), Expires: 06/22/2025 [facility] Work Phone: Comment on above: Expected: 07/23/2024 (Approximate), Expires: 06/22/2025 Start: 06-18-2024 End: 06-18-2025 B. burgdorferi antibodies B. burgdorferi antibodies Lab Routine Tick bite of lower leg, unspecified laterality, initial encounter Expected: 06/18/2024 (Approximate), Expires: 06/18/2025 [facility] Comment on above: Expected: 06/18/2024 (Approximate), Expires: 06/18/2025 Start: 06-18-2024 End: 06-18-2025 Basic metabolic 1998 panel - Serum or Plasma Basic metabolic panel Lab Routine Primary hypertension (CMS/HCC) Pre-op testing Type 2 diabetes mellitus without complication, without long-term current use of insulin ([facility]) Expected: 06/18/2024 (Approximate), Expires: 06/18/2025 [facility] Work Phone: Comment on above: Expected: 06/18/2024 (Approximate), Expires: 06/18/2025 Start: 06-18-2024 End: 06-18-2025 CBC panel - Blood by Automated count CBC Lab Routine Primary hypertension ([facility]) Pre-op testing Type 2 diabetes mellitus without complication, without long-term current use of insulin ([facility]) Expected: 06/18/2024 (Approximate), Expires: 06/18/2025 [facility] Comment on above: Expected: 06/18/2024 (Approximate), Expires: 06/18/2025 Start: 06-18-2024 End: 06-18-2024 Patient encounter procedure 06/18/2024 1:00 PM EST Office Visit [facility] [address] [facility] [address] [place] [address] Vesna Monroy PA [address] [place] [address] Arrived [facility] Comment on above: Arrived Start: 05-28-2024 Hemoglobin A1c measurement Diabetes: Hemoglobin A1C [facility] Start: 05-04-2024 End: 05-04-2024 Patient encounter procedure 05/04/2024 1:00 PM EDT Office Visit [facility] [address] [facility] [address] [place] [address] Tan Capps MD [address] [place] [address] Arrived [facility] Comment on above: Arrived Start: 03-08-2024 Influenza vaccination Influenza Vacc ine (#1) [facility] Start: 02-26-2024 End: 02-26-2024 Patient encounter procedure 02/26/2024 1:00 PM EDT Office Visit [facility] [address] [facility] [address] [place] [address] Tan Capps MD [address] [facility] [address] [place] [address] Arrived [facility] Comment on above: Arrived Start: 01-22-2024 Hemoglobin A1c measurement Diabetes: Hemoglobin A1C [facility] Start: 1975 Glaucoma screening Diabetes: R etinopathy Screening [facility] Immunizations Immunization Date Immunization Notes Care Provider Fa cility 01-06-2021 SARS-CoV-2 (COVID-19 ) mRNA BNT-162b2 vax Cornelius [employer] Comment on above: Result Comment: 2022: [id number] 12-16-2020 SARS-CoV-2 (COVID-19 ) mRNA BNT-162b2 vax Cornelius Sarmini [facility] Comment on above: Result Comment: 2022: [id number] Payers Date Payer Category Payer Self-pay 2024 Unknown [id number] 2023 [employer] [id number] 2023 Unknown BCBS BCBS [id number] 2023-Present [phone] [address] [place] [id number] 1965 Unknown [id number] [id number]. 2.593 1965 Unknown [id number] 2.16.840.1.153213.3.579. 2.593 1965 Unknown [id number] 2.16.840.1.711985.3.579. 2.727 1965 Unknown [id number] 2.16.840.1.889698.3.579. 2.727 1965 Unknown [id number] 2.16.840.1.310552.3.579. 2.727 1965 Unknown [id number] 2.16.840.1.733431.3.579. 2.1259 1965 Unknown [id number] 2.16.840.1.764547.3.579. 2.1259 1965 Unknown [id number] 2.16840.1.159204.3.579. 2.1259 1965 Unknown [id number] 2.16.840.1.188736.3.579. 2.1259 1965 Unknown [id number] 2.16.840.1.901316.3.579. 2.1259 1965 Unknown [id number] 2.16.840.1.055311.3.579. 2.1259 1965 Unknown [id number] 2.16.840.1.003638.3.579. 2.1259 1965 Unknown [id number] 2.16.840.1.370578.3.579. 2.1259 1965 Unknown [id number] 2.16.840.1.235527.3.579. 2.727 1959 Unknown [id number] Unknown [id number] [id number]. 2.531 Social History Date Type Detail Facility Start: 07-11-2023 End: 06-18-2024 Tobacco smoking status NJIS Smokes tobacco daily [facility] History of tobacco use Cigarette Smoker [facility] Start: 07-11-2023 End: 06-18-2024 Tobacco use and exposure Smokeless tobacco non-user [facility] Start: 02-26-2024 End: 11-05-2024 Alcoholic beverage intake Lifetime non-drinker (finding) [facility] Start: 07-11-2023 End: 09-08-2024 History of Social function [facility] Start: 07-11-2023 End: 09-08-2024 Humiliation, Afraid, Rape, and Kick questionnaire [HARK] [...] To some extent [facility] (I/We) worried whe er (my/our) food would run out before (I/we) got money to buy more. Never true [facility] Start: 1965 Sex assigned at Not on file [facility] Start: 05-18-2024 End: 07-20-2024 Tobacco smoking status Heavy tobacco smoker (finding) [facility] Are you now , , , , never or living with a partner? [facility] How often to you hav e a drink containing alcohol? Never [facility] Medical Equipment Procedure Code Equipment Code Equipment Origin al Text Equipment Identifier Dates Unknown Unknown 06/26/24 Non Biological Unknown FDA Start: 06-26-2024 Unknown Unknown 06/26/24 Non Biological Unknown [facility] Start: 06-26-2024 Functional Status Date Assessment Result Facility 11-05-2024 Patient Health Quest ionnaire 2 item (PHQ-2) [Reported] [facility] 07-20-2024 Functional Status N/A [facility] 06-26-2024 Functional Status N/A [facility] 05-18-2024 Functional Status N/A [facility] Clinical Notes 02-26-2024 to 11-05-2024 Lisa Morelos, JAKY - 11/05/2024 11:30 AM HEIDI Eckert - 10/13/2024 1:30 PM Alvarado Santiago NP - 09/09/2024 10:00 AM EST Note Date & Type Note Facility 11-05-2024 History of Presen t illness Narrative Images from the original note were not included. Subjective Patient ID: David Ramirez is a 59 y.o. male who presents for a bladder infection. David presents today for urinary issues. He feels like he has to go all the time and then he only goes a little bit. He also has pain with urination. He was also seen at [facility] for breathing issues. Current Outpatient Medications on File Prior to Visit Medication Sig Dispense Refill amitriptyline (Elavil) 50 MG tablet Take 100 mg by mouth at bedtime metoprolol succinate XL (Toprol-XL) 50 MG 24 [...] packs/day: 0.50 Types: Cigarettes Smokeless tobacco: Never Vaping Use Vaping status: Never Used Substance Use Topics Alcohol use: Never Drug use: Never Family History Problem Relation Name Age of Onset Heart disease Mother Colon cancer Mother COPD Father Prostate cancer Father Breast cancer Sister Lung cancer Brother Colon cancer Brother Past Medical History: Diagnosis Date Chronic hoarseness Colon polyps 08/06/2024 COPD (chronic obstructive pulmonary disease) (CMS/HCC) Hypertension (CMS/HCC) Past Surgical History: Procedure Laterality Date COLON SURGERY Subtotal colectomy due to diverticular disease, 2012 COLONOSCOPY W/ POLYPECTOMY 06/26/2024 Visit Vitals Smoking Status Every Day Review of Systems Constitutional: Negative. HENT: Negative. Eyes: Negative. Respiratory: Negative. Cardiovascular: Negative. Gastrointestinal: Negative. Genitourinary: Positive for difficulty urinating. Musculoskeletal: Negative. Skin: Negative. Neurological: Negative. Psychiatric/Behavioral: Negative. Hematological: Negative. Endocrine: Negative. Allergic/Immunologic: Negative. Objective Physical Exam Vitals reviewed. Constitutional: Appearance: Normal appearance. HENT: Head: Normocephalic. Right Ear: External ear normal. Left Ear: External ear normal. Nose: Nose normal. Mouth/Throat: Pharynx: Oropharynx is clear. Eyes: Conjunctiva/sclera: Conjunctivae normal. Cardiovascular: Rate and Rhythm: Normal rate and regular rhythm. Pulses: Normal pulses. Heart sounds: Normal heart sounds. Pulmonary: Effort: Pulmonary effort is normal. Breath sounds: Normal breath sounds. Abdominal: Palpations: Abdomen is soft. Genitourinary: Comments: Urinary frequency, urgency, dysuria Musculoskeletal: General: Normal range of motion. Cervical back: Normal range of motion. Skin: General: Skin is warm and dry. Neurological: General: No focal deficit present. Mental Status: He is alert and oriented to person, place, and time. Psychiatric: Mood and Affect: Mood normal. Behavior: Behavior normal. Thought Content: Thought content normal. Judgment: Judgment normal. 1. COPD exacerbation (CMS/HCC) (Primary) Stable 2. Urinary frequency Discussed use of flomax and its most common side effects. - tamsulosin (Flomax) 0.4 MG 24 hr capsule; Take 1 capsule (0.4 mg) by mouth at bedtime Dispense: 30 capsule; Refill: 1 - POCT Urinalysis dipstick - URINARY TRACT INFECTION (HTRX); Future - URINARY TRACT INFECTION (HTRX) 3. Urine retention - tamsulosin (Flomax) 0.4 MG 24 hr capsule; Take 1 capsule (0.4 mg) by mouth at bedtime Dispense: 30 capsule; Refill: 1 - PSA; Future - PSA - POCT Urinalysis dipstick - URINARY TRACT INFECTION (HTRX); Future - URINARY TRACT INFECTION (HTRX) 4. Dysuria Discussed diagnosis, use of cipro and its most common side effects. He is advised to increase his fluids, rest, continue the medication as ordered and follow up as discussed. He is made aware that he would be notified of the result of his urine when completed. Follow up as discussed. - ciprofloxacin (Cipro) 500 MG tablet; Take 1 tablet (500 mg) by mouth in the morning and 1 tablet (500 mg) before bedtime. Do all this for 10 days. Dispense: 20 tablet; Refill: 0 - POCT Urinalysis dipstick - URINARY TRACT INFECTION (HTRX); Future - URINARY TRACT INFECTION (HTRX) 5. Difficulty urinating - PSA; Future - PSA - POCT Urinalysis dipstick - URINARY TRACT INFECTION (HTRX); Future - URINARY TRACT INFECTION (HTRX) Assessment/Plan No follow-ups on file. documented in this encounter [facility] 10-13-2024 History of Presen t illness Narrative Images from the original note were not included. HPI Med Refill Additional comments: Metoprolol Last edited by Tammy Wallace LPN on 10/13/2024 1:39 PM. Subjective Patient ID: David Ramirez is a 59 y.o. male who presents for possible UTI. David is present today for evaluation of possible UTI. Admits dysuria, chills, body aches. He has had this since Saturday evening. He has been taking Advil and herbal tea. Doesn't drink enough water. Does drink Gatorade. Current Outpatient Medications on File Prior to Visit Medication Sig Dispense Refill amitriptyline (Elavil) 50 MG tablet Take 100 mg by mouth at bedtime Semaglutide,0.25 or 0.5MG/DOS, (Ozempic, 0.25 or 0.5 MG/DOSE,) 2 MG/3ML solution pen-injector INJECT 0.5 MG UNDER THE SKIN 1 (ONE) TIME PER WEEK 9 mL 3 [DISCONTINUED] esomeprazole (NexIUM) [address] capsule Take 1 capsule (40 mg) by mouth in the morning. Take before meals. Do not open capsule.. 30 capsule 1 [DISCONTINUED] famotidine (Pepcid) 20 MG tablet Take 20 mg by mouth Daily [DISCONTINUED] metoprolol succinate XL (Toprol-XL) 50 MG 24 hr tablet Take 1 tablet (50 mg) by mouth Daily 100 tablet 3 No current facility-administered medications on file prior to visit. I have reviewed and reconciled the history and medication list with the patient today. No Known Allergies Social History Tobacco Use Smoking status: Every Day Current packs/day: 0.50 Types: Cigarettes Smokeless tobacco: Never Vaping Use Vaping status: Never Used Substance Use Topics Alcohol use: Never Drug use: Never Family History Problem Relation Name Age of Onset Heart disease Mother Colon cancer Mother COPD Father Prostate cancer Father Breast cancer Sister Lung cancer Brother Colon cancer Brother Past Medical History: Diagnosis Date Chronic hoarseness Colon polyps 08/06/2024 COPD (chronic obstructive pulmonary disease) (CMS/HCC) Hypertension (CMS/HCC) Past Surgical History: Procedure Laterality Date COLON SURGERY Subtotal colectomy due to diverticular disease, 2012 COLONOSCOPY W/ POLYPECTOMY 06/26/2024 Visit Vitals BP 108/72 Pulse 76 Temp 98.7 F Resp 16 Ht 5' 10 Wt 239 lb 12.8 oz SpO2 96% BMI 34.41 kg/m Smoking Status Every Day BSA 2.32 m Review of Systems Constitutional: Positive for chills and fatigue. Negative for fever. Respiratory: Negative for cough, shortness of breath and wheezing. Cardiovascular: Negative for chest pain, palpitations and leg swelling. Gastrointestinal: Negative for abdominal pain, constipation, diarrhea, nausea and vomiting. Genitourinary: Positive for dysuria. Musculoskeletal: Positive for myalgias. Skin: Negative for rash. Neurological: Positive for dizziness. Psychiatric/Behavioral: Positive for sleep disturbance. Objective Physical Exam Constitutional: General: He is not in acute distress. Appearance: He is obese. He is ill-appearing (Mildly). HENT: Head: Normocephalic and atraumatic. Eyes: General: No scleral icterus. Cardiovascular: Rate and Rhythm: Normal rate and regular rhythm. Heart sounds: No murmur heard. Pulmonary: Effort: Pulmonary effort is normal. No respiratory distress. Breath sounds: Normal breath sounds. No wheezing, rhonchi or rales. Abdominal: Palpations: Abdomen is soft. Tenderness: There is no abdominal tenderness. There is no right CVA tenderness, left CVA tenderness or guarding. Musculoskeletal: General: No swelling. Skin: General: Skin is warm and dry. Neurological: General: No focal deficit present. Mental Status: He is alert and oriented to person, place, and time. Psychiatric: Mood and Affect: Mood normal. Behavior: Behavior normal. Office Visit on 10/13/2024 Component Date Value Ref Range Status Hemoglobin A1C 10/13/2024 5.9 Final Color, UA 10/13/2024 Dark [place] Final Clarity, UA 10/13/2024 Cloudy Final Glucose, UA 10/13/2024 Negative Negative - 2000(110) ++++ mg/dL Final Bilirubin, UA 10/13/2024 1+ Negative - 4(70) +++ mg/dL Final Ketones, UA 10/13/2024 Negative Negative - 160(16) ++++ mg/dL Final Spec Grav, UA 10/13/2024 1.025 1 - 1.03 Final Blood, UA 10/13/2024 Positive Negative - 50 Valeriy/mcL Final Moderate pH, UA 10/13/2024 5.0 5 - 9 Final Protein, UA 10/13/2024 Trace Negative - 2000(20) ++++ mg/dL Final Urobilinogen, UA 10/13/2024 0.2 0.2 - 12 mg/dL Final Leukocytes, UA 10/13/2024 Moderate Negative - 500+++ Laureano/mcL Final Nitrite, UA 10/13/2024 Positive Negative - Positive Final Assessment/Plan Diagnoses and all orders for this visit: Acute cystitis with hematuria - URINARY TRACT INFECTION (HTRX); Future - ciprofloxacin (Cipro) 500 MG tablet; Take 1 tablet (500 mg) by mouth in the morning and 1 tablet (500 mg) before bedtime. Do all this for 7 days. - phenazopyridine (Pyridium) 200 MG tablet; Take 1 tablet (200 mg) by mouth 3 (three) times a day as needed for bladder spasms for up to 2 days Start the above medications as directed. Provided patient with prescription for Pyridium for symptomatic relief. Advised of potential side effects including discoloration of urine. Increase water intake, get plenty of rest. Advised patient that the urine will be sent out for culture. May need to change the antibiotic based on the culture results. Cranberry juice ok. If patient develops any N/V, fever, or symptoms dramatically increase, the patient is to go to the ER. Otherwise follow up at our office if no improvement in one week. Urine sample obtained today for Microalbumin. Type 2 diabetes mellitus without complication, without long-term current use of insulin - POCT Glycated hemoglobin, total - Microalbumin / creatinine, urine ratio; Future HgbA1c well controlled at this time at 5.9. Continue Semaglutide as prescribed. Will recheck HgbA1c in 6 months. Dysuria - POCT Urinalysis dipstick UA abnormal and will be sent for culture. Primary hypertension (CMS/HCC) - metoprolol succinate XL (Toprol-XL) 50 MG 24 hr tablet; Take 1 tablet (50 mg) by mouth Daily Patient's blood pressure is currently well controlled. Continue with current medications and I will continue to monitor. Goal BP remains less than 130/80. Follow up in about 6 months (around 04/14/2025) for Wellness. documented in this encounter [facility] 09-09-2024 History of Presen t illness Narrative Images from the original note were not included. Subjective Patient ID: David Ramirez is a 59 y.o. male who presents for an ER F/U. David presents today for an ER F/U for acute kidney injury and gastroenteritis. Abdominal Pain This is a recurrent problem. The current episode started more than 1 month ago. The onset quality is sudden. The problem occurs constantly. The problem has been unchanged. The pain is located in the LUQ. The pain is at a severity of 8/10. The quality of the pain is tearing. The abdominal pain radiates to the epigastric region. Associated symptoms include arthralgias, belching, diarrhea, a fever, flatus, frequency, melena, myalgias and nausea. Pertinent negatives include no anorexia, constipation, dysuria, headaches, hematochezia, hematuria, vomiting or weight loss. The pain is aggravated by eating. The pain is relieved by Bowel movements. Prior diagnostic workup includes GI consult, lower endoscopy and upper endoscopy. Current Outpatient Medications on File Prior to Visit Medication Sig Dispense Refill amitriptyline (Elavil) 50 MG tablet Take 100 mg by mouth at bedtime esomeprazole (NexIUM) [address] capsule Take 1 capsule (40 mg) by mouth in the morning. Take before meals. Do not open capsule.. 30 capsule 1 metoprolol succinate XL (Toprol-XL) 50 MG 24 [...] packs/day: 0.50 Types: Cigarettes Smokeless tobacco: Never Vaping Use Vaping status: Never Used Substance Use Topics Alcohol use: Never Drug use: Never Family History Problem Relation Name Age of Onset Heart disease Mother Colon cancer Mother COPD Father Prostate cancer Father Breast cancer Sister Lung cancer Brother Colon cancer Brother Past Medical History: Diagnosis Date Chronic hoarseness Colon polyps 08/06/2024 COPD (chronic obstructive pulmonary disease) (CMS/HCC) Hypertension (CMS/HCC) Past Surgical History: Procedure Laterality Date COLON SURGERY Subtotal colectomy due to diverticular disease, 2012 COLONOSCOPY W/ POLYPECTOMY 06/26/2024 Visit Vitals Smoking Status Every Day Review of Systems Constitutional: Positive for fever. Negative for weight loss. Gastrointestinal: Positive for abdominal pain, diarrhea, flatus, melena and nausea. Negative for anorexia, constipation, hematochezia and vomiting. Genitourinary: Positive for frequency. Negative for dysuria and hematuria. Musculoskeletal: Positive for arthralgias and myalgias. Neurological: Negative for headaches. Objective Physical Exam Vitals reviewed. Constitutional: Appearance: Normal appearance. HENT: Head: Normocephalic. Mouth/Throat: Mouth: Mucous membranes are moist. Pharynx: Oropharynx is clear. Cardiovascular: Rate and Rhythm: Normal rate. Pulmonary: Effort: Pulmonary effort is normal. Abdominal: Palpations: Abdomen is soft. Comments: Hypoactive x 4 Skin: General: Skin is warm and dry. Neurological: General: No focal deficit present. Mental Status: He is alert and oriented to person, place, and time. Psychiatric: Mood and Affect: Mood normal. Behavior: Behavior normal. Thought Content: Thought content normal. Assessment/Plan Diagnoses and all orders for this visit: Generalized abdominal pain - XR ABDOMEN 2 VIEW; Future - Comprehensive metabolic panel; Future - Lipase; Future - Amylase; Future The pain is not like a reflux pain per pt. Once Pepcid is gone, he can stop medication. Will check an abdominal xray as this was not completed at the ER. He is on ozempic. Discussed eating smaller, more frequent meals. Await results of xray. Nausea and vomiting, unspecified vomiting type - Comprehensive metabolic panel; Future - Lipase; Future - Amylase; Future Bowel sounds are hypoactive. Discussed eating small frequent meals. He is on ozempic therefore he is at risk for pancreatitis. Will check an amylase and lipase. Acute kidney injury (CMS/HCC) - Comprehensive metabolic panel; Future Encouraged hydration. GFR was 53 in the ER. Will recheck labs. He is feeling about the same as he did in the ER. 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CMS/HCC) We discussed today, the importance of proper diabetic control. We discussed possible complications of diabetes, including loss of vision, renal failure, increased risk of heart attacks and strokes, blood vessel and/or nerve damage. We discussed the recommended changes to reduce your blood sugars and minimize the risk of these complications. We discussed diabetic goals, including keeping A1C <7.0% and blood pressure < 130/70. The plan for achieving these goals is adherence to medications, diet, and regular activity as discussed during today's visit. We discussed current barriers to achieving these goals. We discussed dietary goals. We discussed calorie counting, as well as decreasing carbohydrate and simple sugar intake. Reviewed portion control with the patient. If the patient still has questions on this, a referral to a Dietitian can be arranged. I reviewed medications that aid in diabetic control. We discussed proper dosing and educated the patient on possible side effects and complications. The patient verbalized understanding of these instructions. No follow-ups on file. documented in this encounter [facility] 06-26-2024 Evaluation + Plan note Extrac damon from: Title:ANES Post-operative Note---General Author: Ricardo Soria MD. Date:06/26/24 Plan Transfer/Discharge: Transfer/Discharge Discharge when meets criteria ( To home ). Extracted from: Title:MICHAEL Pre-operative Note 2022 Author:Ricardo Duffy. Date:06/26/24 Plan [place] [employer] (ASA) physical status classification: Class III. Anesthetic Preoperative Plan: Anesthesia General. Extracted from: Title:1Preop H&P Author:Jasmin KINSEY, Ashli skaggs Date:06/26/24 Impression and Plan Impression: Left-sided abdominal pain, family history of colon cancer Plan: -EGD and Colonoscopy Future Scheduled Tests Laboratory* CBC w/ Auto Diff 05/18/24 * Comprehensive Metabolic Panel 05/18/24 [facility] 12-20-2024 Hospital Discharge instructions Patient Education 06/26/2024 11:07:25 Colonoscopy, Care After Surgery Salam (CUSTOM) Colonoscopy Care After Surgery Please read the instructions outlined below and refer to this sheet in the next few weeks. These discharge instructions provide you with general information on [facility] Your doctor may also give you specific [...] day. 06/26/2024 11:07:23 Endoscopy, Care After Procedure [facility] Endoscopy Care After Procedure Please read the instructions outlined below and refer to this sheet in the next few weeks. These discharge instructions provide you with general information [facility] Your doctor may also give you [...] blood. Document Released: 02/05/2005 Document Re-Released: 12/16/2006 ExitCare Patient Information 2010 [employer]. 06/26/2024 11:07:19 Colon Polyps Colon Polyps Colon [...] hard liquor (44 mL). General instructions Take qeaf-ylp-uehmdov and prescription medicines only as told by [...] provider. Document Revised: 10/12/2020 Document Reviewed: 10/12/2020 [employer] Patient Education 2023 [employer]. 06/26/2024 11:06:58 Esophagitis Esophagitis Esophagitis is inflammation [...] Follow these instructions at home: Medicines Take bohr-myt-osfpwlz and prescription medicines only as told by [...] powder, vinegar, hot sauces, and barbecue sauce. ?[place] fruit juices and citrus fruits, such as oranges, kristin, and limes. ?Tomato-based foods, such as red sauce, chili, salsa, and pizza with red sauce. ?Fried and fatty foods, such as donuts, turkmen fries, potato chips, and high-fat dressings. ?High-fat [...] provider. Document Revised: 01/02/2021 Document Reviewed: 01/02/2021 [employer] Patient Education 2023 [employer]. 06/26/2024 11:06:48 Pardo's Esophagus Pardo's Esophagus Pardo's [...] drinks. ?Tomatoes and foods made with tomatoes. ?[place] or spicy foods. ?Chocolate and peppermint. Do not drink alcohol. General instructions Take dbsn-hhs-fbqgowp and prescription medicines only as told by [...] provider. Document Revised: 09/10/2020 Document Reviewed: 09/10/2020 [employer] Patient Education 2023 [employer]. Follow Up Care 05/18/2024 08:57:16 With:Jasmin KINSEY, SAMMY [place], [facility] Address: [address] [place] [address], [address] [address] [phone] When: Unknown Comments:Office will call to schedule follow up appointment and/or review any pending biopsy resultsCall forany problems. [facility] 12-20-2024 NoteProgress Note-Physician Patient: DAVID RAMIREZ Age: 59 years Sex: Male : 1965 Associated Diagnoses: None Author: Ricardo Soria MD Postoperative Information Postoperative disposition: Postoperative disposition: To PACU. Optimetrix number: Optimetrix number [id number]. Anesthetic utilized: General. Health Status Allergies: Allergic [...] Discharge when meets criteria ( To home ).[facility] above:Result Comment: Electronically Signed By: Ricardo Soria MD\.br\Date and Time Signed: 06/26/24 12:43 EST 06-26-2024 [...] [facility] Your doctor may also give you specific [...] blood. Document Released: 02/05/2005 Document Re-Released: 12/16/2006 ExitCare??? Patient Information ???2009 [employer]. Gastroenterology Esophagitis Esophagitis is inflammation of the [...] Radiation or chemotherapy treatm (more content not included)...[facility] NoteEndoscopic Procedure Report - Other Patient: DAVID RAMIREZ Age: 59 years Sex: Male : 1965 Associated Diagnoses: None Author: Ashli Castellanos MD Pre-Procedure Procedure Date 06/26/2024 10:30:00 . Procedure Type: Colonoscopy with removal of tumor(s), polyp(s), or other lesion(s) by cold snare technique, endoscopic mucosal resection. Procedure provider Performed by Ashli Castellanos MD. Current history and physical Reviewed. Colonoscopy (257225526). Partial colectomy (034328737).. Past Medical History No active or resolved past medical history items have been selected or recorded.. reviewed. Family History Breast cancer Sister Heart disease Mother COPD Father Lung cancer Brother Prostate cancer Father Malignant neoplasm of colon Mother Sister . Procedure History Colonoscopy (169318264). Partial colectomy (658317259).. Colorectal neoplasm risk assessment High risk Family [...] Daily, # 90 cap(s), Refills(s) 3, Pharmacy: [facility]/pharmacy #[id number], 177.8, cm, 05/18/24 8:14:00 EST, [...] normal colonic mucosa Images Procedure images: Rec1_hd_video__40_10_[id number].jpg Rec1_hd_video__39_20_092.jpg Rec1_hd_video__37_02_922.jpg Rec1_hd_video__37_10_845.jpg Rec1_hd_video__34_54_568.jpg Rec1_hd_video__33_07_834.jpg Rec1_hd_video_0_33_05_189.jpg Rec1_hd_video__32_43_733.jpg Rec1_hd_video_T10_32_05_965.jpg Rec1_hd_video_2023__T10_31_58_746.jpg Rec1_hd_video_2023__T10_30_49_132.jpg Rec1_hd_video_2023__T10_30_39_481.jpg Rec1_hd_video_2023__T10_30_18_132.jpg Rec1_hd_video_2023__T10_29_49_794.jpg Rec1_hd_video_2023__T10_29_20_576.jpg Rec1_hd_video_2023__T10_21_50_[id number].jpg (Inserted Image. Unable to (more content not included)...[facility] CompanyComment on above:Result Comment: Electronically Signed By: Jasmin KINSEY, Ashli Hinojosa\.br\Date and Time Signed: 06/26/24 10:32 ESTOther Comment: Missing Attachment - attachment storage system not supported [id number] Can be viewed in source system Missing Attachment - attachment storage system not supported [id number] Can be viewed in source systemMissing Attachment - attachment storage system not supported [id number] Can be viewed in source systemMissing Attachment - attachment storage system not supported [id number] Can be viewed in source systemMissing Attachment - attachment storage system not supported [id number] Can be viewed in source systemMissing Attachment - attachment storage system not supported [id number] Can be viewed in source systemMissing Attachment - attachment storage system not supported [id number] Can be viewed in source systemMissing Attachment - attachment storage system not supported [id number] Can be viewed in source system Missing Attachment - attachment storage system not supported [id number] Can be viewed in source systemMissing Attachment - attachment storage system not supported [id number] Can be viewed in source systemMissing Attachment - attachment storage system not supported [id number] Can be viewed in source systemMissing Attachment - attachment storage system not supported [id number] Can be viewed in source systemMissing Attachment - attachment storage system not supported [id number] Can be viewed in source systemMissing Attachment - attachment storage system not supported [id number] Can be viewed in source systemMissing Attachment - attachment storage system not supported [id number] Can be viewed in source system Missing Attachment - attachment storage system not supported [id number] Can be viewed in source systemMissing Attachment - attachment storage system not supported [id number] Can be viewed in source systemMissing Attachment - attachment storage system not supported [id number] Can be viewed in source [phone] NoteProgress Note-Physician Patient: DAVID RAMIREZ Age: 59 years Sex: Male : 1965 Associated Diagnoses: None Author: Yang KINSEY, Ricardo Ramírez Preoperative Information Anesthesia Preop Info: Time patient [...] Daily, # 90 cap(s), Refills(s) 3, Pharmacy: [facility]/pharmacy #[id number], 177.8, cm, 05/18/24 8:14:00 EST, Height/Length Dosing, [...] Chronic obstructive pulmonary disease / SNOMED CT 080428008 / Confirmed History of partial colectomy / SNOMED CT 0305945269 / Confirmed Hypertension / SNOMED CT 3828810165 / Confirmed Left sided abdominal pain / SNOMED CT 868211844 / Confirmed Screen for colon cancer / SNOMED CT 000035434 / Confirmed Tobacco use / SNOMED CT 9013429917 / Confirmed, Active Problems (6) Chronic obstructive [...] of colon Mother Sister Procedure history: Colonoscopy ([id number]). Partial colectomy (763495455). Social History Social & Psychosocial Habits Tobacco [...] Heart Rate Monitored 94 bpm (JUN 26 08:09) Resp Rate 16 br/min (JUN 26 08:09) SBP 133 mmHg (JUN 26 08:09) DBP H 107 mmHg (JUN 26 08:09) Weight 109 kg (JUN 26 08:07) BMI 34.48 (JUN 26 08:) Measurements from flowsheet : Measurements 06/26/2024 8:07 [...] qualifying data available . (more content not included)...[facility] CompanyComment [facility] above: Result Comment: Electronically Signed By: Yang KINSEY, Ricardo Ramírez\.br\Date and Time Signed: 06/26/24 10:13 [id number] NoteEndoscopic Procedure Report - Other Patient: DAVID [...] 4. Normal examined duodenum Images Procedure images: Rec_hd_video____29_504.jpg Rec_hd_video___08_863.jpg Rec1_hd_video____51_227.jpg Rec_hd_video___23_988.jpg Rec1_hd_video____06_929.jpg Rec1_hd_video_2023_12_[id number].jpg . Post-Procedure Complications: none. Estimated blood loss: [...] follow in GI clinic in 1-2 after dischargeRegency Hospital CompanyComment on above:Result Comment: Electronically Signed By: Jasmin KINSEY, Ashli Hinojosa\.br\Date and Time Signed: 06/26/24 10:01 ESTOther Comment: Missing Attachment - attachment storage system not supported [id number] Can be viewed in source system Missing Attachment - attachment storage system not supported [id number] Can be viewed in source systemMissing Attachment - attachment storage system not supported [id number] Can be viewed in source systemMissing Attachment - attachment storage system not supported [id number] Can be viewed in source systemMissing Attachment - attachment storage system not supported [id number] Can be viewed in source systemMissing Attachment - attachment storage system not supported [id number] Can be viewed in source [phone] NoteHistory and Physical Patient: DAVID RAMIREZ Age: [...] Daily, # 90 cap(s), Refills(s) 3, Pharmacy: [facility]/pharmacy #[id number], 177.8, cm, 05/18/24 8:14:00 EST, [...] All Problems Tobacco use / SNOMED CT 9082881478 / Confirmed Left sided abdominal pain / SNOMED CT 424580405 / Confirmed Screen for colon cancer / SNOMED CT 912819200 / Confirmed Chronic obstructive pulmonary disease / SNOMED CT 090009513 / Confirmed Hypertension / SNOMED CT 2030803096 / Confirmed History of partial colectomy / SNOMED CT 1614077323 / Confirmed Histories Past Medical History: No active or resolved past medical history items have been selected or recorded. Family History: Father Prostate cancer COPD Mother Heart disease Malignant neoplasm of colon Brother Lung cancer Sister Breast cancer Malignant neoplasm of colon Procedure history: Colonoscopy ([id number]). Partial colectomy (254431766). Social History Social & Psychosocial Habits Tobacco 05/18/2024 Tobacco Use: 10 or more cigarettes (1/ Smokeless tobacco use: Never Type: Cigarettes . Physical Examination Vital Signs (last 24 hrs) Last Charted Temp Temporal 36.4 DegC (JUN 26 08:) Heart Rate Monitored 94 bpm (JUN 26:) Resp Rate 16 br/min (JUN 26) SBP 133 mmHg (JUN 26:) DBP H 107 mmHg (JUN 26:) Weight 109 kg (JUN 26:) BMI 34.48 (JUN 26:) General: in Nad Abdomen: Soft, NTND Impression and Plan Impression: Left-sided abdominal pain, family history of colon cancer Plan: -EGD and ColonoscopyRegency Hospital CompanyComment on above:Result Comment: Electronically Signed By: Jasmin KINSEY, Ashli Hinojosa\.br\Date and Time Signed: 06/26/24 09:47 [id number] History of Present illness Narrative* HEIDI De Guzman - 06/22/2024 10:23 AM EST Lab order. documented in this encounterChildren[facility] [id number] History of Present illness Narrative* HEIDI De [...] complication, without long-term current use of insulin (CMS/[facility]) - Basic metabolic panel; Future - CBC; [...] 09/16/2024) for Wellness, Diabetes. documented in this encounterChildren's Mercy [id number] Evaluation + Plan note Future Scheduled Tests Laboratory* CBC w/ Auto Diff 05/18/24 * Comprehensive Metabolic Panel 05/18/24 [facility] 10-28-2024 History of Present illness [...] due to diverticular disease, 2012 Visit Vitals Smoking Status Every Day Review [...] No follow-ups on file. documented in this encounterChildren's [facility]cy [id number] Telephone encounter Note* Telephone Encounter - Zoie Hannahhemanth - 04/23/2024 1:27 PM EDT Pt called stating he's had a severe nausea and its able to keep anything down. Were completely booked til Saturday. He's hoping someone can suggest OTC meds or he can get a RX for something. [facility] [place] if anything is prescribed [facility] [id number] Miscellaneous Notes* Telephone Encounter - Zoie Kemp - 04/23/2024 1:27 PM EDT Pt called stating he's had a severe nausea and its able to keep anything down. Were completely booked til Saturday. He's hoping someone can suggest OTC meds or he can get a RX for something. [facility] [place] if anything is prescribed documented in this encounterChildren's Mercy NorthlandFvcbumkess42-04-2013 History of Present illness Narrative* Tan Capps [...] to diverticular disease, 2012 Visit Vitals BP 134/84 Pulse 92 Ht [...] without long-term current use of insulin (CMS/HCC) - POCT Glycated hemoglobin, total - FSBS log shows good control, most recent A1C is at or near goal. Continue current treatment plan as previously outlined without changes. - Down about 20lb in 4 months. Cigarette nicotine dependence without complication Follow up in about 6 months (around 08/28/2024) for DM- A1C. [facility] + Plan note Future Appointments Appointment Date:06/26/2024 08:30:00 AM Scheduled Provider: Location:[facility] Appointment Type:Surgery FT Appointment Date:06/26/2024 09:30:00 AM Scheduled Provider: Location:[facility] Appointment Type:Surgery FT Future Scheduled Tests Laboratory* CBC w/ Auto Diff 05/18/24 * Comprehensive Metabolic Panel 05/18/24 [facility] Evaluation note* Diagnosis Nausea and vomiting, unspecified vomiting type- Primary documented in this encounter [facility]* Diagnosis Postprandial epigastric pain- Primary Screening for colorectal cancer documented in this encounter [facility] Healthcare[facility] note* Diagnosis Primary hypertension (CMS/HCC)- Primary Unspecified essential hypertension Pre-op testing Unspecified pre-operative examination Type 2 diabetes mellitus without complication, without long-term current use of insulin (CMS/HCC) Tobacco user Tobacco use disorder Lip swelling Diseases of lips Diverticulitis of colon Diverticulitis of colon (without mention of hemorrhage) Class 1 obesity due to excess calories with serious comorbidity and body mass index (BMI) of 34.0 to 34.9 in adult Tick bite of lower leg, unspecified laterality, initial encounter documented in this encounter [facility] HealthcareEvaluation note* Diagnosis Tick bite of lower leg, unspecified laterality, initial encounter- Primary documented in this encounter [facility]* Diagnosis Primary hypertension (CMS/HCC)- Primary Unspecified essential hypertension Type 2 diabetes mellitus without complication, without long-term current use of insulin (CMS/HCC) Cigarette nicotine dependence without complication documented in this encounter [facility] HealthcareEvaluation note* Diagnosis Generalized abdominal pain- Primary Abdominal pain, generalized Nausea and vomiting, unspecified vomiting type Acute kidney injury (CMS/HCC) 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[facility]) Type II or unspecified type diabetes mellitus with ophthalmic manifestations, not stated as uncontrolled documented in this encounter [facility] HealthcareEvaluation note* Diagnosis Acute cystitis with hematuria- Primary Type 2 diabetes mellitus without complication, without long-term current use of insulin Dysuria Primary hypertension ([facility]) Unspecified essential hypertension documented in this encounter [facility] HealthcareEvaluation note* Diagnosis COPD exacerbation ([facility])- Primary Obstructive chronic bronchitis with exacerbation Urinary frequency Urine retention Unspecified retention of urine Dysuria Difficulty urinating Other symptoms involving urinary system documented in this encounter [facility] HealthcareHospital course Narrative No data available for this section [facility] Hospital Discharge instructions No data available for this section [facility] Progress note No data available for this section [facility] Summary Purpose Family History No Family History Records Found No data available for this section No data available for this section No Family History Records FoundNo Family History Records Found No data available for this section No Family History Records FoundNo Family History Records FoundNo Family History Records FoundNo Family History Records Found Advance Directives No [...] pital DATE CREATED AUTHOR AUTHOR'S ORGANIZ ATION 07/01/2024 [facility] DATE CREATED AUTHOR AUTHOR'S ORGANIZ ATION 07/09/2024 [facility] DATE CREATED AUTHOR AUTHOR'S ORGANIZ ATION 10/17/2024 [facility] DATE CREATED AUTHOR AUTHOR'S ORGANIZ ATION 11/10/2024 [facility] DATE CREATED AUTHOR AUTHOR'S ORGANIZ ATION 11/11/2024 [facility] DATE CREATED AUTHOR AUTHOR'S ORGANIZ ATION 11/13/2024 [facility] Care Teams (unrecognized sec tion and content) [employer] Relationship Specialty Start Date End Date Tan Capps MD [address] [place] [address] PCP - General Internal Medicine 10/30/23 Tan Capps MD [address] [place] [address] PCP - [employer] 01/06/24 [employer] Relationship Specialty Start Date End Date Tan Capps MD [address] [place] [address] PCP - General Internal Medicine 10/30/23 Tan Capps MD [address] [place] [address] PCP - [employer] 01/06/24 [employer] Relationship Specialty Start Date End Date Tan Capps MD [address] [place] [address] PCP - General Internal Medicine 10/30/23 Tan Capps MD [address] [place] [address] PCP - [employer] 01/06/24 [employer] Relationship Specialty Start Date End Date Tan Capps MD [address] [place] [address] PCP - General Internal Medicine 10/30/23 Tan Capps MD [address] [place] [address] PCP - [employer] 01/06/24 [employer] Relationship Specialty Start Date End Date Tan Capps MD [address] [place] [address] PCP - General Internal Medicine 10/30/23 Tan Capps MD [address] [place] [address] PCP - [employer] 01/06/24 [employer] Relationship Specialty Start Date End Date Tan Capps MD [address] [place] [address] PCP - General Internal Medicine 10/30/23 [employer] Relationship Specialty Start Date End Date Tan Capps MD [address] [place] [address] PCP - General Internal Medicine 10/30/23 [employer] Relationship Specialty Start Date End Date Tan Capps MD [address] [place] [address] PCP - General Internal Medicine 10/30/23 [employer] Relationship Specialty Start Date End Date Tan Capps MD [address] [place] [address] PCP - General Internal Medicine 10/30/23 [employer] Relationship Specialty Start Date End Date Tan Capps MD [address] [place] [address] PCP - General Internal Medicine 10/30/23 [employer] Relationship Specialty Start Date End Date Tan Capps MD [address] [place] [address] PCP - General Internal Medicine 10/30/23 Reason for Visit (unrecogniz ed section and content) Reason Comments bloodwork Pt is scheduled for a colonoscopy/EGD and surgeon advised him to get bloodwork completed and told him to have PCP order. He also would like to be checked for Lyme disease. Has h/o tick bites. Med Refill Fluocinonide Reason Comments Diabetes Hypertension Reason Comments Med Refill Metoprolol FOR RECORDS PERTAINING TO PATIENTS WHO ARE [...] BE BASED ON THE PRIMARY CLINICAL RECORDS. [employer] provides no warranty or guarantee of the accuracy or completeness of information in this document.
[2024-11-19] MEDS: 0.9 % SODIUM CHLORIDE 1,000 ML 1000 ML IV (11:27)
[2024-11-19] MEDS: ONDANSETRON PF 4 MG/2 ML VIAL IV (11:27)
[2024-11-19 11:52] LABS: Basophils Absolute Auto 0.1 10^3/uL (0.0-0.1); Basophils Percent Auto 0.6 % (0.2-2.0); Eosinophils Absolute Auto 0.1 10^3/uL (0.0-0.7); Eosinophils Percent Auto 0.8 % (0.9-7.0); Hematocrit 39.4 % (42.0-54.0); Hemoglobin 13.8 g/dL (14.0-18.0); Immature Granulocytes Abs Auto 0.13 10^3/uL (0.00-0.03); Immature Granulocytes Pct Auto 1.6 % (0.0-0.5); Lymphocytes Absolute Auto 0.9 10^3/uL (1.2-3.8); Lymphocytes Percent Auto 10.2 % (20.5-60.0); Mean Corpuscular Hemoglobin 30.3 pg (25.9-34.0); Mean Corpuscular Volume 86.6 fL (80.0-94.0); Mean Platelet Volume 8.7 fL (9.5-13.5); Monocytes Absolute Auto 1.3 10^3/uL (0.3-0.8); Monocytes Percent Auto 15.1 % (1.7-12.0); Neutrophils Percent Auto 71.7 % (43.0-75.0); Platelet Count 206 10^3/uL (150-450); Red Blood Count 4.55 10^6/uL (4.70-6.10); Red Cell Distribution Width 14.9 % (11.0-15.0); White Blood Count 8.4 10^3/uL (4.0-11.0)
[2024-11-19 12:06] LABS: Alanine Aminotransferase 26 U/L (16-63); Albumin Level 3.3 g/dL (3.4-5.0); Alkaline Phosphatase 56 U/L (46-116); Amylase 46 U/L (25-115); Anion Gap 10.7; Aspartate Amino Transferase 15 U/L (15-37); Bilirubin Direct 0.1 mg/dL (0.0-0.2); Bilirubin Total 0.3 mg/dL (0.2-1.0); Calcium 8.3 mg/dL (8.5-10.1); Carbon Dioxide 27.1 mmol/L (21.0-32.0); Chloride 98 mmol/L (98-107); Estimated GFR (African America >60 (>=60 mL/min/1.73m^2); Estimated GFR (Non-African Ame 55 (>=60 mL/min/1.73m^2); Globulin 3.4 g/dL; Glucose 102 mg/dL (74-106); Potassium 3.8 mmol/L (3.5-5.1); Sodium 132 mmol/L (136-145); Total Protein 6.7 g/dL (6.4-8.2)
== END 2024-11-19 13:31 | disposition home or self-care (01) ==
PROVIDERS: Emergency Provider Emergency Medicine; PCP Internal Medicine
DX: B34.9 Viral infection, unspecified (principal); R50.9 Fever, unspecified
CPT/HCPCS: 36415; 71045; 80048; 80076; 82150; 83690; 85025; 93005; 96361; 96374; 99285; J2405

== ENCOUNTER 2024-12-08 06:40 | Emergency (ER) | payer BC, SELFPAY ==
[2024-12-08] VITALS (19 sets, daily range): BP systolic 127–178; BP diastolic 71–116; PULSE 85–96; TEMP 36.7; O2SAT 95–97; BMI 33.0
--- OUTSIDE RECORDS SUMMARY | 2024-12-08 06:47 | XMS_ITS | CCD ---
Author Organization [facility] Care Team Providers Care Silver Service Waiter Name Role Phone HOUSE, DR CHAVEZ Primary Care Unavailable SHAIKH Aminta YAO Admitting Unavailable ISMAEL ., DR BUCKELY Consulting Unavailable SHAIKH Aminta YAO Attending Unavailable PB, DR LAMIN Peña Consulting Unavailable CHAU MENDOZA Consulting Unavailable SHAIKH Aminta YAO Consulting Unavailable ANGELIQUE, DR CHAVEZ Attending Unavailable MARANA, DR CHAVEZ Consulting Unavailable ANGELIQUE, DR CHAVEZ Primary Care Unavailable ANGELIQUE, DR CHAVEZ Admitting Unavailable Tan Capps MD Primary Care Provider Tan Capps MD Unavailable [phone] SCOTT MERINO Primary Care Physician [phone] Ashli Castellanos Talgiles Referring Unavaila Ashli Jean Talgiles Admitting Unavaila Ashli Jean Attending Unavaila Ashli Jean Attending Unavaila TAN Del Rosario Referring Unavailable sAhli Castellanos Attending Unavaila Edilia Ibarra Attending Unavailable Edilia Zamora Admitting Unavailable Tan Capps Primary Care Unavailable CASSI SANTIAGO Attending Unavailable CASSI SANTIAGO Referring Unavailable TAN CAPPS Attending Unavailable VESNA MONROY Attending Unavailable LISA MORELOS Attending Unavailable CASSI SANTIAGO Attending Unavailable TAN CAPPS Attending Unavailable VESNA MONROY Attending Unavailable Allergies Allergy Classification Reported Allergen(s) Allergy Type Date of Onset Reaction(s) Facility (2 sources) No Known Medication Allergies; Translations: [No Known Medication Allergies] Propensity to adverse reactions (disorder) [facility] Repository Medications Current Medications Medication Drug [...] Refills(s) 0 Start Date: 05/15/24 Status: Ordered [id number] actuat albuterol 0.09 mg/actuat metered dose inhaler (2 sources) beta2-Adrenergic Agonist Start: 11-04-2024 take 2 puff(s) by mouth every six hours as needed for wheezing albuterol HFA 90 mcg/act inhaler INHALE 2 PUFFS BY MOUTH EVERY 6 HOURS NEEDED FOR SHORTNESS OF BREATH OR WHEEZING 11/04/2024 Active ciprofloxacin 500 mg oral tablet (4 sources) [...] 7 days. 14 tablet 10/13/2024 10/20/2024 Active codeine phosphate 2 mg/ml / guaiFENesin 20 mg/ml oral solution (2 sources) Opioid Agonist Start: 11-24-2024 End: 12-01-2024 take 10 mL by mouth four times daily as needed for cough guaiFENesin-codeine (guaiFENesin AC) 100-10 MG/5ML syrup Indications: Acute cough Take 10 mL by mouth 4 (four) times a day as needed for cough for up to 7 days 237 mL 11/24/2024 12/01/2024 Active Fluocinonide (15 sources) Corticosteroid Start: 05-15-2024 [...] with food 21 tablet 06/18/2024 06/25/2024 Active levoFLOXacin 500 mg oral tablet (2 sources) Quinolone Antimicrobial Start: 11-24-2024 End: 12-01-2024 take 1 tablet by mouth once daily levoFLOXacin (Levaquin) 500 MG tablet Indications: Acute exacerbation of chronic obstructive pulmonary disease (COPD) ([facility]) Take 1 tablet (500 mg) by mouth Daily for 7 days 7 tablet 11/24/2024 12/01/2024 Active methylPREDNISolone (2 sources) Corticosteroid Start: 11-24-2024 End: 12-01-2024 methylPREDNISolone (Medrol Dospak) 4 MG tablets Indications: Acute exacerbation of chronic obstructive pulmonary disease (COPD) ([facility]) Follow schedule on package instructions 21 tablet 11/24/2024 12/01/2024 Active 24 hr metoprolol succinate 50 mg extended release oral tablet (20 sources) beta-Adrenergic Gato Start: 11-21-2023 End: 10-13-2024 take 1 tablet by mouth once daily metoprolol succinate XL (Toprol-XL) 50 MG 24 hr tablet Indications: Primary hypertension ([facility]) Take 1 tablet (50 mg) by mouth [...] tablet 10/13/2024 10/15/2024 Active polyethylene glycol 3350 397649 mg / potassium chloride 1480 mg / sodium bicarbonate 5720 mg / sodium chloride 31578 mg powder for oral solution (1 source) Osmotic Laxative Start: 05-18-2024 take 1 dose by mouth once daily NuLYTELY [place] oral powder for reconstitution See Instructions, 1 EA, Refill(s) 0, 240 mL Oral Daily, [facility]pharm[facility] #[id number], 177.8, cm, 05/18/24 8:14:00 EST, Height/Length Dosing, 109, kg, 05/18/24 8:14:00 EST, Weight Dosing Start Date: 05/18/24 Status: Ordered Semaglutide,0.25 or 0.5MG/DOS, (Ozempic, 0.25 or 0.5 MG/DOSE,) 2 MG/3ML solution pen-injector (20 sources) Start: 05-11-2024 Semaglutide,0.25 or 0.5MG/DOS, (Ozempic, [...] Active tamsulosin hydrochloride 0.4 mg oral capsule (4 sources) alpha-Adrenergic Gato Start: 11-05-2024 End: 01-04-2025 [...] take 2 tablets by mouth at bedti me amitriptyline (Elavil) 50 MG tablet Take 100 [...] Translations: [TACHYCARDIA UNSPECIFIED] Onset: 11-14-2022 Episodic Cataract (17 sources) Bilateral age-related nuclear cataracts; Translations: [Age-related nuclear cataract, bilateral] Onset: 03-17-2024 03-17-2024 Chronic Chronic obstructive pulmonary disease and bronchiectasis (20 sources) Chronic obstructive pulmonary disease with (acute) [...] [Dysuria] 10-13-2024 Episodic Miscellaneous mental health disorders (20 sources) Primary insomnia; Translations: [Primary insomnia] Onset: 07-11-2023 07-11-2023 Chronic Nausea and vomiting (2 sources) Nausea and vomiting; Translations: [Nausea with vomiting, unspecified] 04-23-2024 Episodic Other aftercare (1 source) Other manager terminal (current) drug therapy; Translations: [OTH CREDIT CONTROL OFFICER CURRENT DRUG THERAPY] Onset: 11-14-2022 Episodic Other liver diseases (10 sources) Steatosis of liver; Translations: [Fatty (change of) liver, not elsewhere classified] Onset: 07-20-2024 Chronic Other lower respiratory disease (1 source) Wheezing; Translations: [Wheezing] Onset: 11-04-2024 Episodic Other lower respiratory disease (2 sources) Cough; Translations: [Acute cough] 11-24-2024 Episodic Other nervous system disorders (1 source) Chronic pain; Translations: [Other chronic pain] Onset: 06-26-2024 Chronic Other nutritional; endocrine; and metabolic disorders (13 sources) Obesity caused by energy imbalance; Translations: [...] 05-15-2024 05-04-2024 Episodic Blindness and vision defects (17 sources) Bilateral myopia of eyes; Translations: [Myopia, bilateral] Onset: 03-17-2024 03-17-2024 Episodic Other and unspecified benign neoplasm (10 sources) Polyp of colon; Translations: [Polyp of colon] Onset: 07-15-2024 Resolved: 08-06-2024 Episodic Other and unspecified benign neoplasm (8 sources) History of polyp of colon; Translations: [History of colon polyps] Onset: 08-06-2024 08-06-2024 Episodic Other connective tissue disease (20 sources) Muscle pain; Translations: [Myalgia, unspecified site] Onset: 11-05-2023 11-05-2023 Episodic Other gastrointestinal disorders (20 sources) Chronic constipation; Translations: [Other constipation] Onset: 07-11-2023 07-11-2023 Episodic Other nutritional; endocrine; and metabolic disorders (20 sources) Drug-induced obesity; Translations: [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 36.9 in adult] Onset: 10-23-2023 Resolved: 06-18-2024 10-23-2023 Chronic Other screening for suspected conditions (not mental disorders or infectious disease) (14 sources) Patient encounter status; Translations: [Encounter for screening for malignant neoplasm of colon] Onset: 05-15-2024 Resolved: 06-18-2024 05-04-2024 Episodic Residual codes; unclassified (14 sources) History of partial resection of colon; Translations: [Acquired absence of other specified parts of digestive tract] Onset: 06-18-2024 05-15-2024 Episodic Residual codes; unclassified (16 sources) Tobacco user; Translations: [Tobacco use] Onset: 06-18-2024 05-18-2024 Episodic Substance-related disorders (20 sources) Nicotine dependence, cigarettes, uncomplicated; Translations: [Tobacco dependence caused by cigarettes] Onset: 11-14-2022 Resolved: 06-18-2024 07-11-2023 Chronic Results Test Name Value Interpretation Reference Range Facility PSA (FREE AND TOTAL)on 11-18 PSA, % FREE 17 % (calc) Low >25 [facility] Comment on above: Result Comment: PSA(ng/mL) Free PSA(%) Estimated(x) Probability of Cancer(as%) 0-2.5 (*) Approx. 1 2.6-4.0(1) 0-27(2) 24(3) 4.1-10(4) 0-10 56 11-15 28 16-20 20 21-25 16 >or =26 8 >10(+) N/A >50 References:(1)Parvez et al.:Urology 60: 469-474 (2002) (2)Parvez et al.:J.Urol 168: 922-925 (2002) Free PSA(%) Sensitivity(%) Specificity(%) < or = 25 85 19 < or = 30 93 9 (3)Parvez et al.:WEN 277: 5677-7366 (1996) (4)Parvez et al.:WEN 279: 4549-1767 (1998) (x)These estimates vary with age, ethnicity, family history and YEMI results. (*)The diagnostic usefulness of % Free PSA has not been established in patients with total PSA below 2.6 ng/mL (+)In men with PSA above 10 ng/mL, prostate cancer risk is determined by total PSA alone. The Total PSA value from this assay system is standardized against the equimolar PSA standard. The test result will be approximately 20% higher when compared to the WHO-standardized Total PSA (Siemens assay). Comparison of serial PSA results should be interpreted with this fact in mind. PSA was performed using the Radha Jennifer Immunoassay method. Values obtained from different assay methods cannot be used interchangeably. PSA levels, regardless of value, should not be interpreted as absolute evidence of the presence or absence of disease. Performed By: #### 3 1348 #### [facility] [address], [address] [place] [address] Magisterial District Judge: Luca Bell MD PSA, FREE 0.3 ng/mL Normal [facility] Comment on above: Performed By: #### 3 1348 #### [facility] [place] [address] Magisterial District Judge: Luca Bell MD PSA, TOTAL 1.8 ng/mL Normal < OR = 4.0 [facility] Comment on above: Performed By: #### 3 1348 #### [facility] [place] [address] Magisterial District Judge: Luca Bell MD LYME DISEASE ANTIBODIES (IGG ,IGM), IMMUNOBLOTon 11-07-2024 18 KD (IGG) BAND Reactive Abnormal [facility] Comment on above: Order Comment: FASTI NG:YES FASTING: YES Performed By: #### 8 593 #### [facility] [address], [address] [place] [address] Magisterial District Judge: Luca Bell MD 23 KD (IGG) BAND Non-Reactive Normal [facility] Comment on above: Order Comment: FASTI NG:YES FASTING: YES Performed By: #### 8 593 #### [facility] of [address], [address] [place] [address] Magisterial District Judge: Luca Bell MD 23 KD (IGM) BAND Non-Reactive Normal [facility] Comment on above: Order Comment: FASTI NG:YES FASTING: YES Performed By: #### 8 593 #### [facility] of [address], [address] [place] [address] Magisterial District Judge: Luca Bell MD 28 KD (IGG) BAND Non-Reactive Normal [facility] Comment on above: Order Comment: FASTI NG:YES FASTING: YES Performed By: #### 8 593 #### [facility] of [address], [address] [place] [address] Magisterial District Judge: Luca Bell MD 30 KD (IGG) BAND Non-Reactive Normal [facility] Comment on above: Order Comment: FASTI NG:YES FASTING: YES Performed By: #### 8 593 #### [facility] of [address], [address] [place] [address] Magisterial District Judge: Luca Bell MD 39 KD (IGG) BAND Non-Reactive Normal [facility] Comment on above: Order Comment: FASTI NG:YES FASTING: YES Performed By: #### 8 593 #### [facility] of [address], [address] [place] [address] Magisterial District Judge: Luca Bell MD 39 KD (IGM) BAND Non-Reactive Normal [facility] Comment on above: Order Comment: FASTI NG:YES FASTING: YES Performed By: #### 8 593 #### [facility] of [address], [address] [place] [address] Magisterial District Judge: Luca Bell MD 41 KD (IGG) BAND Non-Reactive Normal [facility] Comment on above: Order Comment: FASTI NG:YES FASTING: YES Performed By: #### 8 593 #### [facility] of [address], [address] [place] [address] Magisterial District Judge: Luca Bell MD 41 KD (IGM) BAND Non-Reactive Normal [facility] Comment on above: Order Comment: FASTI NG:YES FASTING: YES Result Comment: Lyme immunoblot testing should only [...] exposure to other spirochetes. Performed By: #### 8 593 #### [facility] [address], [address] [place] [address] Magisterial District Judge: Luca Bell MD 45 KD (IGG) BAND Non-Reactive Normal [facility] Comment on above: Order Comment: FASTI NG:YES FASTING: YES Performed By: #### 8 593 #### [facility] [address], [address] [place] [address] Magisterial District Judge: Luca Bell MD 58 KD (IGG) BAND Non-Reactive Normal [facility] Comment on above: Order Comment: FASTI NG:YES FASTING: YES Performed By: #### 8 593 #### [facility] [address], [address] [place] [address] Magisterial District Judge: Luca Bell MD 66 KD (IGG) BAND Non-Reactive Normal [facility] Comment on above: Order Comment: FASTI NG:YES FASTING: YES Performed By: #### 8 593 #### [facility] [address], [address] [place] [address] Magisterial District Judge: Luca Bell MD 93 KD (IGG) BAND Non-Reactive Normal [facility] Comment on above: Order Comment: FASTI NG:YES FASTING: YES Performed By: #### 8 593 #### [facility] [address], [address] [place] [address] Magisterial District Judge: Luca Bell MD LYME DISEASE AB(IGG),BLOT Negative Normal NEGATIVE [facility] Comment on above: Order Comment: FASTI NG:YES FASTING: YES Performed By: #### 8 593 #### [facility] [address], [address] [place] [address] Magisterial District Judge: Luca Bell MD LYME DISEASE AB(IGM),BLOT Negative Normal NEGATIVE [facility] Comment on above: Order Comment: FASTI NG:YES FASTING: YES Performed By: #### 8 593 #### [facility] [address] [place] [address]e Rd, [address] [place] [address] Magisterial District Judge: Luca Bell MD Laboratory - Chemistry and C hemistry - challengeon 11-06-2024 Prostate specific Ag [Mass/Vol] 3.14 ng/mL < OR = 4.00 [facility] Comment on above: The total PSA value from this assay system is standardized against the WHO standard. The test result will be approximately 20% lower when compared to the equimolar-standardized total PSA (Radha Jennifer). Comparison of serial PSA results should be interpreted with this fact in mind. This test was performed using the Siemens chemiluminescent method. Values obtained from different assay methods cannot be used interchangeably. PSA levels, regardless of value, should not be interpreted as absolute evidence of the presence or absence of disease. No Panel Informationon 11-06 ACINETOBACTER BAUMANII 0 [facility] ACINETOBACTER BAUMANII Not detected [facility] LANG ALBICANS, PARAPSILOSIS, TROPICALIS 0 [facility] LANG ALBICANS, PARAPSILOSIS, TROPICALIS Not detected [facility] LANG GLABRATA 0 [facility] LANG GLABRATA Not detected [facility] LANG KRUSEI 0 [facility] LANG KRUSEI Not detected [facility] CITROBACTER FREUNDII 0 [facility] CITROBACTER FREUNDII Not detected [facility] ENTEROBACTER AEROGENES, CLOACAE 0 [facility] ENTEROBACTER AEROGENES, CLOACAE Not detected [facility] ENTEROCOCCUS FAECALIS, FAECIUM 0 [facility] ENTEROCOCCUS FAECALIS, FAECIUM Not detected [facility] ESCHERICHIA COLI 19.667 Abnormal [facility] ESCHERICHIA COLI Detected Abnormal [facility] Interpretation and review of laboratory results Abnormal [facility] KLEBSIELLA PNEUMONIAE, OXYTOCA 0 [facility] KLEBSIELLA PNEUMONIAE, OXYTOCA Not detected [facility] [...] STREPTOCOCCUS PYOGENES (GROUP A STREP) Not detected [facility] PSA, TOTALon 11-06-2024 PSA, TOTAL 3.14 ng/mL Normal < OR = 4.00 [facility] Comment on above: Order Comment: FASTI NG:YES FASTING: YES Result Comment: The total PSA value from this assay system is standardized against the WHO standard. The test result will be approximately 20% lower when compared to the equimolar-standardized total PSA (Radha Gamaliel). Comparison of serial PSA results should be interpreted with this fact in mind. This test was performed using the Siemens chemiluminescent method. Values obtained from different assay methods cannot be used interchangeably. PSA levels, regardless of value, should not be interpreted as absolute evidence of the presence or absence of disease. Performed By: #### 5 363 #### [facility] [address] Magisterial District Judge: Luca Bell MD Prostate specific Ag [Mass/V ol]on 11-06-2024 FASTING:YES FASTING: YES [place] Organizat ion Information Site ID: QPT Name: [id number] Address: [address] [place] [address], [address] [place] [id number] Director: Luca Bell MD [facility] Reminderson 11-06-2024 Reminders Reminders From: Oksana Barr I To: [facility] - Reminders/Recalls; Sent: 07/15/2024 09:49:56 EST Show up: 11/05/2024 09:49:00 EDT Subject: Colonoscopy recall Due Date/Time: 12/25/2024 09:49:00 EDT Reminder/Recall [address] Castellanos 06/26/24 Patient called and wanted to schedule colonoscopy. I will forward message. patient is scheduled for saturday Normal [facility] Urinalysis macro (dipstick) panel (U)on 11-05-2024 Bilirubin, UA Negative Negative - 4(70) +++ mg/dL [facility] Blood, UA Positive Negative - 50 Valeriy/mcL [facility] Clarity, UA Hazy [facility] Color, UA Straw [facility] Glucose, UA Moderate Negative - 2000(110) ++++ mg/dL [facility] Interpretation and review of laboratory results Abnormal [facility] Ketones, UA Positive Negative - 160(16) ++++ mg/dL [facility] Leukocytes, UA Positive Negative - 500+++ Laureano/mcL [facility] Nitrite, UA Positive Negative - Positive [facility] pH, UA 5 5 - 9 [facility] Protein, UA Negative Negative - 2000(20) ++++ mg/dL [facility] Spec Grav, UA 1 1 - 1.03 [facility] Urobilinogen, UA 0.2 0.2 - 12 mg/dL [facility] XR chest 2V*on 11-04-2024 XR chest 2V* [facility] [place] [address] [place] [address] XRay Report Signed Patient: David Ramirez MR#: [id number] 7 : 1965 Acct:[id number] Age/Sex: 59 / M ADM Date: 11/04/24 Loc: XDUCLY Room: Type: [facility] Attending Dr: Edilia Zamora APRN Copies to: Edilia Zamora APRN Ordering Provider: Edilia Zamora APRN Date of Service: 11/04/24 XR/XR chest 2V*: WHEEZING PA AND LATERAL CHEST: CLINICAL HISTORY: Wheezing COMPARISON: None FINDINGS: Unremarkable cardiomediastinal. Lungs are clear. No effusion or pneumothorax. XR/XR chest 2V* IMPRESSION: NO ACUTE CARDIOPULMONARY ABNORMALITY. Impression dictated by: Donte Solis M.D. 11/04/2024 4:46 PM Dictation Location: [place] [address] Transcribed By: [facility] 11/04/241645 Dictated By: Donte Solis MD 11/04/241644 Signed By: 11/04/241645 Normal [facility] Reminderson 10-21-2024 Reminders Reminders From: Kandice Alfaro To: Nicki Mendoza; Kandice Alfaro; Sent: 08/18/2024 14:35:22 EST Show up: 10/16/2024 15:35:00 EDT Subject: Ambulatory Reminder Due Date/Time: 11/15/2024 15:35:00 EDT Reminder Please call the patient and to schedule colonoscopy in November for 6 months follow-up colonoscopy with Dr Castellanos. SCHEDULED 12-07-2024 Normal [facility] ALBUMIN, RANDOM URINE W/CREA RANDEE 10-15-2024 ALBUMIN, URINE 4.7 mg/dL Normal See Note: [facility] Comment on above: Result Comment: Reftimmy estrada Range: Reference Range Not established Performed By: #### 6 517 #### [facility] [address], [address] [place], [place] [id number] Magisterial District Judge: Luca Bell MD ALBUMIN/CREATININE RATIO, RANDOM URINE [...] By: #### 6 517 #### [facility] [address], [address] [place], [place] [id number] Magisterial District Judge: Luca Bell MD Creatinine (U) [Mass/Vol] 173 mg/dL Normal 20-320 [facility] Comment on above: Performed By: #### 6 517 #### [facility] [address], [address] [place] [address] Magisterial District Judge: Luca Bell MD Laboratory - Hematology and Cell countson 10-13-2024 HbA1c (Bld) [Mass fraction] 5.9 % [facility] No Panel Informationon 10-13 Interpretation and review of laboratory results Abnormal [facility] Urinalysis macro (dipstick) panel (U)on 10-13-2024 Bilirubin, UA 1+ Negative - 4(70) +++ mg/dL [facility] Blood, UA Positive Negative - 50 Valeriy/mcL [facility] Comment on above: Moderate Clarity, UA Cloudy [facility] Color, UA Dark Keyanna [facility] Glucose, UA Negative Negative - 2000(110) ++++ mg/dL [facility] Interpretation and review of laboratory results Abnormal [facility] Ketones, UA Negative Negative - 160(16) ++++ mg/dL [facility] Leukocytes, UA Moderate Negative - 500+++ Laureano/mcL [facility] Nitrite, UA Positive Negative - Positive [facility] pH, UA 5 5 - 9 [facility] Protein, UA Trace Negative - 2000(20) ++++ mg/dL [facility] Spec Grav, UA 1.025 1 - 1.03 [facility] Urobilinogen, UA 0.2 0.2 - 12 mg/dL [facility] XR ABDOMEN 2 VIEWon 09-15-19 25 [...] Amylase [Catalytic activity/Vol] 32 U/L Normal 21-101 [facility] Comment on above: Performed By: #### 2 43, 08396, 606 #### [facility] [place] [address] Magisterial District Judge: Luca Bell MD [facility] METABOLIC PANE [facility] 09-10-2024 Albumin [Mass/Vol] 4.4 g/dL Normal 3.6-5.1 [facility] Comment on above: Order Comment: FASTI NG:NO FASTING: NO Performed By: #### 2 43, 15509, 606 #### [facility] [place] [address] Magisterial District Judge: Luca Bell MD Albumin/Globulin [Mass ratio] 1.5 {ratio} Normal 1.0-2.5 [facility] Comment on above: Order Comment: FASTI NG:NO FASTING: NO Performed By: #### 2 43, 79338, 606 #### [facility] [place] [address] Magisterial District Judge: Luca Bell MD ALP [Catalytic activity/Vol] 65 U/L Normal 35-144 [facility] Comment on above: Order Comment: FASTI NG:NO FASTING: NO Performed By: #### 2 43, 99695, 606 #### [facility] [place] [address] Magisterial District Judge: Luca Bell MD ALT [Catalytic activity/Vol] 24 U/L Normal 9-46 [facility] Comment on above: Order Comment: FASTI NG:NO FASTING: NO Performed By: #### 2 43, 81220, 606 #### [facility] [place] [address] Magisterial District Judge: Luca Bell MD AST [Catalytic activity/Vol] 18 U/L Normal 10-35 [facility] Comment on above: Order Comment: FASTI NG:NO FASTING: NO Performed By: #### 2 43, 66716, 606 #### [facility] [place] [address] Magisterial District Judge: Luca Bell MD Bilirubin [Mass/Vol] 0.4 mg/dL Normal 0.2-1.2 [facility] Comment on above: Order Comment: FASTI NG:NO FASTING: NO Performed By: #### 2 43, 61104, 606 #### [facility] [place] [address] Magisterial District Judge: Luca Bell MD BUN/CREATININE RATIO SEE NOTE: Normal 6-22 [facility] Comment on above: Order Comment: FASTI NG:NO FASTING: NO Result Comment: Not Reported: BUN and Creatinine are within reference range. Performed By: #### 2 43, 34740, 606 #### [facility] [place] [address] [place]ial [address] Judge: Luca Bell MD Calcium [Mass/Vol] 9.4 mg/dL Normal 8.6-10.3 [facility] Comment on above: Order Comment: FASTI NG:NO FASTING: NO Performed By: #### 2 43, 82740, 606 #### [facility] [place] [address] Mag[place]ial [place] Judge: Luca Bell MD Chloride [Moles/Vol] 101 mmol/L Normal 98-110 [facility] Comment on above: Order Comment: FASTI NG:NO FASTING: NO Performed By: #### 2 43, 69871, 606 #### [facility] [place] [address] [place] Judge: Luca Bell MD CO2 [Moles/Vol] 28 mmol/L Normal 20-32 [facility] Comment on above: Order Comment: FASTI NG:NO FASTING: NO Performed By: #### 2 43, 49308, 606 #### [facility] [place] [address] Mag[place] Judge: Luca Bell MD Creatinine [Mass/Vol] 1.10 mg/dL Normal 0.70-1.30 [facility] Comment on above: Order Comment: FASTI NG:NO FASTING: NO Performed By: #### 2 43, 11033, 606 #### [facility] [address] [place] [address] Mag[address]ial District Judge: Luca Bell MD GFR/1.73 sq M.predicted among non-blacks MDRD (S/P/Bld) [Vol rate/Area] 77 mL/min/{1.73_m2} Normal > OR = 60 [facility] Comment on above: Order Comment: FASTI NG:NO FASTING: NO Performed By: #### 2 43, 88416, 606 #### [facility] [place] [address] Mag[place]ial District Judge: Luca Bell MD Globulin (S) [Mass/Vol] 2.9 g/dL Normal 1.9-3.7 [facility] Comment on above: Order Comment: FASTI NG:NO FASTING: NO Performed By: #### 2 43, 34648, 606 #### [facility] [place] [address] [place] District Judge: Luca Bell MD Glucose [Mass/Vol] 123 mg/dL Normal 65-139 [facility] Comment on above: Order Comment: FASTI NG:NO FASTING: NO Result Comment: Non-fasting reference interval For someone without known diabetes, a glucose value between 100 and 125 mg/dL is consistent with prediabetes and should be confirmed with a follow-up test. Performed By: #### 2 43, 88217, 606 #### [facility] [place] [address] Mag[place] District Judge: Luca Bell MD Potassium [Moles/Vol] 4.6 mmol/L Normal 3.5-5.3 [facility] Comment on above: Order Comment: FASTI NG:NO FASTING: NO Performed By: #### 2 43, 21810, 606 #### [facility] [place] [address] [place] Judge: Luca Bell MD Protein [Mass/Vol] 7.3 g/dL Normal 6.1-8.1 [facility] Comment on above: Order Comment: FASTI NG:NO FASTING: NO Performed By: #### 2 43, 94335, 606 #### [facility] [address], [address] [place] [address] Mag[place] Judge: Luca Bell MD Sodium [Moles/Vol] 137 mmol/L Normal 135-146 [facility] Comment on above: Order Comment: FASTI NG:NO FASTING: NO Performed By: #### 2 43, 10504, 606 #### [facility] [address], [address] [place] [address] Mag[place] Judge: Luca Bell MD Urea nitrogen [Mass/Vol] 14 mg/dL Normal 7-25 [facility] Comment on above: Order Comment: FASTI NG:NO FASTING: NO Performed By: #### 2 43, 53919, 606 #### [facility] [address], [address] [place] [address] Mag[place] Judge: Luca Bell MD LIPASEon 09-10-2024 Lipase [Catalytic activity/Vol] 36 U/L Normal 7-60 [facility] Comment on above: Performed By: #### 2 43, 25653, 606 #### [facility] [address], [address] [place] [address] Mag[address] [address] Judge: Luca Bell MD Ambulatory Visit Summaryon 0 [...] choosing us for your care. Normal [facility] Gastroenterology Office/Clin ic Noteon 07-20-2024 Gastroenterology Office/Clinic [...] S3 F0/F1 Repeat Fibroscan in 1 year I, Mallorie Paul, personally scribed for Ashli Castellanos on 07/20/2024 [...] 30 days (more content not included)... [facility] Comment on above: Result Comment: Elec tronically Signed By: Ashli Castellanos MD\.br\Date and Time Signed: 07/20/24 08:37 EST\.br\Electronically Co-Signed By: Mallorie Paul MA\.br\Date and Time Co-Signed: 07/20/24 08:36 EST Reminderson 07-20-2024 Reminders Reminders From: Jennifer Salazar To: [facility] - Reminders/Recalls; Sent: 07/20/2024 10:48:47 EST Show up: 05/08/2029 10:48:00 EDT Subject: Ambulatory Reminder Due Date/Time: 06/07/2029 10:48:00 EST Reminder/Recall Addendum by Jennifer Salazar on July 20, 2024 10:47:44 EST 06/26/2029 From: Ashli Castellanos MD To: Jennifer Salazar; Sent: 07/20/2024 08:34:22 EST Subject: General Message Caller Name: DAVID RAMIREZ; Caller Number: , M Repeat EGD in 5 years [facility] Surgical Pathology Reporton 07-03-2024 Surgical Pathology Report [address] [place] [address]- Surgical Pathology Report Collected Date/Time: 06/26/2024 09:59 [...] PhD, Anthony Pro Received Date/Time: 06/26/2024 11:29 LISHA Castellanos MD, Ashli Castellanos MD, Ashli Hinojosa Gross Description [...] and entirely submitted in one cassette. (DC) DC:[facility] Microscopic Description Microscopic examination performed unless gross only specified. The use of one or more reagents in the above tests is regulated as an analyte specific reagent (ASR). The test or tests are ordered following initial H&E microscopic examination. The performance characteristics were determined by the [facility] of [facility] Surgical Pathology. They have not been cleared or approved by the US Food and Drug Administration. The FDA has determined that such clearance or approval is not necessary. These tests are used for clinical purposes. They should not be regarded as investigational or for research. Appropriate positive and negative controls are performed and are acceptable. [facility] Comment on above: Performed By: #### 4 [id number] #### [facility] [address] [place] [address] Main OR Intraoperative Recor don 06-29-2024 Main OR Intraoperative Record Main OR Intraoperative Record IntraOp Document Type FT Summary Primary Physician: Ashli Castellanos MD Finalized Date/Time: 06/29/24 10:36:59 Pt. Name: DAVID RAMIREZ./Sex: 1965 Male Med Rec #: [id number] Physician: Ashli Castellanos MD Financial #: [id number] Pt. Type: O Room/Bed: / Admit/Disch: 06/26/24 [...] Mohamud RN, Shelia Suarez Role Performed Anesthesiologist Duty Manager - Primary Scrub - Primary Tailor'S Aide Time In 06/26/24 09:50:00 06/26/24 09:50:00 06/26/24 09:50:00 Time Out 06/26/24 10:32:00 06/26/24 10:32:00 06/26/24 10:32:00 Procedure EGD AND COLONOSCOPY(.) EGD AND COLONOSCOPY(.) EGD AND COLONOSCOPY(.) Comments Dr. Soria is supervising Last Modified By: Cade RN, Sharon Mohamud RN, Sharon Mohamud RN, Sharon Witt 06/26/24 10:30:54 06/26/24 10:30:54 06/26/24 10:30:54 Entry 4 Entry 5 Case Attendee Barry JOY, Regi Castellanos MD, Ashli Hinojosa Role Performed Staff - Other Surgeon - Primary Time In 06/26/24 09:50:00 06/26/24 09:50:00 Time Out 06/26/24 10:32:00 06/26/24 10:32:00 Procedure EGD AND COLONOSCOPY(.) EGD AND COLONOSCOPY(.) Comments Last Modified By: Cade COTTRELL, SharonSharon Rodriguez RN 06/26/24 10:30:54 06/26/24 10:30:54 Perioperative Protocols FT [...] and tissue Entry 1 Skin Integrity Intact, [place], Warm, & Skin Abnormality No Dry Outcomes Met? Y (more content not included)... [facility] Discharge Instructionson Discharge Instructions Discharge Instructions [...] after Discharge Follow Up with Jasmin KINSEY, Ashli Hinojosa [facility] When: Comments: Office will call to schedule follow up appointment and/or review any pending biopsy results Call for any problems. Where: [address] [place], [place] [address], [address] [phone] Medications What How Much When Instructions Next [...] you. SEEK (more content not included)... [facility] Comment on above: Result Comment: Elec tronically Signed By: Vicki COTTRELL, Alejandra\.br\Date and Time Signed: 06/26/24 11:08 EST Inpatient Patient Summaryon 06-26-2024 Inpatient Patient Summary Inpatient Patient Summary [place] [id number] [facility] Clinical Discharge Instructions PERSON INFORMATION Name: DAVID RAMIREZ PHYSICIANS Admitting Physician: Ashli Castellanos MD Attending Physician: Ashli Castellanos MD PCP: SCOTT MERINO DO Discharge Diagnosis: Chronic LUQ pain; Family history of colon cancer; Other chronic pain Comment: PATIENT EDUCATION INFORMATION Instructions: Medication Leaflets: Follow up: Type Location Start [facility] 06/26/2024 8:30 AM 06/26/2024 [...] every week., Responsible Provider: TAN CAPPS Comment: [facility] Main OR PACU I Recordon 06-08 Main OR PACU I Record Main OR PACU I Record PACU Phase I Document Type FT Summary Primary Physician: Ashli Castellanos MD Finalized Date/Time: 06/26/24 11:28:41 Pt. Name: DAVID RAMIREZ/Sex: 1965 Male Med Rec #: [id number] Physician: Ashli Castellanos MD Financial #: [id number] Pt. Type: O Room/Bed: / Admit/Disch: 06/26/24 [...] By: Alejandra Cohen RN 06/26/24 11:28 [facility] Main OR Preoperative Recordo n 06-26-2024 Main OR Preoperative Record Main OR Preoperative Record Holding Area Document Type FT Summary Primary Physician: Ashli Castellanos MD Finalized Date/Time: 06/26/24 08:07:54 Pt. Name: DAVID RAMIREZ/Sex: 1965 Male Med Rec #: [id number] Physician: Ashli Castellanos MD Financial #: [id number] Pt. Type: O Room/Bed: / Admit/Disch: 06/26/24 [...] By: Ting Cameron RN 06/26/24 08:07 [facility] Outpatient Surgery Discharge Instructionon 06-26-2024 Outpatient Surgery Discharge Instruction Outpatient Surgery Discharge Instruction [address] [address] Patient Discharge Instructions PERSON INFORMATION [...] Signature Date Follow up: Type Location Start [facility] 06/26/2024 8:30 AM 06/26/2024 [...] to serve you. Thank you for choosing [facility] HERE ARE THE MEDICATION CHANGES THAT [...] PATIENT EDUCATION INFORMATION Instructions: Medication Leaflets: [facility] BASIC METABOLIC PANELon 12- BUN/CREATININE RATIO SEE NOTE: Normal 6-22 [facility] Comment on above: Order Comment: FASTI NG:NO FASTING: NO Result Comment: Not Reported: BUN and Creatinine are within reference range. Performed By: #### 8 743, 54518, 5679 #### [facility] [address], [address] [place] [id number] Magisterial District Judge: Luca Bell MD Calcium [Mass/Vol] 9.7 mg/dL Normal 8.6-10.3 [facility] Comment on above: Order Comment: FASTI NG:NO FASTING: NO Performed By: #### 8 523, 05185, 0109 #### [facility] [address] [place] [address], [address] [place] [phone] Magisterial District Judge: Luca Bell MD Chloride [Moles/Vol] 103 mmol/L Normal 98-110 [facility] Comment on above: Order Comment: FASTI NG:NO FASTING: NO Performed By: #### 8 593, 55147, 1759 #### [facility] [address], [address] [place] [address] Magisterial District Judge: Luca Bell MD CO2 [Moles/Vol] 24 mmol/L Normal 20-32 [facility] Comment on above: Order Comment: FASTI NG:NO FASTING: NO Performed By: #### 8 593, 98225, 175 #### [facility] [place] [address] Magisterial District Judge: Luca Bell MD Creatinine [Mass/Vol] 1.08 mg/dL Normal 0.70-1.30 [facility] Comment on above: Order Comment: FASTI NG:NO FASTING: NO Performed By: #### 8 593, 64478, 1759 #### [facility] [place] [address] Magisterial District Judge: Luca Bell MD GFR/1.73 sq M.predicted among non-blacks MDRD (S/P/Bld) [Vol rate/Area] 79 mL/min/{1.73_m2} Normal > OR = 60 [facility] Comment on above: Order Comment: FASTI NG:NO FASTING: NO Performed By: #### 8 593, 40977, 175 #### [facility] [place] [address] Mag[place]ial District Judge: Luca Bell MD Glucose [Mass/Vol] 98 mg/dL Normal 65-139 [facility] Comment on above: Order Comment: FASTI NG:NO FASTING: NO Result Comment: Non-fasting reference interval Performed By: #### 8 593, 55892, 1759 #### [facility] [place] [address] Mag[place]ial District Judge: Luca Bell MD Potassium [Moles/Vol] 4.5 mmol/L Normal 3.5-5.3 [facility] Comment on above: Order Comment: FASTI NG:NO FASTING: NO Performed By: #### 8 593, 36396, 1759 #### [facility] of [address], [address] [place] [address] Magisterial District Judge: Luca Bell MD Sodium [Moles/Vol] 137 mmol/L Normal 135-146 [facility] Comment on above: Order Comment: FASTI NG:NO FASTING: NO Performed By: #### 8 593, 67799, 1759 #### [facility] of [address], [address] [place] [address] Magisterial District Judge: Luca Bell MD Urea nitrogen [Mass/Vol] 21 mg/dL Normal 7-25 [facility] Comment on above: Order Comment: FASTI NG:NO FASTING: NO Performed By: #### 8 593, 46261, 175 #### [facility] of [address], [address] [place] [address] Magisterial District Judge: Luca Bell MD CBC (H/H, RBC, INDICES, WBC, PLT)on 06-20-2024 Erythrocyte distribution width (RBC) [Ratio] 14.1 % Normal 11.0-15.0 [facility] Comment on above: Performed By: #### 8 593, 48585, 175 #### [facility] of [place] [address] Magisterial District Judge: Luca Bell MD Hematocrit (Bld) [Volume fraction] 47.7 % Normal 38.5-50.0 [facility] Comment on above: Performed By: #### 8 593, 18162, 175 #### [facility] of [address], [address] [place] [address] Magisterial District Judge: Luca Bell MD Hemoglobin (Bld) [Mass/Vol] 16.3 g/dL Normal 13.2-17.1 [facility] Comment on above: Performed By: #### 8 593, 38595, 175 #### [facility] [address], [address] [place] [address] Magisterial District Judge: Luca Bell MD MCH (RBC) [Entitic mass] 29.3 pg Normal 27.0-33.0 [facility] Comment on above: Performed By: #### 8 593, 56568, 175 #### [facility] [place] [address] Magisterial District Judge: Luca Bell MD MCHC (RBC) [Mass/Vol] 34.2 g/dL Normal 32.0-36.0 [facility] Comment on above: Result Comment: For adults, a slight decrease in the calculated MCHC value (in the range of 30 to 32 g/dL) is most likely not clinically significant; however, it should be interpreted with caution in correlation with other red cell parameters and the patient's clinical condition. Performed By: #### 8 593, 43696, 175 #### [facility] [place] [address] Magisterial District Judge: Luca Bell MD MCV (RBC) [Entitic vol] 85.8 fL Normal 80.0-100.0 [facility] Comment on above: Performed By: #### 8 593, 39724, 175 #### [facility] [place] [address] Magisterial District Judge: Luca Bell MD Platelet mean volume (Bld) [Entitic vol] 9.7 fL Normal 7.5-12.5 [facility] Comment on above: Performed By: #### 8 593, 56691, 175 #### [facility] [place] [address] Magisterial District Judge: Luca Bell MD Platelets (Bld) [#/Vol] 321 10*3/uL Normal 140-400 [facility] Comment on above: Performed By: #### 8 593, 87786, 175 #### [facility] [place] [address] Magisterial District Judge: Luca Bell MD RBC (Bld) [#/Vol] 5.56 10*6/uL Normal 4.20-5.80 [facility] Comment on above: Performed By: #### 8 593, 06987, 1759 #### [facility] of [address], [address] [place] [address] Magisterial District Judge: Luca Bell MD WBC (Bld) [#/Vol] 9.5 10*3/uL Normal 3.8-10.8 [facility] Comment on above: Performed By: #### 8 593, 37901, 1759 #### [facility] of [address], [address] [place] [address] Magisterial District Judge: Luca Bell MD LYME DISEASE ANTIBODIES (IGG ,IGM), IMMUNOBLOTon 06-20-2024 18 KD (IGG) BAND Reactive Abnormal [facility] Comment on above: Performed By: #### 8 593, 21799, 175 #### [facility] of [address], [address] [place] [address] Magisterial District Judge: Luca Bell MD 23 KD (IGG) BAND Non-Reactive Normal [facility] Comment on above: Performed By: #### 8 593, 96203, 175 #### [facility] of [address], [address] [place] [address] Magisterial District Judge: Luca Bell MD 23 KD (IGM) BAND Non-Reactive Normal [facility] Comment on above: Performed By: #### 8 593, 79806, 175 #### [facility] of [address], [address] [place] [address] Magisterial District Judge: Luca Bell MD 28 KD (IGG) BAND Non-Reactive Normal [facility] Comment on above: Performed By: #### 8 593, 61217, 175 #### [facility] of [place] [address] Magisterial District Judge: Luca Bell MD 30 KD (IGG) BAND Non-Reactive Normal [facility] Comment on above: Performed By: #### 8 593, 65787, 175 #### [facility] of [address], [address] [place], [place] [address] Magisterial District Judge: Luca Bell MD 39 KD (IGG) BAND Non-Reactive Normal [facility] Comment on above: Performed By: #### 8 593, 15451, 1759 #### [facility] [address], [address] [place] [address] Magisterial District Judge: Luca Bell MD 39 KD (IGM) BAND Non-Reactive Normal [facility] Comment on above: Performed By: #### 8 593, 22100, 175 #### [facility] [address], [address] [place] [address] Magisterial District Judge: Luca Bell MD 41 KD (IGG) BAND Non-Reactive Normal [facility] Comment on above: Performed By: #### 8 593, 91489, 175 #### [facility] [address], [address] [place] [address] Magisterial District Judge: Luca Bell MD 41 KD (IGM) BAND [...] exposure to other spirochetes. Performed By: #### 8 593, 93677, 1759 #### [facility] [address], [address] [place] [address] Magisterial District Judge: Luca Bell MD 45 KD (IGG) BAND Non-Reactive Normal [facility] Comment on above: Performed By: #### 8 593, 01861, 175 #### [facility] [address], [address] [place] [address] Magisterial District Judge: Luca Bell MD 58 KD (IGG) BAND Reactive Abnormal [facility] Comment on above: Performed By: #### 8 593, 09068, 1759 #### [facility] of [place] [address] [place] , [address] [place] [address] Magisterial District Judge: Luca Bell MD 66 KD (IGG) BAND Non-Reactive Normal [facility] Comment on above: Performed By: #### 8 593, 93914, 1759 #### [facility] of [place] [address] [place] , [address] [place] [address] Magisterial District Judge: Luca Bell MD 93 KD (IGG) BAND Non-Reactive Normal [facility] Comment on above: Performed By: #### 8 593, 61603, 1759 #### [facility] of [address] , [address] [place] [address] Magisterial District Judge: Luca Bell MD LYME DISEASE AB(IGG),BLOT Negative Normal NEGATIVE [facility] Comment on above: Performed By: #### 8 593, 73829, 1759 #### [facility] of [place] [address] [place] , [address] [place] [address] Magisterial District Judge: Luca Bell MD LYME DISEASE AB(IGM),BLOT Negative Normal NEGATIVE [facility] Comment on above: Performed By: #### 8 593, 20857, 1759 #### [facility] of [address], [address] [place] [address] Magisterial District Judge: Luca Bell MD Ambulatory Visit Summaryon 1 [...] Cap-EC) polyethylene glycol 3350 with electrolytes (NuLYTELY [place] oral powder for reconstitution) Contact prescribing physician [...] Mouth Every day Refills: 3 Pickup at [facility]/pharmacy #[id number] New polyethylene glycol 3350 with electrolytes (NuLYTELY [place] oral powder for reconstitution) See instructions 240 mL Oral Daily Pickup at [facility]/pharmacy #[id number] Unchanged amitriptyline (amitriptyline 50 mg [...] physician if questions or concerns Pharmacy Information [facility]/pharmacy #[id number]: [address], [place] [phone] Allergies No Known Allergies No Known Medication [...] for choosing us for your care. [facility] Gastroenterology Office/Clin ic Noteon 05-18-2024 Gastroenterology Office/Clinic Note Gastroenterology Office/Clinic Note Chief Complaint Abdominal pain HPI Staff Patient is a(n) 59 year old male who was referred by Dr Capps for postprandial epigastric pain and screening for colon cancer. Pt had previous Colonoscopy and partial colectomy @ [facility]. Faxed stat request for records to [facility] [place] on 05/15/24. Abdominal pain: When did you [...] with CBC and CMP and FibroScan [facility] Comment on above: Result Comment: Elec tronically Signed By: Jasmin KINSEY, Ashli Hinojosa\.daniella\Date and Time Signed: 05/18/24 08:34 EST Laboratory - Hematology and Cell countson 02-26-2024 HbA1c (Bld) [Mass fraction] 6.1 % [facility] No Panel Informationon 02-25 [facility] CBC AUTO DIFFon 11-08-2022 BASO # 0.0 103/ul Normal 0.0-0.1 [facility] Comment on above: Performed By: #### A BGCO #### [facility] [address] [place] [address] [address] Anthony Mckenna Basophils/100 WBC (Bld) 0.1 % Critically low 0.2-2.0 [facility] Comment on above: Performed By: #### A BGCO #### [facility] [address] [place] [address] [address] Anthony Mckenna EO # 0.0 103/ul Normal 0.0-0.7 [facility] Comment on above: Performed By: #### A BGCO #### [facility] [address] [place] [address] [address] Anthony Mckenna Eosinophils/100 WBC (Bld) 0.0 % Critically low 0.9-7.0 [facility] Comment on above: Performed By: #### A BGCO #### [facility] [address] [place] [address] [address] Anthony Mckenna Erythrocyte distribution width (RBC) [Ratio] 14.6 % Normal 11.0-15.0 [facility] Comment on above: Performed By: #### A BGCO #### [facility] [address] [place] [address] [address] Anthony Mckenna Hematocrit (Bld) [Volume fraction] 45.1 % Normal 42.0-54.0 [facility] Comment on above: Performed By: #### A BGCO #### [facility] [address] [place] [address] [address] Anthony Mckenna Hemoglobin (Bld) [Mass/Vol] 15.4 g/dL Normal 14.0-18.0 [facility] Comment on above: Performed By: #### A BGCO #### [facility] [address] [place] [address] [address] Anthony Mckenna IG # 0.22 10e3/ul Critically high 0.00-0.03 [facility] Comment on above: Performed By: #### A BGCO #### [facility] [address] [place] [address] Dr. Anthony Mckenna IG % 1.1 % Critically high 0.0-0.5 [facility] Comment on above: Performed By: #### A BGCO #### [facility] [address] [place] [address] Dr. Anthony Mckenna LYMPH # 1.1 103/ul Critically low 1.2-3.8 [facility] Comment on above: Performed By: #### A BGCO #### [facility] [address] [place] [address] Dr. Anthony Mckenna Lymphocytes/100 WBC (Bld) 5.8 % Critically low 20.5-60.0 [facility] Comment on above: Performed By: #### A BGCO #### [facility] [address] [place] [address] Dr. Anthony Mckenna MANUAL DIFF REQ NO Normal [facility] Comment on above: Performed By: #### A BGCO #### [facility] [address] [place] [address] Dr. Anthony Mckenna MCH (RBC) [Entitic mass] 30.0 pg Normal 25.9-34.0 [facility] Comment on above: Performed By: #### A BGCO #### [facility] [address] [place] [address] Dr. Anthony Mckenna MCHC (RBC) [Mass/Vol] 34.1 g/dL Normal 29.9-35.2 [facility] Comment on above: Performed By: #### A BGCO #### [facility] [address] [place] [address] Dr. Anthony Mckenna MCV (RBC) [Entitic vol] 87.9 fL Normal 80.0-94.0 [facility] Comment on above: Performed By: #### A BGCO #### [facility] [address] [place] [address] Dr. Anthony Mckenna MONO # 0.7 103/ul Normal 0.3-0.8 [facility] Comment on above: Performed By: #### A BGCO #### [facility] [address] [place] [address] Dr. Anthony Mckenna Monocytes/100 WBC (Bld) 3.9 % Normal 1.7-12.0 [facility] Comment on above: Performed By: #### A BGCO #### [facility] [address] [place] [address] Dr. Anthony Mckenna NEUT # 17.1 103/ul Critically high 1.4-6.5 [facility] Comment on above: Performed By: #### A BGCO #### [facility] [address] [place] [address] Dr. Anthony Mckenna Neutrophils/100 WBC (Bld) 89.1 % Critically high 43.0-75.0 [facility] Comment on above: Performed By: #### A BGCO #### [facility] [address] [place] [address] Dr. Anthony Mckenna Platelet mean volume (Bld) [Entitic vol] 9.3 fL Critically low 9.5-13.5 [facility] Comment on above: Performed By: #### A BGCO #### [facility] [address] [place] [address] Dr. Anthony Mckenna PLT 251 103/ul Normal 150-450 [facility] Comment on above: Performed By: #### A BGCO #### [facility] [address] [place] [address] Dr. Anthony Mckenna RBC 5.13 106/ul Normal 4.70-6.10 [facility] Comment on above: Performed By: #### A BGCO #### [facility] [address] [place] [address] Dr. Anthony Mckenna WBC 19.2 103/ul Critically high 4.0-11.0 [facility] Comment on above: Performed By: #### A BGCO #### [facility] [address] [address] [address] Anthony Mckenna POINT OF CARE GLUCOSEon Glucose [Mass/Vol] 229 mg/dL Critically high 74-106 [facility] Comment on above: Performed By: #### P OCGLUC #### [facility] [address] [address] [address] Anthony Mckenna PROF CHEM 8 (BAS METB)on Anion gap [Moles/Vol] 12.1 mmol/L Normal [facility] Comment on above: Performed By: #### A BGCO #### [facility] [address] [address] [address] Anthony Mckenna Calcium [Mass/Vol] 9.1 mg/dL Normal 8.5-10.1 [facility] Comment on above: Performed By: #### A BGCO #### [facility] [address] [place] [address] Dr. Anthony Mckenna Chloride [Moles/Vol] 103 mmol/L Normal 98-107 [facility] Comment on above: Performed By: #### A BGCO #### [facility] [address] [place] [address] Dr. Anthony Mckenna CO2 [Moles/Vol] 25.1 mmol/L Normal 21.0-32.0 [facility] Comment on above: Performed By: #### A BGCO #### [facility] [address] [address] [address] Anthony Mckenna Creatinine [Mass/Vol] 1.13 mg/dL Normal 0.70-1.30 [facility] Comment on above: Performed By: #### A BGCO #### [facility] [address] [place] [address] Dr. Anthony Mckenna EGFR-AF NAMIBIAN >60 Normal >=60 [facility] Comment on above: Performed By: #### A BGCO #### [facility] [address] [place] [address] Dr. Anthony Mckenna EGFR-NON AF NAMIBIAN >60 Normal >=60 [facility] Comment on above: Performed By: #### A BGCO #### [facility] [address] [address] [address] Anthony Mckenna Glucose [Mass/Vol] 187 mg/dL Critically high 74-106 [facility] Comment on above: Performed By: #### A BGCO #### [facility] [address] [place] [address] Dr. Anthony Mckenna Potassium [Moles/Vol] 4.2 mmol/L Normal 3.5-5.1 [facility] Comment on above: Performed By: #### A BGCO #### [facility] [address] [place] [address] Dr. Anthony Mckenna Sodium [Moles/Vol] 136 mmol/L Normal 136-145 [facility] Comment on above: Performed By: #### A BGCO #### [facility] [address] [place] [address] Dr. Anthony Mckenna Urea nitrogen [Mass/Vol] 28.0 mg/dL Critically high 7.0-18.0 [facility] Comment on above: Performed By: #### A BGCO #### [facility] [address] [place] [address] Dr. Anthony Mckenna Urea nitrogen/Creatinin e [Mass ratio] 24.8 mg/mg Normal [facility] Comment on above: Performed By: #### A BGCO #### [facility] [address] [place] [address] Dr. Anthony Mckenna CBC AUTO DIFFon 11-07-2022 BASO # 0.0 103/ul Normal 0.0-0.1 [facility] Comment on above: Performed By: #### A BGCO #### [facility] [address] [place] [address] Dr. Anthony Mckenna Basophils/100 WBC (Bld) 0.1 % Critically low 0.2-2.0 [facility] Comment on above: Performed By: #### A BGCO #### [facility] [address] [place] [address] Dr. Anthony Mckenna EO # 0.0 103/ul Normal 0.0-0.7 [facility] Comment on above: Performed By: #### A BGCO #### [facility] [address] [address] [address] Anthony Mckenna Eosinophils/100 WBC (Bld) 0.0 % Critically low 0.9-7.0 [facility] Comment on above: Performed By: #### A BGCO #### [facility] [address] [place] [address] Dr. Anthony Mckenna Erythrocyte distribution width (RBC) [Ratio] 14.4 % Normal 11.0-15.0 [facility] Comment on above: Performed By: #### A BGCO #### [facility] [address] [place] [address] Dr. Anthony Mckenna Hematocrit (Bld) [Volume fraction] 43.8 % Normal 42.0-54.0 [facility] Comment on above: Performed By: #### A BGCO #### [facility] [address] [place] [address] Dr. Anthony Mckenna Hemoglobin (Bld) [Mass/Vol] 15.1 g/dL Normal 14.0-18.0 [facility] Comment on above: Performed By: #### A BGCO #### [facility] [address] [place] [address] Dr. Anthony Mckenna IG # 0.11 10e3/ul Critically high 0.00-0.03 [facility] Comment on above: Performed By: #### A BGCO #### [facility] [address] [place] [address] Dr. Anthony Mckenna IG % 0.8 % Critically high 0.0-0.5 [facility] Comment on above: Performed By: #### A BGCO #### [facility] [address] [place] [address] Dr. Anthony Mckenna LYMPH # 1.2 103/ul Normal 1.2-3.8 [facility] Comment on above: Performed By: #### A BGCO #### [facility] [address] [place] [address] Dr. Anthony Mckenna Lymphocytes/100 WBC (Bld) 8.9 % Critically low 20.5-60.0 [facility] Comment on above: Performed By: #### A BGCO #### [facility] [address] [place] [address] Dr. Anthony Mckenna MANUAL DIFF REQ NO Normal [facility] Comment on above: Performed By: #### A BGCO #### [facility] [address] [place] [address] Dr. Anthony Mckenna MCH (RBC) [Entitic mass] 30.3 pg Normal 25.9-34.0 [facility] Comment on above: Performed By: #### A BGCO #### [facility] [address] [place] [address] Dr. Anthony Mckenna MCHC (RBC) [Mass/Vol] 34.5 g/dL Normal 29.9-35.2 [facility] Comment on above: Performed By: #### A BGCO #### [facility] [address] [place] [address] Dr. Anthony Mckenna MCV (RBC) [Entitic vol] 87.8 fL Normal 80.0-94.0 [facility] Comment on above: Performed By: #### A BGCO #### [facility] [address] [place] [address] Dr. Anthony Mckenna MONO # 0.2 103/ul Critically low 0.3-0.8 [facility] Comment on above: Performed By: #### A BGCO #### [facility] [address] [place] [address] Dr. Anthony Mckenna Monocytes/100 WBC (Bld) 1.7 % Normal 1.7-12.0 [facility] Comment on above: Performed By: #### A BGCO #### [facility] [address] [place] [address] Dr. Anthony Mckenna NEUT # 11.8 103/ul Critically high 1.4-6.5 [facility] Comment on above: Performed By: #### A BGCO #### [facility] [address] [place] [address] Dr. Anthony Mckenna Neutrophils/100 WBC (Bld) 88.5 % Critically high 43.0-75.0 [facility] Comment on above: Performed By: #### A BGCO #### [facility] [address] [address] [address] Anthony Mckenna Platelet mean volume (Bld) [Entitic vol] 9.5 fL Normal 9.5-13.5 [facility] Comment on above: Performed By: #### A BGCO #### [facility] [address] [address] [address] Anthony Mckenna PLT 226 103/ul Normal 150-450 [facility] Comment on above: Performed By: #### A BGCO #### [facility] [address] [place] [address] Dr. Anthony Mckenna RBC 4.99 106/ul Normal 4.70-6.10 [facility] Comment on above: Performed By: #### A BGCO #### [facility] [address] [place] [address] Dr. Anthony Mckenna WBC 13.4 103/ul Critically high 4.0-11.0 [facility] Comment on above: Performed By: #### A BGCO #### [facility] [address] [address] [address] Anthony Mckenna CULTURE SPUTUMon 11-07-2022 CULTURE SPUTUM Isolate 1 Lang albicans Growth of Normal [facility] Comment on above: Performed By: #### C VDTBH #### [facility] [address] [place] [address] Dr. Anthony Mckenna POINT OF CARE GLUCOSEon Glucose [Mass/Vol] 216 mg/dL Critically high 74-106 [facility] Comment on above: Performed By: #### C VDTBH #### [facility] [address] [place] [address] Dr. Anthony Mckenna Glucose [Mass/Vol] 217 mg/dL Critically high -106 [facility] Comment on above: Performed By: #### P OCGLUC #### [facility] [address] [place] [address] Dr. Anthony Mckenna Glucose [Mass/Vol] 227 mg/dL Critically high 74-106 [facility] Comment on above: Performed By: #### A BGCO #### [facility] [address] [address] [address] Anthony Mckenna PROF CHEM 8 (BAS METB)on Anion gap [Moles/Vol] 12.8 mmol/L Normal [facility] Comment on above: Performed By: #### A BGCO #### [facility] [address] [place] [address] Dr. Anthony Mckenna Calcium [Mass/Vol] 9.0 mg/dL Normal 8.5-10.1 [facility] Comment on above: Performed By: #### A BGCO #### [facility] [address] [place] [address] Dr. Anthony Mckenna Chloride [Moles/Vol] 103 mmol/L Normal 98-107 [facility] Comment on above: Performed By: #### A BGCO #### [facility] [address] [place] [address] Dr. Anthony Mckenna CO2 [Moles/Vol] 25.1 mmol/L Normal 21.0-32.0 [facility] Comment on above: Performed By: #### A BGCO #### [facility] [address] [place] [address] Dr. Anthony Mckenna Creatinine [Mass/Vol] 1.07 mg/dL Normal 0.70-1.30 [facility] Comment on above: Performed By: #### A BGCO #### [facility] [address] [place] [address] Dr. Anthony Mckenna EGFR-AF NAMIBIAN >60 Normal >=60 [facility] Comment on above: Performed By: #### A BGCO #### [facility] [address] [place] [address] Dr. Anthony Mckenna EGFR-NON AF NAMIBIAN >60 Normal >=60 [facility] Comment on above: Performed By: #### A BGCO #### [facility] [address] [place] [address] Dr. Anthony Mckenna Glucose [Mass/Vol] 174 mg/dL Critically high 74-106 [facility] Comment on above: Performed By: #### A BGCO #### [facility] [address] [address] [address] Anthony Mckenna Potassium [Moles/Vol] 3.9 mmol/L Normal 3.5-5.1 [facility] Comment on above: Performed By: #### A BGCO #### [facility] [address] [address] [address] Anthony Mckenna Sodium [Moles/Vol] 137 mmol/L Normal 136-145 [facility] Comment on above: Performed By: #### A BGCO #### [facility] [address] [address] [address] Anthony Mckenna Urea nitrogen [Mass/Vol] 22.0 mg/dL Critically high 7.0-18.0 [facility] Comment on above: Performed By: #### A BGCO #### [facility] [address] [address] [address] Anthony Mckenna Urea nitrogen/Creatinin e [Mass ratio] 20.6 mg/mg Normal [facility] Comment on above: Performed By: #### A BGCO #### [facility] [address] [address] [address] Anthony Mckenna SPUTUM GRAM STAINon 11-08-19 COMMENTS Normal [facility] Comment on above: Performed By: #### C VDTBH #### [facility] [address] [address] [address] Anthony Mckenna DIPHTHEROIDS Normal [facility] Comment on above: Performed By: #### C VDTBH #### [facility] [address] [address] [address] Anthony Mckenna EPITHELIALS <25 Normal [facility] Comment on above: Performed By: #### C VDTBH #### [facility] [address] [address] [address] Anthony Mckenna FUNGAL ELEMENTS Normal [facility] Comment on above: Performed By: #### C VDTBH #### [facility] [address] [address] [address] Anthony Mckenna GRAM NEG BACILLI Normal [facility] Comment on above: Performed By: #### C VDTBH #### [facility] [address] [address] [address] Anthony Mckenna GRAM NEG DIPPLOCOCCI MODERATE Normal [facility] Comment on above: Performed By: #### C VDTBH #### [facility] [address] [place] [address] Dr. Anthony Mckenna GRAM POS BACILLI Normal [facility] Comment on above: Performed By: #### C VDTBH #### [facility] [address] [place] [address] Dr. Anthony Mckenna GRAM POSITIVE COCCI Normal [facility] Comment on above: Performed By: #### C VDTBH #### [facility] [address] [place] [address] Dr. Anthony Mckenna WBC (Bld) [#/Vol] 10*3/uL Normal [facility] Comment on above: Performed By: #### C VDTBH #### [facility] [address] [place] [address] Dr. Anthony Mckenna BLOOD GAS BTY W/ OXIMETRYon 11-06-2022 02 MODE NASAL CANNULA Normal [facility] Comment on above: Performed By: #### A BGCO #### [facility] [address] [place] [address] Dr. Anthony Mckenna ALLENS TEST Positive Normal [facility] Comment on above: Performed By: #### A BGCO #### [facility] [address] [address] [address] Anthony Mckenna Base excess Calc (Bld) [Moles/Vol] -0.2000 mmol/L Normal -2.0-2.0 [facility] Comment on above: Performed By: #### A BGCO #### [facility] [address] [place] [address] Dr. Anthony Mckenna BIPAP PRESSURE Normal [facility] Comment on above: Performed By: #### A BGCO #### [facility] [address] [place] [address] Dr. Anthony Mckenna CARBOXY RANGE NORMAL CONCENTRATION : NON-SMOKERS: 0 - 2% SMOKERS: < OR = 9% Normal [facility] Comment on above: Performed By: #### A BGCO #### [facility] [address] [address] [address] Anthony Mckenna CARBOXYHGB 1.2 % Critically low 1.5-4.9 [facility] Comment on above: Performed By: #### A BGCO #### [facility] [address] [address] [address] Anthony Mckenna FIO2 Normal [facility] Comment on above: Performed By: #### A BGCO #### [facility] [address] [address] [address] Anthony Mckenna HCO3 (Bld) [Moles/Vol] 24.2 mmol/L Normal 22.0-26.0 [facility] Comment on above: Performed By: #### A BGCO #### [facility] [address] [place] [address] Dr. Anthony Mckenna LPM 5 Normal [facility] Comment on above: Performed By: #### A BGCO #### [facility] [address] [address] [address] Anthony Mckenna METHGB <1.0 Critically low 1.1-1.9 [facility] Comment on above: Performed By: #### A BGCO #### [facility] [address] [place] [address] Dr. Anthony Mckenna MINUTE VOLUME Normal [facility] Comment on above: Performed By: #### A BGCO #### [facility] [address] [place] [address] Dr. Anthony Mckenna Oxygen (Bld) [Partial pressure] 51.6 mm[Hg] Critically low 80.0-100.0 [facility] Comment on above: Performed By: #### A BGCO #### [facility] [address] [place] [address] Dr. Anthony Mckenna Oxygen saturation in Blood 88.7 % Critically low 95.0-100.0 [facility] Comment on above: Performed By: #### A BGCO #### [facility] [address] [place] [address] Dr. Anthony Mckenna PCO2 36.9 mmHg Normal 35.0-45.0 [facility] Comment on above: Performed By: #### A BGCO #### [facility] [address] [place] [address] Dr. Anthony Mckenna PEEP [facility] Comment on above: Performed By: #### A BGCO #### [facility] [address] [place] [address] Dr. Anthony Mckenna pH (Bld) 7.426 [pH] Normal 7.350-7.450 [facility] Comment on above: Performed By: #### A BGCO #### [facility] [address] [place] [address] Dr. Anthony Mckenna [facility] Comment on above: Performed By: #### A BGCO #### [facility] [address] [place] [address] Dr. Anthony Mckenna [facility] Comment on above: Performed By: #### A BGCO #### [facility] [address] [place] [address] Dr. Anthony Mckenna PUNCTURE SITE RR [facility] Comment on above: Performed By: #### A BGCO #### [facility] [address] [place] [address] Dr. Anthony Mckenna RATE [facility] Comment on above: Performed By: #### A BGCO #### [facility] [address] [place] [address] Dr. Anthony Mckenna VENT MODE [facility] Comment on above: Performed By: #### A BGCO #### [facility] [address] [place] [address] Dr. Anthony Mckenna [facility] Comment on above: Performed By: #### A BGCO #### [facility] [address] [place] [address] Dr. Anthony Mckenna BLOOD GASES BTYon 11-06-2022 02 MODE NASAL CANNULA [facility] Comment on above: Performed By: #### C VDTBH #### [facility] [address] [address] [address] Anthony Mckenna ALLENS TEST Positive [facility] Comment on above: Performed By: #### C VDTBH #### [facility] [address] [address] [address] Anthony Mckenna Base excess Calc (Bld) [Moles/Vol] 0.0 mmol/L Normal -2.0-2.0 [facility] Comment on above: Performed By: #### C VDTBH #### [facility] [address] [address] [address] Anthony Mckenna BIPAP PRESSURE [facility] Comment on above: Performed By: #### C VDTBH #### [facility] [address] [place] [address] Dr. Anthony Mckenna CPAP [facility] Comment on above: Performed By: #### C VDTBH #### [facility] [address] [address] [address] Anthony Mckenna FIO2 [facility] Comment on above: Performed By: #### C VDTBH #### [facility] [address] [address] [address] Anthony Mckenna HCO3 (Bld) [Moles/Vol] 24.7 mmol/L Normal 22.0-26.0 [facility] Comment on above: Performed By: #### C VDTBH #### [facility] [address] [place] [address] Dr. Anthony Mckenna LPM 2.5 Normal [facility] Comment on above: Performed By: #### C VDTBH #### [facility] [address] [address] [address] Anthony Mckenna MINUTE VOLUME Normal [facility] Comment on above: Performed By: #### C VDTBH #### [facility] [address] [place] [address] Dr. Anthony Mckenna Oxygen (Bld) [Partial pressure] 53.6 mm[Hg] Critically low 80.0-100.0 [facility] Comment on above: Performed By: #### C VDTBH #### [facility] [address] [address] [address] Anthony Mckenna Oxygen saturation in Blood 89.8 % Critically low 95.0-100.0 [facility] Comment on above: Performed By: #### C VDTBH #### [facility] [address] [place] [address] Dr. Anthony Mckenna PCO2 39.0 mmHg Normal 35.0-45.0 [facility] Comment on above: Performed By: #### C VDTBH #### [facility] [address] [place] [address] Dr. Anthony Mckenna PEEP [facility] Comment on above: Performed By: #### C VDTBH #### [facility] [address] [place] [address] Dr. Anthony Mckenna pH (Bld) 7.409 [pH] Normal 7.350-7.450 [facility] Comment on above: Performed By: #### C VDTBH #### [facility] [facility] [address] [place] [address] Dr. Anthony Mckenna PIP [facility] Comment on above: Performed By: #### C VDTBH #### [facility] [address] [place] [address] Dr. Anthony Mckenna PS [facility] Comment on above: Performed By: #### C VDTBH #### [facility] [address] [place] [address] Dr. Anthony Mckenna PUNCTURE SITE LR [facility] Comment on above: Performed By: #### C VDTBH #### [facility] [address] [place] [address] Dr. Anthony Mckenna RATE [facility] Comment on above: Performed By: #### C VDTBH #### [facility] [address] [place] [address] Dr. Anthony Mckenna VENT MODE [facility] Comment on above: Performed By: #### C VDTBH #### [facility] [address] [place] [address] Dr. Anthony Mckenna [place] Normal [facility] Comment on above: Performed By: #### C VDTBH #### [facility] [address] [place] [address] Dr. Anthony Mckenna BNPon 11-06-2022 Natriuretic peptide B (Bld) [Mass/Vol] 202.0 pg/mL Normal <=900.0 [facility] Comment on above: Performed By: #### B SALES EXPERT, CMP, CMADM #### [facility] [address] [place] [address] Dr. Anthony Mckenna CARDIAC MARY ADMITon 023 CK [Catalytic activity/Vol] 119 U/L Normal 39-308 [facility] Comment on above: Performed By: #### B SALES EXPERT, CMP, CMADM #### [facility] [address] [place] [address] Dr. Anthony Mckenna CK.MB [Mass/Vol] 2.14 ng/mL Normal <=3.60 [facility] Comment on above: Performed By: #### B SALES EXPERT, CMP, CMADM #### [facility] [address] [place] [address] Dr. Anthony Mckenna HSTROP 5.7 pg/mL Normal 4.0-76.1 [facility] Comment on above: Result Comment: CUT- OFF POINTS HAVE BEEN ESTABLISHED BASED ON THE FOURTH UNIVERSAL DEFINITIONS OF MYOCARDIAL INFARCTION. THE UPPER REFERENCE LIMIT (URL) OF TROPONIN, DEFINED THE 99TH PERCENTILE OF cTnI DISTRIBUTION IN A REFERENCE POPULATION, HAS BEEN CONFIRMED THE DECISION THRESHOLD FOR CT DIAGNOSIS. Performed By: #### B SALES EXPERT, CMP, CMADM #### [facility] [address] [place] [address] Dr. Anthony Mckenna HAVEN 53 ng/mL Normal 16-96 [facility] Comment on above: Performed By: #### B SALES EXPERT, CMP, CMADM #### [facility] [address] [place] [address] Dr. Anthony Mckenna CBC AUTO DIFFon 11-06-2022 BASO # 0.1 103/ul Normal 0.0-0.1 [facility] Comment on above: Performed By: #### P OCGLUC #### [facility] [address] [address] [address] Anthony Mckenna Basophils/100 WBC (Bld) 0.6 % Normal 0.2-2.0 [facility] Comment on above: Performed By: #### P OCGLUC #### [facility] [address] [address] [address] Anthony Mckenna EO # 0.5 103/ul Normal 0.0-0.7 [facility] Comment on above: Performed By: #### P OCGLUC #### [facility] [address] [address] [address] Anthony Mckenna Eosinophils/100 WBC (Bld) 3.6 % Normal 0.9-7.0 [facility] Comment on above: Performed By: #### P OCGLUC #### [facility] [address] [place] [address] Dr. Anthony Mckenna Erythrocyte distribution width (RBC) [Ratio] 14.1 % Normal 11.0-15.0 [facility] Comment on above: Performed By: #### P OCGLUC #### [facility] [address] [place] [address] Dr. Anthony Mckenna Hematocrit (Bld) [Volume fraction] 47.0 % Normal 42.0-54.0 [facility] Comment on above: Performed By: #### P OCGLUC #### [facility] [address] [place] [address] Dr. Anthony Mckenna Hemoglobin (Bld) [Mass/Vol] 16.2 g/dL Normal 14.0-18.0 [facility] Comment on above: Performed By: #### P OCGLUC #### [facility] [address] [place] [address] Dr. Anthony Mckenna IG # 0.06 10e3/ul Critically high 0.00-0.03 [facility] Comment on above: Performed By: #### P OCGLUC #### [facility] [address] [place] [address] Dr. Anthony Mckenna IG % 0.4 % Normal 0.0-0.5 [facility] Comment on above: Performed By: #### P OCGLUC #### [facility] [address] [address] [address] Anthony Mckenna LYMPH # 1.8 103/ul Normal 1.2-3.8 [facility] Comment on above: Performed By: #### P OCGLUC #### [facility] [address] [address] [address] Anthony Mckenna Lymphocytes/100 WBC (Bld) 12.6 % Critically low 20.5-60.0 [facility] Comment on above: Performed By: #### P OCGLUC #### [facility] [address] [address] [address] Anthony Mckenna MANUAL DIFF REQ NO Normal [facility] Comment on above: Performed By: #### P OCGLUC #### [facility] [address] [address] [address] Anthony Mckenna MCH (RBC) [Entitic mass] 30.2 pg Normal 25.9-34.0 [facility] Comment on above: Performed By: #### P OCGLUC #### [facility] [address] [address] [address] Anthony Mckenna MCHC (RBC) [Mass/Vol] 34.5 g/dL Normal 29.9-35.2 [facility] Comment on above: Performed By: #### P OCGLUC #### [facility] [address] [address] [address] Anthony Mckenna MCV (RBC) [Entitic vol] 87.5 fL Normal 80.0-94.0 [facility] Comment on above: Performed By: #### P OCGLUC #### [facility] [address] [address] [address] Anthony Mckenna MONO # 1.1 103/ul Critically high 0.3-0.8 [facility] Comment on above: Performed By: #### P OCGLUC #### [facility] [address] [address] [address] Anthony Mckenna Monocytes/100 WBC (Bld) 7.3 % Normal 1.7-12.0 [facility] Comment on above: Performed By: #### P OCGLUC #### [facility] [address] [address] [address] Anthony Mckenna NEUT # 11.0 103/ul Critically high 1.4-6.5 [facility] Comment on above: Performed By: #### P OCGLUC #### [facility] [address] [address] [address] Anthony Mckenna Neutrophils/100 WBC (Bld) 75.5 % Critically high 43.0-75.0 [facility] Comment on above: Performed By: #### P OCGLUC #### [facility] [address] [place] [address] Dr. Anthony Mckenna Platelet mean volume (Bld) [Entitic vol] 9.3 fL Critically low 9.5-13.5 [facility] Comment on above: Performed By: #### P OCGLUC #### [facility] [address] [place] [address] Dr. Anthony Mckenna PLT 235 103/ul Normal 150-450 [facility] Comment on above: Performed By: #### P OCGLUC #### [facility] [address] [place] [address] Dr. Anthony Mckenna RBC 5.37 106/ul Normal 4.70-6.10 [facility] Comment on above: Performed By: #### P OCGLUC #### [facility] [address] [place] [address] Dr. Anthony Mckenna WBC 14.5 103/ul Critically high 4.0-11.0 [facility] Comment on above: Performed By: #### P OCGLUC #### [facility] [address] [place] [address] Dr. Anthony Mckenna CTA CHEST WO W [...] LAMIN AMBRIZ Date: 2022-11-06 12:04 Normal [facility] CULTURE BLOODon 11-06-2022 Microscopic examination of blood, culture Culture Observations: NO GROWTH AT 5 DAYS. Normal [facility] Comment on above: Performed By: #### C VDTB #### [facility] [address] [address] [address] Anthony Mckenna Microscopic examination of blood, culture Culture Observations: NO GROWTH AT 5 DAYS. Normal [facility] Comment on above: Performed By: #### C VDTBH #### [facility] [address] [place], [place] [address] Dr. Anthony Mckenna Covid-19 PCR ([facility])on SARS-CoV-2 (COVID-19) RNA RASHAWN+probe Ql (Unsp spec) Not detected Normal NOT DETECTED [facility] Comment on above: Result Comment: This test is not yet approved or cleared by the [place] FDA. When there are no FDA-approved or cleared tests available, and other criteria are met, FDA can make tests available under an emergency access mechanism called an Emergency Use Authorization (EUA). The EUA for this test is supported by the [place] of Health and Human Service's (HHS's) declaration [...] SARS-CoV-2. Performed By: #### C VDTBH #### [facility] [address] [place] [address] Dr. Anthony Mckenna D-DIMERon 11-06-2022 D-DIMER 0.25 mg/L FEU Normal <=0.59 [facility] Comment on above: Performed By: #### C VDTBH #### [facility] [address] [place] [address] Dr. Anthony Mckenna D-DIMER COMMENTS SEE BELOW Normal [facility] Comment on above: Result Comment: Incr eases [...] hospitalization. Performed By: #### C VDTBH #### [facility] [address] [place] [address] Dr. Anthony Mckenna PH VENOUS BLOODon 11-06-2022 PCO2 VENOUS 42.6 mmHg Normal 40.0-52.0 [facility] Comment on above: Performed By: #### A BGCO #### [facility] [address] [place] [address] Dr. Anthony Mckenna pH VENOUS 7.397 Normal 7.330-7.430 [facility] Comment on above: Performed By: #### A BGCO #### [facility] [address] [place] [address] Dr. Anthony Mckenna POINT OF CARE GLUCOSEon 05-0 2-2023 Glucose [Mass/Vol] 173 mg/dL Critically high 74-106 [facility] Comment on above: Performed By: #### P OCGLUC #### [facility] [address] [address] [address] Anthony Mckenna Glucose [Mass/Vol] 222 mg/dL Critically high 74-106 [facility] Comment on above: Performed By: #### P OCGLUC #### [facility] [address] [address] [address] Anthony Mckenna PROF 14(COMP METB)on 023 Albumin [Mass/Vol] 3.6 g/dL Normal 3.4-5.0 [facility] Comment on above: Performed By: #### B SALES EXPERT, CMP, CMADM #### [facility] [address] [place] [address] Dr. Anthony Mckenna Albumin/Globulin [Mass ratio] 1.0 {ratio} Normal [facility] Comment on above: Performed By: #### B SALES EXPERT, CMP, CMADM #### [facility] [address] [address] [address] Anthony Mckenna ALP [Catalytic activity/Vol] 91 U/L Normal 46-116 [facility] Comment on above: Performed By: #### B SALES EXPERT, CMP, CMADM #### [facility] [address] [place] [address] Dr. Anthony Mckenna ALT [Catalytic activity/Vol] 29 U/L Normal 16-63 [facility] Comment on above: Performed By: #### B SALES EXPERT, CMP, CMADM #### [facility] [address] [address] [address] Anthony Mckenna Anion gap [Moles/Vol] 12.2 mmol/L Normal [facility] Comment on above: Performed By: #### B SALES EXPERT, CMP, CMADM #### [facility] [address] [place] [address] Dr. Anthony Mckenna AST [Catalytic activity/Vol] 17 U/L Normal 15-37 [facility] Comment on above: Performed By: #### B SALES EXPERT, CMP, CMADM #### [facility] [address] [address] [address] Anthony Mckenna Bilirubin [Mass/Vol] 0.3 mg/dL Normal 0.2-1.0 [facility] Comment on above: Performed By: #### B SALES EXPERT, CMP, CMADM #### [facility] [address] [address] [address] Anthony Mckenna Calcium [Mass/Vol] 9.0 mg/dL Normal 8.5-10.1 [facility] Comment on above: Performed By: #### B SALES EXPERT, CMP, CMADM #### [facility] [address] [address] [address] Anthony Mckenna Chloride [Moles/Vol] 103 mmol/L Normal 98-107 [facility] Comment on above: Performed By: #### B SALES EXPERT, CMP, CMADM #### [facility] [address] [place] [address] Dr. Anthony Mckenna CO2 [Moles/Vol] 26.0 mmol/L Normal 21.0-32.0 [facility] Comment on above: Performed By: #### B SALES EXPERT, CMP, CMADM #### [facility] [address] [address] [address] Anthony Mckenna Creatinine [Mass/Vol] 1.07 mg/dL Normal 0.70-1.30 [facility] Comment on above: Performed By: #### B SALES EXPERT, CMP, CMADM #### [facility] [address] [place] [address] Dr. Anthony Mckenna EGFR-AF NAMIBIAN >60 Normal >=60 [facility] Comment on above: Performed By: #### B SALES EXPERT, CMP, CMADM #### [facility] [address] [place] [address] Dr. Anthony Mckenna EGFR-NON AF NAMIBIAN >60 Normal >=60 [facility] Comment on above: Performed By: #### B SALES EXPERT, CMP, CMADM #### [facility] [address] [place] [address] Dr. Anthony Mckenna Globulin (S) [Mass/Vol] 3.7 g/dL Normal [facility] Comment on above: Performed By: #### B SALES EXPERT, CMP, CMADM #### [facility] [address] [address] [address] Anthony Mckenna Glucose [Mass/Vol] 144 mg/dL Critically high 74-106 [facility] Comment on above: Performed By: #### B SALES EXPERT, CMP, CMADM #### [facility] [address] [address] [address] Anthony Mckenna Potassium [Moles/Vol] 4.2 mmol/L Normal 3.5-5.1 [facility] Comment on above: Performed By: #### B SALES EXPERT, CMP, CMADM #### [facility] [address] [place] [address] Dr. Anthony Mckenna Protein [Mass/Vol] 7.3 g/dL Normal 6.4-8.2 [facility] Comment on above: Performed By: #### B SALES EXPERT, CMP, CMADM #### [facility] [address] [place] [address] Dr. Anthony Mckenna Sodium [Moles/Vol] 137 mmol/L Normal 136-145 [facility] Comment on above: Performed By: #### B SALES EXPERT, CMP, CMADM #### [facility] [address] [place] [address] Dr. Anthony Mckenna Urea nitrogen [Mass/Vol] 16.0 mg/dL Normal 7.0-18.0 [facility] Comment on above: Performed By: #### B SALES EXPERT, CMP, CMADM #### [facility] [address] [place] [address] Dr. Anthony Mckenna Urea nitrogen/Creatinin e [Mass ratio] 15.0 mg/mg Normal [facility] Comment on above: Performed By: #### B SALES EXPERT, CMP, CMADM #### [facility] [address] [place] [address] Dr. Anthony Mckenna PROTIMEon 11-06-2022 INR Coag (PPP) [Relative time] 0.94 {INR} Normal [facility] Comment on above: Performed By: #### C VDTBH #### [facility] [address] [place] [address] Dr. Anthony Mckenna INR GUIDELINES SEE BELOW Normal [facility] Comment on above: Result Comment: DUANE RED INR: 2.0 - 3.0 CONDITIONS NOT LISTED BELOW 2.5 - 3.5 FOR PROSTHETIC HEART VALVE REPLACEMENT 2.5 - 3.5 RECURRENT THROMBOSIS Performed By: #### C VDTB #### [facility] [address] [place] [address] Dr. Anthony Mckenna PT Coag (PPP) [Time] 10.0 s Normal 9.0-11.6 [facility] Comment on above: Performed By: #### C VDTBH #### [facility] [address] [place] [address] Dr. Anthony Mckenna PTTon 11-06-2022 aPTT Coag (Bld) [Time] 28.5 s Normal 22.3-36.2 [facility] Comment on above: Performed By: #### A BGCO #### [facility] [address] [place] [address] Dr. Anthony Mckenna SYMPTOMATIC COVID-19 ANTIGEN on 11-06-2022 EUA Statement SEE BELOW Normal [facility] Comment on above: Result Comment: This test [...] sooner. Performed By: #### A BGCO #### [facility] [address] [place] [address] Dr. Anthony Mckenna SARS-CoV-2 (COVID-19) RNA RASHAWN+probe Ql (Unsp spec) Negative Normal NEGATIVE [facility] Comment on above: Performed By: #### A BGCO #### [facility] [address] [address] [address] Anthony Mckenna XR CHEST 1 Von [...] LAMIN AMBRIZ Date: 2022-11-06 10:53 Normal [facility] CBC AUTO DIFFon 08-06-2022 BASO # 0.1 103/ul Normal 0.0-0.1 [facility] Comment on above: Performed By: #### A BGCO #### [facility] [address] [place] [address] Dr. Anthony Mckenna Basophils/100 WBC (Bld) 0.7 % Normal 0.2-2.0 [facility] Comment on above: Performed By: #### A BGCO #### [facility] [address] [place] [address] Dr. Anthony Mckenna EO # 0.5 103/ul Normal 0.0-0.7 [facility] Comment on above: Performed By: #### A BGCO #### [facility] [address] [place] [address] Dr. Anthony Mckenna Eosinophils/100 WBC (Bld) 4.9 % Normal 0.9-7.0 [facility] Comment on above: Performed By: #### A BGCO #### [facility] [address] [place] [address] Dr. Anthony Mckenna Erythrocyte distribution width (RBC) [Ratio] 13.3 % Normal 11.0-15.0 [facility] Comment on above: Performed By: #### A BGCO #### [facility] [address] [place], [place] [id number] Dr. Anthony Mckenna Hematocrit (Bld) [Volume fraction] 48.8 % Normal 42.0-54.0 [facility] Comment on above: Performed By: #### A BGCO #### [facility] [address] [place] [address] Dr. Anthony Mckenna Hemoglobin (Bld) [Mass/Vol] 17.0 g/dL Normal 14.0-18.0 [facility] Comment on above: Performed By: #### A BGCO #### [facility] [address] [place] [address] Dr. Anthony Mckenna IG # 0.02 10e3/ul Normal 0.00-0.03 [facility] Comment on above: Performed By: #### A BGCO #### [facility] [address] [place] [address] Dr. Anthony Mckenna IG % 0.2 % Normal 0.0-0.5 [facility] Comment on above: Performed By: #### A BGCO #### [facility] [address] [place] [address] Dr. Anthony Mckenna LYMPH # 2.6 103/ul Normal 1.2-3.8 [facility] Comment on above: Performed By: #### A BGCO #### [facility] [address] [place] [address] Dr. Anthony Mckenna Lymphocytes/100 WBC (Bld) 28.8 % Normal 20.5-60.0 [facility] Comment on above: Performed By: #### A BGCO #### [facility] [address] [place] [address] Dr. Anthony Mckenna MANUAL DIFF REQ NO Normal [facility] Comment on above: Performed By: #### A BGCO #### [facility] [address] [place] [address] Dr. Anthony Mckenna MCH (RBC) [Entitic mass] 29.7 pg Normal 25.9-34.0 [facility] Comment on above: Performed By: #### A BGCO #### [facility] [address] [place] [address] Dr. Anthony Mckenna MCHC (RBC) [Mass/Vol] 34.8 g/dL Normal 29.9-35.2 [facility] Comment on above: Performed By: #### A BGCO #### [facility] [address] [address] [address] Anthony Mckenna MCV (RBC) [Entitic vol] 85.2 fL Normal 80.0-94.0 [facility] Comment on above: Performed By: #### A BGCO #### [facility] [address] [place] [address] Dr. Anthony Mckenna MONO # 0.7 103/ul Normal 0.3-0.8 [facility] Comment on above: Performed By: #### A BGCO #### [facility] [address] [place] [address] Dr. Anthony Mckenna Monocytes/100 WBC (Bld) 8.0 % Normal 1.7-12.0 [facility] Comment on above: Performed By: #### A BGCO #### [facility] [address] [place] [address] Dr. Anthony Mckenna NEUT # 5.2 103/ul Normal 1.4-6.5 [facility] Comment on above: Performed By: #### A BGCO #### [facility] [address] [place] [address] Dr. Anthony Mckenna Neutrophils/100 WBC (Bld) 57.4 % Normal 43.0-75.0 [facility] Comment on above: Performed By: #### A BGCO #### [facility] [address] [place] [address] Dr. Anthony Mckenna Platelet mean volume (Bld) [Entitic vol] 9.3 fL Critically low 9.5-13.5 [facility] Comment on above: Performed By: #### A BGCO #### [facility] [address] [place] [address] Dr. Anthony Mckenna PLT 261 103/ul Normal 150-450 [facility] Comment on above: Performed By: #### A BGCO #### [facility] [address] [place] [address] Dr. Anthony Mckenna RBC 5.73 106/ul Normal 4.70-6.10 [facility] Comment on above: Performed By: #### A BGCO #### [facility] [address] [address] [address] Anthony Mckenna WBC 9.1 103/ul Normal 4.0-11.0 [facility] Comment on above: Performed By: #### A BGCO #### [facility] [address] [address] [address] Anthony Mckenna LIPID PROFILEon 08-06-2022 CHOL-HDL RATIO NORM SEE BELOW Normal [facility] Comment on above: Result Comment: 3.3 - 4.4 LOW RISK 4.4 - 7.1 AVERAGE RISK 7.1 - 11.0 MODERATE RISK >11.0 HIGH RISK Performed By: #### L IPID, CMP #### [facility] [address] [address] [address] Anthony Mckenna Cholesterol [Mass/Vol] 211 mg/dL Critically high <=200 [facility] Comment on above: Performed By: #### L IPID, CMP #### [facility] [address] [address] [address] Anthony Mckenna Cholesterol in HDL [Mass/Vol] 32 mg/dL Critically low 40-60 [facility] Comment on above: Performed By: #### L IPID, CMP #### [facility] [address] [address] [address] Anthony Mckenna Cholesterol in LDL [Mass/Vol] 137.4 mg/dL Normal [facility] Comment on above: Performed By: #### L IPID, CMP #### [facility] [address] [address] [address] Anthony Mckenna Cholesterol.total/ Cholesterol in HDL [Mass ratio] 6.6 {ratio} Normal [facility] Comment on above: Performed By: #### L IPID, CMP #### [facility] [address] [address] [address] Anthony Mckenna HDL NORMAL > or = 60 mg/dl - LO W CARDIOVASCULAR RISK <40 mg/dl - HIGH CARDIOVASCULAR RISK Normal [facility] Comment on above: Performed By: #### L IPID, CMP #### [facility] [address] [address] [address] Anthony Mckenna LDL CALC NORMAL SEE BELOW Normal [facility] Comment on above: Result Comment: <100 mg/dl OPTIMAL 100 - 129 mg/dl NEAR OR ABOVE OPTIMAL 130 - 159 mg/dl BORDERLINE HIGH 160 - 189 mg/dl HIGH >190 mg/dl VERY HIGH Performed By: #### L IPID, CMP #### [facility] [address] [address] [address] Anthony Mckenna Triglyceride [Mass/Vol] 208 mg/dL Critically high <=150 [facility] Comment on above: Performed By: #### L IPID, CMP #### [facility] [address] [address] [address] Anthony Mckenna VLDL CALC 41.6 mg/dL Normal [facility] Comment on above: Performed By: #### L IPID, CMP #### [facility] [address] [address] [address] Anthony Mckenna PROF 14(COMP METB)on 023 Albumin [Mass/Vol] 3.8 g/dL Normal 3.4-5.0 [facility] Comment on above: Performed By: #### L IPID, CMP #### [facility] [address] [address] [address] Anthony Mckenna Albumin/Globulin [Mass ratio] 1.0 {ratio} Normal [facility] Comment on above: Performed By: #### L IPID, CMP #### [facility] [address] [place] [address] Dr. Anthony Mckenna ALP [Catalytic activity/Vol] 78 U/L Normal 46-116 [facility] Comment on above: Performed By: #### L IPID, CMP #### [facility] [address] [place] [address] Dr. Anthony Mckenna ALT [Catalytic activity/Vol] 30 U/L Normal 16-63 [facility] Comment on above: Performed By: #### L IPID, CMP #### [facility] [address] [address] [address] Anthoyn Mckenna Anion gap [Moles/Vol] 10.5 mmol/L Normal [facility] Comment on above: Performed By: #### L IPID, CMP #### [facility] [address] [address] [address] Anthony Mckenna AST [Catalytic activity/Vol] 20 U/L Normal 15-37 [facility] Comment on above: Performed By: #### L IPID, CMP #### [facility] [address] [address] [address] Anthony Mckenna Bilirubin [Mass/Vol] 0.4 mg/dL Normal 0.2-1.0 [facility] Comment on above: Performed By: #### L IPID, CMP #### [facility] [address] [place] [address] Dr. Anthony Mckenna Calcium [Mass/Vol] 9.3 mg/dL Normal 8.5-10.1 [facility] Comment on above: Performed By: #### L IPID, CMP #### [facility] [address] [address] [address] Anthony Mckenna Chloride [Moles/Vol] 100 mmol/L Normal 98-107 [facility] Comment on above: Performed By: #### L IPID, CMP #### [facility] [address] [address] [address] Anthony Mceknna CO2 [Moles/Vol] 30.9 mmol/L Normal 21.0-32.0 [facility] Comment on above: Performed By: #### L IPID, CMP #### [facility] [address] [place] [address] Dr. Anthony Mckenna Creatinine [Mass/Vol] 0.96 mg/dL Normal 0.70-1.30 [facility] Comment on above: Performed By: #### L IPID, CMP #### [facility] [address] [address] [address] Anthony Mckenna EGFR-AF NAMIBIAN >60 Normal >=60 [facility] Comment on above: Performed By: #### L IPID, CMP #### [facility] [address] [address] [address] Anthony Mckenna EGFR-NON AF NAMIBIAN >60 Normal >=60 [facility] Comment on above: Performed By: #### L IPID, CMP #### [facility] [address] [address] [address] Anthony Mckenna Globulin (S) [Mass/Vol] 3.9 g/dL Normal [facility] Comment on above: Performed By: #### L IPID, CMP #### [facility] [address] [place] [address] Dr. Anthony Mckenna Glucose [Mass/Vol] 123 mg/dL Critically high 74-106 [facility] Comment on above: Performed By: #### L IPID, CMP #### [facility] [address] [place] [address] Dr. Anthony Mckenna Potassium [Moles/Vol] 4.4 mmol/L Normal 3.5-5.1 [facility] Comment on above: Performed By: #### L IPID, CMP #### [facility] [address] [place] [address] Dr. Anthony Mckenna Protein [Mass/Vol] 7.7 g/dL Normal 6.4-8.2 [facility] Comment on above: Performed By: #### L IPID, CMP #### [facility] [address] [place] [address] Dr. Anthony Mckenna Sodium [Moles/Vol] 137 mmol/L Normal 136-145 [facility] Comment on above: Performed By: #### L IPID, CMP #### [facility] [address] [place] [address] Dr. Anthony Mckenna Urea nitrogen [Mass/Vol] 15.0 mg/dL Normal 7.0-18.0 [facility] Comment on above: Performed By: #### L IPID, CMP #### [facility] [address] [place] [address] Dr. Anthony Mckenna Urea nitrogen/Creatinin e [Mass ratio] 15.6 mg/mg Normal [facility] Comment on above: Performed By: #### L IPID, CMP #### [facility] [address] [address] [address] Anthony Mckenna Vital Signs Date Time Vital Sign Value Performing Clinician Facility 11-24-2024 10:41-0400 Body height 177.8 cm Cassi Santiago SALES EXPERT Work Phone: [facility] 11-24-2024 10:41-0400 Body mass index (BMI) [Ratio] 33.86 kg/m2 Cassi Santiago SALES EXPERT Work Phone: [facility] 11-24-2024 10:41-0400 Body weight 107.05 kg Cassi Santiago SALES EXPERT Work Phone: [facility] 11-24-2024 10:41-0400 Diastolic blood pressure 80 mm[Hg] Cassi Santiago SALES EXPERT Work Phone: [facility] 11-24-2024 10:41-0400 Heart rate 96 /min Cassi Santiago SALES EXPERT Work Phone: [facility] 11-24-2024 10:41-0400 SaO2% (BldA) [Mass fraction] 95 % Cassi Santiago SALES EXPERT Work Phone: [facility] 11-24-2024 10:41-0400 Systolic blood pressure 112 mm[Hg] Cassi Santiago SALES EXPERT Work Phone: [facility] 11-05-2024 11:17-0400 Body height 177.8 cm Lisa Morelos SALES EXPERT Work Phone: [facility] 11-05-2024 11:17-0400 Body mass index (BMI) [Ratio] 33.98 kg/m2 Lisa Morelos SALES EXPERT Work Phone: [facility] 11-05-2024 11:17-0400 Body weight 107.41 kg Lisa Morelos SALES EXPERT Work Phone: [facility] 11-05-2024 11:17-0400 Diastolic blood pressure 84 mm[Hg] Lisa Morelos SALES EXPERT Work Phone: [facility] 11-05-2024 11:17-0400 Heart rate 111 /min Lisa Morelos SALES EXPERT Work Phone: [facility] 11-05-2024 11:17-0400 Respiratory rate 17 /min Lisa Morelos SALES EXPERT Work Phone: [facility] 11-05-2024 11:17-0400 SaO2% (BldA) [Mass fraction] 98 % Lisa Morelos SALES EXPERT Work Phone: [facility] 11-05-2024 11:17-0400 Systolic blood pressure 138 mm[Hg] Lisa Morelos SALES EXPERT Work Phone: [facility] 10-13-2024 13:39-0400 Body height 177.8 cm Vesna Hemmer PA Work Phone: [facility] 10-13-2024 13:39-0400 Body mass index (BMI) [Ratio] 34.41 kg/m2 Vesna Hemmer PA Work Phone: [facility] 10-13-2024 13:39-0400 Body temperature 98.71 [degF] Vesna Hemmer PA Work Phone: [facility] 10-13-2024 13:39-0400 Body weight 108.77 kg Vesna Hemmer PA Work Phone: [facility] 10-13-2024 13:39-0400 Diastolic blood pressure 72 mm[Hg] Vesna Hemmer PA Work Phone: [facility] 10-13-2024 13:39-0400 Heart rate 76 /min Vesna Hemmer PA Work Phone: [facility] 10-13-2024 13:39-0400 Respiratory rate 16 /min Vesna Hemmer PA Work Phone: [facility] 10-13-2024 13:39-0400 SaO2% (BldA) [Mass fraction] 96 % Vesna Hemmer PA Work Phone: [facility] 10-13-2024 13:39-0400 Systolic blood pressure 108 mm[Hg] Vesna Hemmer PA Work Phone: [facility] 09-09-2024 09:55-0500 Body height 177.8 cm Cassi Santiago SALES EXPERT Work Phone: [facility] 09-09-2024 09:55-0500 Body mass index (BMI) [Ratio] 34.26 kg/m2 Cassi Santiago SALES EXPERT Work Phone: [facility] 09-09-2024 09:55-0500 Body weight 108.32 kg Cassi Santiago SALES EXPERT Work Phone: [facility] 09-09-2024 09:55-0500 Diastolic blood pressure 84 mm[Hg] Cassi Pamela SALES EXPERT Work Phone: [facility] 09-09-2024 09:55-0500 Heart rate 116 /min Cassi Santiago SALES EXPERT Work Phone: [facility] 09-09-2024 09:55-0500 Respiratory rate 17 /min Cassi Santiago SALES EXPERT Work Phone: [facility] 09-09-2024 09:55-0500 SaO2% (BldA) [Mass fraction] 96 % Cassi Pamela SALES EXPERT Work Phone: [facility] 09-09-2024 09:55-0500 Systolic blood pressure 162 mm[Hg] Cassi Santiago SALES EXPERT Work Phone: [facility] 07-20-2024 08:28-0500 Diastolic blood pressure 88 mm[Hg] Cornelius Sarmini [facility] 07-20-2024 08:28-0500 Mean blood pressure 105 mm[Hg] Cornelius Sarmini [facility] 07-20-2024 08:28-0500 Systolic blood pressure 138 mm[Hg] Cornelius Sarmini [facility] 07-20-2024 08:17-0500 Blood Pressure Location Cornelius Sarmini [facility] 07-20-2024 08:17-0500 Diastolic blood pressure 101 mm[Hg] Cornelius Sarmini [facility] 07-20-2024 08:17-0500 Heart rate 89 /min Cornelius Sarmini [facility] 07-20-2024 08:17-0500 Systolic blood pressure 145 mm[Hg] Cornelius Sarmini [facility] 06-26-2024 11:05-0500 Blood Pressure Location Cornelius Sarmini [facility] 06-26-2024 11:05-0500 Diastolic blood pressure 85 mm[Hg] Cornelius Sarmini [facility] 06-26-2024 11:05-0500 Heart rate 87 /min Cornelius Sarmini [facility] 06-26-2024 11:05-0500 Mean blood pressure 99 mm[Hg] Cornelius Sarmini [facility] 06-26-2024 11:05-0500 Respiratory rate 20 /min Cornelius Sarmini [facility] 06-26-2024 11:05-0500 SaO2% (BldA) [Mass fraction] 94 % Cornelius Sarmini [facility] 06-26-2024 11:05-0500 Systolic blood pressure 128 mm[Hg] Cornelius Sarmini [facility] 06-26-2024 11:00-0500 Diastolic blood pressure 82 mm[Hg] Cornelius Sarmini [facility] 06-26-2024 11:00-0500 Mean blood pressure 92 mm[Hg] Cornelius Sarmini [facility] 06-26-2024 11:00-0500 Respiratory rate 15 /min Cornelius Sarmini [facility] 06-26-2024 11:00-0500 Systolic blood pressure 111 mm[Hg] Cornelius Sarmini [facility] 06-26-2024 10:49-0500 Blood Pressure Location Cornelius Sarmini [facility] 06-26-2024 10:49-0500 Diastolic blood pressure 75 mm[Hg] Cornelius Sarmini [facility] 06-26-2024 10:49-0500 Heart rate 90 /min Cornelius Sarmini [facility] 06-26-2024 10:49-0500 Mean blood pressure 85 mm[Hg] Cornelius Sarmini [facility] 06-26-2024 10:49-0500 Respiratory rate 12 /min Cornelius Sarmini [facility] 06-26-2024 10:49-0500 SaO2% (BldA) [Mass fraction] 95 % Cornelius Sarmini [facility] 06-26-2024 10:49-0500 Systolic blood pressure 105 mm[Hg] Cornelius Sarmini [facility] 06-26-2024 10:34-0500 Body temperature 97.7 [degF] Cornelius Sarmini [facility] 06-26-2024 10:20-0500 Respiratory rate 12 /min Cornelius Sarmini [facility] 06-26-2024 10:05-0500 Respiratory rate 12 /min Cornelius Sarmini [facility] 06-26-2024 09:50-0500 Respiratory rate 12 /min Cornelius Sarmini [facility] 06-26-2024 08:09-0500 Body temperature 97.52 [degF] Cornelius Sarmini [facility] 06-18-2024 13:27-0500 Diastolic blood pressure 88 mm[Hg] Vesna Hemmer PA Work Phone: [facility] 06-18-2024 13:27-0500 Systolic blood pressure 130 mm[Hg] Vesna Hemmer PA Work Phone: [facility] 06-18-2024 13:07-0500 Body height 177.8 cm Vesna Hemmer PA Work Phone: [facility] 06-18-2024 13:07-0500 Body mass index (BMI) [Ratio] 34.18 kg/m2 Vesna Hemmer PA Work Phone: [facility] 06-18-2024 13:07-0500 Body weight 108.05 kg Vesna Hemmer PA Work Phone: [facility] 06-18-2024 13:07-0500 Heart rate 81 /min Vesna Hemmer PA Work Phone: [facility] 06-18-2024 13:07-0500 Respiratory rate 16 /min Vesna Hemmer PA Work Phone: [facility] 06-18-2024 13:07-0500 SaO2% (BldA) [Mass fraction] 95 % Vesna Hemmer PA Work Phone: [facility] 05-18-2024 08:16-0500 Diastolic blood pressure 97 mm[Hg] Cornelius Sarmini [facility] 05-18-2024 08:16-0500 Mean blood pressure 116 mm[Hg] Cornelius Sarmini [facility] 05-18-2024 08:16-0500 Systolic blood pressure 153 mm[Hg] Cornelius Sarmini [facility] 05-18-2024 08:10-0500 Blood Pressure Location Cornelius Sarmini [facility] 05-18-2024 08:10-0500 Diastolic blood pressure 100 mm[Hg] Cornelius Sarmini [facility] 05-18-2024 08:10-0500 Heart rate 94 /min Cornelius Sarmini [facility] 05-18-2024 08:10-0500 Systolic blood pressure 159 mm[Hg] Cornelius Sarmini [facility] 05-04-2024 13:03-0400 Body mass index (BMI) [Ratio] 34.72 kg/m2 Tan Capps MD Work Phone: [facility] 05-04-2024 13:03-0400 Body weight 109.77 kg Tan Capps MD Work Phone: [facility] 05-04-2024 13:03-0400 Diastolic blood pressure 95 mm[Hg] Tan Capps MD Work Phone: [facility] 05-04-2024 13:03-0400 Heart rate 94 /min Tan Capps MD Work Phone: [facility] 05-04-2024 13:03-0400 Respiratory rate 17 /min Tan Capps MD Work Phone: [facility] 05-04-2024 13:03-0400 SaO2% (BldA) [Mass fraction] 97 % Tan Capps MD Work Phone: [facility] 05-04-2024 13:03-0400 Systolic blood pressure 130 mm[Hg] Tan Capps MD Work Phone: [facility] 02-26-2024 12:58-0400 Body height 177.8 cm Tan Capps MD Work Phone: [facility] 02-26-2024 12:58-0400 Body mass index (BMI) [Ratio] 34.01 kg/m2 Tan Capps MD Work Phone: [facility] 02-26-2024 12:58-0400 Body weight 107.5 kg Tan Capps MD Work Phone: [facility] 02-26-2024 12:58-0400 Diastolic blood pressure 84 mm[Hg] Tan Capps MD Work Phone: [facility] 02-26-2024 12:58-0400 Heart rate 92 /min Tan Capps MD Work Phone: [facility] 02-26-2024 12:58-0400 SaO2% (BldA) [Mass fraction] 96 % Tan Capps MD Work Phone: [facility] 02-26-2024 12:58-0400 Systolic blood pressure 134 mm[Hg] Tan Capps MD Work Phone: [facility] Healthcare Encounters Encounter Date Encounter Type Care Provider Facility Start: 11-24-2024 End: 11-24-2024 Office outpatient visit 25 minutes Cassi Santiago SALES EXPERT Work Phone: [facility] Comment on above: Acute cough (Primary Dx); Acute exacerbation of chronic obstructive pulmonary disease (COPD) (CMS/HCC) Start: 11-24-2024 End: 11-24-2024 ambulatory CASSI SANTIAGO Not Available Start: 11-05-2024 End: 11-05-2024 Office outpatient visit 25 minutes Lisa Morelos SALES EXPERT Work Phone: [facility] Comment on above: COPD exacerbation (C MS/HCC) (Primary Dx); Urinary frequency; Urine retention; Dysuria; Difficulty urinating Start: 11-05-2024 End: 11-05-2024 ambulatory LISA MORELOS Not Available Start: 11-04-2024 End: 11-04-2024 ambulatory Edilia Zamora Facility:[facility] Start: 10-13-2024 End: 10-13-2024 Bamboo flowspetar Monroy PA Work Phone: [facility] Start: 10-13-2024 End: 10-13-2024 Bamboo flowsheet Vesna Monroy PA Work Phone: [facility] Start: 10-13-2024 End: 10-13-2024 Office outpatient visit 25 minutes eVsna GORDON Work Phone: [facility] Comment on above: Acute cystitis with hematuria (Primary Dx); Type 2 diabetes mellitus without complication, without long-term current use of insulin; Dysuria; Primary hypertension (CMS/HCC) Start: 10-13-2024 End: 10-13-2024 ambulatory VESNA MONROY Not Available Start: 09-14-2024 End: 09-14-2024 ambulatory CASSI SANTIAGO Not Available Start: 09-09-2024 End: 09-09-2024 Office outpatient visit 25 minutes Cassi Santiago SALES EXPERT Work Phone: [facility] Comment on above: Generalized abdomina l pain (Primary Dx); Nausea and vomiting, unspecified vomiting type; Acute kidney injury (CMS/HCC); 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[facility]/HCC) Start: 09-09-2024 End: 09-09-2024 ambulatory CASSI SANTIAGO Not Available Start: 07-20-2024 End: 07-20-2024 ambulatory Cornelius Talal Sarmini Facility:[facility] Start: 07-20-2024 End: 07-20-2024 Patient encounter procedure Cornelius Talal Sarmini [facility] Start: 06-26-2024 End: 06-26-2024 ambulatory Cornelius Talal Sarmini Facility:[facility] Start: 06-26-2024 End: 06-26-2024 Patient encounter procedure Cornelius Talal Sarmini [facility] Start: 06-22-2024 End: 06-22-2024 Orders Only Vesan Monroy PA Work Phone: [facility] Comment on above: Tick bite of lower l eg, unspecified laterality, initial encounter (Primary Dx) Start: 06-18-2024 End: 06-18-2024 Bamboo flowsheet Vesna Garrett Porfirio PA Work Phone: [facility] Start: 06-18-2024 End: 06-18-2024 Bamboo flowsheet Vesna Tucker Porfirio PA Work Phone: [facility] Start: [...] encounter status Vesna GORDON Work Phone: [facility] Start: 06-18-2024 End: 06-18-2024 ambulatory VESNA Tucker PORFIRIO Not Available Start: 05-18-2024 End: 05-18-2024 ambulatory [facility] Talal [facility] Start: 05-18-2024 End: 05-18-2024 Patient encounter procedure Cornelius Talal Sarmini [facility] Start: 05-07-2024 ambulatory Cornelius Sarmini Facili ty:[facility] Start: 05-04-2024 End: 05-04-2024 Bamboo flowsheet Tan [...] 04-23-2024 End: 05-04-2024 Orders Only Cassi Santiago SALES EXPERT Work Phone: [facility] Comment on [...] 02-26-2024 ambulatory TAN CAPPS Not Available Start: 11-06-2022 End: 11-08-2022 Evaluation and management of inpatient DR SCOTT MERINO Facility:[facility] Start: 08-07-2022 Encounter for genera l adult medical examination without abnormal findings DR SCOTT MERINO [facility] Start: 08-06-2022 End: 08-07-[address] SCOTT MERINO Facility:[facility] Start: 08-06-2022 End: 08-07-2022 Encounter for general adult medical examination without abnormal findings DR SCOTT MERINO Facility:[facility] Procedures Date Procedure Procedure Detail Performing Clinician Start: 11-05-2024 Assay of prostate specific antigen total Lisa Morelos SALES EXPERT Work Phone: Start: 11-05-2024 URINARY TRACT INFECTION (HTRX) Lisa hoffmann SALES EXPERT Work Phone: Start: 11-05-2024 Urnls dip stick/tablet rgnt non-auto w/o micrscp Lisa Morelos SALES EXPERT Work Phone: Start: 10-13-2024 Hemoglobin glycosylated a1c Vesna Tucker Sherman er PA Work Phone: Start: 10-13-2024 Urnls dip stick/tablet rgnt non-auto w/o micrscp Vesna Tucker Saadmer PA Work Phone: Start: 06-26-2024 Colonoscopy Ashli Subramaniani Start: 06-26-2024 Esophagogastroduodenoscopy Ashli Donaldson ini Start: 02-26-2024 Hemoglobin glycosylated a1c Tan brooks MD Work Phone: Start: 08-06-[address] SCOTT MERINO Comment on above: Performed By: #### ABGCO #### [facility] [address] [place] [address] Dr. Anthony Mckenna Colonoscopy Ashli Patelmin i Partial resection of colon M guadalupe Patelmini Plan of Treatment Date Care Activity Detail Author Start: 10-13-2025 Urine screening for protein Diabetes: Urine Protein Screening [facility] Start: 06-21-2025 Glaucoma screening Diabetes: R etinopathy Screening [facility] Start: 03-08-2025 Influenza vaccination Influenz a Vaccine (Season Ended) [facility] Start: 01-12-2025 Hemoglobin A1c measurement Diabetes: Hemoglobin A1C [facility] Start: 10-13-2024 End: 10-13-2025 Microalbumin/Creatinine panel in random Urine Microalbumin / creatinine, urine ratio Lab Routine Type 2 diabetes mellitus without complication, without long-term current use of insulin Expected: 10/13/2024 (Approximate), Expires: 10/13/2025 [facility] Work Phone: Comment on above: Expected: 10/13/2024 (Approximate), Expires: 10/13/2025 Start: 10-13-2024 End: 10-13-2025 URINARY TRACT INFECTION (HTRX) URINARY TRACT INFECTION (HTRX) Lab Routine Acute cystitis with hematuria Expected: 10/13/2024 (Approximate), Expires: 10/13/2025 [facility] Healthcare Comment on above: Expected: 10/13/2024 (Approximate), Expires: 10/13/2025 Start: 10-13-2024 End: 10-13-2024 Patient encounter procedure 10/13/2024 1:30 PM EDT Office Visit [facility] [address] [facility] [address] [place] [address] Vesna Monroy PA [address] [place] [address] Arrived [facility] Comment on above: Arrived Start: 09-09-2024 End: 09-09-2025 Amylase [Enzymatic activity/volume] in Serum or Plasma Amylase Lab Routine Generalized abdominal pain Nausea and vomiting, unspecified vomiting type Expected: 09/09/2024 (Approximate), Expires: 09/09/2025 [facility] Healthcare Comment on above: Expected: 09/09/2024 (Approximate), Expires: 09/09/2025 Start: 09-09-2024 End: 09-09-2025 Comprehensive metabolic 2000 panel - Serum or Plasma Comprehensive metabolic panel Lab Routine Generalized abdominal pain Nausea and vomiting, unspecified vomiting type Acute kidney injury (CMS/HCC) Expected: 09/09/2024 (Approximate), Expires: 09/09/2025 [facility] Comment on above: Expected: 09/09/2024 (Approximate), Expires: 09/09/2025 Start: 09-09-2024 End: 09-09-2025 Lipase [Enzymatic activity/volume] in Serum or Plasma Lipase Lab Routine Generalized abdominal pain Nausea and vomiting, unspecified vomiting type Expected: 09/09/2024 (Approximate), Expires: 09/09/2025 [facility] Comment on above: Expected: 09/09/2024 (Approximate), Expires: 09/09/2025 Start: 09-09-2024 End: 09-09-2025 XR Abdomen Single view XR ABDOMEN 2 VIEW Imaging Routine Generalized abdominal pain Expected: 09/09/2024, Expires: 09/09/2025 [facility] Work Phone: Comment on above: Expected: 09/09/2024 , Expires: 09/09/2025 Start: 07-25-2024 Urine screening for protein Diabetes: Urine Protein Screening [facility] Start: 07-23-2024 End: 06-22-2025 B. burgdorferi antibodies B. burgdorferi antibodies Lab Routine Tick bite of lower leg, unspecified laterality, initial encounter Expected: 07/23/2024 (Approximate), Expires: 06/22/2025 [facility] Work Phone: Comment on above: Expected: 07/23/2024 (Approximate), Expires: 06/22/2025 Start: 06-18-2024 End: 06-18-2025 B. burgdorferi antibodies B. burgdorferi antibodies Lab Routine Tick bite of lower leg, unspecified laterality, initial encounter Expected: 06/18/2024 (Approximate), Expires: 06/18/2025 [facility] Comment on above: Expected: 06/18/2024 (Approximate), Expires: 06/18/2025 Start: 06-18-2024 End: 06-18-2025 Basic metabolic 1998 panel - Serum or Plasma Basic metabolic panel Lab Routine Primary hypertension (CMS/HCC) Pre-op testing Type 2 diabetes mellitus without complication, without long-term current use of insulin (CMS/HCC) Expected: 06/18/2024 (Approximate), Expires: 06/18/2025 [facility] Work Phone: Comment on above: Expected: 06/18/2024 (Approximate), Expires: 06/18/2025 Start: 06-18-2024 End: 06-18-2025 CBC panel - Blood by Automated count CBC Lab Routine Primary hypertension (CMS/HCC) Pre-op testing Type 2 diabetes mellitus without complication, without long-term current use of insulin (CMS/HCC) Expected: 06/18/2024 (Approximate), Expires: 06/18/2025 [facility] Comment on above: Expected: 06/18/2024 (Approximate), Expires: 06/18/2025 Start: 06-18-2024 End: 06-18-2024 Patient encounter procedure 06/18/2024 1:00 PM EST Office Visit [facility] [address] [place] [address] Vesna Monroy PA [address] [place] [address] Arrived [facility] Comment on above: Arrived Start: 05-28-2024 Hemoglobin A1c measurement Diabetes: Hemoglobin A1C [facility] Start: 05-04-2024 End: 05-04-2024 Patient encounter procedure 05/04/2024 1:00 PM EDT Office Visit [facility] [address] [place] [address] Tan Capps MD [address] [place] [address] Arrived [facility] Comment on above: Arrived Start: 03-08-2024 Influenza vaccination Influenza Vacc ine (#1) [facility] Start: 02-26-2024 End: 02-26-2024 Patient encounter procedure 02/26/2024 1:00 PM EDT Office Visit [facility] [address] [place] [address] Tan Capps MD [address] [place] [address] Arrived [facility] Comment on above: Arrived Start: 01-22-2024 Hemoglobin A1c measurement Diabetes: Hemoglobin A1C [facility] Start: 1975 Glaucoma screening Diabetes: R etinopathy Screening [facility] Immunizations Immunization Date Immunization Notes Care Provider Fa cility 01-06-2021 SARS-CoV-2 (COVID-19 ) mRNA BNT-162b2 vax Ashli Castellanos [facility] Comment on above: Result Comment: 2022: [id number] 12-16-2020 SARS-CoV-2 (COVID-19 ) mRNA BNT-162b2 vax Corneliusgarrett Castellanos [facility] Comment on above: Result Comment: 2022: [id number] Payers Date Payer Category Payer Self-pay 2024 Unknown [id number] 2023 [employer] Blue [employer] BCBS [id number] 2023 Unknown BCBS BCBS xxxxxx [id number] 2023-Present [phone] [address] [place] [address] [id number] [id number] 1965 Unknown [id number] 2.16.840.1.380335.3.579. 2.593 1965 Unknown [id number] 2.16.840.1.789389.3.579. 2.593 1965 Unknown [id number] 2.16.840.1.629818.3.579. 2.727 1965 Unknown [id number] 2.16.840.1.902594.3.579. 2.727 1965 Unknown [id number] 2.16.840.1.453250.3.579. 2.727 1965 Unknown [id number] 2.16.840.1.537824.3.579. 2.727 1965 Unknown [id number] 2.16.840.1.593091.3.579. 2.9 1965 Unknown [id number] 2.16.840.1.145649.3.579. 2.1258 1965 Unknown [id number] 2.16.840.1.968186.3.579. 2.1258 1965 Unknown [id number] 2.16.840.1.139277.3.579. 2.1258 1965 Unknown [id number] 2.16.840.1.076629.3.579. 2.1258 1965 Unknown [id number] 2.16.840.1.094774.3.579. 2.1258 1965 Unknown [id number] 2.16.840.1.251357.3.579. 2.1258 1965 Unknown [id number] 2.16.840.1.314671.3.579. 2.9 1959 Unknown [id number] Unknown [id number] 2.16.840.1.296737.3.579. 2.531 Social History Date Type Detail Facility Start: 07-11-2023 End: 11-24-2024 Tobacco smoking status [facility] Smokes tobacco daily [facility] History of tobacco use Cigarette Smoker [facility] Start: 07-11-2023 End: 11-24-2024 Tobacco use and exposure Smokeless tobacco non-user [...] - these days [OSQ] To some extent [facility] (I/We) worried wheth er (my/our) food would run out before (I/we) got money to buy more. Never true [facility] Start: 1965 Sex assigned at Not on file [facility] Start: 05-18-2024 End: 07-20-2024 Tobacco smoking status Heavy tobacco smoker (finding) [facility] Are you now , , , , never or living with a partner? [facility] How often to you hav e a drink containing alcohol? Never [facility] Start: 11-24-2024 Alcoholic beverage intake Ex-drinker (finding) [facility] Medical Equipment Procedure Code Equipment Code Equipment Origin al Text Equipment Identifier Dates Unknown Unknown 06/26/24 Non Biological Unknown FDA Start: 06-26-2024 Unknown Unknown 06/26/24 Non Biological Unknown FDA Start: 06-26-2024 Functional Status Date Assessment Result Facility 11-05-2024 Patient Health Quest ionnaire 2 item (PHQ-2) [Reported] [facility] 07-20-2024 Functional Status N/A [facility] 06-26-2024 Functional Status N/A [facility] 05-18-2024 Functional Status N/A [facility] Clinical Notes 02-26-2024 to 11-24-2024 Cassi Santiago NP - 11/24/2024 11:00 AM Fátima Morelos NP - 11/05/2024 11:30 AM HEIDI Eckert - 10/13/2024 1:30 PM Alvarado Santiago NP - 09/09/2024 10:00 AM EST Note Date & Type Note Facility 11-24-2024 History of Presen t illness Narrative Images from the original note were not included. HPI ER Follow-up Additional comments: Pt went er on 11/19 due to abd pain, vomiting,dizziness Last edited by Nori Barreto MA on 11/24/2024 7:06 AM. Subjective Patient ID: David Ramirez is a 59 y.o. male who presents for ER Follow-up (Pt went er on 11/19 due to abd pain, vomiting,dizziness). Pt has went to ER due to having abd pain, this started a month ago with having the pain that is located upper stomach area in the middle ,pain comes and goes, made him vomit and after this the pain was less He was not given any medication, only had an XR they stated he had possible a virus Pt did just have a colonoscopy in July that he needed to have another one in 6 months due to the findings ER Follow-up Associated symptoms include abdominal pain, anorexia, arthralgias, a fever, myalgias, nausea and vomiting. Pertinent negatives include no headaches. Abdominal Pain This is a recurrent problem. The current episode started in the past 7 days. The onset quality is sudden. The problem occurs 2 to 4 times per day. The problem has been waxing and waning. The pain is located in the epigastric region. The pain is at a severity of 10/10. The quality of the pain is aching, cramping, sharp and tearing. The abdominal pain radiates to the epigastric region. Associated symptoms include anorexia, arthralgias, constipation, a fever, frequency, melena, myalgias, nausea and vomiting. Pertinent negatives include no belching, diarrhea, dysuria, flatus, headaches, hematochezia, hematuria or weight loss. The pain is aggravated by eating. The pain is relieved by Vomiting. Prior diagnostic workup includes CT scan and upper endoscopy. Flowsheet Row Documentation from 11/20/2024 in [facility] with [place], [place] Hospital Information ED, Hospital or Intermediate Facility Discharge? ED Patient has been contacted within 2 days of being seen in the ED Yes Diagnosis Fever, throwing Discharge Date 11/19/24 Discharged To: Home Setting Discharge Hospital [facility] Engagement Call Start Time 1116 Admission Date 11/19/24 Medications Discharge medications reviewed and reconciled from hospital? Yes Is the patient having any side effects they believe may be caused by any medication additions or changes? No Does the patient have all medications ordered at discharge? Yes Appointments Does the patient have a primary care provider? Yes Nursing Interventions Verified appointment date/time/provider Does the patient have any upcoming specialty appointments? No Self Management Patient Teaching Does the patient have access to their discharge instructions? Yes Wrap Up Is the patient/caregiver familiar with Advance Care Planning? Yes Would the patient like more information on Advance Care Planning? No Wrap Up Additional Comments Patient will F/U with PCP Call End Time 1120 Current Outpatient Medications on File Prior to Visit Medication Sig Dispense Refill albuterol HFA 90 mcg/act inhaler INHALE 2 PUFFS BY MOUTH EVERY 6 HOURS NEEDED FOR SHORTNESS OF BREATH OR WHEEZING amitriptyline (Elavil) 50 MG tablet Take 100 mg by mouth at bedtime metoprolol succinate XL (Toprol-XL) 50 MG 24 hr tablet Take 1 tablet (50 mg) by mouth Daily 100 tablet 3 Semaglutide,0.25 or 0.5MG/DOS, (Ozempic, 0.25 or 0.5 MG/DOSE,) 2 MG/3ML solution pen-injector INJECT 0.5 MG UNDER THE SKIN 1 (ONE) TIME PER WEEK 9 mL 3 tamsulosin (Flomax) 0.4 MG 24 hr capsule Take 1 capsule (0.4 mg) by mouth at bedtime 30 capsule 1 No current facility-administered medications on file prior to visit. I have reviewed and reconciled the history and medication list with the patient today. No Known Allergies Social History Tobacco Use Smoking status: Every Day Current packs/day: 0.50 Average packs/day: 0.5 packs/day for 30.0 years (15.0 ttl pk-yrs) Types: Cigarettes Smokeless tobacco: Never Vaping Use Vaping status: Never Used Substance Use Topics Alcohol use: Not Currently Drug use: Never Family History Problem Relation [...] weight loss. Gastrointestinal: Positive for abdominal pain, anorexia, constipation, melena, nausea and vomiting. Negative for diarrhea, flatus and hematochezia. Genitourinary: Positive for frequency. Negative for dysuria and hematuria. Musculoskeletal: Positive for arthralgias and myalgias. Neurological: Negative for headaches. Objective Physical Exam Vitals reviewed. Constitutional: Appearance: Normal appearance. HENT: Head: Normocephalic. Right Ear: Tympanic membrane normal. Left Ear: Tympanic membrane normal. Nose: Nose normal. Mouth/Throat: Mouth: Mucous membranes are moist. Pharynx: Oropharynx is clear. Eyes: Conjunctiva/sclera: Conjunctivae normal. Cardiovascular: Rate and Rhythm: Normal rate and regular rhythm. Pulmonary: Effort: Pulmonary effort is normal. Breath sounds: Wheezing present. Abdominal: General: Bowel sounds are normal. Palpations: Abdomen is soft. Skin: General: Skin is warm and dry. Neurological: General: No focal deficit present. Mental Status: He is alert and oriented to person, place, and time. Psychiatric: Mood and Affect: Mood normal. Behavior: Behavior normal. Thought Content: Thought content normal. Judgment: Judgment normal. Assessment/Plan Diagnoses and all orders for this visit: Acute cough - guaiFENesin-codeine (guaiFENesin AC) 100-10 MG/5ML syrup; Take 10 mL by mouth 4 (four) times a day as needed for cough for up to 7 daysc Discussed risks of this class of medication including the potential for abuse, reliance. Discussed importance of properly storing and disposing of the medication. Reviewed the goals of treatment, including improving pain control and improving functional status. Medication choice and dosage is appropriate for patient's current medical conditions. Reviewed the rules and regulations surrounding prescription of opioids and compliance at length with the patient. Patient will be required to be seen in our office at least every three months for monitoring. At each follow up visit I will reassess the patient's need for the medication. Patient is to have this medication prescribed only through this office. Failure to follow the rules and regulations will result in tapering and discontinuation of medications if applicable. Patient verbalized understanding. OARRS Report was reviewed for this patient. Acute exacerbation of chronic obstructive pulmonary disease (COPD) ([facility]) - levoFLOXacin (Levaquin) 500 MG tablet; Take 1 tablet (500 mg) by mouth Daily for 7 days - methylPREDNISolone (Medrol Dospak) 4 MG tablets; Follow schedule on package instructions Start the above medications as directed. Advised of potential side effects of the steroid. Patient is to take the steroid with food. Increase water intake, get plenty of rest. Can take Tylenol prn for any discomfort or fever. No other anti-inflammatories while on steroid. Cough into elbow. Wash hands often. Advised patient that cough can linger. Follow up in our office if no improvement in one week. No follow-ups on file. documented in this encounter [facility] 11-05-2024 History of Presen t illness Narrative [...] with urination. He was also seen at [facility] for breathing issues. Current Outpatient Medications on [...] normal. Judgment: Judgment normal. 1. COPD exacerbation (CMS/[facility]) (Primary) Stable 2. Urinary frequency Discussed use [...] follow-ups on file. documented in this encounter [facility] 10-13-2024 History of Presen t illness Narrative [...] Final Glucose, UA 10/13/2024 Negative Negative - 1999(110) ++++ mg/dL Final Bilirubin, UA 10/13/2024 1+ Negative - 4(70) +++ mg/dL Final Ketones, UA 10/13/2024 Negative Negative - 160(16) ++++ mg/dL Final Spec Grav, UA 10/13/2024 1.025 1 - 1.03 Final Blood, UA 10/13/2024 Positive Negative - 50 Valeriy/mcL Final Moderate pH, UA 10/13/2024 5.0 5 - 9 Final Protein, UA 10/13/2024 Trace Negative - 1999(20) ++++ mg/dL Final Urobilinogen, UA 10/13/2024 0.2 [...] 04/14/2025) for Wellness. documented in this encounter [facility] 09-09-2024 History of Presen t illness Narrative [...] follow-ups on file. documented in this encounter [facility] 06-26-2024 Evaluation + Plan note Extrac damon from: Title:ANES Post-operative Note---General Author: Ricardo Soria MD Date:06/26/24 Plan Transfer/Discharge: Transfer/Discharge Discharge when meets criteria ( To home ). Extracted from: Title:ANES Pre-operative Note 2022 Author:Ricardo Duffy. Date:06/26/24 Plan [place] [employer] Anesthesiologists (ASA) physical status classification: Class III. Anesthetic Preoperative Plan: Anesthesia General. Extracted from: Title:1Preop H&P Author:Jasmin KINSEY, Ashli skaggs Date:06/26/24 Impression and Plan Impression: Left-sided abdominal pain, family history of colon cancer Plan: -EGD and Colonoscopy Future Scheduled Tests Laboratory* CBC w/ Auto Diff 05/18/24 * Comprehensive Metabolic Panel 05/18/24 [facility] 12-20-2024 Hospital Discharge instructions Patient Education 06/26/2024 [...] day. 06/26/2024 11:07:23 Endoscopy, Care After Procedure [facility] [place] [place] Endoscopy Care After Procedure Please read the instructions outlined below and refer to this sheet in the next few weeks. These discharge instructions provide you with general information on caring for yourself after [facility]. Your doctor may also give you [...] blood. Document Released: 02/05/2005 Document Re-Released: 12/16/2006 [employer] Patient Information 2010 [employer]. 06/26/2024 11:07:19 Colon Polyps Colon Polyps Colon [...] hard liquor (44 mL). General instructions Take dcxw-pme-eozslft and prescription medicines only as told by [...] provider. Document Revised: 10/12/2020 Document Reviewed: 10/12/2020 [employer] Patient Education 2023 [employer]. 06/26/2024 11:06:58 Esophagitis Esophagitis Esophagitis is inflammation [...] Follow these instructions at home: Medicines Take koex-vmf-uircahu and prescription medicines only as told by [...] powder, vinegar, hot sauces, and barbecue sauce. ?Rhea fruit juices and citrus fruits, such as oranges, kristin, and limes. ?Tomato-based foods, such as red sauce, chili, salsa, and pizza with red sauce. ?Fried and fatty foods, such as donuts, croatian fries, potato chips, and high-fat dressings. ?High-fat [...] provider. Document Revised: 01/02/2021 Document Reviewed: 01/02/2021 [employer] Patient Education 2023 [employer]. 06/26/2024 11:06:48 Pardo's Esophagus Pardo's Esophagus Pardo's [...] drinks. ?Tomatoes and foods made with tomatoes. ?Sanderson or spicy foods. ?Chocolate and peppermint. Do not drink alcohol. General instructions Take yfhy-jns-ppremwt and prescription medicines only as told by [...] provider. Document Revised: 09/10/2020 Document Reviewed: 09/10/2020 [employer] Patient Education 2023 [employer]. Follow Up Care 05/18/2024 08:57:16 With:Jasmin KINSEY, SAMYM Moulton, [facility] Address: [address] [place] [address], [address] [phone] [phone] When: Unknown Comments:Office will call to schedule follow up appointment and/or review any pending biopsy resultsCall forany problems. [facility] 12-20-2024 NoteProgress Note-Physician Patient: DAVID RAMIREZ Age: 59 years Sex: Male : 1965 Associated Diagnoses: None Author: Ricardo Soria MD Postoperative Information Postoperative disposition: Postoperative disposition: To PACU. Optimetrix number: Optimetrix number [id number]. Anesthetic utilized: General. Health Status Allergies: Allergic [...] Discharge when meets criteria ( To home ).[facility] Comment: Electronically Signed By: Ricardo [...] Document Re-Released: 12/16/2006 [employer]Care??? Patient Information ???2009 [employer]. Gastroenterology Esophagitis Esophagitis is inflammation of the [...] Radiation or chemotherapy treatm (more content not included)...[facility] NoteEndoscopic Procedure Report - Other Patient: DAVID RAMIREZ Age: 59 years Sex: Male : 1965 Associated Diagnoses: None Author: Ashli Castellanos MD Pre-Procedure Procedure Date 06/26/2024 10:30:00 . Procedure Type: Colonoscopy with removal of tumor(s), polyp(s), or other lesion(s) by cold snare technique, endoscopic mucosal resection. Procedure provider Performed by Ashli Castellanos MD. Current history and physical Reviewed. Colonoscopy (475724108). Partial colectomy (719537145).. Past Medical History No active or resolved past medical history items have been selected or recorded.. reviewed. Family History Breast cancer Sister Heart disease Mother COPD Father Lung cancer Brother Prostate cancer Father Malignant neoplasm of colon Mother Sister . Procedure History Colonoscopy (755948438). Partial colectomy (624923721).. Colorectal neoplasm risk assessment High risk Family [...] Daily, # 90 cap(s), Refills(s) 3, Pharmacy: [facility]/pharmacy #[id number], 177.8, cm, 05/18/24 8:14:00 EST, [...] Otherwise normal colonic mucosa Images Procedure images: Rec_hd_video__40_10_[id number].jpg Rec_hd_video__39_20_092.jpg Rec1_hd_video__37_02_922.jpg Rec1_hd_video__37_10_845.jpg Rec1_hd_video__34_54_568.jpg Rec1_hd_video__33_07_834.jpg Rec1_hd_video__33_05_189.jpg Rec1_hd_video__32_43_733.jpg Rec1_hd_video_2023__T10_32_05_965.jpg Rec1_hd_video_2023__T10_31_58_746.jpg Rec1_hd_video_2023__20T10_30_49_132.jpg Rec1_hd_video_2023__T10_30_39_481.jpg Rec1_hd_video_2023__T10_30_18_132.jpg Rec1_hd_video_2023__T10_29_49_794.jpg Rec1_hd_video_2023__T10_29_20_576.jpg Rec1_hd_video_2023__T10_21_50_822.jpg (Inserted Image. Unable to (more content not included)...[facility]:Result Comment: Electronically Signed By: Ashli Castellanos MD\.br\Date and Time Signed: 06/26/24 10:32 ESTOther Comment: Missing Attachment - attachment storage system not supported [id number] Can be viewed in source system Missing Attachment - attachment storage system not supported [id number] Can be viewed in source systemMissing Attachment - attachment storage system not supported [id number] Can be viewed in source systemMissing Attachment - attachment storage system not supported [id number] Can be viewed in source systemMissing Attachment - attachment storage system not supported [id number] Can be viewed in source systemMissing Attachment - attachment storage system not supported [id number] Can be viewed in source systemMissing Attachment - attachment storage system not supported [id number] Can be viewed in source systemMissing Attachment - attachment storage system not supported [id number] Can be viewed in source system Missing Attachment - attachment storage system not supported [id number] Can be viewed in source systemMissing Attachment - attachment storage system not supported [id number] Can be viewed in source systemMissing Attachment - attachment storage system not supported [id number] Can be viewed in source systemMissing Attachment - attachment storage system not supported [id number] Can be viewed in source systemMissing Attachment - attachment storage system not supported 0720445 Can be viewed in source systemMissing Attachment - attachment storage system not supported [id number] Can be viewed in source systemMissing Attachment - attachment storage system not supported [id number] Can be viewed in source system Missing Attachment - attachment storage system not supported [id number] Can be viewed in source systemMissing Attachment - attachment storage system not supported [id number] Can be viewed in source systemMissing Attachment - attachment storage system not supported [id number] Can be viewed in source [id number] NoteProgress Note-Physician Patient: DAVID RAMIREZ Age: 59 [...] Daily, # 90 cap(s), Refills(s) 3, Pharmacy: [facility]/pharmacy #[id number], 177.8, cm, 05/18/24 8:14:00 EST, [...] Chronic obstructive pulmonary disease / SNOMED CT 958981534 / Confirmed History of partial colectomy / SNOMED CT 4358656037 / Confirmed Hypertension / SNOMED CT 4983011028 / Confirmed Left sided abdominal pain / SNOMED CT 901196679 / Confirmed Screen for colon cancer / SNOMED CT 550165177 / Confirmed Tobacco use / SNOMED CT 6721720971 / Confirmed, Active Problems (6) Chronic obstructive [...] of colon Mother Sister Procedure history: Colonoscopy (933536691). Partial colectomy (500978115). Social History Social & Psychosocial Habits Tobacco [...] qualifying data available . (more content not included)...[facility]: Result Comment: Electronically Signed By: Yang KINSEY, Ricardo Ramírez\.br\Date and Time Signed: 06/26/24 10:13 [id number] NoteEndoscopic Procedure Report - Other Patient: DAVID [...] Normal examined duodenum Images Procedure images: Rec_hd_video____29_504.jpg Rec1_hd_video____08_863.jpg Rec_hd_video___51_227.jpg Rec_hd_video___23_988.jpg Rec1_hd_video_2023__T10_08_06_929.jpg [id number] . Post-Procedure Complications: none. Estimated blood loss: [...] follow in GI clinic in 1-2 after dischargeLutheran HospitalComment on above:Result Comment: Electronically Signed By: Ashli Castellanos MD\.br\Date and Time Signed: 06/26/24 10:01 ESTOther Comment: Missing Attachment - attachment storage system not supported [id number] Can be viewed in source system Missing Attachment - attachment storage system not supported [id number] Can be viewed in source systemMissing Attachment - attachment storage system not supported [id number] Can be viewed in source systemMissing Attachment - attachment storage system not supported [id number] Can be viewed in source systemMissing Attachment - attachment storage system not supported [id number] Can be viewed in source systemMissing Attachment - attachment storage system not supported [id number] Can be viewed in source [id number] NoteHistory and Physical Patient: DAVID RAMIREZ Age: 59 years Sex: Male : 1965 Associated Diagnoses: None Author: Ashli Castellanos MD Preoperative Information Indication for procedure and diagnosis: [...] Daily, # 90 cap(s), Refills(s) 3, Pharmacy: [facility]/pharmacy #[id number], 177.8, cm, 05/18/24 8:14:00 EST, [...] All Problems Tobacco use / SNOMED CT 0206478521 / Confirmed Left sided abdominal pain / SNOMED CT 670104875 / Confirmed Screen for colon cancer / SNOMED CT 550590930 / Confirmed Chronic obstructive pulmonary disease / SNOMED CT 000416371 / Confirmed Hypertension / SNOMED CT 2327844005 / Confirmed History of partial colectomy / SNOMED CT 9934854904 / Confirmed Histories Past Medical History: No active or resolved past medical history items have been selected or recorded. Family History: Father Prostate cancer COPD Mother Heart disease Malignant neoplasm of colon Brother Lung cancer Sister Breast cancer Malignant neoplasm of colon Procedure history: Colonoscopy (104513277). Partial colectomy (862295324). Social History Social & Psychosocial Habits Tobacco 05/18/2024 Tobacco Use: 10 or more cigarettes (1/ Smokeless tobacco use: Never Type: Cigarettes . Physical Examination Vital Signs (last 24 hrs) Last Charted Temp Temporal 36.4 DegC (JUN 26:) Heart Rate Monitored 94 bpm (JUN 26:) Resp Rate 16 br/min (JUN 26:) SBP 133 mmHg (JUN 26:) DBP H 107 mmHg (JUN 26:) Weight 109 kg (JUN 26:) BMI 34.48 (JUN 26:) General: in Nad Abdomen: Soft, NTND Impression and Plan Impression: Left-sided abdominal pain, family history of colon cancer Plan: -EGD and ColonoscopyLutheran HospitalComment on above:Result Comment: Electronically Signed By: Jasmin KINSEY, Ashli Hinojosa\.br\Date and Time Signed: 06/26/24 09:47 [id number] History of Present illness Narrative* HEIDI De Guzman - 06/22/2024 10:23 AM EST Lab order. documented in this encounterDeaconess Incarnate Word Health [id number] History of Present illness Narrative* HEIDI De [...] long-term current use of insulin (CMS/HCC) - Basic metabolic panel; Future - [...] 09/16/2024) for Wellness, Diabetes. documented in this encounterDeaconess Incarnate Word Health [id number] Evaluation + Plan note Future Scheduled Tests Laboratory* CBC w/ Auto Diff 05/18/24 * Comprehensive Metabolic Panel 05/18/24 [facility] 10-28-2024 History of Present [...] No follow-ups on file. documented in this encounterDeaconess Incarnate Word Health [id number] Telephone encounter Note* Telephone Encounter - Zoie Kemp - 04/23/2024 1:27 PM EDT Pt called stating he's had a severe nausea and its able to keep anything down. Were completely booked saturday. He's hoping someone can suggest OTC meds or he can get a RX for something. [facility] [place] if anything is prescribed [facility] [id number] Miscellaneous Notes* Telephone Encounter - Zoie Kemp - 04/23/2024 1:27 PM EDT Pt called stating he's had a severe nausea and its able to keep anything down. Were completely booked saturday. He's hoping someone can suggest OTC meds or he can get a RX for something. [facility] [place] if anything is prescribed documented in this encounterDeaconess Incarn[facility] Word Health [id number] History of Present illness Narrative* Tan Capps [...] complication, without long-term current use of insulin ([facility]/HCC) - POCT Glycated hemoglobin, total - FSBS log shows good control, most recent A1C is at or near goal. Continue current treatment plan as previously outlined without changes. - Down about 20lb in 4 months. Cigarette nicotine dependence without complication Follow up in about 6 months (around 08/28/2024) for DM- A1C. [facility] HealthcareEvaluation + Plan note Future Appointments Appointment Date:06/26/2024 08:30:00 AM Scheduled Provider: Location:[facility] Appointment Type:Surgery FT Appointment Date:06/26/2024 09:30:00 AM Scheduled Provider: Location:[facility] Appointment Type:Surgery FT Future Scheduled Tests Laboratory* CBC w/ Auto Diff 05/18/24 * Comprehensive Metabolic Panel 05/18/24 [facility] Evaluation note* Diagnosis Nausea and vomiting, unspecified vomiting type- Primary documented in this encounter [facility] HealthcareEvaluation note* Diagnosis Postprandial epigastric pain- Primary Screening for colorectal cancer documented in this encounter [facility] HealthcareEvaluation note* Diagnosis Primary hypertension ([facility]/HCC)- Primary Unspecified essential hypertension Pre-op testing Unspecified pre-operative examination Type 2 diabetes mellitus without complication, without long-term current use of insulin ([facility]/HCC) Tobacco user Tobacco use disorder Lip swelling Diseases of lips Diverticulitis of colon Diverticulitis of colon (without mention of hemorrhage) Class 1 obesity due to excess calories with serious comorbidity and body mass index (BMI) of 34.0 to 34.9 in adult Tick bite of lower leg, unspecified laterality, initial encounter documented in this encounter [facility] HealthcareEvaluation note* Diagnosis Tick bite of lower leg, unspecified laterality, initial encounter- Primary documented in this encounter [facility] HealthcareEvaluation note* Diagnosis Primary hypertension ([facility]/HCC)- Primary Unspecified essential hypertension Type 2 diabetes mellitus without complication, without long-term current use of insulin ([facility]/HCC) Cigarette nicotine dependence without complication documented in this encounter [facility] HealthcareEvaluation note* Diagnosis Generalized abdominal pain- Primary Abdominal pain, generalized Nausea and vomiting, unspecified vomiting type Acute kidney injury ([facility]) 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[facility]) Type II or unspecified type diabetes mellitus with ophthalmic manifestations, not stated as uncontrolled documented in this encounter [facility] HealthcareEvaluation note* Diagnosis Acute cystitis with hematuria- Primary Type 2 diabetes mellitus without complication, without long-term current use of insulin Dysuria Primary hypertension ([facility]) Unspecified essential hypertension documented in this encounter [facility] HealthcareEvaluation note* Diagnosis COPD exacerbation ([facility])- Primary Obstructive chronic bronchitis with exacerbation Urinary frequency Urine retention Unspecified retention of urine Dysuria Difficulty urinating Other symptoms involving urinary system documented in this encounter [facility] HealthcareEvaluation note* Diagnosis Acute cough- Primary Acute exacerbation of chronic obstructive pulmonary disease (COPD) ([facility]) Obstructive chronic bronchitis with exacerbation documented in this encounter [facility] HealthcareHospital course Narrative No data available for this section [facility] Hospital Discharge instructions No data available for this section [facility] Progress note No data available for this section [facility] Summary Purpose Family History [...] and content) DATE CREATED AUTHOR 11/15/2022 [facility] DATE CREATED AUTHOR AUTHOR'S ORGANIZ ATION 07/01/2024 [facility] DATE CREATED AUTHOR AUTHOR'S ORGANIZ ATION [facility]2024 [facility] DATE CREATED AUTHOR AUTHOR'S ORGANIZ ATION 11/11/2024 Lion Gamaliel [facility] ical Center DATE CREATED AUTHOR AUTHOR'S ORGANIZ ATION 11/13/2024 [facility] DATE CREATED AUTHOR AUTHOR'S ORGANIZ ATION 11/20/2024 [facility] DATE CREATED AUTHOR AUTHOR'S ORGANIZ ATION 11/25/2024 [facility] Care Teams (unrecognized sec tion and content) Silver Service Waiter Relationship Specialty Start Date End Date Tan Capps MD [address] [place] [address] PCP - General Internal Medicine 10/30/23 Tan Capps MD [address] [place] [address] PCP - [place] [facility] 01/06/24 Silver Service Waiter Relationship Specialty Start Date End Date Tan Capps MD [address] [place] [address] PCP - General Internal Medicine 10/30/23 Tan Capps MD [address] [place] [address] PCP - [facility] [place] [facility] 01/06/24 [employer] Service Waiter Relationship Specialty Start Date End Date Tan Capps MD [address] [place] [address] PCP - General Internal Medicine 10/30/23 Tan Capps MD [address] [place] [address] PCP - [facility] 01/06/24 Silver Service Waiter Relationship Specialty Start Date End Date Tan Capps MD [address] [place] [address] PCP - General Internal Medicine 10/30/23 Tan Capps MD [address] [place] [address] PCP - [facility] 01/06/24 Silver Service Waiter Relationship Specialty Start Date End Date Tan Capps MD [address] [place] [address] PCP - General Internal Medicine 10/30/23 Tan Capps MD [address] [place] [address] PCP - [facility] 01/06/24 Silver Service Waiter Relationship Specialty Start Date End Date Tan Capps MD [address] [place] [address] PCP - General Internal Medicine 10/30/23 Silver Service Waiter Relationship Specialty Start Date End Date aTn Capps MD [address] [place] [address] PCP - General Internal Medicine 10/30/23 Silver Service Waiter Relationship Specialty Start Date End Date Tan Capps MD [address] [place] [address] PCP - General Internal Medicine 10/30/23 Silver Service Waiter Relationship Specialty Start Date End Date Tan Capps MD [address] [place] [address] PCP - General Internal Medicine 10/30/23 Silver Service Waiter Relationship Specialty Start Date End Date Tan Capps MD [address] [place] [address] PCP - General Internal Medicine 10/30/23 Silver Service Waiter Relationship Specialty Start Date End Date Tan Capps MD [address] [facility] [address] [place] [address] PCP - General Internal Medicine 10/30/23 Silver Service Waiter Relationship Specialty Start Date End Date Tan Capps MD [address] [facility] [address] [place] [address] PCP - General Internal Medicine 10/30/23 Reason [...] Diabetes Hypertension Reason Comments Med Refill Metoprolol Reason Comments ER Follow-up Pt went er on 11/19 d ue to abd pain, vomiting,dizziness FOR RECORDS PERTAINING TO PATIENTS WHO ARE [...] BE BASED ON THE PRIMARY CLINICAL RECORDS. [employer] provides no warranty or guarantee of the accuracy or completeness of information in this document.
--- NOTE | 2024-12-08 07:11 | ECG_ITS ---
[facility] Test Date: 2024-12-08 Pat Name: DAVID GARZA Department: Room: - Gender: Male Apple Picker: : [phone] Requested By: [id number] Order Number: [id number] Reading MD: ARELI MCKEON M.D. Measurements Intervals [place] Rate: 83 P: 43 [place]: 142 QRS: 46 QRSD: 86 T: 53 QT: 344 QTc: 383 Interpretive Statements 1100 Sinus rhythm 9110 normal ECG Compared to ECG 11/19/2024 11:18:42 Sinus tachycardia no longer present Electronically Signed On 12-08-2024 18:07:14 EDT by ARELI MCKEON M.D.
--- NOTE | 2024-12-08 07:13 | ED_ITS ---
HPI HPI - General Adult General Chief complaint: Dental/Oral Stated complaint: DENTAL PAIN, HIGH BLOOD PRESSURE'' Time Seen by Provider: 12/08/24 07:04 Source: patient Mode of arrival: walk-in Limitations: no limitations History of Present Illness HPI narrative: 59-year-old male presents for elevated blood pressure and toothache. He is complaining of pain to his left lower jaw and he has a dentist appointment in 3 days. That pain is moderate to severe and continuous. He also has been getting very high blood pressure readings at home, with diastolics of 120-130. He is on blood pressure medicine, metoprolol 50 mg once a day and his last dose was about 4 hours ago. Sometimes he feels a little bit dizzy. Related Data Home Medications ?Medication ?Instructions ?Recorded ?Confirmed amitriptyline 50 mg tablet 50 mg PO DAILY 09/06/2409/29 esomeprazole magnesium 40 mg 40 mg PO DAILY 09/06/24 0 12/08/24 capsule,delayed release metoprolol succinate 50 mg 50 mg PO DAILY 09/06/2409/29 tablet,extended release 24 hr semaglutide 0.25 mg or 0.5 mg (2 0.25 mg subcut QWEEK 09/06/24 12/08/24 mg/3 mL) subcutaneous pen injector (Aphios) Previous Rx's ?Medication ?Instructions ?Recorded albuterol sulfate 90 mcg/actuation 2 inh inhalation Q6 H PRN shortness 11/04/24 aerosol inhaler of breath or wheezing #8.5 g hiren hydrocodone 5 mg-acetaminophen 325 1 tab PO Q6H PRN pa in 5 days #20 12/08/24 mg tablet tabs ibuprofen 800 mg tablet 800 mg PO Q8H PRN pain #20 t abs 12/08/24 penicillin V potassium 250 mg 250 mg PO QID 10 days #4 0 tabs 12/08/24 tablet Allergies Allergy/AdvReac Type Severity Reaction Status Date / Time No Known Drug Allergies Allergy Verified 12/08/24 06:49 Opioid HPI Opioid Management Most Recent Opioid Data: Last Pain Scale 6 Today, 08:26 Last ED Pain Assessment Today, 07:52 Last MAR Pain Assessment Today, 07:27 Review of Systems ROS Narrative A ten point review of systems is negative except as noted above. PFSH PFSH Social History Little interest or pleasure in doing things: not at all Feeling down, depressed, or hopeless: not at all Exam Narrative Exam Narrative: Nurses note and vital signs reviewed and patient is not hypoxic. General: The patient appears well and in no apparent distress. Patient is re sting comfortably on cart. Skin: Warm, dry, no pallor noted. There is no rash noted. Head: Normocephalic, atraumatic Eye: Normal conjunctiva, no drainage Ears, Nose, Mouth, and Throat: oral mucosa is moist. Nares patent. Dental condition is poor with many teeth missing and caries noted in the left lower jaw. No bleeding or pus or swelling to the floor of his mouth. No facial swelling. Cardiovascular: Regular Rate and Rhythm Respiratory: Patient is in no distress, no accessory muscle use, lungs are clear to auscultation, no wheezing, rales or rhonchi Back: non-tender GI: Soft and nontender Musculoskeletal: The patient has no evidence of calf tenderness, no pitting edema, symmetrical pulses noted bilaterally Neurological: A&O, normal speech Psychiatric: Cooperative Constitutional Vital Signs, click to edit/add: Last Vital Signs Temp 98.1 F 12/08/24 06:49 Pulse 87 12/08/24 08:50 Resp 20 12/08/24 08:50 BP 163/100 H 12/08/24 08:45 Pulse Ox 97 12/08/24 08:50 O2 Del Method Room Air 12/08/24 06:49 Course Vital Signs Vital signs: Vital Signs Temperature 98.1 F 12/08/24 06:49 Pulse Rate 89 12/08/24 06:49 Respiratory Rate 18 12/08/24 06:49 Blood Pressure 160/102 H 12/08/24 06:49 Pulse Oximetry 96 12/08/24 06:49 Oxygen Delivery Method Room Air 12/08/24 06:49 Temperature 98.1 F 12/08/24 06:49 Pulse Rate 87 12/08/24 08:50 Respiratory Rate 20 12/08/24 08:50 Blood Pressure 163/100 H 12/08/24 08:45 Pulse Oximetry 97 12/08/24 08:50 Oxygen Delivery Method Room Air 12/08/24 06:49 Medical Decision Making MDM Narrative Medical decision making narrative: Blood pressure was elevated upon arrival and he was given IV hydralazine. Blood pressure is improving. He has a dentist appointment in 3 days and was prescribed hydrocodone, ibuprofen, and penicillin. Blood pressure rechecked from his physician this week. Treatment diagnosis and follow-up were discussed with the patient. Differential Diagnosis Differential Diagnosis: Hypertension, dental caries Lab Data Lab results reviewed: Yes I reviewed the patient's lab results Labs: Lab Results 12/08/24 Range/Units 07:28 WBC 15.6 H (4.0-11.0) 10^3/uL RBC 5.46 (4.70-6.10) 10^6/uL Hgb 15.9 (14.0-18.0) g/dL Hct 47.0 (42.0-54.0) % MCV 86.1 (80.0-94.0) fL MCH 29.1 (25.9-34.0) pg MCHC 33.8 (29.9-35.2) g/dL RDW 14.1 (11.0-15.0) % Plt Count 303 (150-450) 10^3/uL MPV 8.4 L (9.5-13.5) fL Seg Neuts % (Manual) 76.0 H (43.0-75.0) Lymphocytes % (Manual) 18.0 L (20.5-60.0) % Monocytes % (Manual) 3.0 (1.7-12.0) % Eosinophils % (Manual) 3.0 (0.9-7.0) % Basophils % (Manual) 0.0 L (0.2-2.0) % Neutrophils # (Manual) 11.85 H (1.4-6.5) 10^3/uL Lymphocytes # (Manual) 2.80 (1.20-3.80) 10^3/uL Monocytes # (Manual) 0.46 (0.30-0.80) 10^3/uL Eosinophils # (Manual) 0.46 (0.00-0.70) 10^3/uL Basophils # (Manual) 0.00 (0.00-0.10) 10^3/uL Sodium 137 (136-145) mmol/L Potassium 4.4 (3.5-5.1) mmol/L Chloride 100 (98-107) mmol/L Carbon Dioxide 28.3 (21.0-32.0) mmol/L Anion Gap 13.1 BUN 12.0 (7.0-18.0) mg/dL Creatinine 1.09 (0.70-1.30) mg/dL Est GFR ( Amer) >60 (>=60 mL/min/1.73m^2) Est GFR (Non-Af Amer) >60 (>=60 mL/min/1.73m^2) BUN/Creatinine Ratio 11.0 Glucose 109 H (74-106) mg/dL Calcium 9.3 (8.5-10.1) mg/dL ECG Data Attestation: I personally reviewed and interpreted this ECG as follows: (EKG on my interpretation shows normal sinus rhythm with rate of 83 and no acute change) Discharge Plan Discharge Chief Complaint: Dental/Oral Clinical Impression: Hypertension, Pain, dental Patient Disposition: Home, Self-Care Time of Disposition Decision: 08:58 Condition: Good Mode of Transportation: Private Vehicle Prescriptions / Home Meds: New ibuprofen 800 mg tablet 800 mg PO Q8H PRN (Reason: pain) Qty: 20 0RF hydrocodone-acetaminophen 5-325 mg tablet 1 tab PO Q6H PRN (Reason: pain) 5 Days Qty: 20 0RF penicillin V potassium 250 mg tablet 250 mg PO QID 10 Days Qty: 40 0RF No Action albuterol sulfate 90 mcg/actuation HFA aerosol inhaler 2 inh inhalation Q6H PRN (Reason: shortness of breath or wheezing) Qty: 8.5 0RF metoprolol succinate 50 mg tablet extended release 24 hr 50 mg PO DAILY amitriptyline 50 mg tablet 50 mg PO DAILY esomeprazole magnesium 40 mg capsule,delayed release(DR/EC) 40 mg PO DAILY Ozempic 0.25 mg or 0.5 mg (2 mg/3 mL) pen injector 0.25 mg SUBCUT QWEEK Print Language: Bengali Instructions: Hypertension (ED) Additional Instructions: Blood pressure recheck from your family physician this week. Referrals: ANIVAL WHEELER [Primary Care Provider, Internal Medicine] - 1 week
[2024-12-08] MEDS: KETOROLAC TROMETHAMINE 30 MG/ML VIAL IVP (07:27)
[2024-12-08] MEDS: HYDRALAZINE HCL 20 MG/ML VIAL 10 MG IVP (07:27)
[2024-12-08 07:31] LABS: Hemoglobin 15.9 g/dL (14.0-18.0); Mean Corpuscular HGB Conc 33.8 g/dL (29.9-35.2); Mean Corpuscular Hemoglobin 29.1 pg (25.9-34.0); Mean Corpuscular Volume 86.1 fL (80.0-94.0); Mean Platelet Volume 8.4 fL (9.5-13.5); Platelet Count 303 10^3/uL (150-450); Red Blood Count 5.46 10^6/uL (4.70-6.10); Red Cell Distribution Width 14.1 % (11.0-15.0); White Blood Count 15.6 10^3/uL (4.0-11.0)
[2024-12-08 07:44] LABS: Anion Gap 13.1; Calcium 9.3 mg/dL (8.5-10.1); Carbon Dioxide 28.3 mmol/L (21.0-32.0); Chloride 100 mmol/L (98-107); Estimated GFR (African America >60 (>=60 mL/min/1.73m^2); Estimated GFR (Non-African Ame >60 (>=60 mL/min/1.73m^2); Glucose 109 mg/dL (74-106); Potassium 4.4 mmol/L (3.5-5.1); Sodium 137 mmol/L (136-145)
[2024-12-08 08:13] LABS: Eosinophils Absolute Manual 0.46 10^3/uL (0.00-0.70); Monocytes Absolute Manual 0.46 10^3/uL (0.30-0.80); Segmented Neut Absolute Manual 11.85 10^3/uL (1.4-6.5)
== END 2024-12-08 09:08 | disposition home or self-care (01) ==
PROVIDERS: Emergency Provider Emergency Medicine; PCP Internal Medicine
DX: K08.89 Other specified disorders of teeth and supporting structures (principal); I10 Essential (primary) hypertension; Z79.899 Other long term (current) drug therapy
CPT/HCPCS: 36415; 80048; 85007; 85027; 93005; 96374; 96375; 99285; J0360; J1885